=== PATIENT | female | born 1945 | race Caucasian/White ===

== ENCOUNTER → 2017-01-26 | Day surgery (SDC) | payer BC ==
[2017-01-12 15:38] VITALS: Ht 165.1 cm; Wt 59.5 kg
[~2017-01-26] VITALS: Ht 165.1 cm; Wt 59.5 kg
[~2017-01-26] MED LIST: 500ML BSS 0.3ML EPI 1:1000PF IRRIG ONE; ACETAMINOPHEN 325 MG TAB PO PRN; AMLO-114 PO; AMVISC PLUS 0.8ML SYRINGE INT OCU ONE; ASPI-461 PO; ATEN-173 PO; ATOR-22 PO; ATROPINE SULFATE 0.1 MG/ML 5ML SYR IV PRN; AcetaZOLAMIDE 250 MG TAB PO SCH; BETAXOLOL HCL 0.25% OP SUSP PER DROP CHARGE OPR SCH; BRIMONIDINE TART 0.2% OP SOLN PER DROP CHARGE ONE; BSS FLUSH ONE; ENDOCOAT 0.85ML SYRINGE INT OCU ONE; EpHEDrine SULFATE INJ 50 MG/ML AMP IV PRN; EpINEphrine INJ 1MG/ML AMP 1 MG/ML AMP ONE; FENTANYL CITRATE INJ 50 MCG/1 ML 2 ML VIAL IV PRN; FERR1TAB13 PO; FLUMAZENIL 0.1 MG/1 ML 10 ML VIAL IV PRN; HYDROmorphone INJ 2 MG/ML SYR/VIAL IV PRN; LABETALOL HCL IV 5 MG/ML 20ML IV PRN; LACTATED RINGER'S 1000ML 500 ML IV SCH; LIDOCAINE 4% OP SOLN DROP CHARGE ONE; LIDOCAINE 4% OP SOLN DROP CHARGE OPR SCH; LIDOCAINE HCL 1% MPF 2 ML VIAL ONE; LISI40TA PO; MEPERIDINE HCL 25 MG/ML CARP IV PRN; MIDAZOLAM HCL 1 MG/ML 2ML VIAL ONE; MIX: 4ML BSS 1ML EPI 1:1000 PF INSTIL ONE; MOXIFLOXACIN OPH SOLN PER DROP CHARGE ONE; NALOXONE HCL 0.4 MG/1 ML VIAL/CARP IV PRN; OCUCOAT 1 ML SOLN IO ONE; ONDANSETRON INJ 2 MG/ML 2 ML VIAL IV PRN; PHENYLEPHRINE 100MCG/ML 5ML SYR IV PRN; POVIDONE-IODINE OP SOLN 30 ML BTL ONE; PROPARACAINE 0.5% OP SOLN PER DROP CHARGE OPR SCH; TOBRAMYCIN/DEXAMETHASONE OPH OINT PER APPLN CHARGE ONE
[2017-01-26] MEDS: PHENYLEPHRINE HCL 2.5% OP SOLN PER DROP CHARGE OPR SCH ×2 (08:50→08:55)
[2017-01-26] MEDS: TROPICAMIDE 1% OP SOLN PER DROP CHARGE OPR SCH ×2 (08:51→08:56)
[2017-01-26] MEDS: CYCLOPENTOLATE HCL 1% OP SOLN PER DROP CHARGE OPR SCH ×2 (08:52→08:57)
--- NOTE | 2017-01-26 08:52 | History & Physical Bridge - [place] ---
H&P Re-Evaluation Bridge Note: I have examined the patient, reviewed the History & Physical and in the interval since the performance of the History & Physical I have noted the following changes of clinical significance: No changes noted
[2017-01-26] MEDS: MOXIFLOXACIN OPH SOLN PER DROP CHARGE OPR SCH ×2 (08:53→09:03)
--- NOTE | 2017-01-26 10:08 | Discharge Instructions-SurgCtr ---
Discharge Instructions Date of Service Jan 26, 2017. Visit Reason for Visit: Cataract Right Eye Discharge Discharge Diagnosis / Problem: lens implant right eye Discharge Goals Goal(s): Improve function Activity Recommendations Activity Limitations: resume your previous activity Lifting Limitations: no more than 10 pounds Exercise/Sports Limitations: gradually increase as tolerated May Resume Sexual Activity: when tolerated Shower/Bathe: tomorrow Driving or Machine Use: resume 1 day after discharge Anesthesia . Post Anesthesia Instructions: If you have had General Anesthesia or IV Sedation: * Do not drive today. * Resume driving when surgeon permits. * Do not make important decisions or sign legal documents today. * Call surgeon for: 1. Temperature elevations greater than 101 degrees F. 2. Uncontrollable pain. 3. Excessive bleeding. 4. Persistent nausea and vomiting. 5. Medication intolerance (nausea, vomiting or rash). * For nausea and vomiting use only clear liquids such as: tea, soda, bouillon until nausea subsides, then gradually increase diet as tolerated. * If you have any concerns or questions, call your surgeon's office. If physician is unavailable and it is an emergency, call 911 or go to the nearest emergency room. . Instructions / Follow-Up Instructions / Follow-Up ACTIVITY RECOMMENDATIONS: * Light activities. * Mild irritation and blurred vision are common for the first few days. * You may walk outside, read, watch television. * Redness around the white part of the eye is common. MEDICATIONS: Resume previous medications unless instructed otherwise by your surgeon. * Take white Diamox (Acetazolamide) tablet at 1 pm today. Start all eye drops at 1 pm today: * Eye drops (today and tomorrow): Prednisone - one drop in operative eye every 3 hours while awake Ofloxacin - one drop in operative eye every 3 hours while awake SPECIAL CARE INSTRUCTIONS: * Tape plastic shield over eye to sleep at night. Call your doctor at with any concerns or problems. FOLLOW UP VISIT: Follow-up with Dr Torres at [place] office as scheduled. Diet Recommendations Home Diet: no limitations Procedures Procedures Performed: cataract extraction with lens implant Pending Studies Studies pending at discharge: no Medical Emergencies . Who to Call and When: Medical Emergencies: If at any time you feel your situation is an emergency, please call 911 immediately. . Non-Emergent Contact Non-Emergency issues call your: Manufacturing Controller Call Non-Emergent contact if: your pain is not controlled [phone] . . "Provider Documentation" section prepared by Dru Torres. .
--- NOTE | 2017-01-26 10:10 | [facility] Operative Report ---
Operative Report Date of Service Jan 26, 2017. Operative Report 1. PREOPERATIVE DIAGNOSIS: Senile nuclear cataract, right eye. 2. POSTOPERATIVE DIAGNOSIS: Senile nuclear cataract, right eye. 3. PROCEDURE: Phacoemulsification of right cataract with posterior chamber lens implant, type Bausch [employer] Lomb, model Hoya [id number], power +21.5 diopters. ANESTHESIA: Local standby. SURGEON: Dr. Torres. COMPLICATIONS: None. OPERATING TIME: 10 minutes. 4. OPERATION AND FINDINGS: DESCRIPTION OF PROCEDURE: The right pupil was dilated. The anesthetic was administered using a topical technique. The right eye was prepped and draped. A speculum was placed. A clear corneal incision was formed. The chamber was filled with Amvisc Plus and Endocoat. Epinephrine solution was used. A paracentesis was placed. A capsulorrhexis was performed. The nucleus was hydrodissected. The lens was removed with phacoemulsification. Time was 2.86 seconds. The aspiration unit was used to remove the cortex. The capsule was filled with Amvisc Plus. The lens implant was folded and placed into the capsule. The incision was hydrated. The Amvisc was aspirated. The wound was secure. The chamber was deep. The pupil was round. Brimonidine, TobraDex ointment and Vigamox solution were placed. The speculum was removed. The patient was returned to the Recovery Room in stable condition. I attest to the content of the Intraoperative Record and any orders documented therein. Any exceptions are noted below. The scribe's documentation has been prepared in my presence, under my direction and personally reviewed by me in its entirety. I confirm that the note above accurately reflects all work, treatment, procedures, and medical decision making performed by me. I personally scribed for Dru Torres M.D. ([email or web address]) on 01/26/17 at 10:10. Electronically submitted by Nia Street ([email or web address]).
[2017-01-26 10:14] VITALS: TEMP 36
--- NOTE | 2017-01-26 10:29 | Anesthesia Progress Nt - [facility] ---
Anesthesia Post Op Note Date & Time Jan 26, 2017 at 10:29 Vital Signs Pain Intensity: 0 Vital Signs Past 12 Hours Date Time Temp Pulse Resp B/P (MAP) Pulse Ox O2 Delivery O2 Flow Rate FiO2 01/26/17 10:14 36 43 16 145/59 (87) 98 Room Air 01/26/17 08:41 36.6 53 16 133/76 (95) 96 Room Air Notes Mental Status: alert / awake / arousable, participated in evaluation Pt Amnestic to Procedure: Yes Nausea / Vomiting: adequately controlled Pain: adequately controlled Airway Patency, RR, SpO2: stable & adequate BP & HR: stable & adequate Hydration State: stable & adequate Anesthetic Complications: no major complications apparent
[2017-01-26 10:31] VITALS: BP 124/71; PULSE 45; O2SAT 96
== END | disposition home or self-care (01) ==
LOC: X.SURG 08:16
PROVIDERS: ATTEND Specialist
DX: H25.11 Age-related nuclear cataract, right eye (principal); I25.2 Old myocardial infarction; E78.00 Pure hypercholesterolemia, unspecified; Z79.82 Long term (current) use of aspirin; J44.9 Chronic obstructive pulmonary disease, unspecified; F17.200 Nicotine dependence, unspecified, uncomplicated

== ENCOUNTER → 2017-02-16 | Day surgery (SDC) | payer BC ==
[2017-02-04 13:37] VITALS: Ht 165.1 cm; Wt 59.5 kg
[~2017-02-16] VITALS: Ht 165.1 cm; Wt 59.5 kg
[~2017-02-16] MED LIST changes: +BETAXOLOL HCL 0.25% OP SUSP PER DROP CHARGE OPL SCH; -BETAXOLOL HCL 0.25% OP SUSP PER DROP CHARGE OPR SCH; -FENTANYL CITRATE INJ 50 MCG/1 ML 2 ML VIAL IV PRN; -FLUMAZENIL 0.1 MG/1 ML 10 ML VIAL IV PRN; -HYDROmorphone INJ 2 MG/ML SYR/VIAL IV PRN; -LABETALOL HCL IV 5 MG/ML 20ML IV PRN; +LIDOCAINE 4% OP SOLN DROP CHARGE OPL SCH; -LIDOCAINE 4% OP SOLN DROP CHARGE OPR SCH; -MEPERIDINE HCL 25 MG/ML CARP IV PRN; -NALOXONE HCL 0.4 MG/1 ML VIAL/CARP IV PRN; -ONDANSETRON INJ 2 MG/ML 2 ML VIAL IV PRN; -PHENYLEPHRINE 100MCG/ML 5ML SYR IV PRN; +PROPARACAINE 0.5% OP SOLN PER DROP CHARGE OPL SCH; -PROPARACAINE 0.5% OP SOLN PER DROP CHARGE OPR SCH
[2017-02-16] MEDS: PHENYLEPHRINE HCL 2.5% OP SOLN PER DROP CHARGE OPL SCH ×2 (11:06→11:11)
[2017-02-16] MEDS: TROPICAMIDE 1% OP SOLN PER DROP CHARGE OPL SCH ×2 (11:07→11:12)
[2017-02-16] MEDS: CYCLOPENTOLATE HCL 1% OP SOLN PER DROP CHARGE OPL SCH ×2 (11:08→11:13)
[2017-02-16] MEDS: MOXIFLOXACIN OPH SOLN PER DROP CHARGE OPL SCH ×2 (11:09→11:15)
--- NOTE | 2017-02-16 12:10 | Discharge Instructions-SurgCtr ---
Discharge Instructions Date of Service Feb 16, 2017. Visit Reason for Visit: Cataract Left Eye Discharge Discharge Diagnosis / Problem: lens implant left eye Discharge Goals Goal(s): Improve function Activity Recommendations Activity Limitations: resume your previous activity Lifting Limitations: no more than 10 pounds Exercise/Sports Limitations: gradually increase as tolerated May Resume Sexual Activity: when tolerated Shower/Bathe: tomorrow Driving or Machine Use: resume 1 day after discharge Anesthesia . Post Anesthesia Instructions: If you have had General Anesthesia or IV Sedation: * Do not drive today. * Resume driving when surgeon permits. * Do not make important decisions or sign legal documents today. * Call surgeon for: 1. Temperature elevations greater than 101 degrees F. 2. Uncontrollable pain. 3. Excessive bleeding. 4. Persistent nausea and vomiting. 5. Medication intolerance (nausea, vomiting or rash). * For nausea and vomiting use only clear liquids such as: tea, soda, bouillon until nausea subsides, then gradually increase diet as tolerated. * If you have any concerns or questions, call your surgeon's office. If physician is unavailable and it is an emergency, call 911 or go to the nearest emergency room. . Instructions / Follow-Up Instructions / Follow-Up ACTIVITY RECOMMENDATIONS: * Light activities. * Mild irritation and blurred vision are common for the first few days. * You may walk outside, read, watch television. * Redness around the white part of the eye is common. MEDICATIONS: Resume previous medications unless instructed otherwise by your surgeon. * Take white Diamox (Acetazolamide) tablet at 3 pm today. Start all eye drops at 3 pm today: * Eye drops (today and tomorrow): Prednisone - one drop in operative eye every 3 hours while awake Ofloxacin - one drop in operative eye every 3 hours while awake SPECIAL CARE INSTRUCTIONS: * Tape plastic shield over eye to sleep at night. Call your doctor at with any concerns or problems. FOLLOW UP VISIT: Follow-up with Dr Torres at [place] office as scheduled. Diet Recommendations Home Diet: no limitations Procedures Procedures Performed: cataract extraction with lens implant Pending Studies Studies pending at discharge: no Medical Emergencies . Who to Call and When: Medical Emergencies: If at any time you feel your situation is an emergency, please call 911 immediately. . Non-Emergent Contact Non-Emergency issues call your: Cloth Brushing And Sueding Supervisor Call Non-Emergent contact if: your pain is not controlled [phone] . . "Provider Documentation" section prepared by Dru Torres. .
--- NOTE | 2017-02-16 12:12 | [facility] Operative Report ---
Operative Report Date of Service Feb 16, 2017. Operative Report 1. PREOPERATIVE DIAGNOSIS: Senile nuclear cataract, left eye. 2. POSTOPERATIVE DIAGNOSIS: Senile nuclear cataract, left eye. 3. PROCEDURE: Phacoemulsification of left cataract with posterior chamber lens implant, type Bausch & Lomb, model Hoya [id number], power +22.0 diopters. ANESTHESIA: Local standby. SURGEON: Dr. Torres. COMPLICATIONS: None. OPERATING TIME: 10 minutes. 4. OPERATION AND FINDINGS: DESCRIPTION OF PROCEDURE: The left pupil was dilated. The anesthetic was administered using a topical technique. The left eye was prepped and draped. A speculum was placed. A clear corneal incision was formed. The chamber was filled with Amvisc Plus and Endocoat. Epinephrine solution was used. A paracentesis was placed. A capsulorrhexis was performed. The nucleus was hydrodissected. The lens was removed with phacoemulsification. Time was 1.68 seconds. The aspiration unit was used to remove the cortex. The capsule was filled with Amvisc Plus. The lens implant was folded and placed into the capsule. The incision was hydrated. The Amvisc was aspirated. The wound was secure. The chamber was deep. The pupil was round. Brimonidine, TobraDex ointment and Vigamox solution were placed. The speculum was removed. The patient was returned to the Recovery Room in stable condition. I attest to the content of the Intraoperative Record and any orders documented therein. Any exceptions are noted below. The scribe's documentation has been prepared in my presence, under my direction and personally reviewed by me in its entirety. I confirm that the note above accurately reflects all work, treatment, procedures, and medical decision making performed by me. I personally scribed for Dru Torres M.D. ([email or web address]) on 02/16/17 at 12:12. Electronically submitted by Nia Street ([email or web address]).
[2017-02-16 12:13] VITALS: TEMP 36.7
[2017-02-16 12:31] VITALS: BP 149/82; PULSE 52; O2SAT 97
--- NOTE | 2017-02-16 12:38 | Anesthesia Progress Nt - [facility] ---
Anesthesia Post Op Note Date & Time Feb 16, 2017 at 12:37 Vital Signs Pain Intensity: 0 Vital Signs Past 12 Hours Date Time Temp Pulse Resp B/P (MAP) Pulse Ox O2 Delivery O2 Flow Rate FiO2 02/16/17 12:31 52 16 149/82 (104) 97 Room Air 02/16/17 12:13 36.7 42 14 142/76 (98) 98 Room Air 02/16/17 10:52 36.5 53 20 142/79 (100) 95 Room Air Notes Mental Status: alert / awake / arousable, participated in evaluation Pt Amnestic to Procedure: Yes Nausea / Vomiting: adequately controlled Pain: adequately controlled Airway Patency, RR, SpO2: stable & adequate BP & HR: stable & adequate Hydration State: stable & adequate Anesthetic Complications: no major complications apparent
== END | disposition home or self-care (01) ==
LOC: X.SURG 10:26
PROVIDERS: ATTEND Specialist
DX: H25.12 Age-related nuclear cataract, left eye (principal); I10 Essential (primary) hypertension; E78.5 Hyperlipidemia, unspecified; I25.10 Atherosclerotic heart disease of native coronary artery without angina pectoris; F17.200 Nicotine dependence, unspecified, uncomplicated; Z90.89 Acquired absence of other organs; Z98.890 Other specified postprocedural states

== ENCOUNTER → 2017-09-06 | Outpatient (CLI) | payer BC ==
[~2017-09-06] MED LIST changes: -500ML BSS 0.3ML EPI 1:1000PF IRRIG ONE; -ACETAMINOPHEN 325 MG TAB PO PRN; -AMVISC PLUS 0.8ML SYRINGE INT OCU ONE; -ATROPINE SULFATE 0.1 MG/ML 5ML SYR IV PRN; -AcetaZOLAMIDE 250 MG TAB PO SCH; -BETAXOLOL HCL 0.25% OP SUSP PER DROP CHARGE OPL SCH; -BRIMONIDINE TART 0.2% OP SOLN PER DROP CHARGE ONE; -BSS FLUSH ONE; -ENDOCOAT 0.85ML SYRINGE INT OCU ONE; -EpHEDrine SULFATE INJ 50 MG/ML AMP IV PRN; -EpINEphrine INJ 1MG/ML AMP 1 MG/ML AMP ONE; -LACTATED RINGER'S 1000ML 500 ML IV SCH; -LIDOCAINE 4% OP SOLN DROP CHARGE ONE; -LIDOCAINE 4% OP SOLN DROP CHARGE OPL SCH; -LIDOCAINE HCL 1% MPF 2 ML VIAL ONE; -MIDAZOLAM HCL 1 MG/ML 2ML VIAL ONE; -MIX: 4ML BSS 1ML EPI 1:1000 PF INSTIL ONE; -MOXIFLOXACIN OPH SOLN PER DROP CHARGE ONE; -OCUCOAT 1 ML SOLN IO ONE; -POVIDONE-IODINE OP SOLN 30 ML BTL ONE; -PROPARACAINE 0.5% OP SOLN PER DROP CHARGE OPL SCH; -TOBRAMYCIN/DEXAMETHASONE OPH OINT PER APPLN CHARGE ONE
--- NOTE | 2017-09-06 15:51 | ECHOCARDIOGRAM REPORT ---
*NOTICE TO RECEIVING CONSTITUTION PARTY AGENCY This information is strictly Confidential and protected under [place] law. [place] law prohibits you from making any further disclosure of this information unless further disclosure is expressly permitted by the written consent of the person to whom it pertains or is authorized by law. A general authorization for the release of medical or other information is not sufficient for this purpose. Hospital accepts no responsibility if the information is made available to any other person, INCLUDING THE PATIENT. Interpretation Summary * Name: FLORA AMIN Study Date: 09/06/2017 12:43 PM BP: 164/90 mmHg * Patient Location: [facility] HR: 73 * : 1945 (M/d/yyyy) Gender: Female Height: 65 in * Age: 72 yrs Ethnicity: [place] Weight: 132 lb * Ordering Physician: Mary Mccauley * Referring Physician: Mary Mccauley PA-C * Performed By: Kasandra Burch RDCS * * Reason For Study: CAD, Abnormal EKG, Pre-op * BSA: 1.7 m2 * -- Conclusions -- * Normal LV chamber size with mild concentric.LVH. * Normal LV systolic function, EF 60-65%. * Akinesis of the basal inferior wall, otherwise, normal wall motion. * Grade I diastolic dysfunction. * Aortic valve sclerosis mild, without significant aortic valvular stenosis. Procedure Details * A complete two-dimensional transthoracic echocardiogram was performed (2D, M-mode, Doppler and color flow Doppler). Left Ventricle * The left ventricle is normal in size. * There is mild concentric left ventricular hypertrophy. * Left ventricular systolic function is normal. * Ejection Fraction = 60-65%. * Akinesis of the basal inferior wall, otherwise, normal wall motion. Right Ventricle * The right ventricular cavity size is normal (basal dimension <4.2 cm in right ventricular apical 4-chamber view). * The right ventricular systolic function is normal as assessed by tricuspid annular plane systolic excursion (TAPSE) (normal >1.5 cm). Atria * The left atrial size is normal. * Right atrial size is normal. * No ASD detected; PFO is not assessed. * Lipomatous hypertrophy of the interatrial septum is noted. Mitral Valve * The mitral valve is normal in structure and function. Tricuspid Valve * The tricuspid valve is normal in structure and function. Aortic Valve * The aortic valve is trileaflet. * Aortic valve sclerosis mild, without significant aortic valvular stenosis. * There is no significant aortic regurgitation. Pulmonic Valve * The pulmonary valve is not well seen, but the Doppler examination is normal without significant regurgitation or stenosis. Great Vessels * The aortic root is normal size. Pericardium/Pleural * There is no pericardial effusion. Left Ventricular Diastolic Function * Grade I diastolic dysfunction, (abnormal relaxation pattern). MMode 2D Measurements and Calculations IVSd 1.1 cm LVIDd 4.1 cm LVIDs 2.7 cm LVPWd 1.0 cm IVS/LVPW 1.1 FS 33.7 % EDV(Teich) 74.9 ml ESV(Teich) 27.7 ml EF(Teich) 63.0 % EDV(cubed) 69.7 ml ESV(cubed) 20.3 ml EF(cubed) 70.9 % LV mass(C)d 147.6 grams LV mass(C)dI 89.0 grams/m\S\2 SV(Teich) 47.2 ml SI(Teich) 28.5 ml/m\S\2 SV(cubed) 49.4 ml SI(cubed) 29.8 ml/m\S\2 Ao root diam 3.6 cm Ao root area 10.4 cm\S\2 ACS 1.6 cm LA dimension 3.4 cm asc Aorta Diam 2.5 cm LA/Ao 0.92 LVOT diam 2.0 cm LVOT area 3.2 cm\S\2 LVAd ap4 27.6 cm\S\2 LVLd ap4 7.7 cm EDV(MOD-sp4) 81.2 ml EDV(sp4-el) 84.6 ml LVAs ap4 13.9 cm\S\2 LVLs ap4 6.4 cm ESV(MOD-sp4) 28.0 ml ESV(sp4-el) 25.8 ml EF(MOD-sp4) 65.5 % EF(sp4-el) 69.5 % LVAd ap2 25.5 cm\S\2 LVLd ap2 7.6 cm EDV(MOD-sp2) 72.0 ml EDV(sp2-el) 73.2 ml LVAs ap2 13.8 cm\S\2 LVLs ap2 6.1 cm ESV(MOD-sp2) 27.2 ml ESV(sp2-el) 26.6 ml EF(MOD-sp2) 62.2 % EF(sp2-el) 63.7 % LVLd %diff -1.18 % EDV(MOD-bp) 77.0 ml LVLs %diff -5.12 % ESV(MOD-bp) 27.5 ml EF(MOD-bp) 64.3 % SV(MOD-sp4) 53.1 ml SI(MOD-sp4) 32.1 ml/m\S\2 SV(MOD-sp2) 44.8 ml SI(MOD-sp2) 27.0 ml/m\S\2 SV(MOD-bp) 49.5 ml SI(MOD-bp) 29.8 ml/m\S\2 SV(sp4-el) 58.8 ml SI(sp4-el) 35.5 ml/m\S\2 SV(sp2-el) 46.6 ml SI(sp2-el) 28.1 ml/m\S\2 Doppler Measurements and Calculations MV E max angel 64.7 cm/sec MV A max angel 87.9 cm/sec MV E/A 0.74 MV dec time 0.25 sec Ao V2 max 193.0 cm/sec Ao max PG 14.9 mmHg Ao max PG (full) 12.6 mmHg Ao V2 mean 118.3 cm/sec Ao mean PG 6.8 mmHg Ao V2 VTI 28.5 cm ILSA(V,A) 1.2 cm\S\2 ILSA(V,D) 1.2 cm\S\2 AI max angel 477.9 cm/sec AI max PG 91.3 mmHg AI dec slope 166.5 cm/sec\S\2 AI P1/2t 840.7 msec LV V1 max PG 2.3 mmHg LV V1 max 76.0 cm/sec SV(Ao) 295.8 ml SI(Ao) 178.4 ml/m\S\2 PA V2 max 111.3 cm/sec PA max PG 5.0 mmHg PA acc slope 614.1 cm/sec\S\2 PA acc time 0.15 sec TR max angel 249.5 cm/sec PA pr(Accel) 10.3 mmHg
== END | disposition home or self-care (01) ==
LOC: C.CPL 12:26
PROVIDERS: ATTEND Physician Assistant
DX: Z01.818 Encounter for other preprocedural examination (principal); M72.0 Palmar fascial fibromatosis [Dupuytren]; R94.31 Abnormal electrocardiogram [ECG] [EKG]; E78.5 Hyperlipidemia, unspecified; Z98.890 Other specified postprocedural states; I10 Essential (primary) hypertension; F17.200 Nicotine dependence, unspecified, uncomplicated; Z98.62 Peripheral vascular angioplasty status; R07.89 Other chest pain; I49.1 Atrial premature depolarization

== ENCOUNTER 2021-04-02 14:09 | Inpatient (IN) ==
--- NOTE | 2021-04-02 14:14 | Emergency Department Note ---
Impression & Plan Acute hypoxemic respiratory failure, Acute exacerbation of chronic obstructive pulmonary disease (COPD), Localized swelling of both lower legs, Encounter for smoking cessation counseling, Acute hypokalemia ED Provider Note NAME: FLORA AMIN AGE: 75 SEX: F : 1945 ARRIVES VIA: Ambulance INFORMANT: Patient, ED PROVIDER(S): Bridger Mccarty MD Chief Complaint: Shortness of breath, leg swelling HPI: Patient does present with worsening shortness of breath and leg swelling which made it somewhat difficult to ambulate. The patient is noticed leg swelling in the bilateral lower extremities x1 week. Patient does have a known history of COPD is a smoker and has a prior history of CAD. Patient is vaccinated for COVID-19. The patient was seen in the outpatient setting due to concern for the leg swelling was referred here the patient was noted to be in A. fib with RVR. Patient is not on a blood thinner. The patient did have a recent resection of a meningioma completed at [facility] at the end of January. The patient denies any headache neck pain or chest pain. Patient has any nausea vomiting. Patient has any fevers or chills. Patient states that she does not have any orthopnea but does have dyspnea on exertion. Patient states that lying flat seems to improve her symptoms. Patient otherwise has been compliant with her medications. Patient had been on a baby aspirin prior to her procedure but has not returned back on the aspirin. ROS: See HPI for pertinent positives and negatives. A total of 10 systems were reviewed and otherwise negative. Past medical history: See below Surgical history: See below Social history: See below Physical Exam: GENERAL: Mildly ill in appearance, conversational dyspnea noted. Wearing a mask, nasal cannula in place. EYE EXAM: Normal conjunctiva. PERRL, no anisocoria and EOM's grossly intact w/o pain. NECK: Supple, no nuchal rigidity, no adenopathy, non-tender. No signs of meningismus. LUNGS: Coarse sounds with wheezing throughout. Tachypnea noted. HEART: Irregular irregular, no MRG. ABDOMEN: Abdomen soft, non-tender, normo-active bowel sounds, no masses, no rebound or guarding. BACK: No CVA TTP. SKIN: No rashes and no bruising. UPPER EXTREMITIES: Upper extremities are grossly normal. LOWER EXTREMITIES: Grossly normal, 2+ bilateral symmetric lower extremity edema with negative Homans' sign and no erythema. NEURO EXAM: A&O x3, cranial nerves II-XII grossly intact, normal speech, moves all 4 extremities on command w/o issue. Differential diagnoses: Reactive airway disease, pneumonia, pneumothorax, COPD, CHF, infections, cardiac ischemia, pulmonary embolism, musculoskeletal, gastrointestinal, as well as other pathologies. Course: Patient was seen and evaluated the bedside. Full history physical exam was performed. EKG interpreted by me A. fib, rate 96, normal QRS interval, slight depression in the lateral leads. Imaging Studies: See Below Cardiac monitoring: An order was placed for continuous cardiac monitoring. The monitor shows a rate of 82 with irregular rhythm. MDM: Patient was seen due to concern for irregular heartbeat and shortness of breath. The patient was placed on supplemental oxygen as the patient did have hypoxemia at 86% and the patient does not wear oxygen at home. The patient is a smoker. Blood work was obtained along with chest x-ray and the patient did have breathing treatment steroids and magnesium ordered. Patient has mild leukopenia with a normal H&H and platelet count. The patient's VBG does not show any retention. Patient does have elevated bicarb likely consistent with patient's COPD. Hypokalemia is noted. BNP is elevated with detectable troponin but is not elevated. Covid negative. Chest x-ray shows cardiomegaly with mild central vascular congestion. On reassessment the patient did feel improved. I did speak the on-call hospitalist Roxanne Lacy PA-C and the patient was admitted by Dr. Williamson. Lasix 20 mg IV ordered. EKG shows likely A. fib with slight depression in V5 and V6. Patient denies any chest pains. Troponin is not elevated. Prior to the admission I had spoken with Esteban Dave with neurosurgery as the patient had had a meningio ma resection toward the end of January. Dr. 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 I did convey this to the patient to she is amenable to starting anticoagulation if needed. The patient does have a [id number] score which would recommend anticoagulation in order to avoid stroke. Patient was counseled on smoking cessation. Patient was admitted to the medicine service. Anticoagulation was deferred to the inpatient team. Critical Care: I have personally spent 46 minutes of critical care time in direct management of this patient. This includes bedside care, interpretation of diagnostic studies, and testing, discussion with consultants, patient, and family members, and other require inpatient management activities. This 46 minutes is in excess of all separately billable procedures. Past Med/Surg History Medical History Abdominal pain Anxiety CAD (coronary artery disease) Chronic obstructive pulmonary disease STOPPED USING INHALER-"DOESN'T NEED IT" Current every day smoker Hyperlipidemia Hypertension Kidney stone Myocardial Infarction x 2 F/U MAGDA FUNG Surgical History History of cardiac cath - [place] - Esteban Levin - angioplasty, no stents (reports [place] following procedure as well) - follows w/ Dr. Mccauley. 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 [facility] [place] Family History Son Family history of diabetes mellitus Social History Smoking Status: Current every day smoker Tobacco Type: Cigarettes Cigarettes Per Day: 6 -10 CIGS A DAY; Second Hand Exposure: No; Hx Alcohol Use: Yes Alcohol type: beer Hx Substance Use: No Preferred Language: Afghan Communication Ability: Effective Back Facer Required: No Beliefs That Will Affect Care: None Current Living Situation: Alone Current Living Situation Comment: dtr lives w/ pt Feels Safe at Home: Yes Assistive Devices: Denture - Upper, Denture - Lower and Glasses Allergies Allergies Allergy/AdvReac Type Severity Reaction Status Date / Time No Known Allergies Allergy Unknown Verified 04/02/21 15:09 Home Meds Home Medications Medication Instructions Recorded Confirmed amlodipine 10 mg tablet (Norvasc) 10 mg PO QAM 12/18/18 04/02/21 aspirin 81 mg tablet,delayed 81 mg PO QAM 12/18/18 04/02/21 release atenolol 25 mg tablet 12.5 mg PO QAM 12/18/18 04/02/21 lisinopril 40 mg tablet 40 mg PO QAM 12/18/18 04/02/21 albuterol sulfate 90 mcg/actuation 1 puff INHALATION QID PRN 04/04/19 04/02/21 aerosol inhaler atorvastatin 80 mg tablet 80 mg PO QAM 04/04/19 04/02/21 duloxetine 20 mg capsule,delayed 20 mg PO QAM 04/04/19 04/02/21 release (Cymbalta) alendronate 70 mg tablet 70 mg PO DAILY 04/02/21 04/02/21 cholecalciferol (vitamin D3) 25 25 mcg PO DAILY 04/02/21 04/02/21 mcg (1,000 unit) tablet levetiracetam 500 mg tablet 500 mg PO Q12H 04/02/21 04/02/21 nitroglycerin 0.4 mg sublingual 0.4 mg SUBLINGUAL DAILY PRN 04/02/21 04/02/21 tablet (Nitrostat) oxycodone 5 mg tablet 5 mg PO BID PRN 04/02/21 04/02/21 polyethylene glycol 3350 17 gram 17 g PO DAILY 04/02/21 04/02/21 oral powder packet (Miralax) trazodone 50 mg tablet 50 mg PO DAILY 04/02/21 04/02/21 Results & Data (ED) Vital Signs Vital Signs - 24 hr 04/02/21 14:24 04/02/21 14:31 04/02/21 14:49 Temperature 37.5 C Temperature Source Oral Pulse Rate 96 H 92 H Pulse Rate [Left Apical] 83 Pulse Rhythm Regular Pulse Rhythm [Left Apical] Irregular Pulse Strength Normal Pulse Strength [Left Apical] Respiratory Rate 28 H 28 H 27 H Respiratory Effort / Characteristics Short of Breath Respiratory Depth Shallow Respiratory Pattern Tachypnea Blood Pressure 146/80 H Blood Pressure [Left Arm] Blood Pressure Mean 102 Blood Pressure Mean [Left Arm] Blood Pressure Position Lying Blood Pressure Position [Left Arm] Pulse Oximetry 86 L 91 80 L Oxygen Delivery Method Room Air Nasal Cannula Oxygen Flow Rate 3 2 Sepsis Recent Fever Within 48 Hours No Sepsis New/Unexplained Change in Mental Status No Sepsis Action Taken by Nursing No Action Required Oxygen Flow Rate - Titration Pulse Oximetry Post Tiitration 04/02/21 14:57 04/02/21 14:58 04/02/21 15:00 Temperature Temperature Source Pulse Rate 78 Pulse Rate [Left Apical] Pulse Rhythm Pulse Rhythm [Left Apical] Pulse Strength Pulse Strength [Left Apical] Respiratory Rate 28 H Respiratory Effort / Characteristics Short of Breath Respiratory Depth Shallow Respiratory Pattern Tachypnea Blood Pressure 116/76 Blood Pressure [Left Arm] Blood Pressure Mean 89 Blood Pressure Mean [Left Arm] Blood Pressure Position Blood Pressure Position [Left Arm] Pulse Oximetry 89 L 85 L Oxygen Delivery Method Nasal Cannula Nasal Cannula Oxygen Flow Rate 3 2 4 Sepsis Recent Fever Within 48 Hours Sepsis New/Unexplained Change in Mental Status Sepsis Action Taken by Nursing Oxygen Flow Rate - Titration 3 Pulse Oximetry Post Tiitration 91 04/02/21 15:22 Temperature Temperature Source Pulse Rate Pulse Rate [Left Apical] 81 Pulse Rhythm Pulse Rhythm [Left Apical] Irregular Pulse Strength Pulse Strength [Left Apical] Normal Respiratory Rate 26 H Respiratory Effort / Characteristics Non-Labored Respiratory Depth Normal Respiratory Pattern Tachypnea Blood Pressure Blood Pressure [Left Arm] 116/76 Blood Pressure Mean Blood Pressure Mean [Left Arm] 89 Blood Pressure Position Blood Pressure Position [Left Arm] Sitting Pulse Oximetry 96 Oxygen Delivery Method Nasal Cannula Oxygen Flow Rate 4 Sepsis Recent Fever Within 48 Hours Sepsis New/Unexplained Change in Mental Status Sepsis Action Taken by Nursing Oxygen Flow Rate - Titration Pulse Oximetry Post Tiitration Home Medications Current Medication List: was personally reviewed by me Laboratory Data Attestation: I reviewed the patient's lab results. Result diagrams: 04/02/21 14:22 04/02/21 14:22 Lab Results 04/02/21 04/02/21 04/02/21 Range/Units 14:22 14:22 14:45 WBC 4.67 L (4.8-10.8) K/uL RBC 4.34 (4.2-5.4) M/uL Hgb 9.0 L (12.0-16.0) g/dL Hct 31.9 L (37-47) % MCV 73.5 L (80-100) fL MCH 20.7 L (25-34) pg MCHC 28.2 L (32-36) g/dL RDW Std Deviation 55.4 H (36.4-46.3) fL RDW Coeff of [place] 20.4 H (11.5-14.5) % Plt Count 228 (130-400) K/uL MPV 10.2 (7.4-10.4) fL Immature Gran % (Auto) 0.2 % Neut % (Auto) 80.6 % Lymph % (Auto) 11.1 % [place] % (Auto) 7.7 % Eos % (Auto) 0.2 % Baso % (Auto) 0.2 % Neut # (Auto) 3.76 (1.4-6.5) K/uL Lymph # (Auto) 0.52 L (1.2-3.4) K/uL [place] # (Auto) 0.36 (0.11-0.59) K/uL Eos # (Auto) 0.01 (0-0.5) K/uL Baso # (Auto) 0.01 (0-0.2) K/uL Immature Gran # (Auto) 0.01 (0.00-0.02) K/uL Hypochromasia Present Anisocytosis Present Microcytosis Present Ovalocytes 1+ VBG pH (7.36-7.41) VBG pCO2 (38-50) mmHg VBG pO2 mmHg VBG HCO3 mmol/L VBG O2 Saturation % VBG Base Excess mEq/L Barometric Pressure mm/Hg Sodium 139 (136-145) mmol/L Potassium 3.2 L (3.5-5.1) mmol/L Chloride 105 (98-107) mmol/L Carbon Dioxide 33 H (21-32) mmol/L Anion Gap 1.0 L (3-11) BUN 15 (7-18) mg/dl Creatinine 0.67 (0.6-1.2) mg/dl Est Cr Clr Drug Dosing 67.3 ml/min Est GFR ( Amer) 101.1 ml/min Est GFR (Non-Af Amer) 87.2 ml/min BUN/Creatinine Ratio 22.2 H (10-20) Glucose 146 H (70-99) mg/dl Calcium 9.3 (8.5-10.1) mg/dl Magnesium 2.1 (1.8-2.4) mg/dl Total Bilirubin 0.4 (0.2-1) mg/dl AST 7 L (15-37) U/L ALT 16 (12-78) U/L Alkaline Phosphatase 80 (45-117) U/L Troponin I 0.026 (0-0.045) ng/ml NT-Pro-B Natriuret Pep 3067 H (0-900) pg/ml Total Protein 6.9 (6.4-8.2) gm/dl Albumin 3.3 L (3.4-5.0) gm/dl Globulin 3.6 (2.5-4.0) gm/dl Albumin/Globulin Ratio 0.9 (0.9-2) SARS-CoV-2, RNA, NAAT NEGATIVE (NEGATIVE) 04/02/21 Range/Units 15:02 WBC (4.8-10.8) K/uL RBC (4.2-5.4) M/uL Hgb (12.0-16.0) g/dL Hct (37-47) % MCV (80-100) fL MCH (25-34) pg MCHC (32-36) g/dL RDW Std Deviation (36.4-46.3) fL RDW Coeff of [place] (11.5-14.5) % Plt Count (130-400) K/uL MPV (7.4-10.4) fL Immature Gran % (Auto) % Neut % (Auto) % Lymph % (Auto) % [place] % (Auto) % Eos % (Auto) % Baso % (Auto) % Neut # (Auto) (1.4-6.5) K/uL Lymph # (Auto) (1.2-3.4) K/uL [place] # (Auto) (0.11-0.59) K/uL Eos # (Auto) (0-0.5) K/uL Baso # (Auto) (0-0.2) K/uL Immature Gran # (Auto) (0.00-0.02) K/uL Hypochromasia Anisocytosis Microcytosis Ovalocytes VBG pH 7.41 (7.36-7.41) VBG pCO2 50 (38-50) mmHg VBG pO2 26 mmHg VBG HCO3 31 mmol/L VBG O2 Saturation < 60.0 % VBG Base Excess 5.5 mEq/L Barometric Pressure 722.0 mm/Hg Sodium (136-145) mmol/L Potassium (3.5-5.1) mmol/L Chloride (98-107) mmol/L Carbon Dioxide (21-32) mmol/L Anion Gap (3-11) BUN (7-18) mg/dl Creatinine (0.6-1.2) mg/dl Est Cr Clr Drug Dosing ml/min Est GFR ( Amer) ml/min Est GFR (Non-Af Amer) ml/min BUN/Creatinine Ratio (10-20) Glucose (70-99) mg/dl Calcium (8.5-10.1) mg/dl Magnesium (1.8-2.4) mg/dl Total Bilirubin (0.2-1) mg/dl AST (15-37) U/L ALT (12-78) U/L Alkaline Phosphatase (45-117) U/L Troponin I (0-0.045) ng/ml NT-Pro-B Natriuret Pep (0-900) pg/ml Total Protein (6.4-8.2) gm/dl Albumin (3.4-5.0) gm/dl Globulin (2.5-4.0) gm/dl Albumin/Globulin Ratio (0.9-2) SARS-CoV-2, RNA, NAAT (NEGATIVE) Administered Medications Heparin Sodium/Dextrose (Heparin Sodium/Dextrose) 25,000 units in 500 mls @ 22 mls/hr IV .[id number] [facility]; Protocol Stop: 05/02/21 15:59 Last Admin: 04/02/21 16:28 Dose: 1,100 units/hr, 22 mls/hr Documented by: [id number] Cosigned by: [id number] Discontinued Medications Atenolol (Atenolol 25 Mg Tablet) 12.5 mg PO NOW ONE Stop: 04/02/21 17:01 Last Admin: 04/02/21 17:34 Dose: 12.5 mg Documented by: [id number] Furosemide (Furosemide Inj 20 Mg/2 Ml Vial) 20 mg IV ONE ONE Stop: 04/02/21 15:37 Last Admin: 04/02/21 16:26 Dose: 20 mg Documented by: [id number] Heparin Sodium/Dextrose (Heparin Iv Adult Wt-Based Standard *No* Bolus Protocol) 1 ea N/A ONE ONE; Protocol Stop: 04/02/21 15:52 Last Admin: 04/02/21 16:34 Dose: 1 ea Documented by: [id number] Heparin Sodium/Dextrose (Heparin 24820 Unit/500 Ml D5w) Confirm Administered Dose 25,000 units IV .STK-MED ONE Stop: 04/02/21 16:19 Last Admin: 04/02/21 16:34 Dose: Not Given Documented by: [id number] Magnesium Sulfate/Dextrose (Magnesium Sulfate / D5w) 1 gm in 100 mls @ 100 mls/hr IV NOW STA Stop: 04/02/21 15:21 Last Infusion: 04/02/21 16:04 Dose: 0 mls/hr Documented by: [id number] Admin: 04/02/21 14:48 Dose: 100 mls/hr Documented by: [id number] Levalbuterol HCl (Levalbuterol Hcl 1.25 Mg/3 Ml Neb) 3 mg NEB NOW STA Stop: 04/02/21 14:22 Last Admin: 04/02/21 15:00 Dose: 3 mg Documented by: [id number] Methylprednisolone (Methylprednisolone 125 Mg/2 Ml Vial) 60 mg IV NOW STA Stop: 04/02/21 14:22 Last Admin: 04/02/21 14:48 Dose: 60 mg Documented by: [id number] Imaging Data Radiologist's Impression: Chest X-Ray 04/02/21 14:21 XR chest 1V portable CLINICAL HISTORY: Dyspnea. Rapid A. fib. Shortness of breath and bilateral lower extremity edema. COMPARISON STUDY: 07/23/2010 TECHNIQUE: 1 view of the chest FINDINGS: Single frontal view of the chest demonstrates the heart size to be enlarged. There is evidence for mild central vascular congestion. There is no evidence for diffuse interstitial edema. There is no evidence for pleural effusion. No confluent alveolar opacities are identified. There is no acute osseous pathology. IMPRESSION: Cardiomegaly with mild central vascular congestion. ACT 112: Negative or not required by law. Electronically signed by: Jerry Graves M.D. 04/02/2021 2:39 PM Discharge Plan Visit Data Chief Complaint: Shortness of Breath/Dyspnea Stated Complaint: SOB; New onset AFib ED Provider: Bridger Mccarty Discharge Problem: Acute hypoxemic respiratory failure, Acute exacerbation of chronic obstructive pulmonary disease (COPD), Localized swelling of both lower legs, Encounter for smoking cessation counseling, Acute hypokalemia
[2021-04-02] MEDS ORDERED: methylPREDNISolone 125 MG/2 ML VIAL IV STA (14:21)
[2021-04-02] MEDS ORDERED: LEVALBUTEROL HCL 1.25 MG/3 ML NEB NEB STA (14:21)
[2021-04-02] MEDS ORDERED: MAGNESIUM SULFATE / D5W 1 GM/100 ML BAG IV STA (14:22)
[2021-04-02 14:38] LABS: Hematocrit (blood only) 31.9 % (37-47); Mean Corpuscular Hemoglobin 20.7 pg (25-34); Mean Corpuscular Hgb Conc 28.2 g/dL (32-36); Mean Corpuscular Volume 73.5 fL (80-100); Mean Platelet Volume 10.2 fL (7.4-10.4); Platelet Count 228 K/uL (130-400); RDW Coefficient of Variation 20.4 % (11.5-14.5); RDW Standard Deviation 55.4 fL (36.4-46.3); Red Blood Count 4.34 M/uL (4.2-5.4); White Blood Count 4.67 K/uL (4.8-10.8)
--- NOTE | 2021-04-02 14:41 | XRay Report ---
XR chest 1V portable CLINICAL HISTORY: Dyspnea. Rapid A. fib. Shortness of breath and bilateral lower extremity edema. COMPARISON STUDY: 07/23/2010 TECHNIQUE: 1 view of the chest FINDINGS: Single frontal view of the chest demonstrates the heart size to be enlarged. There is evidence for mi ld central vascular congestion. There is no evidence for diffuse interstitial edema. There is no evid ence for pleural effusion. No confluent alveolar opacities are identified. There is no acute osseous pathology. IMPRESSION: Cardiomegaly with mild central vascular congestion. ACT 112: Negative or not required by law. Electronically signed by: Jerry Graves M.D. 04/02/2021 2:39 PM
[2021-04-02 14:49] LABS: Anisocytosis Present; Basophils # (auto) 0.01 K/uL (0-0.2); Basophils % (auto) 0.2 %; Eosinophils # (auto) 0.01 K/uL (0-0.5); Eosinophils % (auto) 0.2 %; Hypochromasia Present; Immature Granulocytes # (auto) 0.01 K/uL (0.00-0.02); Immature Granulocytes % (auto) 0.2 %; Lymphocytes # (auto) 0.52 K/uL (1.2-3.4); Lymphocytes % (auto) 11.1 %; Microcytosis Present; Monocytes # (auto) 0.36 K/uL (0.11-0.59); Monocytes % (auto) 7.7 %; Neutrophils # (auto) 3.76 K/uL (1.4-6.5); Neutrophils % (auto) 80.6 %; Ovalocytes 1+
[2021-04-02 14:51] LABS: Albumin Level 3.3 gm/dl (3.4-5.0); BUN Creatinine Ratio 22.2 (10-20); Calcium 9.3 mg/dl (8.5-10.1); Creatinine Clr Calc Pharmacy 67.3 ml/min; Est GFR (African American) 101.1 ml/min; Est GFR (Non-African American) 87.2 ml/min; Magnesium 2.1 mg/dl (1.8-2.4); Potassium 3.2 mmol/L (3.5-5.1)
[2021-04-02 14:56] LABS: Albumin Globulin Ratio 0.9 (0.9-2); Bilirubin,Total 0.4 mg/dl (0.2-1); Globulin 3.6 gm/dl (2.5-4.0); Total Protein 6.9 gm/dl (6.4-8.2); Troponin I 0.026 ng/ml (0-0.045)
[2021-04-02 15:12] LABS: Base Excess VBG 5.5 mEq/L; HCO3 VBG 31 mmol/L; PCO2 VBG 50 mmHg (38-50); PO2 VBG 26 mmHg; pH VBG 7.41 (7.36-7.41)
[2021-04-02 15:13] LABS: Oxygen Saturation VBG < 60.0 %
--- NOTE | 2021-04-02 15:32 | History & Physical Report ---
Date of Service April 02, 2021 Assessment & Plan (1) Atrial fibrillation with RVR: Plan: - Admit to tele - HR was in 100s-90s upon presentation to the ER, now improved - will hold off on further rate control - Initiate anticoagulation with low dose heparin IV no bolus, switch to NOAC pending insurance coverage - Consult cardiology - Continue antihypertensives with ANNAMARIA, beta-andrés, statin therapy - Give 1 dose lasix 20 mg IV with significant edema in BLE, follow strict I/Os, discussed with Nursing staff to place pure wick Due to hypoxia - Check 2D echo (2) Acute diastolic HF (heart failure): Plan: - Suspected - Assess I/Os, lasix given as above, prompted by acute afib with rvr - Follow echo and cardiology consult recommendations (3) Hx of meningioma of the brain: Plan: - Hx of such by Dr. Dave in Jan 2021 - Also with known cerebral aneurysm, Dr. Dave reports low likelihood of rupture with initiation of anticoagulation in the setting of A. fib with RVR -as reported by Dr. Mccarty who discussed with him - Stable, post op 7 weeks on 04/03 - Continue keppra 500 mg Q12H - noted that pt cut her dose in half due to t hinking leg edema was due to adverse effect of medication. Education provided at bedside. (4) HTN (hypertension): Plan: - cont Antihypertensives - will give dose of atenolol 12.5 mg now as missed morning meds. (5) Chronic obstructive pulmonary disease: Plan: -Currently requiring 4 L O2 via NC, cessation of smoking encouraged -Nicotine patch declined as has reduced smoking from 1 pack to 2 to 3 cigarettes daily (6) Current every day smoker: Plan: -Chronic, 60 smoke pack years, cessation encouraged at bedside, pt is weaning down cig usage. 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 Can, stable, chronic (9) Hyperlipidemia: Plan: -Check lipid panel with a.m. labs, continue statin therapy DVT PPx: - teds, scds, heparin IV CODE: DNR/DNI Dispo: From home, likely to remain in the hospital x 1-2 days. History of Present Illness Chief Complaint: Shortness of breath Primary Care Provider: Ever Pike MD This is a 75-year-old female with PMHx of COPD, chronic smoker, HTN, CAD, diastolic dysfunction, pulmonary HTN, status post AAA repair, renal artery aneurysm, cerebral aneurysm, thyroid nodule, meningioma s/p resection February 18, 2021 presents to the ER with shortness of breath and swelling in her lower extremities x1 week, 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 fib with RVR over in her PCP office earlier today. She was placed on 4 L O2 via NC and EMS transfer her to the ER. She reports that shortness of breath has been going on for approximately 3 to 4 days. She has reduced her smoking from 1 PPD to 2 to 3 cigarettes daily, and reports that she does not need a nicotine patch. Denies any coughing up sputum, hemoptysis, fever, chills or sweats. Since being in the ER she reports her shortness of breath has improved, status post treatments, steroids, nebs. At baseline she does not wear any oxygen. Initially she thought swelling in her legs was a result of being on Keppra, and thought it was a possible side effect so she reduced her dose in half. She did not take any of her routine medications today due to not feeling well, moving slow and attempting to get a few household items completed before the transportation showed up to take her to her PCPs office earlier today. Pt also reports she is going to have cerebral aneurysm operated on in May by Dr. Dave pending everything status post her meningioma resection continues to go well. Allergies Allergy/AdvReac Type Severity Reaction Status Date / Time No Known Allergies Allergy Unknown Verified 04/02/21 15:09 Home Medications Medication Instructions Recorded Confirmed Type amlodipine 10 mg tablet (Norvasc) 10 mg PO QAM 12/18/18 04/02/21 History aspirin 81 mg tablet,delayed 81 mg PO QAM 12/18/18 04/02/21 History release atenolol 25 mg tablet 12.5 mg PO QAM 12/18/18 04/02/21 History lisinopril 40 mg tablet 40 mg PO QAM 12/18/18 04/02/21 History albuterol sulfate 90 mcg/actuation 1 puff INHALATION QID PRN 04/04/19 04/02/21 History aerosol inhaler atorvastatin 80 mg tablet 80 mg PO QAM 04/04/19 04/02/21 History duloxetine 20 mg capsule,delayed 20 mg PO QAM 04/04/19 04/02/21 History release (Cymbalta) alendronate 70 mg tablet 70 mg PO DAILY 04/02/21 04/02/21 History cholecalciferol (vitamin D3) 25 25 mcg PO DAILY 04/02/21 04/02/21 History mcg (1,000 unit) tablet levetiracetam 500 mg tablet 500 mg PO Q12H 04/02/21 04/02/21 History nitroglycerin 0.4 mg sublingual 0.4 mg SUBLINGUAL DAILY PRN 04/02/21 04/02/21 History tablet (Nitrostat) oxycodone 5 mg tablet 5 mg PO BID PRN 04/02/21 04/02/21 History polyethylene glycol 3350 17 gram 17 g PO DAILY 04/02/21 04/02/21 History oral powder packet (Miralax) trazodone 50 mg tablet 50 mg PO DAILY 04/02/21 04/02/21 History Past Med/Surg History Medical History (Updated 04/02/21 @ 16:46 by eJny Lacy PA-C) Abdominal pain Anxiety CAD (coronary artery disease) Chronic obstructive pulmonary disease STOPPED USING INHALER-"DOESN'T NEED IT" Current every day smoker Hyperlipidemia Hypertension Kidney stone Myocardial Infarction x 2 F/U MAGDA FUNG Surgical History (Updated 04/02/21 @ 15:41 by Jeny Lacy PA-C) History of cardiac cath - [place] - [facility] - angioplasty, no stents (reports NM following procedure as well) - follows w/ Dr. Mccauley. 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 [facility] [place] Family History Son Family history of diabetes mellitus Social History Smoking Status: Current every day smoker Tobacco Type: Cigarettes Cigarettes Per Day: 6 -10 CIGS A DAY; Second Hand Exposure: No; Hx Alcohol Use: Yes Alcohol type: beer Hx Substance Use: No Preferred Language: Macedonian Communication Ability: Effective Radio Artist Required: No Beliefs That Will Affect Care: None Current Living Situation: Alone Current Living Situation Comment: dtr lives w/ pt Feels Safe at Home: Yes Assistive Devices: Denture - Upper, Denture - Lower and Glasses Review of Systems Review of Systems: Constitutional: No fever, sweats or chills Eyes: No diplopia, no worsening or blurred vision ENT: normal hearing, no trouble swallowing Respiratory: As per HPI Cardiovascular: No chest pain, tightness or palpitations Abdomen: No pain, nausea, vomiting, diarrhea or constipation Musculoskeletal: No joint pain, calf pain, + lower extremity swelling bilaterally Neurologic: + generalized weakness, no numbness/tingling, or balance problems Psychiatric: No anxiety or depression Skin: No rash or itch Physical Exam Physical Exam: General: awake, alert, no apparent distress, thin Head: Normocephalic, atraumatic ENT: PERRL, EOMI, no pharyngeal exudate, mucous membranes moist Chest: Diminished breath readings throughout, on 4 L va NC, faint inspiratory and expiratory wheeze throughout Cardiac: Irregular rhythm, rate controlled, HR in the 80s at bedside, no murmur, no JVD, normal peripheral pulses, good capillary refill Abdominal: NABS x 4 quadrants, soft, nondistended, nontender to palpation, no rebound or guarding Extremities: Normal inspection, 2+ peripheral edema BLE with pitting, no erythema, calfs nontender to palpation Psych: Normal mood and affect Neuro: AAO x 3, strength intact bilaterally and rated 5/5, no motor deficits, speech is clear, no peripheral sensory deficits Results & Data Results & Data ([facility]) Vital Signs (Past 12 Hours) Vital Signs Temp Pulse Pulse Resp BP BP Pulse Ox 04/02/21 15:22 81 26 H 116/76 96 04/02/21 14:58 89 L 04/02/21 14:31 83 28 H 91 04/02/21 14:24 37.5 C 96 H 28 H 146/80 H 86 L Laboratory Results 04/02/21 04/02/21 04/02/21 15:02 14:45 14:22 WBC RBC Hgb Hct MCV MCH MCHC RDW Std Deviation RDW Coeff of [place] Plt Count MPV Immature Gran % (Auto) Neut % (Auto) Lymph % (Auto) [place] % (Auto) Eos % (Auto) Baso % (Auto) Neut # (Auto) Lymph # (Auto) [place] # (Auto) Eos # (Auto) Baso # (Auto) Immature Gran # (Auto) Hypochromasia Anisocytosis Microcytosis Ovalocytes VBG pH 7.41 VBG pCO2 50 VBG pO2 26 VBG HCO3 31 VBG O2 Saturation < 60.0 VBG Base Excess 5.5 Barometric Pressure 722.0 Sodium 139 Potassium 3.2 L Chloride 105 Carbon Dioxide 33 H Anion Gap 1.0 L BUN 15 Creatinine 0.67 Est Cr Clr Drug Dosing 67.3 Est GFR ( Amer) 101.1 Est GFR (Non-Af Amer) 87.2 BUN/Creatinine Ratio 22.2 H Glucose 146 H Calcium 9.3 Magnesium 2.1 Total Bilirubin 0.4 AST 7 L ALT 16 Alkaline Phosphatase 80 Troponin I 0.026 NT-Pro-B Natriuret Pep 3067 H Total Protein 6.9 Albumin 3.3 L Globulin 3.6 Albumin/Globulin Ratio 0.9 SARS-CoV-2, RNA, NAAT NEGATIVE 04/02/21 14:22 WBC 4.67 L RBC 4.34 Hgb 9.0 L Hct 31.9 L MCV 73.5 L MCH 20.7 L MCHC 28.2 L RDW Std Deviation 55.4 H RDW Coeff of Sierra 20.4 H Plt Count 228 MPV 10.2 Immature Gran % (Auto) 0.2 Neut % (Auto) 80.6 Lymph % (Auto) 11.1 [place] % (Auto) 7.7 Eos % (Auto) 0.2 Baso % (Auto) 0.2 Neut # (Auto) 3.76 Lymph # (Auto) 0.52 L [place] # (Auto) 0.36 Eos # (Auto) 0.01 Baso # (Auto) 0.01 Immature Gran # (Auto) 0.01 Hypochromasia Present Anisocytosis Present Microcytosis Present Ovalocytes 1+ VBG pH VBG pCO2 VBG pO2 VBG HCO3 VBG O2 Saturation VBG Base Excess Barometric Pressure Sodium Potassium Chloride Carbon Dioxide Anion Gap BUN Creatinine Est Cr Clr Drug Dosing Est GFR ( Amer) Est GFR (Non-Af Amer) BUN/Creatinine Ratio Glucose Calcium Magnesium Total Bilirubin AST ALT Alkaline Phosphatase Troponin I NT-Pro-B Natriuret Pep Total Protein Albumin Globulin Albumin/Globulin Ratio SARS-CoV-2, RNA, NAAT Diagnostic Findings Chest X-Ray 04/02/21 14:21 XR chest 1V portable CLINICAL HISTORY: Dyspnea. Rapid A. fib. Shortness of breath and bilateral lower extremity edema. COMPARISON STUDY: 07/23/2010 TECHNIQUE: 1 view of the chest FINDINGS: Single frontal view of the chest demonstrates the heart size to be enlarged. There is evidence for mild central vascular congestion. There is no evidence for diffuse interstitial edema. There is no evidence for pleural effusion. No confluent alveolar opacities are identified. There is no acute osseous pathology. IMPRESSION: Cardiomegaly with mild central vascular congestion. ACT 112: Negative or not required by law. Electronically signed by: Jerry Graves M.D. 04/02/2021 2:39 PM ECG Additional Comments: 20-FEB-2019 11:52:25 [facility] ROUTINE RETRIEVAL Sinus rhythm with occasional Premature ventricular complexes Premature atrial complexes Anteroseptal infarct , age undetermined ST & T wave abnormality, consider lateral ischemia Abnormal ECG When compared with ECG of 12-SEP-2012 14:29, Sinus rhythm has replaced Ectopic atrial rhythm QRS voltage has decreased ST no longer depressed in Inferior leads Nonspecific T wave abnormality now evident in Anterior leads ... 25mm/s 10mm/mV 100Hz 9.0.9 12SL 243 DORI: 1 Referred by: Ever Pike Confirmed By: Nacho Hawkins. rate 64 BPM IA interval 176 ms QRS duration 80 ms QT/QTc 438/451 ms Code Status & VTE Plan Code Status DNR/DNI - discussed with pt at bedside Supervising Physician Co-Signing Physician Notes Attending addendum: The patient was seen and examined in emergency room She has been complaining of leg swelling and shortness of breath for the last 7 days and was sent in from doctor's office with atrial fibrillation with RVR Denies any palpitation, any abdominal pain, nausea and or vomiting No fever and no chills On examination Moderate shortness of breath at rest Hemodynamically stable with respiration rates around 30 Chest-decreased breath sounds bilaterally with minimal crackles at the bases Heart-S1-S2, irregularly irregular Abdomen-benign [id number]-3-4+ edema bilaterally [employer]-alert, awake and oriented x3. Generally weak Her admission labs, EKG and imaging studies reviewed Has A. fib with RVR with diastolic heart failure Received 1 dose of Lasix in the emergency room and also has been on intravenous heparin We will continue beta-andrés Cardiology consult Agree with assessment and plan as outlined above by ANTONIETA Wasserman Dr
[2021-04-02] MEDS ORDERED: FUROSEMIDE INJ 20 MG/2 ML VIAL IV ONE (15:36)
[2021-04-02] MEDS ORDERED: Heparin IV Adult Wt-Based Standard *NO* Bolus Protocol ONE (15:51)
[2021-04-02] MEDS ORDERED: Heparin IV Adult Wt-Based Low-Dose *NO* Bolus Protocol IV ONE (15:56)
[2021-04-02] MEDS ORDERED: HEPARIN SODIUM/DEXTROSE 25,000 UNITS/500 ML BAG IV SCH ×2 (16:00→16:15)
[2021-04-02] MEDS ORDERED: HEPARIN 25000 UNIT/500 ML D5W IV ONE (16:18)
[2021-04-02] MEDS ORDERED: ATENOLOL 25 MG TABLET PO ONE (17:00)
[2021-04-02] MEDS ORDERED: ACETAMINOPHEN 325 MG TAB ONE (22:45)
[2021-04-02] MEDS ORDERED: ACETAMINOPHEN 325 MG TAB PO PRN (22:46)
[2021-04-02] MEDS ORDERED: ONDANSETRON INJ 2 MG/ML 2 ML VIAL IV PRN (22:46)
[2021-04-03] MEDS: LEVALBUTEROL 1.25MG/0.5ML NEB NEB SCH ×5 (01:09→19:54)
[2021-04-03] MEDS: levETIRAcetam 500 MG TAB PO SCH ×3 (01:10→20:34)
[2021-04-03 05:42] LABS: Partial Thromboplastin Ratio 0.9; Partial Thromboplastin Time 23.9 Seconds (21.0-31.0)
[2021-04-03 06:20] LABS: Partial Thromboplastin Ratio 0.9; Partial Thromboplastin Time 23.8 Seconds (21.0-31.0)
[2021-04-03 06:26] LABS: Albumin Globulin Ratio 0.9 (0.9-2); Albumin Level 2.9 gm/dl (3.4-5.0); Bilirubin,Total 0.4 mg/dl (0.2-1); Calcium 8.9 mg/dl (8.5-10.1); Creatinine Clr Calc Pharmacy 60.9 ml/min; Est GFR (African American) 93.2 ml/min; Est GFR (Non-African American) 80.4 ml/min; Globulin 3.2 gm/dl (2.5-4.0); Potassium 3.8 mmol/L (3.5-5.1); Total Protein 6.1 gm/dl (6.4-8.2)
[2021-04-03 06:34] LABS: Hematocrit (blood only) 29.3 % (37-47); Mean Corpuscular Hemoglobin 20.1 pg (25-34); Mean Corpuscular Hgb Conc 27.3 g/dL (32-36); Mean Corpuscular Volume 73.4 fL (80-100); Mean Platelet Volume 10.3 fL (7.4-10.4); Platelet Count 191 K/uL (130-400); RDW Coefficient of Variation 20.2 % (11.5-14.5); RDW Standard Deviation 55.2 fL (36.4-46.3); Red Blood Count 3.99 M/uL (4.2-5.4); White Blood Count 2.78 K/uL (4.8-10.8)
[2021-04-03 06:35] LABS: Anisocytosis Present; Hypochromasia Present; Lymphocytes # (auto) 0.52 K/uL (1.2-3.4); Lymphocytes % (auto) 18.7 %; Monocytes # (auto) 0.31 K/uL (0.11-0.59); Monocytes % (auto) 11.2 %; Neutrophils # (auto) 1.95 K/uL (1.4-6.5); Neutrophils % (auto) 70.1 %
[2021-04-03 07:46] LABS: Estimated Average Glucose 131 mg/dl; Hemoglobin A1C 6.2 % (4.5-5.6)
[2021-04-03] MEDS ORDERED: amLODIPine BESYLATE 5 MG TAB PO SCH (09:00)
[2021-04-03] MEDS ORDERED: ATENOLOL 25 MG TABLET PO SCH (09:00)
[2021-04-03] MEDS: DULoxetine HCL 20 MG CAP PO SCH (09:25)
[2021-04-03] MEDS: lisinopril 40 MG TAB PO SCH (09:25)
[2021-04-03] MEDS: ATORVASTATIN 40 MG TAB PO SCH (09:26)
[2021-04-03] MEDS: ASPIRIN 81 MG ECTAB PO SCH (09:28)
[2021-04-03] MEDS: POLYETHYLENE (MIRALAX) 17 GM PACK PO SCH (09:29)
[2021-04-03] MEDS: traZODone HCL 50 MG TAB PO SCH (09:29)
[2021-04-03] MEDS: ATENOLOL 25 MG TABLET PO SCH (09:54)
--- NOTE | 2021-04-03 10:25 | Electrocardiogram Report ---
Test Reason : Blood Pressure : / mmHG Vent. Rate : 096 BPM Atrial Rate : 122 BPM P-R Int : 000 ms QRS Dur : 080 ms QT Int : 300 ms P-R-T Axes : 000 088 222 degrees QTc Int : 379 ms Possible wandering atrial pacemaker frequent atrial ectopy Anteroseptal infarct (cited on or before 18-MAY-2006) Abnormal ECG When compared with ECG of 20-FEB-2019 11:52, Vent. rate has increased BY 32 BPM T wave inversion now evident in Inferior leads QT has shortened Confirmed by Shawn Chua ([id number]) on 04/03/2021 10:25:18 AM Referred By: REFERRED SELF Confirmed By:Bernard Chua
--- NOTE | 2021-04-03 11:03 | Cardiology Consultation ---
Date of Consultation April 03, 2021 Assessment & Plan (1) Premature atrial contractions: (2) Premature ventricular contractions: (3) Acute exacerbation of chronic obstructive pulmonary disease (COPD): (4) Localized swelling of both lower legs: (5) Hx of meningioma of the brain: 75 year old female: (1) Premature atrial contractions: (2) Premature ventricular contractions: -Although there was initial concern for the patient having atrial fibrillation and she arrived to the emergency department yesterday, on further review of the presenting EKG performed as an outpatient yesterday, EKG performed in emergency room on 04/02/2021, and repeat tracing performed this morning 04/03/2021, a sinus mechanism is present, with frequent premature atrial contractions and frequent premature ventricular contractions. Another reasonable description for her rhythm may be wandering atrial pacemaker with multiple P wave morphologies noted, and this finding does potentially fit with her longstanding history of COPD. A Holter monitor had previously been performed as an outpatient in 2018 with findings of frequent supraventricular ectopy and a moderate degree of PVCs at that time. -This time I recommend discontinuation of systemic anticoagulation with heparin. -Resume her previous dose of aspirin, as she is now more than 1 month removed status post craniotomy. -Aspirin indicated due to her history of coronary heart disease, remote myocardial infarction, CAD with abdominal aortic aneurysm endovascular repair. (3) Acute exacerbation of chronic obstructive pulmonary disease (COPD): -At present, no wheezing, seems to have improved status post IV corticosteroids received yesterday. (4) Localized swelling of both lower legs: -Mild elevation in BNP in the range of 3000, with stigmata of diastolic dysfunction on echocardiogram, mild interstitial edema noted on chest x-ray. -Her edema is improved status post 1 dose of IV furosemide on 04/02, proceed with another dose of IV furosemide now along with potassium supplementation, and transition her to oral furosemide for tomorrow. (5) Hx of meningioma of the brain residual left MCA cerebral aneurysm: -I think it is very important to differentiate whether not she has atrial fibrillation or not, given her history of recent neurosurgery, and need to have future intervention for residual left middle cerebral artery aneurysm. -As noted, at this time, serial EKG tracings, telemetry, echocardiogram are reviewed, and feel that the patient's irregular rhythm is explained by frequent supraventricular and ventricular ectopy. -Overall, her baseline heart rhythm is on the slower side, will therefore continue her prior to hospital treatment with atenolol As noted she is asymptomatic and does not feel the ectopic beats, and her ejection fraction is preserved. DVT prophylaxis: Unfractioned heparin infusion discontinued, start subcutaneous heparin for DVT prophylaxis. DISPOSITION: already has cardio follow up planned on 04/08/21. If pt feels well after 2nd dose of IV furosemide, can consider discharging to home later today on ASA 81 mg daily, furosemide 20 mg PO daily, KCL 10 meq daily. History of Present Illness Attending Physician: Vanessa Medellin, History of Present Illness Carmela Jose is a 75 year old female seen in cardiology consultation per the request of Jeny Lacy PA-C and Dr Amor for the evaluation of atrial fibrillation. Patient presented as an acute visit to primary care yesterday complaining of shortness of breath and swelling in her lower legs for 2 weeks. She was noted to have an irregular heart rhythm on physical exam and an EKG performed at [facility] on at 1330 revealed an irregular rhythm and the patient was referred to the emergency department for further evaluation. A repeat tracing was performed on arrival, the patient received treatment for atrial fibrillation in the meantime has been started on unfractionated heparin. At the time of my assessment the heart rate has improved from the range of 90 to 110 bpm down to 58 to 69 bpm, and present this morning sinus rhythm is observed. Patient denies any subjective sensation of palpitations or chest discomfort. At present she notes that her shortness of breath has back to her typical baseline. Her recent medical history is notable for a 7.25 x 4.12 mm left middle cerebral artery territory aneurysm noted on CT angiogram of the brain in November,, and follow-up invasive cerebral angiogram. She subsequently had undergone left frontal parietal craniotomy and resection of a 4.2 cm meningioma at [facility] on 02/18/2021. Postoperatively there is concern for cerebral edema and she was discharged post craniotomy on a course of dexamethasone, and plans to continue Keppra indefinitely. Her longtime treatment aspirin was discontinued at the time of discharge post craniotomy. She had recently been seen in follow-up by neurosurgery at [facility] and a plan was for her to return for follow-up in May,, to address treatment of the left middle cerebral artery territory aneurysm. Cardiovascular Problem List: 1. Remote myocardial infarction, approximately 1990 120 cardiac catheterization at the time with chart history of successful angioplasty, coronary anatomy unknown, but based on her imaging in the meantime, it would appear that she has an age undetermined scar of the basal inferior wall. 2. Chronic abnormal EKG, with severe inferolateral repolarization changes 3. Past ischemic work-up with dobutamine stress echocardiogram in 2013 in 2016 with inferior scar, no inducible ischemia, managed medically 4. Longstanding history of asymptomatic frequent premature atrial contractions 5. Endovascular repair of abdominal aortic aneurysm, June,, stable and recent follow-up CT angiogram March, 6.Longstanding history of COPD, smoking history of over 50 years, recently cut back to 3 cigarettes/day since her neurosurgery. Allergies Allergy/AdvReac Type Severity Reaction Status Date / Time No Known Allergies Allergy Unknown Verified 04/02/21 15:09 Home Medications Medication Instructions Recorded Confirmed Type amlodipine 10 mg tablet (Norvasc) 10 mg PO QAM 12/18/18 04/02/21 History aspirin 81 mg tablet,delayed 81 mg PO QAM 12/18/18 04/02/21 History release atenolol 25 mg tablet 12.5 mg PO QAM 12/18/18 04/02/21 History lisinopril 40 mg tablet 40 mg PO QAM 12/18/18 04/02/21 History albuterol sulfate 90 mcg/actuation 1 puff INHALATION QID PRN 04/04/19 04/02/21 History aerosol inhaler atorvastatin 80 mg tablet 80 mg PO QAM 04/04/19 04/02/21 History duloxetine 20 mg capsule,delayed 20 mg PO QAM 04/04/19 04/02/21 History release (Cymbalta) alendronate 70 mg tablet 70 mg PO DAILY 04/02/21 04/02/21 History cholecalciferol (vitamin D3) 25 25 mcg PO DAILY 04/02/21 04/02/21 History mcg (1,000 unit) tablet levetiracetam 500 mg tablet 500 mg PO Q12H 04/02/21 04/02/21 History nitroglycerin 0.4 mg sublingual 0.4 mg SUBLINGUAL DAILY PRN 04/02/21 04/02/21 History tablet (Nitrostat) oxycodone 5 mg tablet 5 mg PO BID PRN 04/02/21 04/02/21 History polyethylene glycol 3350 17 gram 17 g PO DAILY 04/02/21 04/02/21 History oral powder packet (Miralax) trazodone 50 mg tablet 50 mg PO DAILY 04/02/21 04/02/21 History Patient History Medical History Abdominal pain Anxiety CAD (coronary artery disease) Chronic obstructive pulmonary disease STOPPED USING INHALER-"DOESN'T NEED IT" Current every day smoker Hyperlipidemia Hypertension Kidney stone Myocardial Infarction x 2 F/U MAGDA FUNG Surgical History History of cardiac cath - [place] - [facility] - angioplasty, no stents (reports [place] following procedure as well) - follows w/ Dr. Mccauley. 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 [facility] Family History Son Family history of diabetes mellitus Social History Smoking Status: Current every day smoker Tobacco Type: Cigarettes Cigarettes Per Day: 6 -10 CIGS A DAY; Second Hand Exposure: No; Hx Alcohol Use: Yes Alcohol type: beer Hx Substance Use: No Preferred Language: Italian Communication Ability: Effective Baking Assistant Required: No Beliefs That Will Affect Care: None Current Living Situation: Alone Current Living Situation Comment: dtr lives w/ pt Feels Safe at Home: Yes Assistive Devices: Denture - Upper, Denture - Lower and Glasses Review of Systems Review of Systems: All systems reviewed & are unremarkable except as noted in HPI & below Physical Exam Constitutional: + thin; no acute distress Respiratory: normal respiratory effort, lungs clear to auscultation Cardiovascular: Rate/Rhythm: + irregularly irregular; not tachycardic Heart Sounds: no murmur Extremities: no edema Results & Data ([facility]) Vital Signs (Past 12 Hours) Vital Signs Pulse Pulse Resp BP BP Pulse Ox 04/03/21 08:34 74 16 133/74 96 04/03/21 06:00 64 25 H 119/73 95 04/03/21 04:00 60 23 126/78 98 04/03/21 03:00 53 L 18 108/70 100 04/03/21 02:00 59 L 22 122/72 99 04/03/21 01:00 67 20 98 Laboratory Results Cardiac Enzymes 04/02/21 04/03/21 Range/Units 14:22 05:37 AST 7 L 8 L (15-37) U/L Troponin I 0.026 (0-0.045) ng/ml Coagulation 04/02/21 04/03/21 Range/Units 14:22 05:59 APTT 23.9 23.8 (21.0-31.0) Seconds Lipids 04/03/21 Range/Units 05:37 Triglycerides 74 (0-150) mg/dl Cholesterol 149 (0-200) mg/dl HDL Cholesterol 66 mg/dl Cholesterol/HDL Ratio 2 CBC 04/02/21 04/03/21 Range/Units 14:22 05:37 WBC 4.67 L 2.78 L (4.8-10.8) K/uL RBC 4.34 3.99 L (4.2-5.4) M/uL Hgb 9.0 L 8.0 L (12.0-16.0) g/dL Hct 31.9 L 29.3 L (37-47) % Plt Count 228 191 (130-400) K/uL Neut # (Auto) 3.76 1.95 (1.4-6.5) K/uL Lymph # (Auto) 0.52 L 0.52 L (1.2-3.4) K/uL [place] # (Auto) 0.36 0.31 (0.11-0.59) K/uL Eos # (Auto) 0.01 0.00 (0-0.5) K/uL Baso # (Auto) 0.01 0.00 (0-0.2) K/uL Comprehensive Metabolic Panel 04/02/21 04/03/21 Range/Units 14:22 05:37 Sodium 139 139 (136-145) mmol/L Potassium 3.2 L 3.8 D (3.5-5.1) mmol/L Chloride 105 104 (98-107) mmol/L Carbon Dioxide 33 H 32 (21-32) mmol/L BUN 15 17 (7-18) mg/dl Creatinine 0.67 0.74 (0.6-1.2) mg/dl Glucose 146 H 118 H (70-99) mg/dl Calcium 9.3 8.9 (8.5-10.1) mg/dl AST 7 L 8 L (15-37) U/L ALT 16 14 (12-78) U/L Alkaline Phosphatase 80 69 (45-117) U/L Total Protein 6.9 6.1 L (6.4-8.2) gm/dl Albumin 3.3 L 2.9 L (3.4-5.0) gm/dl Intake and Output 04/02/21 04/03/21 04/03/21 22:59 06:59 14:59 Intake Total 100 / 100 500 / 500 Output Total 300 / 300 Balance 100 / 100 200 / 200 Intake: IV 100 / 100 Magnesium Sulfate / D5w 1 gm In 100 / 100 100 ml @ 100 mls/hr IV NOW STA Rx#:[id number] Oral 500 / 500 Output: Urine 300 / 300 Other: Weight 66.4 kg Patient Weight 04/04/21 06:59 Weight 66.4 kg Diagnostic Findings Echocardiogram performed 04/02/2021 and reviewed independently, based on the mitral inflow pattern in the tissue Doppler signal obtained from the mitral valve annulus, sinus bradycardia in sinus rhythm present during the echocardiogram study ranging from 58 bpm to 69 bpm. There is focal akinesis of the basal inferior wall, otherwise normal wall motion (chronic finding). Qualitative left ventricular ejection fraction is normal, 55%. Mild left atrial argument noted. Mild mitral vegetation. Moderate aortic valve sclerosis without stenosis.
[2021-04-03] MEDS ORDERED: POTASSIUM CHLORIDE CRTAB 20 MEQ TABCR PO STA (11:37)
[2021-04-03] MEDS ORDERED: FUROSEMIDE 40 MG/4 ML VIAL IV ONE (11:45)
--- NOTE | 2021-04-03 12:01 | Communication Note ---
Date of Service: April 03, 2021 Plan with regards to stopping heparin infusion and administering furosemide 20 mg IV x 1 discussed with patient and her nurse by phone.
[2021-04-03 15:34] LABS: Hematocrit (blood only) 27.1 % (37-47); Hemoglobin 7.5 g/dL (12.0-16.0)
--- NOTE | 2021-04-03 18:28 | Hospitalist Progress Note ---
Date of Service April 03, 2021 Assessment & Plan (1) Premature ventricular contractions: (2) Premature atrial contractions: (3) Acute hypoxemic respiratory failure: Plan: 75-year-old female with PMHx of COPD, chronic smoker, HTN, CAD, diastolic dysfunction, pulmonary HTN, status post AAA repair, renal artery aneurysm, cerebral aneurysm, thyroid nodule, meningioma s/p resection February 18, 2021 presents to the ER 04/02 with shortness of breath and swelling in her lower extremities x1 week [employer], 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 fib with RVR over in her PCP office earlier on the day of arrival. She was placed on 4 L O2 via NC and EMS transfer her to the ER. She is being managed for the following: (1) concern for arrhythmia ? Afib #. Premature atrial contraction #. Premature ventricular contractions #. CAD/abdominal aortic aneurysm endovascular repair - Admitted to [facility] - HR was in 100s-90s upon presentation to the ER, has been under control since then. -04/03 echo: EF 55%, LV systolic function normal, akinesis of the basal inferior wall, sinus bradycardia present, no atrial fibrillation noted. - Cardiology evaluated the patient: EKG while inpatient consistent with frequent PACs and PVCs versus wandering atrial pacemaker with multiple P wave morphologies likely secondary to her longstanding history of COPD. No heparin drip. Continue with aspirin SCDs no more than 1 month status post craniotomy. - Continue antihypertensives with ANNAMARIA, beta-andrés, statin therapy #. Anemia Admitting hemoglobin 9, baseline seems to be around 9-10 Hemoglobin trending down, currently 7.5 Hemoglobin every 6 hours, FOBT pending, transfuse for hemoglobin less than 7 or symptoms Consider GI consult. (2) Acute diastolic HF (heart failure): #. Acute hypoxemic respiratory failure -secondary to above - Suspected -Improving oxygen requirement, improving BLE swelling - Assess I/Os, patient received 20 mg IV Lasix yesterday and today -Cardiology evaluated the patient: Lasix 20 mg p.o. daily, KCl 10 mEq daily -Patient will need repeat BMP in 1 week upon discharge. (3) Hx of meningioma of the brain: - Hx of such by Dr. Dave in Jan 2021 - Also with known cerebral aneurysm, Dr. Dave reports low likelihood of rupture with initiation of anticoagulation in the setting of A. fib with RVR -as reported by Dr. Mccarty who discussed with him - Stable, post op 7 weeks on 04/03 - Continue keppra 500 mg Q12H - noted that pt cut her dose in half due to thinking leg edema was due to adverse effect of medication. Education provided at bedside. (4) HTN (hypertension): - cont Antihypertensives (5) Chronic obstructive pulmonary disease: -No wheezing, stable, cessation of smoking encouraged -Nicotine patch declined as has reduced smoking from 1 pack to 2 to 3 cigarettes daily (6) Current every day smoker: -Chronic, 60 smoke pack years, cessation encouraged at bedside, pt is weaning down cig usage. (7) CAD (coronary artery disease): -As above, nonobstructive, no history of stenting, cardiac cath done in 1990 per outpatient review of [facility] (8) History of AAA (abdominal aortic aneurysm) repair: - S/s juxtarenal abdominal aortic aneurysm with aorta to bilateral common iliac artery Dacron graft on 07/08/[address] Can, jeanine, chronic (9) Hyperlipidemia: -Check lipid panel with a.m. labs, continue statin therapy DVT PPx: - teds, scds, enoxaparin SQ CODE: DNR/DNI Dispo: From home, likely to remain in the hospital x 1-2 days. Due to d owntrending hemoglobin, will monitor patient for 1 more day for hemoglobin stability and will consider GI consult if further deteriorates. Admission and Anticipated Discharge Date Admission Date: April 02, 2021 Subjective Patient was lying in bed, on 5 L nasal cannula oxygen, NAD, no new acute events overnight. Patient reports improvement in her leg swelling. Patient denies fever/headache/chills/chest pain/increased shortness of breath/palpitation/other review of symptoms. Physical Exam Physical Exam: GENERAL: Alert and oriented x3. NAD, on 5L. HEENT: No pallor, no icterus. Pupils equal, round and reactive to light. Oral mucosa moist. NECK: No JVD, no neck masses. HEART: S1 and S2 heard. Regular rate and rhythm. No murmur, no gallop. RESPIRATORY SYSTEM: Normal AP diameter. No accessory muscle use. No wheezing, b/b crackles. ABDOMEN: Soft, bowel sounds present, nontender, no distention. CENTRAL NERVOUS SYSTEM: Alert and oriented x3. No facial droop. Speech is clear. Obeys simple commands. Moves extremities. EXTREMITIES: 2+ ankle edema, no erythema seen. Left forearm erythematous and nonpitting edema, nontender. Continue to monitor. Results & Data Results & Data ([facility]) Vital Signs (Past 12 Hours) Vital Signs Temp Pulse Resp BP BP Pulse Ox 04/03/21 15:33 36.7 C 57 L 19 90/55 L 93 04/03/21 13:41 36.6 C 56 L 18 100/56 L 91 04/03/21 12:49 54 L 19 98 04/03/21 11:00 58 L 20 134/69 96 04/03/21 08:34 74 16 133/74 96
[2021-04-03] MEDS ORDERED: ALBUMIN 25% 100 mL 25 GM/100 ML VIAL IV ONE (21:17)
[2021-04-03 21:55] LABS: Hemoglobin 7.8 g/dL (12.0-16.0)
[2021-04-03 22:11] LABS: BUN Creatinine Ratio 34.9 (10-20); Calcium 8.8 mg/dl (8.5-10.1); Creatinine Clr Calc Pharmacy 61.3 ml/min; Est GFR (African American) 97.9 ml/min; Est GFR (Non-African American) 84.5 ml/min; Magnesium 2.1 mg/dl (1.8-2.4); Potassium 3.6 mmol/L (3.5-5.1)
[2021-04-03 22:21] LABS: Thyroid Stimulating Hormone 1.31 uIu/ml (0.300-4.500)
--- NOTE | 2021-04-04 00:44 | Communication Note ---
Date of Service: April 04, 2021 Made aware by RN of SBP 90s. Patient asymptomatic as per RN. AP Asymptomatic hypotension Hold patient Amlodipine for now.
[2021-04-04] MEDS: LEVALBUTEROL 1.25MG/0.5ML NEB NEB SCH ×4 (01:06→19:21)
[2021-04-04 08:24] LABS: Hematocrit (blood only) 25.4 % (37-47); Hemoglobin 7.2 g/dL (12.0-16.0); Mean Corpuscular Hemoglobin 20.7 pg (25-34); Mean Corpuscular Hgb Conc 28.3 g/dL (32-36); Mean Platelet Volume 10.4 fL (7.4-10.4); Platelet Count 162 K/uL (130-400); RDW Coefficient of Variation 20.5 % (11.5-14.5); RDW Standard Deviation 55.3 fL (36.4-46.3); Red Blood Count 3.48 M/uL (4.2-5.4); White Blood Count 3.51 K/uL (4.8-10.8)
[2021-04-04 08:31] LABS: Albumin Level 2.9 gm/dl (3.4-5.0); BUN Creatinine Ratio 41.2 (10-20); Calcium 8.9 mg/dl (8.5-10.1); Creatinine Clr Calc Pharmacy 79.1 ml/min; Est GFR (African American) 107.8 ml/min; Est GFR (Non-African American) 93.1 ml/min; Potassium 3.9 mmol/L (3.5-5.1)
[2021-04-04 08:34] LABS: Albumin Globulin Ratio 1.1 (0.9-2); Bilirubin,Total 0.6 mg/dl (0.2-1); Globulin 2.8 gm/dl (2.5-4.0); Total Protein 5.7 gm/dl (6.4-8.2)
[2021-04-04] MEDS ORDERED: ASPIRIN 81 MG ECTAB PO SCH (09:00)
[2021-04-04] MEDS ORDERED: ENOXAPARIN INJ 40 MG/0.4 ML SYR SQ SCH (09:00)
[2021-04-04] MEDS: FUROSEMIDE 20 MG TAB PO SCH (09:34)
[2021-04-04] MEDS: levETIRAcetam 500 MG TAB PO SCH ×2 (09:35→20:56)
[2021-04-04] MEDS: lisinopril 40 MG TAB PO SCH (09:35)
[2021-04-04] MEDS: DULoxetine HCL 20 MG CAP PO SCH (09:35)
[2021-04-04] MEDS: ATORVASTATIN 40 MG TAB PO SCH (09:36)
[2021-04-04] MEDS: ATENOLOL 25 MG TABLET PO SCH (09:37)
[2021-04-04] MEDS: ASPIRIN 81 MG ECTAB PO SCH (09:37)
[2021-04-04] MEDS: POLYETHYLENE (MIRALAX) 17 GM PACK PO SCH (09:39)
[2021-04-04] MEDS: PANTOprazole 40 MG in SYRINGE 0 ML IV SCH ×2 (10:45→20:56)
--- NOTE | 2021-04-04 10:50 | Cardiology Progress Note ---
Date of Service April 04, 2021 Assessment & Plan (1) Premature atrial contractions: (2) Premature ventricular contractions: Plan: 75 year old female: (1) Premature atrial contractions: (2) Premature ventricular contractions: -best description of her rhythm is likely wandering atrial pacemaker (multiple P wave morphologies) with frequent PVCs also. A Holter monitor had previously been performed as an outpatient in 2018 with findings of frequent supraventricular ectopy and a moderate degree of PVCs at that time. -Unfractionated heparin infusion discontinued on 04/03/2021. -Continue ASA given h/o CAD, endovascular AAA repair (although may need to be held due to anemia. -Overall, her baseline heart rhythm is on the slower side, will therefore continue her prior to hospital treatment with atenolol (3) Acute exacerbation of chronic obstructive pulmonary disease (COPD): -At present, no wheezing, seems to have improved status post IV corticosteroids received yesterday. (4) Localized swelling of both lower legs: -Mild elevation in BNP in the range of 3000, with stigmata of diastolic dysfunction on echocardiogram, mild interstitial edema noted on chest x-ray. -Or furosemide 20 mg daily today, likely to continue at time of discharge along with Kcl 10 meq. (5) Hx of meningioma of the brain residual left MCA cerebral aneurysm: -Has nuerosurgery follow up planned in May 2021 at [facility] to discuss treatment of MCA aneurysm. (6) microcytic anemia - Hgb trended down to 7.2 . -stool assessment for blood pending. DVT prophylaxis: lovenox DVT prophylaxis on hold due to the anemia. SOB improved, heart rhythm stable. Remains in hospital due to anemia. Admission and Anticipated Discharge Date Admission Date: April 02, 2021 Subjective Pt states she feels improved. Denies subjective SOB this am. On 1 l/m oxygen. Review of Systems Review of Systems: All systems reviewed & are unremarkable except as noted in HPI & below Physical Exam Physical Exam: Temp Pulse Resp BP Pulse Ox 37 C 80 20 101/56 L 91 04/04/21 04:29 04/04/21 07:22 04/04/21 07:22 04/04/21 04:29 04/04/21 07:22 Constitutional: + ill appearing (Chronically ill in appearance without acute distress) Respiratory: normal respiratory effort, lungs clear to auscultation Cardiovascular: RRR, no murmur, no edema Gastrointestinal (Abdomen): normal bowel sounds, soft, nontender, no hepatosplenomegaly Neurologic: PERRL, EOMI, accommodation nl, no face palsy, no dysarthria Results & Data ([facility]) Vital Signs (Past 12 Hours) Vital Signs Temp Pulse Pulse Resp BP BP Pulse Ox 04/04/21 07:22 80 20 91 04/04/21 04:29 37 C 60 19 101/56 L 96 04/04/21 01:55 55 L 04/04/21 00:30 36.9 C 55 L 18 105/59 L 94 Laboratory Results Cardiac Enzymes 04/04/21 Range/Units 07:09 AST 5 L (15-37) U/L CBC 04/03/21 04/03/21 04/04/21 Range/Units 14:38 21:39 07:09 WBC 3.51 L (4.8-10.8) K/uL RBC 3.48 L (4.2-5.4) M/uL Hgb 7.5 L 7.8 L 7.2 L (12.0-16.0) g/dL Hct 27.1 L 28.0 L 25.4 L (37-47) % Plt Count 162 (130-400) K/uL Comprehensive Metabolic Panel 04/03/21 04/04/21 Range/Units 21:39 07:09 Sodium 141 141 (136-145) mmol/L Potassium 3.6 3.9 (3.5-5.1) mmol/L Chloride 105 106 (98-107) mmol/L Carbon Dioxide 30 30 (21-32) mmol/L BUN 25 H 23 H (7-18) mg/dl Creatinine 0.71 0.55 L (0.6-1.2) mg/dl Glucose 110 H 84 (70-99) mg/dl Calcium 8.8 8.9 (8.5-10.1) mg/dl AST 5 L (15-37) U/L ALT 13 (12-78) Alkaline Phosphatase 53 (45-117) U/L Total Protein 5.7 L (6.4-8.2) gm/dl Albumin 2.9 L (3.4-5.0) gm/dl Intake and Output 04/03/21 04/04/21 04/04/21 22:59 06:59 14:59 Intake Total 162.567 / 1250.000 150 / 1250.000 Output Total 400 / 700 Balance -237.433 / 550.000 150 / 550.000 Intake: IV 62.567 / 600.000 100 / 600.000 ALBUMIN 25% 100 mL 25 gm In 100 100 / 100 ml @ 50 mls/hr IV ONE ONE Rx#: [id number] Heparin Sodium/Dextrose 25,000 62.567 / 500.000 units In 500 ml @ 1,100 UNITS/ HR 22 mls/hr IV .[id number] [facility] Rx #:[id number] Oral 100 / 650 50 / 650 Output: Urine 400 / 700
--- NOTE | 2021-04-04 12:08 | Electrocardiogram Report ---
Test Reason : Blood Pressure : / mmHG Vent. Rate : 061 BPM Atrial Rate : 061 BPM P-R Int : 086 ms QRS Dur : 060 ms QT Int : 414 ms P-R-T Axes : 108 069 181 degrees QTc Int : 416 ms Poor data quality, interpretation may be adversely affected Sinus rhythm with short [place] with Premature supraventricular complexes and with occasional Premature ve ntricular complexes Low voltage QRS Cannot rule out Anteroseptal infarct (cited on or before 18-MAY-2006) Abnormal ECG When compared with ECG of 02-APR-2021 14:16, ST less depressed in Lateral leads Confirmed by Dru Castro ([id number]) on 04/04/2021 12:08:21 PM Referred By: REFERRED SELF Confirmed By:Dru Castro
[2021-04-04] MEDS: traZODone HCL 50 MG TAB PO SCH (12:26)
[2021-04-04] MEDS: POTASSIUM CHLORIDE 10 MEQ TABCR PO SCH (12:26)
--- NOTE | 2021-04-04 12:26 | Gastrointestinal Consultation ---
Date of Consultation April 04, 2021 Assessment & Plan (1) Microcytic anemia: 75 yo female with COPD, CAD, and recent brain surgery for meningioma admitted for SOB, LE edema and volume overload. Initially on heparin gtt for what was thought to be AF but stopped after cardiology review. She is noted ot have microsytic anemia. Her hgb following brain surgery in late Jan was 7.8. MCV 80 at that time. Now with perceived drop in H/H since admission but probably more close to her actual baseline now. No overt S/s of Gi bleeding. Stool is brown. She had an EGD and colonoscopy 2 years ago. WOuld continue to treat her for volume overload per primary service. Follow H/H once a day. Once daily PPI. She should follow up with her PCP following discharge and is concern for worsening anemia can consider endoscopic evaluation as an outpatient. Discussed with primary service. (2) Chronic obstructive pulmonary disease: (3) CAD (coronary artery disease): (4) Hx of meningioma of the brain: History of Present Illness Reason for Consultation: microcytic anemia Attending Physician: Michael Amor MD History of Present Illness 75 yo female with multiple medical problems including COPD, CAD and recent left frontal parietal craniotomy for a meningioma resection at [facility] in late January. She was noted to have a hgb of 7.9 with MCV of 80 on 02/19 at [facility]. Admitted now after being seen in PCP office on 04/02 for c/o SOB and LE edema. Noted to have arrhythmia and concern for AF so sent to the ER. She was apparently started on heparin gtt. Evaluated here by cardiology and noted to have an underlying sinus with PACs and PVCs. Heparin gtt was stopped and ASA dose from prior to her brain surgery was resumed. Noted to have hgb here of 9 on admission with MCV of 73 and has trended down to around her hgb from January. We are asked to see her for microcytic anemia. No melena or hematochezia. Stool here reported as soft and brown. She has not noted any rectal bleeding. She had an EGD and colonoscopy in late 2018. EGD showed gastric polyp and colonoscopy a small polyp as well. Allergies Allergy/AdvReac Type Severity Reaction Status Date / Time No Known Allergies Allergy Unknown Verified 04/02/21 15:09 Home Medications Medication Instructions Recorded Confirmed Type amlodipine 10 mg tablet (Norvasc) 10 mg PO QAM 12/18/18 04/02/21 History aspirin 81 mg tablet,delayed 81 mg PO QAM 12/18/18 04/02/21 History release atenolol 25 mg tablet 12.5 mg PO QAM 12/18/18 04/02/21 History lisinopril 40 mg tablet 40 mg PO QAM 12/18/18 04/02/21 History albuterol sulfate 90 mcg/actuation 1 puff INHALATION QID PRN 04/04/19 04/02/21 History aerosol inhaler atorvastatin 80 mg tablet 80 mg PO QAM 04/04/19 04/02/21 History duloxetine 20 mg capsule,delayed 20 mg PO QAM 04/04/19 04/02/21 History release (Cymbalta) alendronate 70 mg tablet 70 mg PO DAILY 04/02/21 04/02/21 History cholecalciferol (vitamin D3) 25 25 mcg PO DAILY 04/02/21 04/02/21 History mcg (1,000 unit) tablet levetiracetam 500 mg tablet 500 mg PO Q12H 04/02/21 04/02/21 History nitroglycerin 0.4 mg sublingual 0.4 mg SUBLINGUAL DAILY PRN 04/02/21 04/02/21 Hi story tablet (Nitrostat) oxycodone 5 mg tablet 5 mg PO BID PRN 04/02/21 04/02/21 History polyethylene glycol 3350 17 gram 17 g PO DAILY 04/02/21 04/02/21 History oral powder packet (Miralax) trazodone 50 mg tablet 50 mg PO DAILY 04/02/21 04/02/21 History Patient History Medical History Abdominal pain Anxiety CAD (coronary artery disease) Chronic obstructive pulmonary disease STOPPED USING INHALER-"DOESN'T NEED IT" Current every day smoker Hyperlipidemia Hypertension Kidney stone Myocardial Infarction 1990s x 2 F/U MAGDA FUNG Surgical History History of cardiac cath - [place] - [facility] - angioplasty, no stents (reports [place] following procedure as well) - follows w/ Dr. Mccauley. 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 [facility] Family History Son Family history of diabetes mellitus Social History Smoking Status: Current every day smoker Tobacco Type: Cigarettes Cigarettes Per Day: 2-3; Second Hand Exposure: No; Do You Dip or Chew Tobacco: No; Tobacco Cessation Education Requested by Patient: No Hx Alcohol Use: No Hx Substance Use: No Preferred Language: Croatian Communication Ability: Effective 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 Beliefs That Will Affect Care: None and Buddhist marital status: / Current Living Situation: Family Current Living Situation Comment: lives with son Other Information That Helps Us Care for You: No Feels Safe at Home: Yes Assistive Devices: None Review of Systems Review of Systems: All systems reviewed & are unremarkable except as noted in HPI & below Physical Exam Constitutional: WD/WN, vitals as above Respiratory: normal respiratory effort, lungs clear to auscultation Cardiovascular: RRR, no murmur, no edema Gastrointestinal (Abdomen): normal bowel sounds, soft, nontender, no hepatosplenomegaly Results & Data ([facility]) Vital Signs (Past 12 Hours) Vital Signs Temp Pulse Pulse Resp BP BP Pulse Ox 04/04/21 12:09 68 18 04/04/21 07:22 80 20 91 04/04/21 04:29 37 C 60 19 101/56 L 96 04/04/21 01:55 55 L 04/04/21 00:30 36.9 C 55 L 18 105/59 L 94
[2021-04-04] MEDS ORDERED: SODIUM CHLORIDE 0.9% 250 ML IV PRN ×2 (14:40→18:40)
[2021-04-04 15:16] LABS: Hematocrit (blood only) 26.3 % (37-47); Hemoglobin 7.1 g/dL (12.0-16.0)
[2021-04-04 15:35] LABS: Ferritin 9.1 ng/ml (8-388)
[2021-04-04 16:13] LABS: Folate (Folic Acid) > 20.00 ng/ml (>5.38); Vitamin B12 224 pg/ml (193-986)
--- NOTE | 2021-04-04 18:52 | Hospitalist Progress Note ---
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 fib with RVR over in her PCP office earlier on the day of arrival. She was placed on 4 L O2 via NC and EMS transfer her to the ER. She is being managed for the following: (1)concern for arrhythmia ? Afib #. Premature atrial contraction #. Premature ventricular contractions #. CAD/abdominal aortic aneurysm endovascular repair - Admitted to [facility] - HR was in 100s-90s upon presentation to the ER, has been under control since then. -04/03 echo: EF 55%, LV systolic function normal, akinesis of the basal inferior wall, sinus bradycardia present, no atrial fibrillation noted. -Cardiology evaluated the patient: EKG while inpatient consistent with frequent PACs and PVCs versus wandering atrial pacemaker with multiple P wave morphologies likely secondary to her longstanding history of COPD. No heparin drip. Continue with aspirin SCDs no more than 1 month status post craniotomy. - Continue antihypertensives with ANNAMARIA, beta-andrés, statin therapy #. Anemia Admitting hemoglobin 9, baseline seems to be around 9-10 Hemoglobin trending down, currently 7.1. Iron profile suggestive of very low iron stores. Anemia secondary to low iron store secondary to multifactorial [recent surgery versus GI loss versus low dietary intake versus other etiology] Trend hemoglobin, transfuse 1 unit blood FOBT has not been collected, patient reports moving to bowel movements since admission and reports no obvious blood in it. GI consulted: No active intervention while inpatient, PPI daily Continue n.p.o., continue PPI twice daily, reeval tomorrow for initiation of cl ear liquid diet. Deputy Felony Clerk made aware of FOBT not being collected. (2) Acute diastolic HF (heart failure): #. Acute hypoxemic respiratory failure -secondary to above - Suspected -Improving oxygen requirement, improving BLE swelling - Assess I/Os, patient received 20 mg IV Lasix yesterday and today -Cardiology evaluated the patient: Lasix 20 mg p.o. daily, KCl 10 mEq daily -Patient will need repeat BMP in 1 week upon discharge. (3) Hx of meningioma of the brain: - Hx of such by Dr. Dave in Jan 2021 - Also with known cerebral aneurysm, Dr. Dave reports low likelihood of rupture with initiation of anticoagulation in the setting of A. fib with RVR -as reported by Dr. Mccarty who discussed with him - Stable, post op 7 weeks on 04/03 - Continue keppra 500 mg Q12H - noted that pt cut her dose in half due to thinking leg edema was due to adverse effect of medication. Education provided at bedside. (4) HTN (hypertension): - cont Antihypertensives (5) Chronic obstructive pulmonary disease: -No wheezing, stable, cessation of smoking encouraged -Nicotine patch declined as has reduced smoking from 1 pack to 2 to 3 cigarettes daily (6) Current every day smoker: -Chronic, 60 smoke pack years, cessation encouraged at bedside, pt is weaning down cig usage. 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 Can, stable, chronic (9) Hyperlipidemia: -Check lipid panel with a.m. labs, continue statin therapy DVT PPx: - teds, scds, enoxaparin SQ CODE: DNR/DNI Dispo: From home, likely to remain in the hospital x 1-2 days. Due to downtrending hemoglobin, will monitor patient for 1 more day for hemoglobin stability. Await FOBT. Admission and Anticipated Discharge Date Admission Date: April 02, 2021 Subjective Patient was lying in bed, on 1L, NAD, no new acute events overnight. Patient reports having 2 bowel movement -denies any blood in the stool. Patient reports tolerating diet. Due to hemoglobin constantly dropping, will keep her n.p.o. going forward. GI consulted. Patient denies any headache/dizziness/chest pain/palpitations/belly pain/other review of symptoms. Physical Exam Physical Exam: GENERAL: Alert and oriented x3. NAD, on 1L. HEENT: No pallor, no icterus. Pupils equal, round and reactive to light. Oral mucosa moist. NECK: No JVD, no neck masses. HEART: S1 and S2 heard. Regular rate and rhythm. No murmur, no gallop. RESPIRATORY SYSTEM: Normal AP diameter. No accessory muscle use. No wheezing, b/b crackles - improving. ABDOMEN: Soft, bowel sounds present, nontender, no distention. CENTRAL NERVOUS SYSTEM: Alert and oriented x3. No facial droop. Speech is clear. Obeys simple commands. Moves extremities. EXTREMITIES: 1- 2+ ankle edema, no erythema seen. Left forearm erythematous and nonpitting edema -- improved, nontender. Results & Data Results & Data ([facility]) Vital Signs (Past 12 Hours) Vital Signs Temp Pulse Pulse Resp BP Pulse Ox 04/04/21 15:29 36.8 C 54 L 19 103/53 L 93 04/04/21 12:33 36.5 C 44 L 19 97/6 L 94 04/04/21 12:09 68 18 04/04/21 08:00 37.3 C 48 L 65 18 96/55 L 90 04/04/21 07:22 80 20 91
[2021-04-05] MEDS: LEVALBUTEROL 1.25MG/0.5ML NEB NEB SCH ×3 (00:55→12:52)
[2021-04-05 05:49] LABS: Hematocrit (blood only) 34.2 % (37-47); Hemoglobin 9.7 g/dL (12.0-16.0); Mean Corpuscular Hemoglobin 21.3 pg (25-34); Mean Corpuscular Hgb Conc 28.4 g/dL (32-36); Mean Corpuscular Volume 75.2 fL (80-100); Mean Platelet Volume 9.5 fL (7.4-10.4); Platelet Count 162 K/uL (130-400); RDW Coefficient of Variation 20.1 % (11.5-14.5); RDW Standard Deviation 55.8 fL (36.4-46.3); Red Blood Count 4.55 M/uL (4.2-5.4); White Blood Count 4.92 K/uL (4.8-10.8)
[2021-04-05 05:58] LABS: Albumin Level 3.3 gm/dl (3.4-5.0); BUN Creatinine Ratio 29.1 (10-20); Calcium 9.5 mg/dl (8.5-10.1); Creatinine Clr Calc Pharmacy 62.6 ml/min; Est GFR (African American) 96.3 ml/min; Est GFR (Non-African American) 83.1 ml/min; Potassium 3.9 mmol/L (3.5-5.1)
[2021-04-05 06:00] LABS: Albumin Globulin Ratio 1.1 (0.9-2); Bilirubin,Total 0.7 mg/dl (0.2-1); Total Protein 6.3 gm/dl (6.4-8.2)
[2021-04-05] MEDS ORDERED: FERROUS GLUCONATE 324 MG TAB PO SCH (08:00)
[2021-04-05] MEDS: levETIRAcetam 500 MG TAB PO SCH (08:55)
[2021-04-05] MEDS: PANTOprazole 40 MG in SYRINGE 0 ML IV SCH (08:55)
[2021-04-05] MEDS: lisinopril 40 MG TAB PO SCH (08:56)
[2021-04-05] MEDS: ASPIRIN 81 MG ECTAB PO SCH (08:56)
[2021-04-05] MEDS: FUROSEMIDE 20 MG TAB PO SCH (08:56)
[2021-04-05] MEDS: ATORVASTATIN 40 MG TAB PO SCH (08:56)
[2021-04-05] MEDS: ATENOLOL 25 MG TABLET PO SCH (08:56)
[2021-04-05] MEDS: DULoxetine HCL 20 MG CAP PO SCH (08:56)
[2021-04-05] MEDS: POTASSIUM CHLORIDE 10 MEQ TABCR PO SCH (08:59)
[2021-04-05] MEDS: POLYETHYLENE (MIRALAX) 17 GM PACK PO SCH (08:59)
[2021-04-05] MEDS: traZODone HCL 50 MG TAB PO SCH (08:59)
[2021-04-05] MEDS ORDERED: NICOTINE 14 MG/24 HR PATCH TD SCH (11:30)
--- NOTE | 2021-04-05 14:21 | Discharge Summary ---
Date of Service April 05, 2021 Admission HPI Per Admitting Provider This is a 75-year-old female with PMHx of COPD, chronic smoker, HTN, CAD, diastolic dysfunction, pulmonary HTN, status post AAA repair, renal artery aneurysm, cerebral aneurysm, thyroid nodule, meningioma s/p resection February 18, 2021 presents to the ER with shortness of breath and swelling in her lower extremities x1 week, 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 fib with RVR over in her PCP office earlier today. She was placed on 4 L O2 via [place] and EMS transfer her to the ER. She reports that shortness of breath has been going on for approximately 3 to 4 days. She has reduced her smoking from 1 PPD to 2 to 3 cigarettes daily, and reports that she does not need a nicotine patch. Denies any coughing up sputum, hemoptysis, fever, chills or sweats. Since being in the ER she reports her shortness of breath has improved, status post treatments, steroids, nebs. At baseline she does not wear any oxygen. Initially she thought swelling in her legs was a result of being on Keppra, and thought it was a possible side effect so she reduced her dose in half. She did not take any of her routine medications today due to not feeling well, moving slow and attempting to get a few household items completed before the transportation showed up to take her to her PCPs office earlier today. Pt also reports she is going to have cerebral aneurysm operated on in May by Dr. Dave pending everything status post her meningioma resection continues to go well. 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 Generally weak Principal Diagnosis Premature atrial contraction Premature ventricular contraction Acute hypoxemic respiratory failure secondary to acute diastolic heart failure Anemia secondary to severe iron deficiency secondary to FOBT positive Discharge Exam GENERAL: Alert and oriented x3. NAD, on RA HEENT: No pallor, no icterus. Pupils equal, round and reactive to light. Oral mucosa moist. NECK: No JVD, no neck masses. HEART: S1 and S2 heard. Regular rate and rhythm. No murmur, no gallop. RESPIRATORY SYSTEM: Normal AP diameter. No accessory muscle use. No wheezing, b/b crackles - improving. ABDOMEN: Soft, bowel sounds present, nontender, no distention. CENTRAL NERVOUS SYSTEM: Alert and oriented x3. No facial droop. Speech is clear. Obeys simple commands. Moves extremities. EXTREMITIES: 1+ ankle edema, no erythema seen. Discharge Data Allergies Allergy/AdvReac Type Severity Reaction Status Date / Time No Known Allergies Allergy Unknown Verified 04/02/21 15:09 Consultations 04/02/21 15:36 ED Decision to Admit Stat 04/02/21 22:46 Consult Cardiology Routine 04/04/21 11:51 Consult Gastroenterology Routine Hospital Course (1) Microcytic anemia: (2) Premature ventricular contractions: (3) Premature atrial contractions: (4) Acute hypoxemic respiratory failure: 75-year-old female with PMHx of COPD, chronic smoker, HTN, CAD, diastolic dysfunction, pulmonary HTN, status post AAA repair, renal artery aneurysm, cerebral aneurysm, thyroid nodule, meningioma s/p resection February 18, 2021 presents to the ER 04/02 with shortness of breath and 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 fib with RVR over in her PCP office earlier on the day of arrival. She was placed on 4 L O2 via [place] and EMS transfer her to the ER. She was managed for the following: (1)concern for arrhythmia ? Afib #. Premature atrial contraction #. Premature ventricular contractions #. CAD/abdominal aortic aneurysm endovascular repair - Admitted to [facility] - HR was in 100s-90s upon presentation to the ER, has been under control since then. -04/03 echo: EF 55%, LV systolic function normal, akinesis of the basal inferior wall, sinus bradycardia present, no atrial fibrillation noted. -Cardiology evaluated the patient: EKG while inpatient consistent with frequent PACs and PVCs versus wandering atrial pacemaker with multiple P wave morphologies likely secondary to her longstanding history of COPD. No heparin drip. Continue with aspirin. -Resumed her home medications. #. Anemia Admitting hemoglobin 9, baseline seems to be around 9-10 Iron profile revealed severe iron deficiency. FOBT was positive. Anemia secondary to low iron stores secondary to multifactorial [recent surgery versus GI loss versus low dietary intake versus other etiology] Hemoglobin down trended to 7.1, patient received 1 unit of blood, started on iron therapy. GI was consulted, discussed with Jonel with discharge, follow-up with primary care physician per GI to assess the need for scope and GI follow-up. No active intervention while inpatient, PPI daily. Patient advised to get CBC in 3 days upon discharge. (2) Acute diastolic HF (heart failure): #. Acute hypoxemic respiratory failure -secondary to above - Suspected -Improving oxygen requirement, improving BLE swelling. On room air on the day of discharge. -Cardiology evaluated the patient: Lasix 20 mg p.o. daily, KCl 10 mEq daily -Patient advised to get BMP in a week upon discharge. (3) Hx of meningioma of the brain: - Hx of such by Dr. Dave in Jan 2021 - Also with known cerebral aneurysm, Dr. Dave reports low likelihood of rupture with initiation of anticoagulation in the setting of A. fib with RVR -as reported by Dr. Mccarty who discussed with him - Stable, post op 7 weeks on 04/03 - Continue keppra 500 mg Q12H - noted that pt cut her dose in half due to thinking leg edema was due to adverse effect of medication. Education provided at bedside. (4) HTN (hypertension): - cont Antihypertensives (5) Chronic obstructive pulmonary disease: -No wheezing, stable, cessation of smoking encouraged -Nicotine patch declined as has reduced smoking from 1 pack to 2 to 3 cigarettes daily (6) Current every day smoker: -Chronic, 60 smoke pack years, cessation encouraged at bedside, pt is weaning down cig usage. (7) CAD (coronary artery disease): -As above, nonobstructive, no history of stenting, cardiac cath done in 1990 per outpatient review of 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 Can, stable, chronic (9) Hyperlipidemia: -Check lipid panel with a.m. labs, continue statin therapy CODE: DNR/DNI Patient being discharged home with following instruction at the point of dis charge: Follow-up with your primary care physician within a week time. Get your blood work CBC done in 3 days and BMP done in a week time and have the results forwarded to your primary care physician. You were diagnosed with acute heart failure, you are started on the Lasix p.o. along with potassium supplementation. You were also found to have anemia secondary to severe iron deficiency, you are being discharged on iron pills. You are to establish with GI doctor as an outpatient and follow-up if your hemoglobin level is not maintained or your primary care physician feels the necessity of so. Take medications as prescribed Total Time Total Time Spent Total Time Spent (In Minutes): 50 Discharge Plan Discharge Items Patient Disposition: Home - Self-Care Reason For Visit: Afib RVR Discharge Diagnosis: Premature atrial contraction Premature ventricular contraction Acute hypoxemic respiratory failure secondary to acute diastolic heart failure Anemia secondary to severe iron deficiency secondary to FOBT positive Activity: Resume your previous activity Non-emergency contact: Primary Care Provider Call non-emergency contact if: you have any medication questions, your symptoms worsen and your temperature is above 101 Follow-up/Referrals: Ever Pike MD [Primary Care Provider] - Diet: Heart Healthy Addtl Attending Provider Instructions: Follow-up with your primary care physician within a week time. Get your blood work CBC done in 3 days and BMP done in a week time and have the results forwarded to your primary care physician. You were diagnosed with acute heart failure, you are started on the Lasix p.o. along with potassium supplementation. You were also found to have anemia secondary to severe iron deficiency, you are being discharged on iron pills. You are to establish with GI doctor as an outpatient and follow-up if your hemoglobin level is not maintained or your primary care physician feels the necessity of so. Take medications as prescribed Pending Studies at Discharge: No Stand-Alone Forms: My [facility] [employer] [place], Smoking Cessation Medications and DC Order Prescriptions: New ferrous gluconate 324 mg (38 mg iron) Tablet 324 mg PO BIDM Qty: 60 RF: 0 furosemide 20 mg Tablet 20 mg PO QAM Qty: 30 RF: 0 potassium chloride 10 mEq Tablet,Er Particles/Crystals 10 meq PO DAILY Qty: 30 RF: 0 pantoprazole 40 mg tablet,delayed release (DR/EC) 40 mg PO DAILY Qty: 30 RF: 0 Continued atorvastatin 80 mg Tablet 80 mg PO QAM RF: 0 duloxetine [Cymbalta] 20 mg Capsule,Delayed Release(Dr/Ec) 20 mg PO QAM RF: 0 albuterol sulfate 90 mcg/actuation Hfa Aerosol Inhaler 1 puff INHALATION QID PRN (Reason: SHORT OF BREATH) RF: 0 atenolol 25 mg Tablet 12.5 mg PO QAM RF: 0 aspirin 81 mg Tablet,Delayed Release (Dr/Ec) 81 mg PO QAM RF: 0 amlodipine [Norvasc] 10 mg Tablet 10 mg PO QAM RF: 0 lisinopril 40 mg Tablet 40 mg PO QAM RF: 0 trazodone 50 mg tablet 50 mg PO DAILY RF: 0 polyethylene glycol 3350 [Miralax] 17 gram Powder In Packet 17 g PO DAILY RF: 0 levetiracetam 500 mg tablet 500 mg PO Q12H RF: 0 alendronate 70 mg tablet 70 mg PO DAILY RF: 0 nitroglycerin [Nitrostat] 0.4 mg Tablet, Sublingual 0.4 mg sublingual DAILY PRN (Reason: Chest Pain) RF: 0 oxycodone 5 mg Tablet 5 mg PO BID PRN (Reason: Pain) RF: 0 cholecalciferol (vitamin D3) 25 mcg (1,000 unit) Tablet 25 mcg PO DAILY RF: 0 Discharge Orders: Discharge Order (Routine); Ordered 04/05/21 Ordered By: Michael Ramirez/Other Patient Handouts: Prediabetes, 5 Steps for Eating Healthier Admission Data Admit Date/Time: 04/02/21 15:51 Attending Provider: Michael Amor Admit Provider: Cherry Williamson Primary Care Provider: Ever Pike Other Providers: Cherry Williamson ; Missael Mandujano ; Michelle Florez Other Interventions: Discharge Summary Assessment (RN) Last Done: 04/05/21 14:11
== END 2021-04-05 14:50 | disposition home or self-care (01) | DRG 291 ==
LOC: ED 14:09 → EDINP 15:51 → SUATTDRO 15:51 → 2S 22:41

== ENCOUNTER 2022-04-22 18:22 | Inpatient (IN) ==
[2022-04-22] MEDS ORDERED: OPTIRAY 320 500ml IV ONE (18:27)
--- NOTE | 2022-04-22 18:30 | Emergency Department Note ---
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 04/22/2022 6:33 PM Head CTA 04/22/22 18:02 CT angio head w con, CT angio neck with con CLINICAL HISTORY: neuro deficit, acute stroke suspected TECHNIQUE: CT angiography of the head and neck was performed following intravenous administration of iodinated contrast. Coronal and sagittal MIPS were obtained from the axial data set and were submitted for review. Automated dose lowering techniques and/or adjustment according to patient size were utilized for this examination. All measurements were calculated based on NASCET criteria. CT DOSE: 1185.20 mGy.cm Comparison: Comparison is made to CT head 04/22/2022 FINDINGS: Small thyroid nodules are seen which do not require follow-up by ACR criteria. Emphysema is noted. CTA Neck: The aortic arch and the origins of the innominate, left subclavian, and left common carotid artery are not imaged There is no significant atherosclerotic plaque in the aortic arch or the origins of the innominate, left common carotid, and left subclavian arteries. The common carotid, external carotid, cervical segments of the internal carotid arteries, and the cervical segments of the vertebral arteries are patent without hemodynamically significant stenosis. The left vertebral artery is dominant. CTA Head: The anterior and posterior cerebral circulations are patent. origin of the bilateral posterior cerebral arteries noted. Multiple cerebral aneurysms are seen without evidence of acute active extravasation. Most prominently there is an 8 mm saccular aneurysm in the M2 segment of the left MCA. In addition there are fusiform aneurysms of the bilateral supraclinoid internal carotid arteries measuring 8 mm on the right and 6 mm on the left. IMPRESSION: 1. No occlusion, hemodynamically significant stenosis, or dissection in the major cervical arteries. 2. Multiple cerebral aneurysms are seen, most prominently a saccular aneurysm measuring 8 mm in the left M2 segment as well as small fusiform aneurysms of the supraclinoid internal carotid arteries bilaterally. Assessment of stenosis of the internal carotid arteries is based on NASCET criteria. ACT 112: Negative or not required by law. Electronically signed by: Juan Carlos Kathleen M.D. 04/22/2022 6:55 PM Neck CTA 04/22/22 18:02 CT angio head w con, CT angio neck with con CLINICAL HISTORY: neuro deficit, acute stroke suspected TECHNIQUE: CT angiography of the head and neck was performed following intravenous administration of iodinated contrast. Coronal and sagittal MIPS were obtained from the axial data set and were submitted for review. Automated dose lowering techniques and/or adjustment according to patient size were utilized for this examination. All measurements were calculated based on NASCET criteria. CT DOSE: 1185.20 mGy.cm Comparison: Comparison is made to CT head 04/22/2022 FINDINGS: Small thyroid nodules are seen which do not require follow-up by ACR criteria. Emphysema is noted. CTA Neck: The aortic arch and the origins of the innominate, left subclavian, and left common carotid artery are not imaged There is no significant atherosclerotic plaque in the aortic arch or the origins of the innominate, left common carotid, and left subclavian arteries. The common carotid, external carotid, cervical segments of the internal carotid arteries, and the cervical segments of the vertebral arteries are patent without hemodynamically significant stenosis. The left vertebral artery is dominant. CTA Head: The anterior and posterior cerebral circulations are patent. origin of the bilateral posterior cerebral arteries noted. Multiple cerebral aneurysms are seen without evidence of acute active extravasation. Most prominently there is an 8 mm saccular aneurysm in the M2 segment of the left MCA. In addition there are fusiform aneurysms of the bilateral supraclinoid internal carotid arteries measuring 8 mm on the right and 6 mm on the left. IMPRESSION: 1. No occlusion, hemodynamically significant stenosis, or dissection in the major cervical arteries. 2. Multiple cerebral aneurysms are seen, most prominently a saccular aneurysm measuring 8 mm in the left M2 segment as well as small fusiform aneurysms of the supraclinoid internal carotid arteries bilaterally. Assessment of stenosis of the internal carotid arteries is based on NASCET criteria. ACT 112: Negative or not required by law. Electronically signed by: Juan Carlos Kathleen M.D. 04/22/2022 6:55 PM Blood Pressure Blood Pressure Findings: Elevated blood pressure Blood Pressure Disposition: further management by hospitalist Discharge Plan Visit Data Chief Complaint: Stroke Alert Stated Complaint: STROKE ALERT ED Provider: Jaja Louise Discharge Problem: Brain TIA, Hx of meningioma of the brain Patient Disposition: Admitted As Inpatient Discharge Instructions Interventions: ED Discharge Assessment Last Done: 04/23/22 00:49
--- NOTE | 2022-04-22 18:34 | CT Scan Report ---
CT head/brain wo con CLINICAL HISTORY: neuro deficit, acute stroke suspected Technique: Contiguous axial CT images of the head were acquired from the base of the skull to the edwar landon without intravenous contrast administration. Images were viewed in brain, subdural and bone [facility] ws. Automated dose lowering techniques and/or adjustment according to patient size were utilized for this exam. Comparison: None available at the time of this dictation. Findings: Postsurgical changes are seen in the left frontal lobe with associated encephalomalacia and apparent fluid density extra-axial collection which may represent prominent subarachnoid space. Imaged portions of the paranasal sinuses and mastoid air cells are clear. The orbits appear normal. There are no acute fractures of the calvaria or scalp swelling. Impression: No acute intracranial hemorrhage, no evidence of acute territorial infarction or other acute intracra nial disease process. Chronic postsurgical changes are seen. ACT 112: Negative or not required by law. Electronically signed by: Juan Carlos Kathleen M.D. 04/22/2022 6:33 PM
[2022-04-22 18:51] LABS: Basophils # (auto) 0.01 K/uL (0-0.2); Basophils % (auto) 0.3 %; Eosinophils # (auto) 0.03 K/uL (0-0.50); Eosinophils % (auto) 0.8 %; Hematocrit (blood only) 34.5 % (34.1-44.9); Hemoglobin 11.1 g/dl (12.0-16.0); Immature Granulocytes # (auto) 0.01 K/uL (0.00-0.02); Immature Granulocytes % (auto) 0.3 %; Lymphocytes # (auto) 0.62 K/uL (1.2-3.4); Lymphocytes % (auto) 15.9 %; Mean Corpuscular Hgb Conc 32.2 g/dL (32.0-36.0); Mean Corpuscular Volume 86.9 fL (80.0-100.0); Mean Platelet Volume 10.5 fL (9.4-12.3); Monocytes # (auto) 0.31 K/uL (0.24-0.82); Monocytes % (auto) 7.9 %; Neutrophils # (auto) 2.92 K/uL (1.4-6.5); Neutrophils % (auto) 74.8 %; Platelet Count 133 K/uL (130-400); RDW Coefficient of Variation 14.6 % (11.5-14.5); RDW Standard Deviation 46.6 fL (36.4-46.3); Red Blood Count 3.97 M/uL (3.93-5.22)
--- NOTE | 2022-04-22 18:57 | CT Scan Report ---
CT angio head w con, CT angio neck with con CLINICAL HISTORY: neuro deficit, acute stroke suspected TECHNIQUE: CT angiography of the head and neck was performed following intravenous administration of iodinated contrast. Coronal and sagittal MIPS were obtained from the axial data set and were submitte d for review. Automated dose lowering techniques and/or adjustment according to patient size were ut ilized for this examination. All measurements were calculated based on NASCET criteria. CT DOSE: 1185.20 mGy.cm Comparison: Comparison is made to CT head 04/22/2022 FINDINGS: Small thyroid nodules are seen which do not require follow-up by ACR criteria. Emphysema is noted. CTA Neck: The aortic arch and the origins of the innominate, left subclavian, and left common caroti d artery are not imaged There is no significant atherosclerotic plaque in the aortic arch or the orig ins of the innominate, left common carotid, and left subclavian arteries. The common carotid, exter nal carotid, cervical segments of the internal carotid arteries, and the cervical segments of the edwar tebral arteries are patent without hemodynamically significant stenosis. The left vertebral artery is dominant. CTA Head: The anterior and posterior cerebral circulations are patent. origin of the bilateral posterior cerebral arteries noted. Multiple cerebral aneurysms are seen without evidence of acute ac tive extravasation. Most prominently there is an 8 mm saccular aneurysm in the M2 segment of the left MCA. In addition there are fusiform aneurysms of the bilateral supraclinoid internal carotid arterie s measuring 8 mm on the right and 6 mm on the left. IMPRESSION: 1. No occlusion, hemodynamically significant stenosis, or dissection in the major cervical arteries. 2. Multiple cerebral aneurysms are seen, most prominently a saccular aneurysm measuring 8 mm in the left M2 segment as well as small fusiform aneurysms of the supraclinoid internal carotid arteries sridevi aterally. Assessment of stenosis of the internal carotid arteries is based on NASCET criteria. ACT 112: Negative or not required by law. Electronically signed by: Juan Carlos Kathleen M.D. 04/22/2022 6:55 PM
[2022-04-22 19:03] LABS: INR 1.1 (0.9-1.1); Partial Thromboplastin Ratio 0.9; Partial Thromboplastin Time 24.2 Seconds (21.0-31.0); Prothrombin Time 11.4 Seconds (9.0-12.0)
--- NOTE | 2022-04-22 19:04 | XRay Report ---
XR chest 1V portable CLINICAL HISTORY: neuro deficit, acute stroke suspected TECHNIQUE: Single frontal radiograph of the chest was obtained. Comparison: Comparison is made to chest radiograph 04/02/2021 FINDINGS: No lines and tubes are seen. Cardiomegaly is noted. The aortic arch is calcified. Reticular interstit ial opacities are seen. No evidence of pleural effusion or pneumothorax. IMPRESSION: No acute chest disease. Cardiomegaly is noted. ACT 112: Negative or not required by law. Electronically signed by: Juan Carlos Kathleen M.D. 04/22/2022 7:02 PM
[2022-04-22 19:15] LABS: Albumin Globulin Ratio 1.6 (0.9-2); Albumin Level 3.9 gm/dl (3.4-5.0); BUN Creatinine Ratio 26.3 (10-20); Bilirubin,Total 0.7 mg/dl (0.2-1.0); Calcium 8.9 mg/dl (8.5-10.1); Est GFR (African American) 68.4 ml/min; Globulin 2.5 gm/dl (2.5-4.0); Magnesium 1.7 mg/dl (1.7-2.4); Potassium 4.3 mmol/L (3.5-5.1); Total Protein 6.4 gm/dl (6.0-8.3)
[2022-04-22 19:17] LABS: Troponin I High Sensitivity 11.4 pg/ml (0-14)
[2022-04-23] MEDS ORDERED: NITROGLYCERIN SL 0.4 MG/TAB TAB SL PRN ×2 (00:47)
[2022-04-23] MEDS ORDERED: ACETAMINOPHEN 325 MG TAB PO PRN (00:47)
[2022-04-23] MEDS ORDERED: PHARMACIST DISCHARGE MED REC CONSULT PRN (00:47)
[2022-04-23] MEDS ORDERED: hydrALAZINE HCL 20 MG/ML VIAL IV PRN (00:47)
[2022-04-23] MEDS ORDERED: POLYETHYLENE (MIRALAX) 17 GM PACK PO PRN (00:47)
[2022-04-23] MEDS ORDERED: ALBUTEROL HFA 8 GM INHALER INH PRN (00:47)
[2022-04-23] MEDS ORDERED: SODIUM CHLORIDE 0.9% 1000ML 1,000 ML IV SCH (00:47)
[2022-04-23] MEDS ORDERED: ALBUT/IPRATROP 3MG/0.5MG NEB 3 ML VIAL INH PRN (00:47)
[2022-04-23] MEDS ORDERED: ALBUTEROL 0.083% NEBU SOLN 3 ML VIAL INH PRN (00:47)
--- NOTE | 2022-04-23 01:55 | History and Physical Report ---
DATE OF ADMISSION: 04/22/2022. CHIEF COMPLAINT: Stroke-like symptoms. HISTORY OF PRESENT ILLNESS: A 76-year-old female with past medical history significant for hyperlipidemia, history of thyroid nodule, chronic respiratory failure with hypoxia, on home oxygen uses mostly in the nighttime and sometimes in the day time, history of COPD, CAD, history of abdominal aortic aneurysm, status post repair, history of renal artery aneurysm, chronic diastolic CHF, pulmonary hypertension, macular degeneration of both eyes, hypertension, history of patent foramen ovale, cerebral aneurysm, wandering atrial pacemaker, vitamin D deficiency, microscopic hematuria, osteoporosis, history of left frontal large extraaxial meningioma, status post resection in January 2021, history of iron deficiency anemia, history of ongoing tobacco abuse, history of parathyroidism, presents with stroke-like symptoms. The patient lives with her daughter. Around 4-4:30 p.m., she was taking laundry basket upstairs when she noticed she could not speak and she seemed that she could not swallow, it was not getting better, she came to the ER. After coming to the ER after some time, the symptoms resolved. Initial CTA of the head and CT of the head are unremarkable except showing aneurysms.. Currently, resting comfortably, hemodynamically stable. Denies any weakness. It never happened before. Denies any headache. No blurred visions, no earache, no runny nose, no sore throat, no cough, no chest pain. She always has some cough because she is still smoking 6-7 cigarettes daily. She always has some shortness of breath, no fevers, no nausea, no abdominal pain. Normal bowel and bladder movements. Currently, hemodynamically stable. ALLERGIES: No known drug allergies. PAST MEDICAL HISTORY: As mentioned above. PAST SURGICAL HISTORY: Repair of renal abdominal aortic aneurysm with [id number] common iliac artery July 2015, carpal tunnel surgery, colonoscopy, EGDs, EGD with endoscopic ultrasound, parathyroidectomy, laparoscopic inguinal hernia repair, ligation of oviducts, left partial palmar fasciectomy, craniotomy, status post left meningioma resection, right cerebral artery catheter placement. MEDICATIONS: The patient is on albuterol 2 puffs inhalation q. 4 hours p.r.n., albuterol nebulization q.i.d. p.r.n., aspirin 81 mg p.o. a.m., atenolol 12.5 mg p.o. a.m., atorvastatin 80 mg p.o. a.m., bupropion 150 mg p.o. b.i.d., vitamin D 25 mcg p.o. daily, Trelegy Ellipta 1 inhalation daily, Lasix 40 mg p.o. daily, gabapentin 300 mg p.o. t.i.d., DuoNebs p.r.n., lisinopril 20 mg p.o. a.m., nicotine patch daily, Nitrostat 0.4 mg sublingual p.r.n., MiraLax 17 g p.o. daily, potassium chloride 10 mEq p.o. b.i.d., Anoro Ellipta 1 inhalation daily. FAMILY HISTORY: Significant for daughter has breast cancer; father has emphysema; mother had small cell cancer, brother has lung cancer. Aunt has lung cancer. Maternal grandfather and paternal grandfather had cancer. Brother has heart disease. SOCIAL HISTORY: Currently lives with daughter. Smokes one pack a day for the last 60 years, currently trying to cut it down. Alcohol, 2 beers several times a week. She also smokes marijuana as per [employer]. REVIEW OF SYSTEMS: As per HPI. Rest of review of systems is negative. PHYSICAL EXAMINATION: GENERAL: The patient is of moderate build, not in acute distress. VITAL SIGNS: Temperature afebrile, pulse 90, respiratory rate 20, blood pressure 142/104, oxygen 100% on room air. HEENT: Pupils equal, round and reactive to light. Oral mucosa moist. NECK: No JVD, no neck masses. CARDIOVASCULAR: S1 and S2 heard. Regular rate and rhythm. No murmur, no gallop. RESPIRATORY SYSTEM: Normal AP diameter. No accessory muscle use. No wheezing, no crackles. ABDOMEN: Soft, bowel sounds present, nontender, no distention. CENTRAL NERVOUS SYSTEM: Alert and oriented. Speech is clear. No facial droop. Unable to close her eyes tight. Tongue is midline. Smile okay. Power 5/5 in all extremities. Sensation is intact. Can lift her right upper extremity. Left upper extremity, she has could not lift it properly. Position sense intact. EXTREMITIES: No edema, no erythema. LABORATORY DATA: WBC 3.9, hemoglobin 11.1, hematocrit 34.5, platelets 133. PT 11.4, INR 1.1, APTT 24.2. Sodium 135, potassium 4.3, chloride 98, bicarbonate 31, BUN 25, creatinine 0.9, serum glucose 109, calcium 8.9, total magnesium 1.7, total bilirubin 0.7, AST 12, ALT 8, alkaline phosphatase 60. Troponin I high sensitivity 11.4. IMAGING DATA: CTA of the neck shows no occlusion or hemodynamically significant stenosis or dissection in the major cerebral arteries. Multiple cerebral aneurysms are seen, most prominently saccular aneurysm measuring 8 mm in the left M2 segment as well as small fusiform aneurysm of the supraclinoid internal carotid arteries bilaterally. CTA of the head, no occlusion, same as above. CT of the head without contrast, no acute findings. Postsurgical changes seen. Chest x-ray, no acute disease in the chest seen. EKG: Atrial flutter with variable AV block with PVCs, at a rate of 110. ASSESSMENT AND PLAN: This is a 76-year-old female who presents with stroke like symptoms. 1. Stroke-like symptoms, transient, difficulty speaking and difficulty swallowing: Currently resolved. Initial workup is unremarkable. Will do full stroke workup with MRI scan, echo, speech evaluation, PT, OT evaluation. The patient is already on aspirin and statin, will add Plavix. Closely monitor in telemetry. 2. Questionable atrial flutter: Monitor in the tele. Will get an echo. We will consult Cardiology for further recommendations. 3. Hypertension: We will allow for permissive hypertension. Will hold her lisinopril. Continue her Lasix and atenolol. Iv hydralazine prn for blood pressure greater than 180 or diastolic blood pressure greater than 105. Closely monitor. 4. History of chronic obstructive pulmonary disease, chronic respiratory failure: On oxygen at home. Continue her home inhalers, currently stable. Follow up with Pulmonary. 5. Tobacco abuse: Needs counseling. 6. Hyperlipidemia: On statin. Follow lipid profile. 7. Chronic diastolic congestive heart failure: The patient is on Lasix 40 mg daily as per Epic, but the patient states she taking 20 mg. Will hold her lisinopril as above. On atenolol. We will monitor for any volume overload. 8. History of patent foramen ovale: We will follow the echo. 9. History of left frontal meningioma, status post resection: Follow with Neurosurgery. 10. History of cerebral aneurysms: Seems stable. Follow up with Neurosurgery. 11. Deep venous thrombosis prophylaxis: SCDs for now. Addendum: MRI showing :. A 1 cm focus of restricted diffusion within the left lateral frontotemporal region consistent with an acute infarct. Will allow permissive HTN. Added plavix already. Await Neuro inputs. DISPOSITION: Closely monitor in the tele floor. Level 1 full code. Expect to discharge home and follow up with family doctor. PT, OT prior to discharge. Social service to help with discharge planning. Job ID: [id number] [facility]ENTERAlexa
[2022-04-23] MEDS ORDERED: GADOBUTROL 65ML VIAL IV ONE (02:44)
[2022-04-23 06:09] LABS: Basophils # (auto) 0.01 K/uL (0-0.2); Basophils % (auto) 0.4 %; Eosinophils # (auto) 0.04 K/uL (0-0.50); Eosinophils % (auto) 1.5 %; Hematocrit (blood only) 33.1 % (34.1-44.9); Hemoglobin 10.5 g/dl (12.0-16.0); Immature Granulocytes # (auto) 0.01 K/uL (0.00-0.02); Immature Granulocytes % (auto) 0.4 %; Lymphocytes # (auto) 0.45 K/uL (1.2-3.4); Lymphocytes % (auto) 16.6 %; Monocytes # (auto) 0.24 K/uL (0.24-0.82); Monocytes % (auto) 8.9 %; Neutrophils # (auto) 1.96 K/uL (1.4-6.5); Neutrophils % (auto) 72.2 %; Platelet Count 117 K/uL (130-400); White Blood Count 2.71 K/ul (4.8-10.8)
[2022-04-23 06:35] LABS: BUN Creatinine Ratio 26.3 (10-20); Calcium 8.9 mg/dl (8.5-10.1); Chol HDL Ratio 2.5 (0-5); Est GFR (African American) 84.2 ml/min; Est GFR (Non-African American) 72.6 ml/min; Potassium 3.8 mmol/L (3.5-5.1)
[2022-04-23 06:38] LABS: Mean Corpuscular Hemoglobin 27.6 pg (25.0-34.0); Mean Corpuscular Hgb Conc 31.7 g/dL (32.0-36.0); Mean Corpuscular Volume 87.1 fL (80.0-100.0); RDW Coefficient of Variation 14.6 % (11.5-14.5); RDW Standard Deviation 46.4 fL (36.4-46.3)
--- NOTE | 2022-04-23 07:21 | Magnetic Resonance Report ---
Brain MRI WITH AND WITHOUT CONTRAST HISTORY: Difficulty speaking. stroke like symptoms TECHNIQUE: Multiplanar multisequence MRI of the brain was performed both before and after the intrave nous administration of contrast. COMPARISON STUDY: Head CT 04/22/2022. FINDINGS: There is a 1 cm focus of restricted diffusion within the left lateral frontal temporal júnior on on DWI sequence image 15. This is consistent with a small acute infarct. Mild atrophy and microvas cular ischemic changes are again noted. Prior left frontal craniotomy with a small amount of underlyi ng encephalomalacia, gliosis, and a small extra-axial fluid collection. This favors chronic postopera tive change. There are few punctate old lacunar infarcts within the bilateral cerebellar hemispheres. Prior bilateral lens removal. The paranasal sinuses and mastoid air cells are clear. There is again noted an 8 mm saccular aneurysm at the left MCA bifurcation. Small curvilinear focus of enhancement a t the resection cavity within the left frontal lobe may represent residual postoperative changes. No definite mass, hematoma, or midline shift. IMPRESSION: 1. A 1 cm focus of restricted diffusion within the left lateral frontotemporal region consistent with an acute infarct. 2. Postoperative changes consistent with a prior left frontal craniotomy with underlying encephalomal acia, gliosis, and a small extra-axial fluid collection. 3. A small linear focus of enhancement at the resection cavity within the left frontal lobe which may also represent residual postoperative changes. 6 month one year brain MRI follow-up recommended to e nsure stability. 4. An 8 mm left MCA aneurysm. 5. This report was called/faxed to the emergency department following dictation. ACT 112: Negative or not required by law. Electronically signed by: Gal Nick M.D. 04/23/2022 7:19 AM
[2022-04-23 07:44] LABS: Estimated Average Glucose 114 mg/dl; Hemoglobin A1C 5.6 % (4.5-5.6)
[2022-04-23 08:44] LABS: Appearance Urine Clear (Clear); Bacteria Urine Automated Negative (Negative); Bilirubin Urine Negative (Negative); Blood Urine Negative (Negative); Cast Urine Automated 0 /lpf (0-5); Color Urine Yellow; Epithelial Cell Urine Auto 20-30 /lpf (0-5); Glucose Urine UA Negative (Negative); Ketones Urine 1+ (Negative); Leukocyte Esterase Urine Negative (Negative); Nitrite Urine Negative (Negative); Protein Urine Trace (Negative); RBC Urine Automated 0-4 /hpf (0-4); Specific Gravity Urine > 1.045 (1.000-1.030); Urobilinogen Urine Negative (Negative)
[2022-04-23] MEDS: FUROSEMIDE 40 MG TAB PO SCH (09:00)
[2022-04-23] MEDS: NICOTINE 21 MG/24 HR TDSY TD SCH (09:00)
[2022-04-23] MEDS ORDERED: NON-FORMULARY MEDICATION (Fluticasone-Umeclidin-Vilanter [Trelegy Ellipta] 100-62.5-25 mcg INH SCH (09:00)
[2022-04-23] MEDS ORDERED: ATENOLOL 25 MG TABLET PO SCH (09:00)
[2022-04-23] MEDS: ASPIRIN 81 MG ECTAB PO SCH (09:00)
[2022-04-23] MEDS: CHOLECALCIFEROL 1,000 UNITS 25 MCG TAB PO SCH (09:00)
[2022-04-23] MEDS: FLUTICASONE FUROATE 100MCG 14 PUFFS/INHALER INH SCH (09:00)
[2022-04-23] MEDS: UMECLIDINIUM/VILANTEROL 62.5/25MCG 7 PUFFS/INHALER INH SCH (09:00)
[2022-04-23] MEDS: POTASSIUM CHLORIDE 10 MEQ TABCR PO SCH ×2 (09:00→21:07)
[2022-04-23] MEDS: buPROPion SR 150 MG TABCR PO SCH ×2 (09:00→21:02)
[2022-04-23] MEDS: GABAPENTIN 300 MG CAP PO SCH ×3 (09:00→21:05)
[2022-04-23] MEDS: POLYETHYLENE (MIRALAX) 17 GM PACK PO SCH (09:00)
[2022-04-23] MEDS: ATORVASTATIN 40 MG TAB PO SCH (09:00)
[2022-04-23] MEDS ORDERED: UMECLIDINIUM/VILANTEROL 62.5/25MCG 7 PUFFS/INHALER INH SCH (09:00)
[2022-04-23] MEDS: CLOPIDOGREL BISULFATE 75 MG TAB PO SCH (09:00)
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
--- NOTE | 2022-04-23 14:54 | Hospitalist Progress Note ---
Date of Service April 23, 2022 Assessment & Plan (1) CVA (cerebral vascular accident): Plan: Patient is a 76 yr female who presents with stroke like symptoms. Acute CVA-POA --MRI Brain:1 cm focus of restricted diffusion within the left lateral frontotemporal region consistent with an acute infarct. Postoperative changes consistent with a prior left frontal craniotomy with underlying encephalomalacia, gliosis, and a small extra-axial fluid collection. A small linear focus of enhancement at the resection cavity within the left frontal lobe which may also represent residual postoperative changes. 6 month one year brain MRI follow-up recommended to ensure stability. An 8 mm left MCA aneurysm. --Head/Neck CTA:No occlusion, hemodynamically significant stenosis, or dissection in the major cervical arteries. Multiple cerebral aneurysms are seen, most prominently a saccular aneurysm measuring 8 mm in the left M2 segment as well as small fusiform aneurysms of the supraclinoid internal carotid arteries bilaterally. --ECHO: Left ventricle is normal in size. Akinesis of the basilar inferior wall. EF 45 to 50%. Right ventricle systolic function is normal. Left atrium is severely dilated. Right atrium is severely dilated. No interatrial shunt. Kidneys interatrial shunt is intact with no evidence of ASD. Mild valvular aortic stenosis. Mild aortic regurgitation. Mild to moderate mitral regurgitation and tricuspid regurgitation. --LDL: 73 ; HbA1c 5.6 -- Counseled to quit smoking -- Continue aspirin, Lipitor Added Plavix 75 mg daily Neurology consulted PT OT, speech eval requested Paroxysmal atrial fibrillation H/O PACs, MAT and SVT Previously not started on anticoagulation due to anemia, history of GI bleed CHADVASC 7 HASBLED score 5 Increase atenolol to 12.5 mg twice a day Appreciate cardiology input To consider anticoagulation based on risks and benefits Pancytopenia Monitor CBC Hypertension: Allow permissive hypertension Lisinopril held Continue atenolol Monitor bp COPD Chronic respiratory failure with Hypoxia: On home oxygen Continue home inhalers Tobacco abuse: Advised to quit smoking Hyperlipidemia: On statin Chronic diastolic congestive heart failure: Continue Lasix Monitor volume status H/O Patent foramen ovale: Cardiology on board Left frontal meningioma S/P resection Follow with Neurosurgery. H/O Cerebral aneurysms: MRI as above Follows with neurosurgery DVT Px: SCDs for now Code Status Full Code Disposition PT OT prior to discharge Admission and Anticipated Discharge Date Admission Date: April 22, 2022 Subjective Patient is seen and examined at bedside Dysarthria resolved Reports having chronic headache which is unchanged Denies any focal weakness Also denies any chest pain, dyspnea, dizziness Blood pressure elevated Review of Systems Review of Systems: All systems reviewed & are unremarkable except as noted in Subjective Physical Exam Physical Exam: Physical Exam: Vitals signs as noted above General Appearance: Thin, frail, chronically appearing, no apparent distress Head: normocephalic, Atraumatic Eyes: normal inspection, EOMI Neck: supple, Trachea midline Respiratory/Chest: Decreased coarse breath sounds, No accessory muscle use Cardiovascular: Irregularly irregular, No murmur Abdomen/GI:Soft, Non tender, Bowel sounds present Extremities/Musculoskeletal:normal inspection, no edema Neurologic/Psych:AAOX3, grossly no focal neurological deficits, mild facial droop Skin: normal color, warm Results & Data Results & Data ([facility]) Vital Signs (Past 12 Hours) Vital Signs Temp Pulse Resp BP Pulse Ox O2 Del Method O2 Flow Rate 04/23/22 13:55 36.4 C L 84 18 160/102 H 97 Room Air 04/23/22 12:00 91 H 18 156/95 H 97 Nasal Cannula 2 04/23/22 07:05 36.9 C 94 H 22 160/90 H 95 Room Air 04/23/22 06:51 78 16 142/82 H 98 Laboratory Results Short CBC 04/22/22 04/23/22 Range/Units 18:41 05:43 WBC 3.90 L 2.71 L (4.8-10.8) K/ul Hgb 11.1 L 10.5 L (12.0-16.0) g/dl Hct 34.5 33.1 L (34.1-44.9) % Plt Count 133 117 L (130-400) K/uL BMP 04/22/22 04/23/22 18:41 05:43 Sodium 135 L 141 Potassium 4.3 3.8 Chloride 98 104 Carbon Dioxide 31 33 H BUN 25 H 21 Creatinine 0.95 0.80 Glucose 109 H 83 Calcium 8.9 8.9 Liver Function 04/22/22 Range/Units 18:41 Total Bilirubin 0.7 (0.2-1.0) mg/dl AST 12 L (13-39) U/L ALT 8 (7-52) U/L Alkaline Phosphatase 60 (34-104) U/L Albumin 3.9 (3.4-5.0) gm/dl Urine 04/23/22 Range/Units 08:04 Urine Color Yellow Urine Appearance Clear (Clear) Urine pH 7.0 (4.5-7.5) Ur Specific [place] > 1.045 H (1.000-1.030) Urine Protein Trace H (Negative) Urine Glucose (UA) Negative (Negative)
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
[2022-04-23] MEDS ORDERED: BUTALBITAL/ACETAMIN/CAFFEINE TAB PO ONE (15:22)
[2022-04-23] MEDS ORDERED: COUGH DROP (SUGAR FREE) LOZ 24 LOZ/1 BOX BUCCAL PRN (18:12)
[2022-04-23] MEDS: ATENOLOL 25 MG TABLET PO SCH (21:03)
[2022-04-24 06:22] LABS: Basophils # (auto) 0.01 K/uL (0-0.2); Basophils % (auto) 0.2 %; Eosinophils # (auto) 0.06 K/uL (0-0.50); Eosinophils % (auto) 1.4 %; Hematocrit (blood only) 38.1 % (34.1-44.9); Hemoglobin 11.9 g/dl (12.0-16.0); Immature Granulocytes # (auto) 0.01 K/uL (0.00-0.02); Immature Granulocytes % (auto) 0.2 %; Lymphocytes # (auto) 0.58 K/uL (1.2-3.4); Lymphocytes % (auto) 13.3 %; Mean Corpuscular Hgb Conc 31.2 g/dL (32.0-36.0); Mean Corpuscular Volume 86.6 fL (80.0-100.0); Monocytes # (auto) 0.33 K/uL (0.24-0.82); Monocytes % (auto) 7.6 %; Neutrophils # (auto) 3.38 K/uL (1.4-6.5); Neutrophils % (auto) 77.3 %; Platelet Count 133 K/uL (130-400); RDW Coefficient of Variation 14.5 % (11.5-14.5); RDW Standard Deviation 45.7 fL (36.4-46.3); White Blood Count 4.37 K/ul (4.8-10.8)
[2022-04-24 06:39] LABS: BUN Creatinine Ratio 24.1 (10-20); Calcium 9.2 mg/dl (8.5-10.1); Creatinine Clr Calc Pharmacy 49.2 ml/min; Est GFR (African American) 80.5 ml/min; Est GFR (Non-African American) 69.5 ml/min; Potassium 4.5 mmol/L (3.5-5.1)
--- NOTE | 2022-04-24 06:40 | Electrocardiogram Report ---
Test Reason : Blood Pressure : / mmHG Vent. Rate : 110 BPM Atrial Rate : 220 BPM P-R Int : 000 ms QRS Dur : 090 ms QT Int : 320 ms P-R-T Axes : 244 080 237 degrees QTc Int : 433 ms Poor data quality, interpretation may be adversely affected Atrial flutter with variable A-V block with premature ventricular or aberrantly conducted complexes Septal infarct (cited on or before 18-MAY-2006) Marked ST abnormality, possible lateral subendocardial injury Abnormal ECG When compared with ECG of 03-APR-2021 11:09, Atrial flutter has replaced Sinus rhythm Vent. rate has increased by 59 bpm Confirmed by Vu Wren ([id number]) on 04/24/2022 6:40:29 AM Referred By: REFERRED SELF Confirmed By:Vu Wren
--- NOTE | 2022-04-24 07:02 | Electrocardiogram Report ---
Test Reason : Blood Pressure : / mmHG Vent. Rate : 082 BPM Atrial Rate : 241 BPM P-R Int : 000 ms QRS Dur : 094 ms QT Int : 358 ms P-R-T Axes : 000 058 231 degrees QTc Int : 418 ms Poor data quality, interpretation may be adversely affected Atrial flutter with variable A-V block Septal infarct (cited on or before 18-MAY-2006) Cannot rule out Inferior infarct , age undetermined Abnormal ECG When compared with ECG of 22-APR-2022 18:37, Nonspecific T wave abnormality now evident in Anterior leads Confirmed by Vu Wren ([id number]) on 04/24/2022 7:01:34 AM Referred By: REFERRED SELF Confirmed By:Vu Wren
[2022-04-24] MEDS: NICOTINE 21 MG/24 HR TDSY TD SCH (09:03)
[2022-04-24] MEDS: POTASSIUM CHLORIDE 10 MEQ TABCR PO SCH ×2 (09:03→20:02)
[2022-04-24] MEDS: FUROSEMIDE 40 MG TAB PO SCH (09:03)
[2022-04-24] MEDS: CLOPIDOGREL BISULFATE 75 MG TAB PO SCH (09:03)
[2022-04-24] MEDS: ATORVASTATIN 40 MG TAB PO SCH (09:03)
[2022-04-24] MEDS: ATENOLOL 25 MG TABLET PO SCH (09:03)
[2022-04-24] MEDS: CHOLECALCIFEROL 1,000 UNITS 25 MCG TAB PO SCH (09:03)
[2022-04-24] MEDS: ASPIRIN 81 MG ECTAB PO SCH (09:03)
[2022-04-24] MEDS: buPROPion SR 150 MG TABCR PO SCH ×2 (09:03→19:59)
[2022-04-24] MEDS: GABAPENTIN 300 MG CAP PO SCH ×3 (09:03→19:59)
[2022-04-24] MEDS: POLYETHYLENE (MIRALAX) 17 GM PACK PO SCH (09:04)
--- NOTE | 2022-04-24 09:13 | Hospitalist Progress Note ---
Date of Service April 24, 2022 Assessment & Plan (1) CVA (cerebral vascular accident): Plan: Patient is a 76 yr female who presents with stroke like symptoms. Acute CVA-POA --MRI Brain:1 cm focus of restricted diffusion within the left lateral frontotemporal region consistent with an acute infarct. Postoperative changes consistent with a prior left frontal craniotomy with underlying encephalomalacia, gliosis, and a small extra-axial fluid collection. A small linear focus of enhancement at the resection cavity within the left frontal lobe which may also represent residual postoperative changes. 6 month one year brain MRI follow-up recommended to ensure stability. An 8 mm left MCA aneurysm. --Head/Neck CTA:No occlusion, hemodynamically significant stenosis, or dissection in the major cervical arteries. Multiple cerebral aneurysms are seen, most prominently a saccular aneurysm measuring 8 mm in the left M2 segment as well as small fusiform aneurysms of the supraclinoid internal carotid arteries bilaterally. --ECHO: Left ventricle is normal in size. Akinesis of the basilar inferior wall. EF 45 to 50%. Right ventricle systolic function is normal. Left atrium is severely dilated. Right atrium is severely dilated. No interatrial shunt. Kidneys interatrial shunt is intact with no evidence of ASD. Mild valvular aortic stenosis. Mild aortic regurgitation. Mild to moderate mitral regurgitation and tricuspid regurgitation. --LDL: 73 ; HbA1c 5.6 -- Counseled to quit smoking -- Continue aspirin, Lipitor Added Plavix 75 mg daily Neurology consulted - will obtain LE doppler to r/o DVT PT OT, speech eval requested per PT ok to return home Paroxysmal atrial fibrillation H/O PACs, MAT and SVT Previously not started on anticoagulation due to anemia, history of GI bleed CHADVASC 7 HASBLED score 5 Increase atenolol to 12.5 mg twice a day Appreciate cardiology input To consider anticoagulation based on risks and benefits 04/24 -patient tachycardic this morning, denies any symptoms P.o. atenolol given as scheduled, will further discuss w/ cardiology Pancytopenia Monitor CBC, plt now normal, WBC anf Hgb improved Hypertension: Allow permissive hypertension Lisinopril held Continue atenolol Monitor bp current BP 135/88 COPD Chronic respiratory failure with Hypoxia: On home oxygen Continue home inhalers Tobacco abuse: Advised to quit smoking Hyperlipidemia: On statin Chronic diastolic congestive heart failure: Continue Lasix Monitor volume status H/O Patent foramen ovale: Cardiology following Left frontal meningioma S/P resection Follow with Neurosurgery. H/O Cerebral aneurysms: MRI as above Follows with neurosurgery DVT Px: SCDs for now Code Status Full Code Disposition - per PT OT plan to return home when medically stable Admission and Anticipated Discharge Date Admission Date: April 22, 2022 Subjective Patient seen in follow up of CVA, Afib/flutter Currently patient is sitting up in bed, in no acute distress However heart rate is elevated, currently in the 120s Atenolol was increased yesterday by cardiology, p.o. atenolol just given as scheduled Patient denies any palpitations or chest pain or shortness of breath. She is on chronic oxygen for COPD She is inquiring about going home No abdominal pain nausea vomiting Dysarthria resolved Reports having chronic headache which is unchanged Review of Systems Review of Systems: All systems reviewed & are unremarkable except as noted in Subjective Physical Exam Physical Exam: General Appearance: Thin, frail, chronically ill appearing, no apparent distress, on 2L suppl. O2 (baseline) Head: normocephalic, Atraumatic Eyes: normal inspection, EOMI Neck: supple Respiratory/Chest: somewhat diminished breath sounds, No accessory muscle use, no wheezing Cardiovascular: + tachycardic Abdomen/GI:Soft, Non tender, Bowel sounds present Extremities/Musculoskeletal:normal inspection, no edema Neurologic/Psych:AAOX3, grossly no focal neurological deficits, mild facial droop Skin: normal color, warm Results & Data Results & Data ([facility]) Vital Signs (Past 12 Hours) Vital Signs Temp Pulse Pulse Resp BP Pulse Ox O2 Del Method 04/24/22 06:28 36.7 C 99 H 20 135/88 97 Nasal Cannula 04/24/22 04:00 36.5 C 92 H 20 131/85 97 Nasal Cannula 04/23/22 22:17 81 04/23/22 23:00 36.7 C 91 H 20 114/79 95 Nasal Cannula O2 Flow Rate 04/24/22 06:28 2 04/24/22 04:00 2 04/23/22 22:17 04/23/22 23:00 2 Laboratory Results 04/24/22 04/24/22 Range/Units 06:04 06:04 WBC 4.37 L (4.8-10.8) K/ul RBC 4.40 (3.93-5.22) M/uL Hgb 11.9 L (12.0-16.0) g/dl Hct 38.1 (34.1-44.9) % MCV 86.6 (80.0-100.0) fL MCH 27.0 (25.0-34.0) pg MCHC 31.2 L (32.0-36.0) g/dL RDW Std Deviation 45.7 (36.4-46.3) fL RDW Coeff of [place] 14.5 (11.5-14.5) % Plt Count 133 (130-400) K/uL MPV 10.0 (9.4-12.3) fL Immature Gran % (Auto) 0.2 % Neut % (Auto) 77.3 % Lymph % (Auto) 13.3 % Randall % (Auto) 7.6 % Eos % (Auto) 1.4 % Baso % (Auto) 0.2 % Neut # (Auto) 3.38 (1.4-6.5) K/uL Lymph # (Auto) 0.58 L (1.2-3.4) K/uL Randall # (Auto) 0.33 (0.24-0.82) K/uL Eos # (Auto) 0.06 (0-0.50) K/uL Baso # (Auto) 0.01 (0-0.2) K/uL Immature Gran # (Auto) 0.01 (0.00-0.02) K/uL Sodium 141 (136-145) mmol/L Potassium 4.5 (3.5-5.1) mmol/L Chloride 105 (98-107) mmol/L Carbon Dioxide 31 (21-32) mmol/L Anion Gap 5 (3-11) BUN 20 (6-23) mg/dl Creatinine 0.83 (0.6-1.2) mg/dl Est Cr Clr Drug Dosing 49.2 ml/min Est GFR ( Amer) 80.5 ml/min Est GFR (Non-Af Amer) 69.5 ml/min BUN/Creatinine Ratio 24.1 H (10-20) Glucose 82 (70-99(Fasting)) mg/dl Calcium 9.2 (8.5-10.1) mg/dl Medications Administered Current Inpatient Medications Acetaminophen (Acetaminophen 325 Mg Tab) 650 mg PO Q4H PRN PRN Reason: Pain or Fever Stop: 05/23/22 00:46 Albuterol (Albuterol Hfa 8 Gm Inhaler) 2 puffs INH Q4 PRN PRN Reason: Shortness Of Breath Stop: 05/23/22 00:46 Albuterol (Albuterol 0.083% Nebu Soln 3 Ml Vial) 2.5 mg INH QID PRN; Protocol PRN Reason: Shortness Of Breath Stop: 05/23/22 00:46 Albuterol (Albut/Ipratrop 3mg/0.5mg Neb 3 Ml Vial) 3 ml INH TID PRN; Protocol PRN Reason: Shortness Of Breath Stop: 05/23/22 00:46 Aspirin (Aspirin 81 Mg Ectab) 81 mg PO QAM [facility] Stop: 05/23/22 08:59 Last Admin: 04/24/22 09:03 Dose: 81 mg Atenolol (Atenolol 25 Mg Tablet) 12.5 mg PO BID [facility] Stop: 05/23/22 20:59 Last Admin: 04/24/22 09:03 Dose: 12.5 mg Atorvastatin Calcium (Atorvastatin 40 Mg Tab) 80 mg PO QAM [facility] Stop: 05/23/22 08:59 Last Admin: 04/24/22 09:03 Dose: 80 mg Bupropion HCl (Bupropion Sr 150 Mg Tabcr) 150 mg PO BID [facility] Stop: 05/23/22 08:59 Last Admin: 04/24/22 09:03 Dose: 150 mg Clopidogrel Bisulfate (Clopidogrel Bisulfate 75 Mg Tab) [facility] [place]: 05/23/22 08:59 Last Admin: 04/24/22 09:03 Dose: 75 mg Fluticasone Furoate (Fluticasone Furoate 100mcg 14 Puffs/Inhaler) 1 puffs INH DAILY [facility] Stop: 05/23/22 08:59 Last Admin: 04/23/22 09:00 Dose: 1 puffs Furosemide (Furosemide 40 Mg Tab) 40 mg PO DAILY [facility] Stop: 05/23/22 08:59 Last Admin: 04/24/22 09:03 Dose: 40 mg Gabapentin (Gabapentin 300 Mg Cap) 300 mg PO TID [facility] Stop: 05/23/22 08:59 Last Admin: 04/24/22 09:03 Dose: 300 mg Hydralazine HCl (Hydralazine Hcl 20 Mg/Ml Vial) 5 mg IV Q6H PRN PRN Reason: Hypertension Stop: 05/23/22 00:46 Menthol (Cough Drop (Sugar Free) Francesco 24 Francesco/1 Box) 1 francesco BUCCAL NOW PRN PRN Reason: Sore Throat Stop: 05/23/22 18:11 Miscellaneous (Remove Nicoderm Patch) 1 each N/A DAILY@0859 [facility] Stop: 05/23/22 08:58 Last Admin: 04/23/22 09:00 Dose: 1 each Miscellaneous Information (Pharmacist Discharge Med Rec Consult) 1 each N/A UD PRN PRN Reason: Consult Stop: 05/23/22 00:46 Nicotine (Nicotine 21 Mg/24 Hr Tdsy) 21 mg TD DAILY [facility] Stop: 05/23/22 08:59 Last Admin: 04/24/22 09:03 Dose: 21 mg Nitroglycerin (Nitroglycerin Sl 0.4 Mg/Tab Tab) 0.4 mg SL UD PRN PRN Reason: Chest Pain Stop: 05/23/22 00:46 Polyethylene Glycol (Polyethylene (Miralax) 17 Gm Pack) 17 gm PO DAILY PRN PRN Reason: Constipation Stop: 05/23/22 00:46 Polyethylene Glycol (Polyethylene (Miralax) 17 Gm Pack) 17 gm PO DAILY [facility] Stop: 05/23/22 08:59 Last Admin: 04/24/22 09:04 Dose: Not Given Potassium Chloride (Potassium Chloride 10 Meq Tabcr) 10 meq PO BID [facility] Stop: 05/23/22 08:59 Last Admin: 04/24/22 09:03 Dose: 10 meq Umeclidinium/Vilanterol (Umeclidinium/Vilanterol 62.5/25mcg 7 Puffs/Inhaler) 1 puffs INH DAILY [facility] Stop: 05/23/22 08:59 Last Admin: 04/23/22 09:00 Dose: 1 puffs Vitamin D (Cholecalciferol 1,000 Units 25 Mcg Tab) 1,000 units PO QAM [facility] Stop: 05/23/22 08:59 Last Admin: 04/24/22 09:03 Dose: 1,000 units
[2022-04-24] MEDS ORDERED: METOPROLOL TARTRATE 25 MG TAB PO ONE (11:47)
--- NOTE | 2022-04-24 12:03 | Cardiology Progress Note ---
Date of Service April 24, 2022 Assessment & Plan (1) Atrial flutter with rapid ventricular response: (2) CVA (cerebral vascular accident): Plan History of remote PCI of unknown coronary vessel in the early . Echo, chronic akinesis of the inferior wall, LVEF 45-50% New onset atrial flutter. Stroke on MRI, presenting difficulties with speech resolved. At rest , ventricular rates 110s. With activity this am, ventricular rate increased to > 200 bpm without associated cardiac symptoms. Patient's [id number] score is 7 predicting high risk of recurrent embolic stroke event. In terms of her HAS BLED score. I agree with the previous neurology note, that if her current treatment antiplatelet therapy is removed, her score is relatively low, I calculate a HAS BLED score of 2 for her h/o stroke(this admission) and her h/o past GI bleeding. I do not think the risk score addresses her potential risk of bleeding with regards to her residual cerebral aneurysm. I think however that treatment with a direct oral anticoagulant agent such as Eliquis would not increase her risk of bleeding more than being on dual antiplatelet therapy. Her coronary event took place the better part of 30 years ago. Present I favor discontinuing aspirin and clopidogrel, and starting Eliquis 5 mg twice daily, first dose tomorrow. With regards to rate control, discontinue atenolol, and increase metoprolol to 25 mg twice daily. If she tolerates anticoagulation, future considerations include proceeding with cardioversion for 4 weeks of uninterrupted anticoagulation. Case discussed by phone with Dr Up. Admission and Anticipated Discharge Date Admission Date: April 22, 2022 Subjective Patient seen in cardiology follow up. Denies any neurological symptoms. Denies chest pain, shortness of breath, or subjective palpitations. Review of Systems Review of Systems: All systems reviewed & are unremarkable except as noted in HPI & below Physical Exam Constitutional: WD/WN, vitals as above Respiratory: normal respiratory effort, lungs clear to auscultation Cardiovascular: Rate/Rhythm: + tachycardic Heart Sounds: no murmur Extremities: no edema Gastrointestinal (Abdomen): normal bowel sounds, soft, nontender, no hepatosplenomegaly Neurologic: patellar DTR's 2+ bilat, sensation intact Results & Data ([facility]) Vital Signs (Past 12 Hours) Vital Signs Temp Pulse Pulse Resp BP Pulse Ox O2 Del Method 04/24/22 08:00 123 H 04/24/22 08:00 Nasal Cannula 04/24/22 10:32 117 H 137/90 04/24/22 06:28 36.7 C 99 H 20 135/88 97 Nasal Cannula 04/24/22 04:00 36.5 C 92 H 20 131/85 97 Nasal Cannula O2 Flow Rate 04/24/22 08:00 04/24/22 08:00 2 04/24/22 10:32 04/24/22 06:28 2 04/24/22 04:00 2 Laboratory Results CBC 04/24/22 Range/Units 06:04 WBC 4.37 L (4.8-10.8) K/ul RBC 4.40 (3.93-5.22) M/uL Hgb 11.9 L (12.0-16.0) g/dl Hct 38.1 (34.1-44.9) % Plt Count 133 (130-400) K/uL Neut # (Auto) 3.38 (1.4-6.5) K/uL Lymph # (Auto) 0.58 L (1.2-3.4) K/uL Kerr # (Auto) 0.33 (0.24-0.82) K/uL Eos # (Auto) 0.06 (0-0.50) K/uL Baso # (Auto) 0.01 (0-0.2) K/uL Comprehensive Metabolic Panel 04/24/22 Range/Units 06:04 Sodium 141 (136-145) mmol/L Potassium 4.5 (3.5-5.1) mmol/L Chloride 105 (98-107) mmol/L Carbon Dioxide 31 (21-32) mmol/L BUN 20 (6-23) mg/dl Creatinine 0.83 (0.6-1.2) mg/dl Glucose 82 (70-99(Fasting)) mg/dl Calcium 9.2 (8.5-10.1) mg/dl Intake and Output 04/23/22 04/24/22 04/24/22 22:59 06:59 14:59 Intake Total 200 / 1320 120 / 1320 Balance 200 / 1320 120 / 1320 Intake: Oral 200 / 320 120 / 320 Other: # Unmeasured Voids 1 1 Weight 54.9 kg Weight Measurement Method Built in [facility]
--- NOTE | 2022-04-24 12:56 | Electrocardiogram Report ---
Test Reason : Blood Pressure : / mmHG Vent. Rate : 125 BPM Atrial Rate : 063 BPM P-R Int : 162 ms QRS Dur : 080 ms QT Int : 292 ms P-R-T Axes : 000 096 130 degrees QTc Int : 421 ms Atrial flutter with RVR Rightward axis Yaya Septal infarct (cited on or before 18-MAY-2006) Marked ST abnormality, possible lateral subendocardial injury Abnormal ECG When compared with ECG of 23-APR-2022 09:52, HR has increased by 43 BPM Confirmed by Tj Goode ([id number]) on 04/24/2022 12:56:22 PM Referred By: REFERRED SELF Confirmed By:Tj Goode
--- NOTE | 2022-04-24 13:16 | Ultrasound Report ---
US venous doppler LE BI CLINICAL HISTORY: r/o DVT TECHNIQUE: Bilateral lower extremity real-time compression venous ultrasound with Color Doppler imagi ng. Utilizing real-time ultrasonic imaging multiple real time high-resolution ultrasonic images with compression and noncompression maneuvers of the deep venous system in addition to color doppler imagi ng were performed from the common femoral vein through the proximal calf veins. COMPARISON: None available at the time of this dictation. FINDINGS: Currently there is normal compressibility of the deep venous system from the common femoral vein thro ugh the proximal calf veins. No superficial venous thrombosis is identified. Impression: No evidence of deep venous thrombus. ACT 112: Negative or not required by law. Electronically signed by: Juan Carlos Kathleen M.D. 04/24/2022 1:15 PM
[2022-04-24] MEDS: UMECLIDINIUM/VILANTEROL 62.5/25MCG 7 PUFFS/INHALER INH SCH (14:41)
[2022-04-24] MEDS: FLUTICASONE FUROATE 100MCG 14 PUFFS/INHALER INH SCH (14:41)
--- NOTE | 2022-04-24 15:22 | Neurology Progress Note ---
Date of Service April 24, 2022 Assessment & Plan (1) CVA (cerebral vascular accident): Plan: Doppler of legs shows no DVT. No further stroke work-up at this point from my end. Cardiology has discontinued antiplatelet agents and is starting on oral anticoagulants. Patient should return to ER immediately for any new neurologic symptoms. Otherwise okay to discharge from my end when ready. Please call if any questions. Admission and Anticipated Discharge Date Admission Date: April 22, 2022 Results & Data ([facility]) Vital Signs (Past 12 Hours) Vital Signs Temp Pulse Pulse Resp BP Pulse Ox O2 Del Method 04/24/22 08:00 123 H 04/24/22 08:00 Nasal Cannula 04/24/22 10:32 117 H 137/90 04/24/22 06:28 36.7 C 99 H 20 135/88 97 Nasal Cannula 04/24/22 04:00 36.5 C 92 H 20 131/85 97 Nasal Cannula O2 Flow Rate 04/24/22 08:00 04/24/22 08:00 2 04/24/22 10:32 04/24/22 06:28 2 04/24/22 04:00 2
[2022-04-24] MEDS: METOPROLOL TARTRATE 25 MG TAB PO SCH (20:00)
[2022-04-25 06:58] LABS: Calcium 8.9 mg/dl (8.5-10.1); Creatinine Clr Calc Pharmacy 54.4 ml/min; Est GFR (Non-African American) 78.5 ml/min; Phosphorus 2.6 mg/dl (2.5-4.9); Potassium 4.3 mmol/L (3.5-5.1)
[2022-04-25 07:11] LABS: Basophils # (auto) 0.01 K/uL (0-0.2); Basophils % (auto) 0.2 %; Eosinophils # (auto) 0.05 K/uL (0-0.50); Hematocrit (blood only) 33.9 % (34.1-44.9); Hemoglobin 10.7 g/dl (12.0-16.0); Immature Granulocytes # (auto) 0.02 K/uL (0.00-0.02); Immature Granulocytes % (auto) 0.4 %; Lymphocytes # (auto) 0.51 K/uL (1.2-3.4); Lymphocytes % (auto) 10.6 %; Mean Corpuscular Hemoglobin 27.7 pg (25.0-34.0); Mean Corpuscular Hgb Conc 31.6 g/dL (32.0-36.0); Mean Corpuscular Volume 87.8 fL (80.0-100.0); Mean Platelet Volume 10.5 fL (9.4-12.3); Monocytes # (auto) 0.44 K/uL (0.24-0.82); Monocytes % (auto) 9.1 %; Neutrophils # (auto) 3.79 K/uL (1.4-6.5); Neutrophils % (auto) 78.7 %; Platelet Count 125 K/uL (130-400); RDW Coefficient of Variation 14.7 % (11.5-14.5); RDW Standard Deviation 47.1 fL (36.4-46.3); Red Blood Count 3.86 M/uL (3.93-5.22); White Blood Count 4.82 K/ul (4.8-10.8)
--- NOTE | 2022-04-25 08:00 | Hospitalist Progress Note ---
Date of Service April 25, 2022 Assessment & Plan (1) CVA (cerebral vascular accident): Plan: Patient is a 76 yr female who presents with stroke like symptoms. Acute CVA-POA --MRI Brain:1 cm focus of restricted diffusion within the left lateral frontotemporal region consistent with an acute infarct. Postoperative changes consistent with a prior left frontal craniotomy with underlying encephalomalacia, gliosis, and a small extra-axial fluid collection. A small linear focus of enhancement at the resection cavity within the left frontal lobe which may also represent residual postoperative changes. 6 month one year brain MRI follow-up recommended to ensure stability. An 8 mm left MCA aneurysm. --Head/Neck CTA:No occlusion, hemodynamically significant stenosis, or dissection in the major cervical arteries. Multiple cerebral aneurysms are seen, most prominently a saccular aneurysm measuring 8 mm in the left M2 segment as well as small fusiform aneurysms of the supraclinoid internal carotid arteries bilaterally. --ECHO: Left ventricle is normal in size. Akinesis of the basilar inferior wall. EF 45 to 50%. Right ventricle systolic function is normal. Left atrium is severely dilated. Right atrium is severely dilated. No interatrial shunt. Kidneys interatrial shunt is intact with no evidence of ASD. Mild valvular aortic stenosis. Mild aortic regurgitation. Mild to moderate mitral regurgitation and tricuspid regurgitation. --LDL: 73 ; HbA1c 5.6 -- Counseled to quit smoking -- initially Continued aspirin, Lipitor Added Plavix 75 mg daily Neurology consulted - LE doppler obtained - no DVT Discussed with neurology and cardiology, antiplatelet therapy stopped and patient started on Eliquis PT OT, speech eval requested per PT ok to return home Atrial flutter/atrial fibrillation H/O PACs, MAT and SVT Previously not started on anticoagulation due to anemia, history of GI bleed CHADVASC 7 HASBLED score 5 Atenolol switched to metoprolol by cardiology, heart rate much better controlled Patient started on Eliquis today Appreciate cardiology input Pancytopenia Monitor CBC, plt now normal, WBC anf Hgb improved Hypertension: Lisinopril held atenolol switched to metoprolol to help control HR Monitor bp current BP 123/81 COPD Chronic respiratory failure with Hypoxia: On home oxygen Continue home inhalers Tobacco abuse: Advised to quit smoking Hyperlipidemia: On statin Chronic diastolic congestive heart failure: Continue Lasix Monitor volume status H/O Patent foramen ovale: Cardiology following Left frontal meningioma S/P resection Follow with Neurosurgery. H/O Cerebral aneurysms: MRI as above Follows with neurosurgery DVT Px: Eliquis started Code Status Full Code Disposition - per PT OT plan to return home Admission and Anticipated Discharge Date Admission Date: April 22, 2022 Subjective Patient seen in follow up of CVA, Afib/flutter Yesterday heart rate elevated, switched to metoprolol from atenolol by cardiology Also patient is to start on Eliquis today Currently heart rate much better controlled. patient is sitting up in bed, in no acute distress Patient denies any palpitations or chest pain or shortness of breath. She is on chronic oxygen for COPD She is inquiring about going home No abdominal pain nausea vomiting Dysarthria resolved, no weakness Review of Systems Review of Systems: All systems reviewed & are unremarkable except as noted in Subjective Physical Exam Physical Exam: General Appearance: Thin, frail, chronically ill appearing, no apparent distress, on 2L suppl. O2 (baseline) Head: normocephalic, Atraumatic Eyes: normal inspection, EOMI Neck: supple Respiratory/Chest: somewhat diminished breath sounds, No accessory muscle use, no wheezing Cardiovascular: rrr Abdomen/GI:Soft, Non tender, Bowel sounds present Extremities/Musculoskeletal:normal inspection, no edema Neurologic/Psych:AAOX3, grossly no focal neurological deficits, mild facial droop Skin: normal color, warm Results & Data Results & Data ([facility]) Vital Signs (Past 12 Hours) Vital Signs Temp Pulse Pulse Resp BP BP Pulse Ox 04/25/22 03:23 36.3 C L 92 H 18 107/73 96 04/25/22 00:00 90 04/25/22 00:00 36.4 C L 102 H 18 97/67 L 96 04/24/22 20:00 04/24/22 20:02 36.9 C 98 H 18 128/92 95 O2 Del Method O2 Flow Rate 04/25/22 03:23 Nasal Cannula 2 04/25/22 00:00 04/25/22 00:00 Nasal Cannula 2 04/24/22 20:00 Nasal Cannula 2 04/24/22 20:02 Nasal Cannula 2 Laboratory Results 04/25/22 04/25/22 Range/Units 06:08 06:08 WBC 4.82 (4.8-10.8) K/ul RBC 3.86 L (3.93-5.22) M/uL Hgb 10.7 L (12.0-16.0) g/dl Hct 33.9 L (34.1-44.9) % MCV 87.8 (80.0-100.0) fL MCH 27.7 (25.0-34.0) pg MCHC 31.6 L (32.0-36.0) g/dL RDW Std Deviation 47.1 H (36.4-46.3) fL RDW Coeff of [place] 14.7 H (11.5-14.5) % Plt Count 125 L (130-400) K/uL MPV 10.5 (9.4-12.3) fL Immature Gran % (Auto) 0.4 % Neut % (Auto) 78.7 % Lymph % (Auto) 10.6 % [place] % (Auto) 9.1 % Eos % (Auto) 1.0 % Baso % (Auto) 0.2 % Neut # (Auto) 3.79 (1.4-6.5) K/uL Lymph # (Auto) 0.51 L (1.2-3.4) K/uL [place] # (Auto) 0.44 (0.24-0.82) K/uL Eos # (Auto) 0.05 (0-0.50) K/uL Baso # (Auto) 0.01 (0-0.2) K/uL Immature Gran # (Auto) 0.02 (0.00-0.02) K/uL Sodium 141 (136-145) mmol/L Potassium 4.3 (3.5-5.1) mmol/L Chloride 106 (98-107) mmol/L Carbon Dioxide 35 H (21-32) mmol/L Anion Gap 0 L (3-11) BUN 18 (6-23) mg/dl Creatinine 0.75 (0.6-1.2) mg/dl Est Cr Clr Drug Dosing 54.4 ml/min Est GFR ( Amer) 91.0 ml/min Est GFR (Non-Af Amer) 78.5 ml/min BUN/Creatinine Ratio 24.0 H (10-20) Glucose 106 H (70-99(Fasting)) mg/dl Calcium 8.9 (8.5-10.1) mg/dl Phosphorus 2.6 (2.5-4.9) mg/dl Magnesium 2.0 (1.7-2.4) mg/dl Medications Administered Current Inpatient Medications Acetaminophen (Acetaminophen 325 Mg Tab) 650 mg PO Q4H PRN PRN Reason: Pain or Fever Stop: 05/23/22 00:46 Albuterol (Albuterol Hfa 8 Gm Inhaler) 2 puffs INH Q4 PRN PRN Reason: Shortness Of Breath Stop: 05/23/22 00:46 Albuterol (Albuterol 0.083% Nebu Soln 3 Ml Vial) 2.5 mg INH QID PRN; Protocol PRN Reason: Shortness Of Breath Stop: 05/23/22 00:46 Albuterol (Albut/Ipratrop 3mg/0.5mg Neb 3 Ml Vial) 3 ml INH TID PRN; Protocol PRN Reason: Shortness Of Breath Stop: 05/23/22 00:46 Apixaban (Apixaban 5 Mg Tablet) 5 mg PO BID [facility] Stop: 05/25/22 08:59 Atorvastatin Calcium (Atorvastatin 40 Mg Tab) 80 mg PO QAM [facility] Stop: 05/23/22 08:59 Last Admin: 04/24/22 09:03 Dose: 80 mg Bupropion HCl (Bupropion Sr 150 Mg Tabcr) 150 mg PO BID [facility] Stop: 05/23/22 08:59 Last Admin: 04/24/22 19:59 Dose: 150 mg Fluticasone Furoate (Fluticasone Furoate 100mcg 14 Puffs/Inhaler) 1 puffs INH DAILY [facility] Stop: 05/23/22 08:59 Last Admin: 04/24/22 14:41 Dose: 1 puffs Furosemide (Furosemide 40 Mg Tab) 40 mg PO DAILY [facility] Stop: 05/23/22 08:59 Last Admin: 04/24/22 09:03 Dose: 40 mg Gabapentin (Gabapentin 300 Mg Cap) 300 mg PO TID [facility] Stop: 05/23/22 08:59 Last Admin: 04/24/22 19:59 Dose: 300 mg Hydralazine HCl (Hydralazine Hcl 20 Mg/Ml Vial) 5 mg IV Q6H PRN PRN Reason: Hypertension Stop: 05/23/22 00:46 Menthol (Cough Drop (Sugar Free) Francesco 24 Francesco/1 Box) 1 francesco BUCCAL NOW PRN PRN Reason: Sore Throat Stop: 05/23/22 18:11 Metoprolol Tartrate (Metoprolol Tartrate 25 Mg Tab) 25 mg PO BID [facility] Stop: 05/24/22 20:59 Last Admin: 04/24/22 20:00 Dose: 25 mg Miscellaneous (Remove Nicoderm Patch) 1 each N/A DAILY@0859 [facility] Stop: 05/23/22 08:58 Last Admin: 04/24/22 14:42 Dose: 1 each Miscellaneous Information (Pharmacist Discharge Med Rec Consult) 1 each N/A UD PRN PRN Reason: Consult Stop: 05/23/22 00:46 Nicotine (Nicotine 21 Mg/24 Hr Tdsy) 21 mg TD DAILY [facility] Stop: 05/23/22 08:59 Last Admin: 04/24/22 09:03 Dose: 21 mg Nitroglycerin (Nitroglycerin Sl 0.4 Mg/Tab Tab) 0.4 mg SL UD PRN PRN Reason: Chest Pain Stop: 05/23/22 00:46 Polyethylene Glycol (Polyethylene (Miralax) 17 Gm Pack) 17 gm PO DAILY PRN PRN Reason: Constipation Stop: 05/23/22 00:46 Polyethylene Glycol (Polyethylene (Miralax) 17 Gm Pack) 17 gm PO DAILY [facility] Stop: 05/23/22 08:59 Last Admin: 04/24/22 09:04 Dose: Not Given Potassium Chloride (Potassium Chloride 10 Meq Tabcr) 10 meq PO BID [facility] Stop: 05/23/22 08:59 Last Admin: 04/24/22 20:02 Dose: 10 meq Umeclidinium/Vilanterol (Umeclidinium/Vilanterol 62.5/25mcg 7 Puffs/Inhaler) 1 puffs INH DAILY [facility] Stop: 05/23/22 08:59 Last Admin: 04/24/22 14:41 Dose: 1 puffs Vitamin D (Cholecalciferol 1,000 Units 25 Mcg Tab) 1,000 units PO QAM [facility] Stop: 05/23/22 08:59 Last Admin: 04/24/22 09:03 Dose: 1,000 units
[2022-04-25] MEDS: NICOTINE 21 MG/24 HR TDSY TD SCH (08:52)
[2022-04-25] MEDS: FLUTICASONE FUROATE 100MCG 14 PUFFS/INHALER INH SCH (08:52)
[2022-04-25] MEDS: METOPROLOL TARTRATE 25 MG TAB PO SCH ×2 (08:52→21:12)
[2022-04-25] MEDS: CHOLECALCIFEROL 1,000 UNITS 25 MCG TAB PO SCH (08:52)
[2022-04-25] MEDS: buPROPion SR 150 MG TABCR PO SCH ×2 (08:52→21:11)
[2022-04-25] MEDS: APIXABAN 5 MG TABLET PO SCH ×2 (08:52→21:11)
[2022-04-25] MEDS: ATORVASTATIN 40 MG TAB PO SCH (08:52)
[2022-04-25] MEDS: GABAPENTIN 300 MG CAP PO SCH ×3 (08:52→21:11)
[2022-04-25] MEDS: UMECLIDINIUM/VILANTEROL 62.5/25MCG 7 PUFFS/INHALER INH SCH (08:52)
[2022-04-25] MEDS: FUROSEMIDE 40 MG TAB PO SCH (08:52)
[2022-04-25] MEDS: POTASSIUM CHLORIDE 10 MEQ TABCR PO SCH ×2 (08:53→21:18)
[2022-04-25] MEDS: POLYETHYLENE (MIRALAX) 17 GM PACK PO SCH (08:54)
--- NOTE | 2022-04-25 17:26 | Cardiology Progress Note ---
Date of Service April 25, 2022 Assessment & Plan (1) Atrial flutter with rapid ventricular response: (2) CVA (cerebral vascular accident): Plan History of remote PCI of unknown coronary vessel in the early . Echo, chronic akinesis of the inferior wall, LVEF 45-50% New onset atrial flutter. Stroke on MRI, presenting difficulties with speech resolved. At rest , ventricular rates 110s. With activity this am, ventricular rate increased to > 200 bpm without associated cardiac symptoms. Patient's [id number] score is 7 predicting high risk of recurrent embolic stroke event. In terms of her HAS BLED score. I agree with the previous neurology note, that if her current treatment antiplatelet therapy is removed, her score is relatively low, I calculate a HAS BLED score of 2 for her h/o stroke(this admission) and her h/o past GI bleeding. I do not think the risk score addresses her potential risk of bleeding with regards to her residual cerebral aneurysm. I think however that treatment with a direct oral anticoagulant agent such as Eliquis would not increase her risk of bleeding more than being on dual antiplatelet therapy. Her coronary event took place the better part of 30 years ago. Her dual antiplatelet therapy has been discontinued and she was started on Eliquis 5 mg p.o. twice daily which thus far she is tolerating With regards to rate control; will increase metoprolol to 37.5 mg bid today If she tolerates anticoagulation, future considerations include proceeding with cardioversion for 4 weeks of uninterrupted anticoagulation. Admission and Anticipated Discharge Date Admission Date: April 22, 2022 Subjective Patient seen and examined. Chart reviewed. Telemetry reviewed. States that she feels well and is anxious for discharge. Review of Systems Review of Systems: All systems reviewed & are unremarkable except as noted in HPI & below Physical Exam Physical Exam: General: Awake, alert and oriented x 3. No acute distress. HEENT: Normocephalic, atraumatic. Pupils equal, round and reactive to light and accommodation. Extraocular muscles are intact. Anicteric sclera. Moist mucous membranes. Neck: No JVD. No bruit. Cardiovascular: irregularly irregular, unable to appreciate murmur, rub or gallop. Pulmonary: Clear to auscultation bilaterally. No rales, rhonchi, or wheezing. Abdomen: Bowel sounds x 4, soft. No rebound, guarding or tenderness. No organomegaly. Extremities: No clubbing, cyanosis or edema. +2 pedal pulses bilaterally. Skin: Warm and dry. [facility] Vital Signs (Past 12 Hours) Vital Signs Temp Pulse Pulse Resp BP Pulse Ox O2 Del Method 04/25/22 15:36 36.7 C 103 H 18 99/67 L 93 Nasal Cannula 04/25/22 11:32 36.5 C 81 22 114/82 94 Room Air 04/25/22 09:00 85 04/25/22 08:00 90 04/25/22 08:00 Room Air, Nasal Cannula 04/25/22 07:00 36.4 C L 94 H 22 123/81 92 Room Air O2 Flow Rate 04/25/22 15:36 04/25/22 11:32 04/25/22 09:00 04/25/22 08:00 04/25/22 08:00 2 04/25/22 07:00
[2022-04-26 06:30] LABS: Hematocrit (blood only) 36.8 % (34.1-44.9); Hemoglobin 11.7 g/dl (12.0-16.0); Mean Corpuscular Hemoglobin 27.7 pg (25.0-34.0); Mean Corpuscular Hgb Conc 31.8 g/dL (32.0-36.0); Mean Platelet Volume 10.7 fL (9.4-12.3); Platelet Count 141 K/uL (130-400); RDW Coefficient of Variation 14.8 % (11.5-14.5); RDW Standard Deviation 47.4 fL (36.4-46.3); Red Blood Count 4.23 M/uL (3.93-5.22); White Blood Count 4.46 K/ul (4.8-10.8)
[2022-04-26 07:00] LABS: BUN Creatinine Ratio 23.3 (10-20); Calcium 9.1 mg/dl (8.5-10.1); Creatinine Clr Calc Pharmacy 45.4 ml/min; Potassium 4.5 mmol/L (3.5-5.1)
--- NOTE | 2022-04-26 08:08 | Hospitalist Progress Note ---
Date of Service April 26, 2022 Assessment & Plan (1) CVA (cerebral vascular accident): Plan: Patient is a 76 yr female who presents with stroke like symptoms. Acute CVA-POA --MRI Brain:1 cm focus of restricted diffusion within the left lateral frontotemporal region consistent with an acute infarct. Postoperative changes consistent with a prior left frontal craniotomy with underlying encephalomalacia, gliosis, and a small extra-axial fluid collection. A small linear focus of enhancement at the resection cavity within the left frontal lobe which may also represent residual postoperative changes. 6 month one year brain MRI follow-up recommended to ensure stability. An 8 mm left MCA aneurysm. --Head/Neck CTA:No occlusion, hemodynamically significant stenosis, or dissection in the major cervical arteries. Multiple cerebral aneurysms are seen, most prominently a saccular aneurysm measuring 8 mm in the left M2 segment as well as small fusiform aneurysms of the supraclinoid internal carotid arteries bilaterally. --ECHO: Left ventricle is normal in size. Akinesis of the basilar inferior wall. EF 45 to 50%. Right ventricle systolic function is normal. Left atrium is severely dilated. Right atrium is severely dilated. No interatrial shunt. Kidneys interatrial shunt is intact with no evidence of ASD. Mild valvular aortic stenosis. Mild aortic regurgitation. Mild to moderate mitral regurgitation and tricuspid regurgitation. --LDL: 73 ; HbA1c 5.6 -- Counseled to quit smoking -- initially Continued aspirin, Lipitor and Added Plavix 75 mg daily Neurology consulted - LE doppler obtained - no DVT Discussed with neurology and cardiology, antiplatelet therapy stopped and patient started on Eliquis PT OT, speech eval requested per PT ok to return home Atrial flutter/atrial fibrillation H/O PACs, MAT and SVT Previously not started on anticoagulation due to anemia, history of GI bleed CHADVASC 7 HASBLED score 5 Atenolol switched to metoprolol by cardiology, heart rate much better controlled Patient started on Eliquis Appreciate cardiology input Discharge on metoprolol 25 mg TID, and Eliquis 5 mg twice daily. Pancytopenia Monitor CBC, plt now normal, WBC and Hgb improved Hypertension: Lisinopril held atenolol switched to metoprolol to help control HR Monitor bp current BP 130/85 COPD Chronic respiratory failure with Hypoxia: On home oxygen Continue home inhalers Tobacco abuse: Advised to quit smoking Hyperlipidemia: On statin Chronic diastolic congestive heart failure: Continue Lasix Monitor volume status H/O Patent foramen ovale: Cardiology following Left frontal meningioma S/P resection Follow with Neurosurgery. H/O Cerebral aneurysms: MRI as above Follows with neurosurgery DVT Px: Eliquis started Code Status Full Code Disposition - per PT OT plan to return home Admission and Anticipated Discharge Date Admission Date: April 22, 2022 Subjective Patient seen in follow up of CVA, Afib/flutter Currently heart rate much better controlled. patient is sitting up in bed, in no acute distress Patient denies any palpitations or chest pain or shortness of breath. She is on chronic oxygen for COPD She is eager about going home No abdominal pain nausea vomiting Dysarthria resolved, no weakness Switched to metoprolol, and started on Eliquis, tolerating well Review of Systems Review of Systems: All systems reviewed & are unremarkable except as noted in Subjective Physical Exam Physical Exam: General Appearance: Thin, frail, chronically ill appearing, no apparent distress, on 2L suppl. O2 (baseline) Head: normocephalic, Atraumatic Eyes: normal inspection, EOMI Neck: supple Respiratory/Chest: somewhat diminished breath sounds, No accessory muscle use, no wheezing Cardiovascular: rrr Abdomen/GI:Soft, Non tender, Bowel sounds present Extremities/Musculoskeletal:normal inspection, no edema Neurologic/Psych:AAOX3, grossly no focal neurological deficits, mild facial droop Skin: normal color, warm Results & Data Results & Data ([facility]) Vital Signs (Past 12 Hours) Vital Signs Temp Pulse Pulse Resp BP Pulse Ox O2 Del Method 04/26/22 06:09 86 04/26/22 02:56 Nasal Cannula 04/25/22 21:10 37.0 C 96 H 20 106/71 98 Nasal Cannula O2 Flow Rate 04/26/22 06:09 04/26/22 02:56 2 04/25/22 21:10 2 Laboratory Results 04/26/22 04/26/22 Range/Units 06:15 06:15 WBC 4.46 L (4.8-10.8) K/ul RBC 4.23 (3.93-5.22) M/uL Hgb 11.7 L (12.0-16.0) g/dl Hct 36.8 (34.1-44.9) % MCV 87.0 (80.0-100.0) fL MCH 27.7 (25.0-34.0) pg MCHC 31.8 L (32.0-36.0) g/dL RDW Std Deviation 47.4 H (36.4-46.3) fL RDW Coeff of [place] 14.8 H (11.5-14.5) % Plt Count 141 (130-400) K/uL MPV 10.7 (9.4-12.3) fL Sodium 141 (136-145) mmol/L Potassium 4.5 (3.5-5.1) mmol/L Chloride 104 (98-107) mmol/L Carbon Dioxide 34 H (21-32) mmol/L Anion Gap 3 (3-11) BUN 21 (6-23) mg/dl Creatinine 0.90 (0.6-1.2) mg/dl Est Cr Clr Drug Dosing 45.4 ml/min Est GFR ( Amer) 73.0 ml/min Est GFR (Non-Af Amer) 63.0 ml/min BUN/Creatinine Ratio 23.3 H (10-20) Glucose 89 (70-99(Fasting)) mg/dl Calcium 9.1 (8.5-10.1) mg/dl Phosphorus 3.0 (2.5-4.9) mg/dl Magnesium 2.0 (1.7-2.4) mg/dl Medications Administered Current Inpatient Medications Acetaminophen (Acetaminophen 325 Mg Tab) 650 mg PO Q4H PRN PRN Reason: Pain or Fever Stop: 05/23/22 00:46 Albuterol (Albuterol Hfa 8 Gm Inhaler) 2 puffs INH Q4 PRN PRN Reason: Shortness Of Breath Stop: 05/23/22 00:46 Albuterol (Albuterol 0.083% Nebu Soln 3 Ml Vial) 2.5 mg INH QID PRN; Protocol PRN Reason: Shortness Of Breath Stop: 05/23/22 00:46 Albuterol (Albut/Ipratrop 3mg/0.5mg Neb 3 Ml Vial) 3 ml INH TID PRN; Protocol PRN Reason: Shortness Of Breath Stop: 05/23/22 00:46 Apixaban (Apixaban 5 Mg Tablet) 5 mg PO BID [facility] Stop: 05/25/22 08:59 Last Admin: 04/25/22 21:11 Dose: 5 mg Atorvastatin Calcium (Atorvastatin 40 Mg Tab) 80 mg PO QAM [facility] Stop: 05/23/22 08:59 Last Admin: 04/25/22 08:52 Dose: 80 mg Bupropion HCl (Bupropion Sr 150 Mg Tabcr) 150 mg PO BID [facility] Stop: 05/23/22 08:59 Last Admin: 04/25/22 21:11 Dose: 150 mg Fluticasone Furoate (Fluticasone Furoate 100mcg 14 Puffs/Inhaler) 1 puffs INH DAILY [facility] Stop: 05/23/22 08:59 Last Admin: 04/25/22 08:52 Dose: 1 puffs Furosemide (Furosemide 40 Mg Tab) 40 mg PO DAILY [facility] Stop: 05/23/22 08:59 Last Admin: 04/25/22 08:52 Dose: 40 mg Gabapentin (Gabapentin 300 Mg Cap) 300 mg PO TID [facility] Stop: 05/23/22 08:59 Last Admin: 04/25/22 21:11 Dose: 300 mg Hydralazine HCl (Hydralazine Hcl 20 Mg/Ml Vial) 5 mg IV Q6H PRN PRN Reason: Hypertension Stop: 05/23/22 00:46 Menthol (Cough Drop (Sugar Free) Francesco 24 Francesco/1 Box) 1 francesco BUCCAL NOW PRN PRN Reason: Sore Throat Stop: 05/23/22 18:11 Metoprolol Tartrate (Metoprolol Tartrate 25 Mg Tab) 37.5 mg PO BID [facility] Stop: 05/25/22 20:59 Last Admin: 04/25/22 21:12 Dose: 37.5 mg Miscellaneous (Remove Nicoderm Patch) 1 each N/A DAILY@0859 [facility] Stop: 05/23/22 08:58 Last Admin: 04/25/22 08:54 Dose: 1 each Miscellaneous Information (Pharmacist Discharge Med Rec Consult) 1 each N/A UD PRN PRN Reason: Consult Stop: 05/23/22 00:46 Nicotine (Nicotine 21 Mg/24 Hr Tdsy) 21 mg TD DAILY [facility] Stop: 05/23/22 08:59 Last Admin: 04/25/22 08:52 Dose: 21 mg Nitroglycerin (Nitroglycerin Sl 0.4 Mg/Tab Tab) 0.4 mg SL UD PRN PRN Reason: Chest Pain Stop: 05/23/22 00:46 Polyethylene Glycol (Polyethylene (Miralax) 17 Gm Pack) 17 gm PO DAILY PRN PRN Reason: Constipation Stop: 05/23/22 00:46 Polyethylene Glycol (Polyethylene (Miralax) 17 Gm Pack) 17 gm PO DAILY [facility] Stop: 05/23/22 08:59 Last Admin: 04/25/22 08:54 Dose: Not Given Potassium Chloride (Potassium Chloride 10 Meq Tabcr) 10 meq PO BID [facility] Stop: 05/23/22 08:59 Last Admin: 04/25/22 21:18 Dose: 10 meq Umeclidinium/Vilanterol (Umeclidinium/Vilanterol 62.5/25mcg 7 Puffs/Inhaler) 1 puffs INH DAILY [facility] Stop: 05/23/22 08:59 Last Admin: 04/25/22 08:52 Dose: 1 puffs Vitamin D (Cholecalciferol 1,000 Units 25 Mcg Tab) 1,000 units PO QAM [facility] Stop: 05/23/22 08:59 Last Admin: 04/25/22 08:52 Dose: 1,000 units
--- NOTE | 2022-04-26 08:11 | Pharmacy Report ---
- Date of Service April 26, 2022 - Pharmacy CVA/TIA Medication Review Medications to Prevent Stroke handout has been added to the patients discharge packet. Antiplatelet(s) * stopped due to initiation of anticoagulation per neurology recommendation * Antiplatelet therapy deferred due to risk for bleeding. Cholesterol * High intensity statin: atorvastatin 80 mg daily Therapeutic Anticoagulation * Newly diagnosed Afib/Aflutter noted, and patient is currently receiving Eliquis 5 mg PO BID Type 2 Diabetes * Patient does not have T2DM
[2022-04-26] MEDS: ATORVASTATIN 40 MG TAB PO SCH (08:55)
[2022-04-26] MEDS: FLUTICASONE FUROATE 100MCG 14 PUFFS/INHALER INH SCH (08:55)
[2022-04-26] MEDS: CHOLECALCIFEROL 1,000 UNITS 25 MCG TAB PO SCH (08:55)
[2022-04-26] MEDS: buPROPion SR 150 MG TABCR PO SCH (08:55)
[2022-04-26] MEDS: APIXABAN 5 MG TABLET PO SCH (08:55)
[2022-04-26] MEDS: FUROSEMIDE 40 MG TAB PO SCH (08:56)
[2022-04-26] MEDS: GABAPENTIN 300 MG CAP PO SCH (08:56)
[2022-04-26] MEDS: METOPROLOL TARTRATE 25 MG TAB PO SCH (08:56)
[2022-04-26] MEDS: POLYETHYLENE (MIRALAX) 17 GM PACK PO SCH (08:57)
[2022-04-26] MEDS: NICOTINE 21 MG/24 HR TDSY TD SCH (08:57)
[2022-04-26] MEDS: UMECLIDINIUM/VILANTEROL 62.5/25MCG 7 PUFFS/INHALER INH SCH (08:57)
[2022-04-26] MEDS: POTASSIUM CHLORIDE 10 MEQ TABCR PO SCH (08:58)
--- NOTE | 2022-04-26 09:31 | Discharge Summary ---
Date of Service April 26, 2022 Admission HPI Per Admitting Provider A 76-year-old female with past medical history significant for hyperlipidemia, history of thyroid nodule, chronic respiratory failure with hypoxia, on home oxygen uses mostly in the nighttime and sometimes in the day time, history of COPD, CAD, history of abdominal aortic aneurysm, status post repair, history of renal artery aneurysm, chronic diastolic CHF, pulmonary hypertension, macular degeneration of both eyes, hypertension, history of patent foramen ovale, cerebral aneurysm, wandering atrial pacemaker, vitamin D deficiency, microscopic hematuria, osteoporosis, history of left frontal large extraaxial meningioma, status post resection in January 2021, history of iron deficiency anemia, history of ongoing tobacco abuse, history of parathyroidism, presents with stroke-like symptoms. The patient lives with her daughter. Around 4-4:30 p.m., she was taking laundry basket upstairs when she noticed she could not speak and she seemed that she could not swallow, it was not getting better, she came to the ER. After coming to the ER after some time, the symptoms resolved. Initial CTA of the head and CT of the head are unremarkable except showing aneurysms.. Currently, resting comfortably, hemodynamically stable. Denies any weakness. It never happened before. Denies any headache. No blurred visions, no earache, no runny nose, no sore throat, no cough, no chest pain. She always has some cough because she is still smoking 6-7 cigarettes daily. She always has some shortness of breath, no fevers, no nausea, no abdominal pain. Normal bowel and bladder movements. Currently, hemodynamically stable. Admission Exam Per Admitting Provider GENERAL: The patient is of moderate build, not in acute distress. VITAL SIGNS: Temperature afebrile, pulse 90, respiratory rate 20, blood pressure 142/104, oxygen 100% on room air. HEENT: Pupils equal, round and reactive to light. Oral mucosa moist. NECK: No JVD, no neck masses. CARDIOVASCULAR: S1 and S2 heard. Regular rate and rhythm. No murmur, no gallop. RESPIRATORY SYSTEM: Normal AP diameter. No accessory muscle use. No wheezing, no crackles. ABDOMEN: Soft, bowel sounds present, nontender, no distention. CENTRAL NERVOUS SYSTEM: Alert and oriented. Speech is clear. No facial droop. Unable to close her eyes tight. Tongue is midline. Smile okay. Power 5/5 in all extremities. Sensation is intact. Can lift her right upper extremity. Left upper extremity, she has could not lift it properly. Position sense intact. EXTREMITIES: No edema, no erythema. Principal Diagnosis CVA A flutter w/ RVR Discharge Exam General Appearance: Thin, frail, chronically ill appearing, no apparent distress, on 2L suppl. O2 (baseline) Head: normocephalic, Atraumatic Eyes: normal inspection, EOMI Neck: supple Respiratory/Chest: somewhat diminished breath sounds, No accessory muscle use, no wheezing Cardiovascular: rrr Abdomen/GI:Soft, Non tender, Bowel sounds present Extremities/Musculoskeletal:normal inspection, no edema Neurologic/Psych:AAOX3, grossly no focal neurological deficits, mild facial droop Skin: normal color, warm Discharge Data Allergies Allergy/AdvReac Type Severity Reaction Status Date / Time No Known Allergies Allergy Unknown Verified 04/22/22 19:35 Consultations 04/22/22 20:28 ED Decision to Admit Stat 04/23/22 08:00 Consult Neurology Routine 04/23/22 08:11 Consult Cardiology Routine Ordered Studies 04/22/22 18:02 CT angio head w con Stat CT angio neck with con Stat IMPRESSION: 1. No occlusion, hemodynamically significant stenosis, or dissection in the major cervical arteries. 2. Multiple cerebral aneurysms are seen, most prominently a saccular aneurysm measuring 8 mm in the left M2 segment as well as small fusiform aneurysms of the supraclinoid internal carotid arteries bilaterally. Assessment of stenosis of the internal carotid arteries is based on NASCET criteria. CT head/brain wo con Stat Impression: No acute intracranial hemorrhage, no evidence of acute territorial infarction or other acute intracranial disease process. Chronic postsurgical changes are seen. 04/23/22 00:47 MR brain wo/w con Urgent IMPRESSION: 1. A 1 cm focus of restricted diffusion within the left lateral frontotemporal region consistent with an acute infarct. 2. Postoperative changes consistent with a prior left frontal craniotomy with underlying encephalomalacia, gliosis, and a small extra-axial fluid collection. 3. A small linear focus of enhancement at the resection cavity within the left frontal lobe which may also represent residual postoperative changes. 6 month one year brain MRI follow-up recommended to ensure stability. 4. An 8 mm left MCA aneurysm. 5. This report was called/faxed to the emergency department following dictation. 04/24/22 10:00 US venous doppler LE BI Urgent FINDINGS: Currently there is normal compressibility of the deep venous system from the common femoral vein through the proximal calf veins. No superficial venous thrombosis is identified. Impression: No evidence of deep venous thrombus. Hospital Course (1) CVA (cerebral vascular accident): Patient is a 76 yr female who presents with stroke like symptoms. Acute CVA-POA --MRI Brain:1 cm focus of restricted diffusion within the left lateral frontotemporal region consistent with an acute infarct. Postoperative changes consistent with a prior left frontal craniotomy with underlying encephalomalacia, gliosis, and a small extra-axial fluid collection. A small linear focus of enhancement at the resection cavity within the left frontal lobe which may also represent residual postoperative changes. 6 month one year brain MRI follow-up recommended to ensure stability. An 8 mm left MCA aneurysm. --Head/Neck CTA:No occlusion, hemodynamically significant stenosis, or dissection in the major cervical arteries. Multiple cerebral aneurysms are seen, most prominently a saccular aneurysm measuring 8 mm in the left M2 segment as well as small fusiform aneurysms of the supraclinoid internal carotid arteries bilaterally. --ECHO: Left ventricle is normal in size. Akinesis of the basilar inferior wall. EF 45 to 50%. Right ventricle systolic function is normal. Left atrium is severely dilated. Right atrium is severely dilated. No interatrial shunt. Kidneys interatrial shunt is intact with no evidence of ASD. Mild valvular aortic stenosis. Mild aortic regurgitation. Mild to moderate mitral regurgitation and tricuspid regurgitation. --LDL: 73 ; HbA1c 5.6 -- Counseled to quit smoking -- initially Continued aspirin, Lipitor and Added Plavix 75 mg daily Neurology consulted - LE doppler obtained - no DVT Discussed with neurology and cardiology, antiplatelet therapy stopped and patient started on Eliquis PT OT, speech eval requested per PT ok to return home Atrial flutter/atrial fibrillation H/O PACs, MAT and SVT Previously not started on anticoagulation due to anemia, history of GI bleed CHADVASC 7 HASBLED score 5 Atenolol switched to metoprolol by cardiology, heart rate much better controlled Patient started on Eliquis Appreciate cardiology input Discharge on metoprolol 25 mg TID, and Eliquis 5 mg twice daily. Pt to follow up w/ cardiology. Pancytopenia Monitor CBC, plt now normal, WBC and Hgb improved Hypertension: Lisinopril held atenolol switched to metoprolol to help control HR Monitor bp current BP 130/85 COPD Chronic respiratory failure with Hypoxia: On home oxygen Continue home inhalers Tobacco abuse: Advised to quit smoking Hyperlipidemia: On statin Chronic diastolic congestive heart failure: Continue Lasix Monitor volume status H/O Patent foramen ovale: Cardiology following Left frontal meningioma S/P resection Follow with Neurosurgery. H/O Cerebral aneurysms: MRI as above Follows with neurosurgery Total Time Total Time Spent Total Time Spent (In Minutes): 40 Discharge Plan Discharge Items Patient Disposition: Home - Self-Care Reason For Visit: STROKE LIKE SYMPTOMS Discharge Diagnosis: CVA A flutter w/ RVR Activity: Per Instructions section Non-emergency contact: Primary Care Provider, Geology Instructor and Neurologist Call non-emergency contact if: you have any medication questions and your symptoms worsen Follow-up/Referrals: Ever Pike MD [Primary Care Provider] - (Date & Time 04/29/2022 10:20 AM Provider Jose Gibbs PA-C Department General Internal Medicine [facility] ) Diet: Heart Healthy Addtl Attending Provider Instructions: Follow-up with your primary care doctor, and [employer]. The appointment with your primary care doctor, was scheduled for April 29. Do not take atenolol. Instead, take metoprolol 25 mg three times a day as prescribed. Take Eliquis 5 mg twice daily. Eliquis is a blood thinner. Stop taking aspirin. Do not take lisinopril for now, monitor your blood pressure at home if you can. Discuss further with your primary care doctor/[employer] if/when you should restart this medication. Pending Studies at Discharge: No Stand-Alone Forms: My [facility], Smoking Cessation, Medications to Prevent Stroke Medications and DC Order Prescriptions: New Eliquis 5 mg Tablet 5 mg PO BID 30 Days Qty: 60 0RF metoprolol tartrate 25 mg tablet 25 mg PO TID 30 Days Qty: 90 0RF Continued atorvastatin 80 mg Tablet 80 mg PO QAM lisinopril 40 mg Tablet 20 mg PO QAM polyethylene glycol 3350 [Miralax] 17 gram Powder In Packet 17 g PO DAILY nitroglycerin [Nitrostat] 0.4 mg Tablet, Sublingual 0.4 mg sublingual DAILY PRN (Reason: Chest Pain) cholecalciferol (vitamin D3) 25 mcg (1,000 unit) Tablet 25 mcg PO QAM furosemide 40 mg tablet 40 mg PO DAILY ipratropium-albuterol 0.5 mg-3 mg(2.5 mg base)/3 mL solution for nebulization 3 ml INHALATION TID PRN (Reason: SOB) albuterol sulfate 90 mcg/actuation HFA aerosol inhaler 2 puff INHALATION Q4 PRN (Reason: Shortness Of Breath) Anoro Ellipta 62.5-25 mcg/actuation blister with device 1 inh INHALATION DAILY potassium chloride 10 mEq tablet,ER particles/crystals 10 meq PO AMHS bupropion HCl 150 mg tablet sustained-release 12 hr 150 mg PO AMHS gabapentin 300 mg capsule 300 mg PO TID albuterol sulfate 2.5 mg /3 mL (0.083 %) Solution For Nebulization 2.5 mg INHALATION QID PRN (Reason: Shortness Of Breath) nicotine 21 mg/24 hr Patch 24 Hour 1 patch TRANSDERMAL DAILY Rx Instructions: start 04/07/2022 end 05/19/2022 Trelegy Ellipta 100-62.5-25 mcg Blister With Device 1 inh INHALATION QAM Discontinued atenolol 25 mg Tablet 12.5 mg PO QAM aspirin 81 mg Tablet,Delayed Release (Dr/Ec) 81 mg PO QAM Discharge Orders: Discharge Order (Routine); Ordered 04/26/22 Ordered By: Chava Up Admission Data Admit Date/Time: 04/22/22 21:43 Attending Provider: Chava Up Admit Provider: Daniel Mansfield Primary Care Provider: Ever Pike Other Providers: Daniel Mansfield ; Isidro Alexis ; Rohan Vo ; Rachel Fregoso ; Diana Winter ; Navid Bhagat ; Diana Rangel ; Gael Holley ; Eleni Joy ; Aleksandr Arguello ; Tiny Crum ; Lilian Alejandro ; Navid Murray ; Humberto Lewis ; Humberto Downey ; Orlin Watson ; Marlon Lombardo ; Sameer Ignacio ; Missael Mandujano. ; Cedric Salamanca ; Mary Mccauley ; Diana Parekh ; Laverne Jolly ; Martell Sheth ; Narciso Pacheco. Other Interventions: Discharge Summary Assessment (RN) Last Done: 04/26/22 09:22
--- NOTE | 2022-04-26 10:53 | Cardiology Progress Note ---
Date of Service April 26, 2022 Assessment & Plan (1) Atrial flutter with rapid ventricular response: (2) CVA (cerebral vascular accident): Plan History of remote PCI of unknown coronary vessel in the early . Echo, chronic akinesis of the inferior wall, LVEF 45-50% New onset atrial flutter. Stroke on MRI, presenting difficulties with speech resolved. History of surgical resection of meningioma January,, residual left MCA aneurysm [place] [facility] [place] , ventricular rates 110s. With activity this am, ventricular rate increased to > 200 bpm without associated cardiac symptoms. -Stable for discharge on metoprolol tartrate 25 mg 3 times daily, Eliquis 5 mg twice daily. -If she tolerates anticoagulation, future considerations include proceeding with cardioversion for 4 weeks of uninterrupted anticoagulation. Admission and Anticipated Discharge Date Admission Date: April 22, 2022 Subjective Patient seen in cardiology follow-up. Remains in atrial flutter, rates improved in the 110's. Patient asymptomatic. Eager for discharge as her family has a narrow timeframe with regards to provide transportation. Physical Exam Constitutional: WD/WN, vitals as above Respiratory: normal respiratory effort, lungs clear to auscultation Cardiovascular: Rate/Rhythm: + tachycardic Heart Sounds: no murmur Extremities: no edema Gastrointestinal (Abdomen): normal bowel sounds, soft, nontender, no hepatosplenomegaly Neurologic: PERRL, EOMI, accommodation nl, no face palsy, no dysarthria Results & Data ([facility]) Vital Signs (Past 12 Hours) Vital Signs Temp Pulse Pulse Resp BP BP Pulse Ox 04/26/22 09:22 36.2 C L 96 H 18 106/71 130/85 95 04/26/22 08:27 36.2 C L 96 H 18 130/85 95 04/26/22 06:09 86 04/26/22 02:56 O2 Del Method O2 Flow Rate 04/26/22 09:22 04/26/22 08:27 Nasal Cannula 2 04/26/22 06:09 04/26/22 02:56 Nasal Cannula 2 Laboratory Results CBC 04/26/22 Range/Units 06:15 WBC 4.46 L (4.8-10.8) K/ul RBC 4.23 (3.93-5.22) M/uL Hgb 11.7 L (12.0-16.0) g/dl Hct 36.8 (34.1-44.9) % Plt Count 141 (130-400) K/uL Comprehensive Metabolic Panel 04/26/22 Range/Units 06:15 Sodium 141 (136-145) mmol/L Potassium 4.5 (3.5-5.1) mmol/L Chloride 104 (98-107) mmol/L Carbon Dioxide 34 H (21-32) mmol/L BUN 21 (6-23) mg/dl Creatinine 0.90 (0.6-1.2) mg/dl Glucose 89 (70-99(Fasting)) mg/dl Calcium 9.1 (8.5-10.1) mg/dl Intake and Output 04/25/22 04/26/22 04/26/22 22:59 06:59 14:59 Intake Total 250 / 250 Balance 250 / 250 Intake: Oral 250 / 250 Other: # Unmeasured Voids 2 Weight 55.2 kg Patient Weight 04/27/22 06:59 Weight 55.2 kg
== END 2022-04-26 09:56 | disposition home or self-care (01) | DRG 65 ==
LOC: ED 18:22 → SUATTDRO 21:43 → EDINP 21:43 → 2S 04-23 00:49

== ENCOUNTER 2022-05-10 01:32 | Inpatient (IN) ==
[2022-05-10] MEDS ORDERED: ALBUT/IPRATROP 3MG/0.5MG NEB 3 ML VIAL NEB ONE (02:04)
[2022-05-10 02:20] LABS: Basophils # (auto) 0.01 K/uL (0-0.2); Basophils % (auto) 0.2 %; Hematocrit (blood only) 36.1 % (34.1-44.9); Immature Granulocytes # (auto) 0.03 K/uL (0.00-0.02); Immature Granulocytes % (auto) 0.5 %; Lymphocytes # (auto) 0.49 K/uL (1.2-3.4); Lymphocytes % (auto) 7.4 %; Mean Corpuscular Hemoglobin 27.3 pg (25.0-34.0); Mean Corpuscular Hgb Conc 30.5 g/dL (32.0-36.0); Mean Corpuscular Volume 89.6 fL (80.0-100.0); Mean Platelet Volume 10.1 fL (9.4-12.3); Monocytes # (auto) 0.28 K/uL (0.24-0.82); Monocytes % (auto) 4.2 %; Neutrophils # (auto) 5.82 K/uL (1.4-6.5); Neutrophils % (auto) 87.7 %; Platelet Count 218 K/uL (130-400); RDW Coefficient of Variation 15.7 % (11.5-14.5); RDW Standard Deviation 51.3 fL (36.4-46.3); Red Blood Count 4.03 M/uL (3.93-5.22); White Blood Count 6.63 K/ul (4.8-10.8)
[2022-05-10 02:38] LABS: Troponin I High Sensitivity 15.6 pg/ml (0-14)
[2022-05-10 02:40] LABS: Albumin Level 3.7 gm/dl (3.4-5.0); BUN Creatinine Ratio 27.4 (10-20); Bilirubin Direct 0.1 mg/dl (0-0.2); Bilirubin,Total 0.5 mg/dl (0.2-1.0); Calcium 9.4 mg/dl (8.5-10.1); Creatinine Clr Calc Pharmacy 50.7 ml/min; Est GFR (African American) 79.4 ml/min; Est GFR (Non-African American) 68.5 ml/min; Magnesium 1.9 mg/dl (1.7-2.4); Potassium 4.8 mmol/L (3.5-5.1); Total Protein 7.2 gm/dl (6.0-8.3)
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
[2022-05-10] MEDS ORDERED: fentaNYL citrate 100 MCG/2 ML VIAL IV ONE (02:59)
[2022-05-10 03:01] LABS: Influenza A virus by PCR Negative (Neg); Influenza B virus by PCR Negative (Neg); RSV by PCR Negative (Neg); SARS CoV2 RNA(COVID-19) Ceph NEGATIVE (Negative)
[2022-05-10] MEDS ORDERED: dilTIAZem HCl 5 MG/ML 5 ML VIAL IV STA ×3 (03:02→04:45)
[2022-05-10] MEDS ORDERED: STAT IV Infusion **Titration per Protocol STA (04:45)
[2022-05-10] MEDS ORDERED: dilTIAZem HCL 125 MG in DEXTROSE 5% 100 ML IV SCH (05:00)
[2022-05-10] MEDS ORDERED: NITROGLYCERIN SL 0.4 MG/TAB TAB SL PRN ×2 (06:38)
[2022-05-10] MEDS ORDERED: ACETAMINOPHEN 325 MG TAB PO PRN (06:38)
[2022-05-10] MEDS ORDERED: ALBUTEROL HFA 8 GM INHALER INH PRN (06:38)
[2022-05-10] MEDS ORDERED: LEVALBUTEROL HCL 1.25 MG/3 ML NEB NEB PRN (06:50)
[2022-05-10] MEDS ORDERED: XOPENEX/ATROVENT 1.25mg/0.5MG NEB COMBO NEB SCH (07:00)
[2022-05-10 07:08] LABS: Hematocrit (blood only) 32.7 % (34.1-44.9); Hemoglobin 10.1 g/dl (12.0-16.0); Mean Corpuscular Hemoglobin 27.2 pg (25.0-34.0); Mean Corpuscular Hgb Conc 30.9 g/dL (32.0-36.0); Mean Corpuscular Volume 88.1 fL (80.0-100.0); Mean Platelet Volume 10.1 fL (9.4-12.3); Platelet Count 190 K/uL (130-400); RDW Coefficient of Variation 15.8 % (11.5-14.5); RDW Standard Deviation 50.3 fL (36.4-46.3); Red Blood Count 3.71 M/uL (3.93-5.22); White Blood Count 6.59 K/ul (4.8-10.8)
--- NOTE | 2022-05-10 07:16 | XRay Report ---
XR chest 1V portable CLINICAL HISTORY: Sepsis COMPARISON STUDY: Chest radiograph April 22, 2022. FINDINGS: Cardiomegaly is unchanged. There is subtle interstitial thickening. Trace bilateral pleural effusions. There is no pneumothorax. No consolidation is identified to suggest pneumonia. IMPRESSION: 1. Cardiomegaly with trace bilateral pleural effusions. Possible mild interstitial edema. 2. No consolidation identified. ACT 112: Negative or not required by law. Electronically signed by: Kanu Womack M.D. 05/10/2022 7:14 AM
[2022-05-10 07:35] LABS: Immature Granulocytes % (auto) 1.5 %; Lymphocytes # (auto) 0.21 K/uL (1.2-3.4); Lymphocytes % (auto) 3.2 %; Monocytes # (auto) 0.07 K/uL (0.24-0.82); Monocytes % (auto) 1.1 %; Neutrophils # (auto) 6.21 K/uL (1.4-6.5); Neutrophils % (auto) 94.2 %
[2022-05-10 07:48] LABS: BUN Creatinine Ratio 33.3 (10-20); Calcium 9.1 mg/dl (8.5-10.1); Creatinine Clr Calc Pharmacy 59.2 ml/min; Est GFR (African American) 95.6 ml/min; Est GFR (Non-African American) 82.5 ml/min; Magnesium 1.8 mg/dl (1.7-2.4); Potassium 4.1 mmol/L (3.5-5.1); Troponin I High Sensitivity 43.5 pg/ml (0-14)
[2022-05-10] MEDS: IPRATROPIUM BROMIDE NEB SOLN 0.02% 2.5 ML VIAL INH SCH ×3 (08:06→19:43)
[2022-05-10] MEDS: LEVALBUTEROL 1.25MG/0.5ML NEB INH SCH ×3 (08:06→19:43)
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
[2022-05-10] MEDS: methylPREDNISolone 40 MG in SYRINGE 0 ML IV SCH ×2 (09:00→17:08)
[2022-05-10] MEDS: lisinopril 20 MG TAB PO SCH (09:01)
[2022-05-10] MEDS: GABAPENTIN 300 MG CAP PO SCH ×3 (09:01→20:02)
[2022-05-10] MEDS: FUROSEMIDE 40 MG TAB PO SCH (09:01)
[2022-05-10] MEDS: APIXABAN 5 MG TABLET PO SCH ×2 (09:01→20:02)
[2022-05-10] MEDS: FLUTICASONE FUROATE 100MCG 14 PUFFS/INHALER INH SCH (09:01)
[2022-05-10] MEDS: POTASSIUM CHLORIDE 10 MEQ TABCR PO SCH ×2 (09:01→20:32)
[2022-05-10] MEDS: UMECLIDINIUM/VILANTEROL 62.5/25MCG 7 PUFFS/INHALER INH SCH (09:01)
[2022-05-10] MEDS: CHOLECALCIFEROL 1,000 UNITS 25 MCG TAB PO SCH (09:01)
[2022-05-10] MEDS: ATORVASTATIN 40 MG TAB PO SCH (09:01)
[2022-05-10] MEDS: DOXYCYCLINE HYCLATE 100 MG CAP PO SCH ×2 (09:01→20:03)
[2022-05-10] MEDS: buPROPion SR 150 MG TABCR PO SCH ×2 (09:01→20:03)
[2022-05-10] MEDS: METOPROLOL TARTRATE 25 MG TAB PO SCH ×3 (09:01→20:02)
[2022-05-10] MEDS: POLYETHYLENE (MIRALAX) 17 GM PACK PO SCH (09:02)
[2022-05-10] MEDS ORDERED: DIGOXIN 125 MCG in SYRINGE 9.5 ML IV STA (12:11)
[2022-05-10] MEDS ORDERED: PNEUMOCOCCAL POLYSACCHARIDES 25 MCG/0.5 ML VIAL/SYR IM ONE (13:53)
--- NOTE | 2022-05-10 15:17 | Electrocardiogram Report ---
Test Reason : Blood Pressure : / mmHG Vent. Rate : 147 BPM Atrial Rate : 241 BPM P-R Int : 000 ms QRS Dur : 084 ms QT Int : 296 ms P-R-T Axes : 000 091 086 degrees QTc Int : 463 ms Poor data quality, interpretation may be adversely affected Atrial flutter with variable A-V block with premature ventricular or aberrantly conducted complexes Rightward axis Low voltage QRS Old Anteroseptal infarct (cited on or before 18-MAY-2006) ST depression in Anterolateral leads Abnormal ECG When compared with ECG of 24-APR-2022 08:54, HR has increased by 22 bpm Otherwise no significant change Confirmed by Gallito Ferreira ([id number]) on 05/10/2022 3:17:11 PM Referred By: REFERRED SELF Confirmed By:Gallito Ferreira
[2022-05-11] MEDS: methylPREDNISolone 40 MG in SYRINGE 0 ML IV SCH ×3 (00:07→20:34)
[2022-05-11] MEDS: IPRATROPIUM BROMIDE NEB SOLN 0.02% 2.5 ML VIAL INH SCH ×4 (01:04→20:16)
[2022-05-11] MEDS: LEVALBUTEROL 1.25MG/0.5ML NEB INH SCH ×4 (01:04→20:16)
[2022-05-11 05:53] LABS: Appearance Urine Turbid (Clear); Bacteria Urine Automated 4+ (Negative); Bilirubin Urine Negative (Negative); Blood Urine Negative (Negative); Color Urine Yellow; Epithelial Cell Urine Auto 20-30 /lpf (0-5); Glucose Urine UA Negative (Negative); Ketones Urine Negative (Negative); Leukocyte Esterase Urine 1+ (Negative); Nitrite Urine Positive (Negative); RBC Urine Automated >30 /hpf (0-4); Specific Gravity Urine 1.019 (1.000-1.030); Urobilinogen Urine Negative (Negative); pH Urine >= 9.0 (4.5-7.5)
[2022-05-11 05:59] LABS: Protein Urine 2+ (Negative)
[2022-05-11 06:18] LABS: Triple Phosphate Crystal Urine Present (None Prsent)
--- NOTE | 2022-05-11 07:59 | Electrocardiogram Report ---
Test Reason : Blood Pressure : / mmHG Vent. Rate : 102 BPM Atrial Rate : 227 BPM P-R Int : 000 ms QRS Dur : 094 ms QT Int : 366 ms P-R-T Axes : 000 076 134 degrees QTc Int : 477 ms Atrial flutter with variable A-V block Low voltage QRS Old Anteroseptal infarct (cited on or before 18-MAY-2006) ST depression in Anterolateral leads Abnormal ECG When compared with ECG of 10-MAY-2022 01:42, T wave inversion more evident in Lateral leads Confirmed by Gallito Ferreira ([id number]) on 05/11/2022 7:59:31 AM Referred By: REFERRED SELF Confirmed By:Gallito Ferreira
[2022-05-11] MEDS: APIXABAN 5 MG TABLET PO SCH ×2 (08:29→20:35)
[2022-05-11] MEDS: buPROPion SR 150 MG TABCR PO SCH ×2 (08:29→20:35)
[2022-05-11] MEDS: DOXYCYCLINE HYCLATE 100 MG CAP PO SCH ×2 (08:29→20:34)
[2022-05-11] MEDS: GABAPENTIN 300 MG CAP PO SCH ×3 (08:30→20:34)
[2022-05-11] MEDS: METOPROLOL TARTRATE 25 MG TAB PO SCH ×3 (08:30→20:35)
[2022-05-11] MEDS: CHOLECALCIFEROL 1,000 UNITS 25 MCG TAB PO SCH (08:30)
[2022-05-11] MEDS: FUROSEMIDE 40 MG TAB PO SCH (08:30)
[2022-05-11] MEDS: ATORVASTATIN 40 MG TAB PO SCH (08:30)
[2022-05-11] MEDS: FLUTICASONE FUROATE 100MCG 14 PUFFS/INHALER INH SCH (08:31)
[2022-05-11] MEDS: UMECLIDINIUM/VILANTEROL 62.5/25MCG 7 PUFFS/INHALER INH SCH (08:31)
[2022-05-11] MEDS: lisinopril 20 MG TAB PO SCH (08:31)
[2022-05-11] MEDS ORDERED: DIGOXIN 0.125 MG TAB PO ONE (08:45)
[2022-05-11] MEDS ORDERED: NICOTINE 7 MG/24 HR TDSY TD SCH (09:00)
[2022-05-11] MEDS: POTASSIUM CHLORIDE 10 MEQ TABCR PO SCH ×2 (09:13→20:39)
[2022-05-11] MEDS: POLYETHYLENE (MIRALAX) 17 GM PACK PO SCH (09:13)
--- NOTE | 2022-05-11 10:27 | Cardiology Progress Note ---
Date of Service May 11, 2022 Assessment & Plan (1) Acute exacerbation of chronic obstructive pulmonary disease: (2) Atrial flutter with rapid ventricular response: (3) CVA (cerebral vascular accident): (4) Paroxysmal atrial fibrillation: (5) Brain TIA: (6) HTN (hypertension): Plan Patient with recurrent acute exacerbation of COPD and concomitant atrial flutter with rapid ventricular response rates somewhat improved with first dose of IV digoxin will give po dig 0.125mg twice today then daily Her metoprolol and Eliquis should be continued uninterrupted Will likely proceed with DC cardioversion after completing 1 full month of anticoagulation would allow for higher rates Follow and replete electrolytes as necessary Admission and Anticipated Discharge Date Admission Date: May 10, 2022 Subjective Pt seen and examined. Chart reviewed. Telemetry reviewed. SOB slowly improving. States that she gave up smoking for New Years. Review of Systems Review of Systems: All systems reviewed & are unremarkable except as noted in HPI & below Physical Exam Physical Exam: General: Awake, alert and oriented x 3. No acute distress. HEENT: Normocephalic, atraumatic. Pupils equal, round and reactive to light and accommodation. Extraocular muscles are intact. Anicteric sclera. Moist mucous membranes. Neck: No JVD. No bruit. Cardiovascular: irregularly irregular, unable to appreciate murmur, rub or gallop. Pulmonary: Clear to auscultation bilaterally. No rales, rhonchi, or wheezing. Abdomen: Bowel sounds x 4, soft. No rebound, guarding or tenderness. No organomegaly. Extremities: No clubbing, cyanosis or edema. +2 pedal pulses bilaterally. Skin: Warm and dry. Results & Data ([facility]) Vital Signs (Past 12 Hours) Vital Signs Temp Pulse Pulse Pulse Resp BP Pulse Ox 05/11/22 08:09 36.8 C 116 H 22 120/79 91 05/11/22 07:14 105 H 20 96 05/11/22 03:08 36.5 C 96 H 18 119/76 98 05/11/22 00:00 05/11/22 01:05 97 H 18 92 05/10/22 23:31 36.3 C L 103 H 18 107/68 99 O2 Del Method O2 Flow Rate 05/11/22 08:09 Nasal Cannula 2.5 05/11/22 07:14 Nasal Cannula 3 05/11/22 03:08 Nasal Cannula 05/11/22 00:00 Nasal Cannula 3 05/11/22 01:05 Nasal Cannula 3 05/10/22 23:31 Nasal Cannula
[2022-05-11] MEDS: NICOTINE 7 MG/24 HR TDSY TD SCH (10:55)
--- NOTE | 2022-05-11 14:42 | Hospitalist Progress Note ---
Date of Service May 11, 2022 Assessment & Plan (1) Atrial fibrillation with rapid ventricular response: (2) Acute exacerbation of chronic obstructive pulmonary disease: Plan: This is a 76-year-old female who presents with shortness of breath and also rapid atrial flutter. 1. Rapid atrial flutter: The patient on last admission was started on metoprolol and also on Eliquis, which will be continued. The patient was given a dose of Cardizem in the Emergency Room, Cardizem drip was continued, now stopped. Monitor in the telemetry floor. Seen by cardiology, and digoxin was added The patient had echocardiogram on last admission, on 04/22/2022 showing ejection fraction of 45%-50%, [id number] mitral regurgitation, [id number] tricuspid regurgitation, mild valvular aortic stenosis. 2. Mcmhi-av-zdaaerp respiratory failure, chronic obstructive pulmonary disease exacerbation: On oxygen 2.5 liters at home. Currently, requiring 3 liters. Received nebulizers in the Emergency Room. We will continue with Solu-Medrol 40 mg IV t.i.d. -> switch to bid, nebulizers around the clock and p.r.n. Continue home inhalers, p.o. doxycycline and monitor the response. 3. UTI UA concerning for UTI, positive for nitrites and bacteria, follow urine culture Start ceftriaxone 4. Chronic diastolic and systolic congestive heart failure: Continue home diuretics. We will monitor for any volume overload. 5. Hypertension: On lisinopril, metoprolol tartrate and Lasix. 6. History of recent stroke: On Eliquis and high-dose statin. 7. History of left frontal meningioma, status post resection: Follows up with neurosurgery. 8. History of cerebral aneurysms: Follows up with neurosurgery. DVT ppx: On Eliquis. DISPOSITION:tele floor Code: full code Admission and Anticipated Discharge Date Admission Date: May 10, 2022 Subjective Patient seen in follow-up of COPD exacerbation, atrial flutter, RVR Seen by cardiology, digoxin added Currently sitting up in bed, in no acute distress, continues to have shortness of breath with minimal exertion Denies fevers chills chest pain, palpitations. Review of Systems Review of Systems: All systems reviewed & are unremarkable except as noted in Subjective Physical Exam Physical Exam: GENERAL:thin and frail F, + chronically ill-appearing, in no acute distress, on supplemental oxygen 3 L HEENT: Pupils equal, round and reactive to light. Oral mucosa moist. NECK: No JVD, no neck masses. CARDIOVASCULAR: S1 and S2 heard, tachycardia, regular rhythm. No murmurs. RESPIRATORY: Normal AP diameter. No accessory muscle use. Bilateral diminished breath sounds.minimal rhonchi, minimal wheezing ABDOMEN: Soft, bowel sounds present, nontender, no distention. NEURO: Alert and oriented. Speech is clear. Obeys simple commands. Moves extremities. EXTREMITIES: No edema, no erythema. Results & Data Results & Data ([facility]) Vital Signs (Past 12 Hours) Vital Signs Temp Pulse Pulse Pulse Resp BP Pulse Ox 05/11/22 13:00 98 H 22 93 05/11/22 11:40 36.5 C 113 H 19 109/69 90 05/11/22 10:18 05/11/22 08:09 36.8 C 116 H 22 120/79 91 05/11/22 07:14 105 H 20 96 05/11/22 03:08 36.5 C 96 H 18 119/76 98 O2 Del Method O2 Flow Rate 05/11/22 13:00 Nasal Cannula 3 05/11/22 11:40 Nasal Cannula 2.5 05/11/22 10:18 Room Air 2.5 05/11/22 08:09 Nasal Cannula 2.5 05/11/22 07:14 Nasal Cannula 3 05/11/22 03:08 Nasal Cannula Laboratory Results 05/11/22 Range/Units 05:20 Urine Color Yellow Urine Appearance Turbid A (Clear) Urine pH >= 9.0 H (4.5-7.5) Ur Specific Flom 1.019 (1.000-1.030) Urine Protein 2+ H (Negative) Urine Glucose (UA) Negative (Negative) Urine Ketones Negative (Negative) Urine Blood Negative (Negative) Urine Nitrite Positive A (Negative) Urine Bilirubin Negative (Negative) Urine Urobilinogen Negative (Negative) Ur Leukocyte Esterase 1+ H (Negative) Urine WBC (Auto) 1-5 (0-5) /hpf Urine RBC (Auto) >30 H (0-4) /hpf U Hyaline Cast (Auto) 1-5 (0-5) /lpf U Epithel Cells (Auto) 20-30 H (0-5) /lpf Urine Bacteria (Auto) 4+ H (Negative) Urine Crystals Not Reportable Triple Phos Crystals Present A (None Prsent) Other Crystals Unidentified A (None Prsent) Medications Administered Current Inpatient Medications Acetaminophen (Acetaminophen 325 Mg Tab) 650 mg PO Q4H PRN PRN Reason: Pain or Fever Stop: 06/09/22 06:37 Albuterol (Albuterol Hfa 8 Gm Inhaler) 2 puffs INH Q4 PRN PRN Reason: Shortness Of Breath Stop: 06/09/22 06:37 Apixaban (Apixaban 5 Mg Tablet) 5 mg PO BID [facility] Stop: 06/09/22 08:59 Last Admin: 05/11/22 08:29 Dose: 5 mg Atorvastatin Calcium (Atorvastatin 40 Mg Tab) 80 mg PO QAM [facility] Stop: 06/09/22 08:59 Last Admin: 05/11/22 08:30 Dose: 80 mg Bupropion HCl (Bupropion Sr 150 Mg Tabcr) 150 mg PO AMHS [facility] Stop: 06/09/22 08:59 Last Admin: 05/11/22 08:29 Dose: 150 mg Digoxin (Digoxin 0.125 Mg Tab) 0.125 mg PO DAILY@1600 [facility] Stop: 06/10/22 15:59 Doxycycline Hyclate (Doxycycline Hyclate 100 Mg Cap) 100 mg PO BID [facility] Stop: 05/17/22 08:59 Last Admin: 05/11/22 08:29 Dose: 100 mg Fluticasone Furoate (Fluticasone Furoate 100mcg 14 Puffs/Inhaler) 1 puffs INH QAM [facility] Stop: 06/09/22 08:59 Last Admin: 05/11/22 08:31 Dose: 1 puffs Furosemide (Furosemide 40 Mg Tab) 40 mg PO DAILY [facility] Stop: 06/09/22 08:59 Last Admin: 05/11/22 08:30 Dose: 40 mg Gabapentin (Gabapentin 300 Mg Cap) 300 mg PO TID [facility] Stop: 06/09/22 08:59 Last Admin: 05/11/22 13:11 Dose: 300 mg Diltiazem HCl 125 mg/ Dextrose 125 mls @ 0 mls/hr IV .Q0M [facility]; Protocol Stop: 06/09/22 04:59 Last Titration: 05/11/22 13:36 Dose: Infused Methylprednisolone 40 mg/ (Syringe) 0.64 mls @ 1.5 mls/min IV Q8H [facility] Stop: 06/09/22 07:59 Last Admin: 05/11/22 08:29 Dose: 1.5 mls/min Ceftriaxone Sodium 1,000 mg/ (Dextrose) 50 mls @ 100 mls/hr IV Q24H [facility]; Protocol Stop: 05/16/22 14:44 Ipratropium [place] (Ipratropium [place] Neb Soln 0.02% 2.5 Ml Vial) 0.5 mg INH Q6R [facility] Stop: 06/09/22 06:59 Last Admin: 05/11/22 12:59 Dose: 0.5 mg Levalbuterol HCl (Levalbuterol 1.25mg/0.5ml Neb) 1.25 mg INH Q6R [facility] Stop: 06/09/22 06:59 Last Admin: 05/11/22 13:00 Dose: 1.25 mg Levalbuterol HCl (Levalbuterol Hcl 1.25 Mg/3 Ml Neb) 1.25 mg NEB Q2H PRN; Protocol PRN Reason: Shortness Of Breath Or Wheezing Stop: 06/09/22 06:49 Lisinopril (Lisinopril 20 Mg Tab) 20 mg PO QAM [facility] Stop: 06/09/22 08:59 Last Admin: 05/11/22 08:31 Dose: 20 mg Metoprolol Tartrate (Metoprolol Tartrate 25 Mg Tab) 25 mg PO TID [facility] Stop: 06/09/22 08:59 Last Admin: 05/11/22 13:11 Dose: 25 mg Miscellaneous (Remove Nicoderm Patch) 1 each N/A DAILY@0859 [facility] Stop: 06/11/22 08:58 Nicotine (Nicotine 7 Mg/24 Hr Tdsy) 7 mg TD DAILY [facility] Stop: 06/10/22 08:59 Last Admin: 05/11/22 10:55 Dose: 7 mg Nitroglycerin (Nitroglycerin Sl 0.4 Mg/Tab Tab) 0.4 mg SL UD PRN PRN Reason: Chest Pain Stop: 06/09/22 06:37 Polyethylene Glycol (Polyethylene (Miralax) 17 Gm Pack) 17 gm PO DAILY [facility] Stop: 06/09/22 08:59 Last Admin: 05/11/22 09:13 Dose: Not Given Potassium Chloride (Potassium Chloride 10 Meq Tabcr) 10 meq PO BID [facility] Stop: 06/09/22 08:59 Last Admin: 05/11/22 09:13 Dose: 10 meq Umeclidinium/Vilanterol (Umeclidinium/Vilanterol 62.5/25mcg 7 Puffs/Inhaler) 1 puffs INH DAILY [facility] Stop: 06/09/22 08:59 Last Admin: 05/11/22 08:31 Dose: 1 puffs Vitamin D (Cholecalciferol 1,000 Units 25 Mcg Tab) 1,000 units PO QAM [facility] Stop: 06/09/22 08:59 Last Admin: 05/11/22 08:30 Dose: 1,000 units
[2022-05-11] MEDS: cefTRIAXone SODIUM 1,000 MG in DEXTROSE 5% AD-VAN 50 ML IV SCH (15:59)
[2022-05-11] MEDS: DIGOXIN 0.125 MG TAB PO SCH (16:00)
[2022-05-12] MEDS: LEVALBUTEROL 1.25MG/0.5ML NEB INH SCH ×4 (01:47→18:59)
[2022-05-12] MEDS: IPRATROPIUM BROMIDE NEB SOLN 0.02% 2.5 ML VIAL INH SCH ×4 (01:47→18:59)
[2022-05-12 07:10] LABS: Calcium 10.1 mg/dl (8.5-10.1); Creatinine Clr Calc Pharmacy 58.5 ml/min; Est GFR (African American) 98.9 ml/min; Est GFR (Non-African American) 85.4 ml/min; Magnesium 2.1 mg/dl (1.7-2.4); Potassium 5.4 mmol/L (3.5-5.1)
[2022-05-12 07:36] LABS: Hematocrit (blood only) 39.7 % (34.1-44.9); Hemoglobin 11.6 g/dl (12.0-16.0); Mean Corpuscular Hemoglobin 27.4 pg (25.0-34.0); Mean Corpuscular Hgb Conc 29.2 g/dL (32.0-36.0); Mean Corpuscular Volume 93.6 fL (80.0-100.0); Platelet Count 254 K/uL (130-400); RDW Standard Deviation 53.8 fL (36.4-46.3); Red Blood Count 4.24 M/uL (3.93-5.22); White Blood Count 12.43 K/ul (4.8-10.8)
[2022-05-12] MEDS: METOPROLOL TARTRATE 25 MG TAB PO SCH ×3 (08:46→19:46)
[2022-05-12] MEDS: APIXABAN 5 MG TABLET PO SCH ×2 (08:46→19:43)
[2022-05-12] MEDS: lisinopril 20 MG TAB PO SCH (08:46)
[2022-05-12] MEDS: methylPREDNISolone 40 MG in SYRINGE 0 ML IV SCH ×2 (08:46→19:45)
[2022-05-12] MEDS: CHOLECALCIFEROL 1,000 UNITS 25 MCG TAB PO SCH (08:47)
[2022-05-12] MEDS: ATORVASTATIN 40 MG TAB PO SCH (08:47)
[2022-05-12] MEDS: DOXYCYCLINE HYCLATE 100 MG CAP PO SCH ×2 (08:47→19:46)
[2022-05-12] MEDS: buPROPion SR 150 MG TABCR PO SCH ×2 (08:47→19:47)
[2022-05-12] MEDS: FUROSEMIDE 40 MG TAB PO SCH (08:47)
[2022-05-12] MEDS: GABAPENTIN 300 MG CAP PO SCH ×3 (08:47→19:46)
[2022-05-12] MEDS: NICOTINE 7 MG/24 HR TDSY TD SCH (08:48)
[2022-05-12] MEDS: FLUTICASONE FUROATE 100MCG 14 PUFFS/INHALER INH SCH (08:48)
[2022-05-12] MEDS: UMECLIDINIUM/VILANTEROL 62.5/25MCG 7 PUFFS/INHALER INH SCH (08:48)
[2022-05-12] MEDS: POLYETHYLENE (MIRALAX) 17 GM PACK PO SCH (08:49)
[2022-05-12] MEDS: POTASSIUM CHLORIDE 10 MEQ TABCR PO SCH ×2 (09:06→19:22)
--- NOTE | 2022-05-12 09:24 | Hospitalist Progress Note ---
Date of Service May 12, 2022 Assessment & Plan (1) Atrial fibrillation with rapid ventricular response: (2) Acute exacerbation of chronic obstructive pulmonary disease: Plan: This is a 76-year-old female who presents with shortness of breath and also rapid atrial flutter. 1. Rapid atrial flutter: The patient on last admission was started on metoprolol and also on Eliquis, which will be continued. The patient was given a dose of Cardizem in the Emergency Room, Cardizem drip was continued, now stopped. Monitor in the telemetry floor. Seen by cardiology, and digoxin was added The patient had echocardiogram on last admission, on 04/22/2022 showing ejection fraction of 45%-50%, zlwo-eb-[id number] mitral regurgitation, [id number]-[id number] tricuspid regurgitation, mild valvular aortic stenosis. HR much better controlled now 2. Gkfjf-vn-psomhdx respiratory failure, chronic obstructive pulmonary disease exacerbation: On oxygen 2.5 liters at home. Currently, requiring 2-3 liters. Received nebulizers in the Emergency Room. We will continue with Solu-Medrol 40 mg IV bid, nebulizers around the clock and p.r.n. Continue home inhalers, p.o. doxycycline and monitor the response. Patient still very much short of breath with any minimal exertion 3. UTI UA positive for nitrites and bacteria Urine culture positive for gram-negative bacilli Started ceftriaxone, will cont. for now, follow final cultures 4. Chronic diastolic and systolic congestive heart failure: Continue home diuretics. We will monitor for any volume overload. 5. Hypertension: On lisinopril, metoprolol tartrate and Lasix. 6. History of recent stroke: On Eliquis and high-dose statin. 7. History of left frontal meningioma, status post resection: Follows up with neurosurgery. 8. History of cerebral aneurysms: Follows up with neurosurgery. DVT ppx: On Eliquis. DISPOSITION:tele floor Code: full code Admission and Anticipated Discharge Date Admission Date: May 10, 2022 Subjective Patient seen in follow-up of COPD exacerbation, atrial flutter, RVR Seen by cardiology, digoxin added Currently sitting up in bed, in no acute distress, continues to have shortness of breath with minimal exertion Denies fevers chills chest pain, palpitations. Review of Systems Review of Systems: All systems reviewed & are unremarkable except as noted in Subjective Physical Exam Physical Exam: GENERAL:thin and frail F, + chronically ill-appearing, in no acute distress, on supplemental oxygen 2-3 L HEENT: Pupils equal, round and reactive to light. Oral mucosa moist. NECK: No JVD, no neck masses. CARDIOVASCULAR: S1 and S2 heard, tachycardia, regular rhythm. No murmurs. RESPIRATORY: Normal AP diameter. No accessory muscle use. Bilateral diminished breath sounds.minimal rhonchi, minimal wheezing ABDOMEN: Soft, bowel sounds present, nontender, no distention. NEURO: Alert and oriented. Speech is clear. Obeys simple commands. Moves extremities. EXTREMITIES: No edema, no erythema. Results & Data Results & Data ([facility]) Vital Signs (Past 12 Hours) Vital Signs Temp Pulse Pulse Pulse Resp BP Pulse Ox 05/12/22 07:32 36.5 C 66 22 116/65 95 05/12/22 07:00 89 22 98 05/12/22 03:08 36.5 C 103 H 18 130/83 95 05/12/22 01:47 107 H 18 93 05/11/22 22:53 93 H 05/11/22 22:44 36.8 C 101 H 18 122/82 100 O2 Del Method O2 Flow Rate 05/12/22 07:32 Nasal Cannula 3 05/12/22 07:00 Nasal Cannula 4 05/12/22 03:08 Nasal Cannula 05/12/22 01:47 Nasal Cannula 4 05/11/22 22:53 05/11/22 22:44 Nasal Cannula Laboratory Results 05/12/22 05/12/22 Range/Units 06:01 06:01 WBC 12.43 H (4.8-10.8) K/ul RBC 4.24 (3.93-5.22) M/uL Hgb 11.6 L (12.0-16.0) g/dl Hct 39.7 (34.1-44.9) % MCV 93.6 D (80.0-100.0) fL MCH 27.4 (25.0-34.0) pg MCHC 29.2 L (32.0-36.0) g/dL RDW Std Deviation 53.8 H (36.4-46.3) fL RDW Coeff of [place] 16.0 H (11.5-14.5) % Plt Count 254 (130-400) K/uL MPV 10.0 (9.4-12.3) fL Sodium 141 (136-145) mmol/L Potassium 5.4 H D (3.5-5.1) mmol/L Chloride 98 (98-107) mmol/L Carbon Dioxide 41 H* (21-32) mmol/L Anion Gap 2 L (3-11) BUN 28 H (6-23) mg/dl Creatinine 0.70 (0.6-1.2) mg/dl Est Cr Clr Drug Dosing 58.5 ml/min Est GFR ( Amer) 98.9 ml/min Est GFR (Non-Af Amer) 85.4 ml/min BUN/Creatinine Ratio 40.0 H (10-20) Glucose 130 H (70-99(Fasting)) mg/dl Calcium 10.1 (8.5-10.1) mg/dl Phosphorus 3.0 (2.5-4.9) mg/dl Magnesium 2.1 (1.7-2.4) mg/dl Medications Administered Current Inpatient Medications Acetaminophen (Acetaminophen 325 Mg Tab) 650 mg PO Q4H PRN PRN Reason: Pain or Fever Stop: 06/09/22 06:37 Albuterol (Albuterol Hfa 8 Gm Inhaler) 2 puffs INH Q4 PRN PRN Reason: Shortness Of Breath Stop: 06/09/22 06:37 Apixaban (Apixaban 5 Mg Tablet) 5 mg PO BID [facility] Stop: 06/09/22 08:59 Last Admin: 05/12/22 08:46 Dose: 5 mg Atorvastatin Calcium (Atorvastatin 40 Mg Tab) 80 mg PO QAM [facility] Stop: 06/09/22 08:59 Last Admin: 05/12/22 08:47 Dose: 80 mg Bupropion HCl (Bupropion Sr 150 Mg Tabcr) 150 mg PO AMHS [facility] Stop: 06/09/22 08:59 Last Admin: 05/12/22 08:47 Dose: 150 mg Digoxin (Digoxin 0.125 Mg Tab) 0.125 mg PO DAILY@1600 [facility] Stop: 06/10/22 15:59 Last Admin: 05/11/22 16:00 Dose: 0.125 mg Doxycycline Hyclate (Doxycycline Hyclate 100 Mg Cap) 100 mg PO BID [facility] Stop: 05/17/22 08:59 Last Admin: 05/12/22 08:47 Dose: 100 mg Fluticasone Furoate (Fluticasone Furoate 100mcg 14 Puffs/Inhaler) 1 puffs INH QAM [facility] Stop: 06/09/22 08:59 Last Admin: 05/12/22 08:48 Dose: 1 puffs Furosemide (Furosemide 40 Mg Tab) 40 mg PO DAILY [facility] Stop: 06/09/22 08:59 Last Admin: 05/12/22 08:47 Dose: 40 mg Gabapentin (Gabapentin 300 Mg Cap) 300 mg PO TID [facility] Stop: 06/09/22 08:59 Last Admin: 05/12/22 08:47 Dose: 300 mg Ceftriaxone Sodium 1,000 mg/ (Dextrose) 50 mls @ 100 mls/hr IV Q24H [facility]; Protocol Stop: 05/16/22 14:59 Last Infusion: 05/11/22 16:29 Dose: Infused Methylprednisolone 40 mg/ (Syringe) 0.64 mls @ 1.5 mls/min IV Q12H [facility] Stop: 06/10/22 15:59 Last Admin: 05/12/22 08:46 Dose: 1.5 mls/min Ipratropium [place] (Ipratropium [place] Neb Soln 0.02% 2.5 Ml Vial) 0.5 mg INH Q6R [facility] Stop: 06/09/22 06:59 Last Admin: 05/12/22 06:58 Dose: 0.5 mg Levalbuterol HCl (Levalbuterol 1.25mg/0.5ml Neb) 1.25 mg INH Q6R [facility] Stop: 06/09/22 06:59 Last Admin: 05/12/22 06:58 Dose: 1.25 mg Levalbuterol HCl (Levalbuterol Hcl 1.25 Mg/3 Ml Neb) 1.25 mg NEB Q2H PRN; Prot ocol PRN Reason: Shortness Of Breath Or Wheezing Stop: 06/09/22 06:49 Lisinopril (Lisinopril 20 Mg Tab) 20 mg PO QAM [facility] Stop: 06/09/22 08:59 Last Admin: 05/12/22 08:46 Dose: 20 mg Metoprolol Tartrate (Metoprolol Tartrate 25 Mg Tab) 25 mg PO TID [facility] Stop: 06/09/22 08:59 Last Admin: 05/12/22 08:46 Dose: 25 mg Miscellaneous (Remove Nicoderm Patch) 1 each N/A DAILY@0859 [facility] Stop: 06/11/22 08:58 Last Admin: 05/12/22 08:48 Dose: 1 each Nicotine (Nicotine 7 Mg/24 Hr Tdsy) 7 mg TD DAILY [facility] Stop: 06/10/22 08:59 Last Admin: 05/12/22 08:48 Dose: 7 mg Nitroglycerin (Nitroglycerin Sl 0.4 Mg/Tab Tab) 0.4 mg SL UD PRN PRN Reason: Chest Pain Stop: 06/09/22 06:37 Polyethylene Glycol (Polyethylene (Miralax) 17 Gm Pack) 17 gm PO DAILY [facility] Stop: 06/09/22 08:59 Last Admin: 05/12/22 08:49 Dose: Not Given Potassium Chloride (Potassium Chloride 10 Meq Tabcr) 10 meq PO BID [facility] Stop: 06/09/22 08:59 Last Admin: 05/12/22 09:06 Dose: Not Given Umeclidinium/Vilanterol (Umeclidinium/Vilanterol 62.5/25mcg 7 Puffs/Inhaler) 1 puffs INH DAILY [facility] Stop: 06/09/22 08:59 Last Admin: 05/12/22 08:48 Dose: 1 puffs Vitamin D (Cholecalciferol 1,000 Units 25 Mcg Tab) 1,000 units PO QAM [facility] Stop: 06/09/22 08:59 Last Admin: 05/12/22 08:47 Dose: 1,000 units
--- NOTE | 2022-05-12 10:39 | Cardiology Progress Note ---
Date of Service May 12, 2022 Assessment & Plan (1) Acute exacerbation of chronic obstructive pulmonary disease: (2) Atrial flutter with rapid ventricular response: (3) CVA (cerebral vascular accident): (4) Paroxysmal atrial fibrillation: (5) Brain TIA: (6) HTN (hypertension): Plan Patient with recurrent acute exacerbation of COPD and concomitant atrial flutter with rapid ventricular response remains in flutter but rates now in the 60's continue current doses of metoprolol, eliquis, digoxin check bmp and dig level in 1 week otherwise, ok to d/c to home from cardiac standpoint Admission and Anticipated Discharge Date Admission Date: May 10, 2022 Subjective Pt seen and examined. Chart reviewed. Telemetry reviewed. Review of Systems Review of Systems: All systems reviewed & are unremarkable except as noted in HPI & below Physical Exam Physical Exam: General: Awake, alert and oriented x 3. No acute distress. HEENT: Normocephalic, atraumatic. Pupils equal, round and reactive to light and accommodation. Extraocular muscles are intact. Anicteric sclera. Moist mucous membranes. Neck: No JVD. No bruit. Cardiovascular: irregularly irregular, unable to appreciate murmur, rub or gallop. Pulmonary: Clear to auscultation bilaterally. No rales, rhonchi, or wheezing. Abdomen: Bowel sounds x 4, soft. No rebound, guarding or tenderness. No organomegaly. Extremities: No clubbing, cyanosis or edema. +2 pedal pulses bilaterally. Skin: Warm and dry. Results & Data ([facility]) Vital Signs (Past 12 Hours) Vital Signs Temp Pulse Pulse Pulse Resp BP Pulse Ox 05/12/22 07:32 36.5 C 66 22 116/65 95 05/12/22 07:00 89 22 98 05/12/22 03:08 36.5 C 103 H 18 130/83 95 05/12/22 01:47 107 H 18 93 05/11/22 22:53 93 H 05/11/22 22:44 36.8 C 101 H 18 122/82 100 O2 Del Method O2 Flow Rate 05/12/22 07:32 Nasal Cannula 3 05/12/22 07:00 Nasal Cannula 4 05/12/22 03:08 Nasal Cannula 05/12/22 01:47 Nasal Cannula 4 05/11/22 22:53 05/11/22 22:44 Nasal Cannula
--- NOTE | 2022-05-12 11:31 | Electrocardiogram Report ---
Test Reason : Blood Pressure : / mmHG Vent. Rate : 106 BPM Atrial Rate : 106 BPM P-R Int : 182 ms QRS Dur : 090 ms QT Int : 320 ms P-R-T Axes : 000 093 152 degrees QTc Int : 425 ms Atrial flutter with 2 to 1 block Rightward axis Anterior infarct (cited on or before 18-MAY-2006) Abnormal ECG When compared with ECG of 11-MAY-2022 05:32, T wave inversion less evident in Lateral leads Confirmed by Nacho Nichols ([id number]) on 05/12/2022 11:31:05 AM Referred By: REFERRED SELF Confirmed By:Nacho Nichols
[2022-05-12] MEDS: cefTRIAXone SODIUM 1,000 MG in DEXTROSE 5% AD-VAN 50 ML IV SCH (15:31)
[2022-05-12] MEDS: DIGOXIN 0.125 MG TAB PO SCH (15:32)
[2022-05-13] MEDS: LEVALBUTEROL 1.25MG/0.5ML NEB INH SCH ×2 (00:10→07:08)
[2022-05-13] MEDS: IPRATROPIUM BROMIDE NEB SOLN 0.02% 2.5 ML VIAL INH SCH ×2 (00:10→07:08)
[2022-05-13] MEDS: methylPREDNISolone 40 MG in SYRINGE 0 ML IV SCH (08:05)
[2022-05-13] MEDS: lisinopril 20 MG TAB PO SCH (08:06)
[2022-05-13] MEDS: GABAPENTIN 300 MG CAP PO SCH (08:06)
[2022-05-13] MEDS: NICOTINE 7 MG/24 HR TDSY TD SCH (08:06)
[2022-05-13] MEDS: METOPROLOL TARTRATE 25 MG TAB PO SCH (08:06)
[2022-05-13] MEDS: buPROPion SR 150 MG TABCR PO SCH (08:06)
[2022-05-13] MEDS: FUROSEMIDE 40 MG TAB PO SCH (08:07)
[2022-05-13] MEDS: DOXYCYCLINE HYCLATE 100 MG CAP PO SCH (08:07)
[2022-05-13] MEDS: CHOLECALCIFEROL 1,000 UNITS 25 MCG TAB PO SCH (08:07)
[2022-05-13] MEDS: ATORVASTATIN 40 MG TAB PO SCH (08:07)
[2022-05-13] MEDS: APIXABAN 5 MG TABLET PO SCH (08:07)
[2022-05-13] MEDS: UMECLIDINIUM/VILANTEROL 62.5/25MCG 7 PUFFS/INHALER INH SCH (08:08)
[2022-05-13] MEDS: FLUTICASONE FUROATE 100MCG 14 PUFFS/INHALER INH SCH (08:08)
[2022-05-13] MEDS: POLYETHYLENE (MIRALAX) 17 GM PACK PO SCH (08:09)
[2022-05-13 08:12] LABS: Hematocrit (blood only) 37.9 % (34.1-44.9); Hemoglobin 11.6 g/dl (12.0-16.0); Mean Corpuscular Hemoglobin 26.9 pg (25.0-34.0); Mean Corpuscular Hgb Conc 30.6 g/dL (32.0-36.0); Mean Corpuscular Volume 87.9 fL (80.0-100.0); Mean Platelet Volume 9.8 fL (9.4-12.3); Platelet Count 238 K/uL (130-400); RDW Coefficient of Variation 16.1 % (11.5-14.5); RDW Standard Deviation 49.9 fL (36.4-46.3); Red Blood Count 4.31 M/uL (3.93-5.22); White Blood Count 8.58 K/ul (4.8-10.8)
[2022-05-13] MEDS: POTASSIUM CHLORIDE 10 MEQ TABCR PO SCH (08:33)
[2022-05-13 10:15] LABS: BUN Creatinine Ratio 38.4 (10-20); Blood Urea Nitrogen 28 mg/dl (6-23); Calcium 10.6 mg/dl (8.5-10.1); Chloride 93 mmol/L (98-107); Creatinine Clr Calc Pharmacy 55.7 ml/min; Est GFR (Non-African American) 81.1 ml/min; Glucose 102 mg/dl (70-99(Fasting)); Potassium 4.5 mmol/L (3.5-5.1); Sodium 141 mmol/L (136-145)
[2022-05-13 10:16] LABS: Carbon Dioxide > 45 mmol/L (21-32)
--- NOTE | 2022-05-13 10:32 | Cardiology Progress Note ---
Date of Service May 13, 2022 Assessment & Plan (1) Acute exacerbation of chronic obstructive pulmonary disease: (2) Atrial flutter with rapid ventricular response: (3) CVA (cerebral vascular accident): (4) Paroxysmal atrial fibrillation: (5) Brain TIA: (6) HTN (hypertension): Plan Patient with recurrent acute exacerbation of COPD and concomitant atrial flutter with rapid ventricular response remains in flutter but rates now in the 60's continue current doses of metoprolol, eliquis, digoxin check bmp and dig level in 1 week otherwise, ok to d/c to home from cardiac standpoint will sign off, please call with questions or concerns Admission and Anticipated Discharge Date Admission Date: May 10, 2022 Subjective Pt seen and examined. Chart reviewed. Telemetry reviewed. Review of Systems Review of Systems: All systems reviewed & are unremarkable except as noted in HPI & below Physical Exam Physical Exam: General: Awake, alert and oriented x 3. No acute distress. HEENT: Normocephalic, atraumatic. Pupils equal, round and reactive to light and accommodation. Extraocular muscles are intact. Anicteric sclera. Moist mucous membranes. Neck: No JVD. No bruit. Cardiovascular: irregularly irregular, unable to appreciate murmur, rub or gallop. Pulmonary: Clear to auscultation bilaterally. No rales, rhonchi, or wheezing. Abdomen: Bowel sounds x 4, soft. No rebound, guarding or tenderness. No organomegaly. Extremities: No clubbing, cyanosis or edema. +2 pedal pulses bilaterally. Skin: Warm and dry. Results & Data ([facility]) Vital Signs (Past 12 Hours) Vital Signs Temp Pulse Pulse Resp BP Pulse Ox O2 Del Method 05/13/22 08:00 Nasal Cannula 05/13/22 07:49 36.4 C L 116 H 18 139/84 95 Nasal Cannula 05/13/22 07:15 87 24 Nasal Cannula 05/13/22 03:32 36.8 C 80 17 106/70 95 Nasal Cannula 05/12/22 22:50 36.4 C L 80 18 111/73 97 Nasal Cannula O2 Flow Rate 05/13/22 08:00 2 05/13/22 07:49 2 05/13/22 07:15 2 05/13/22 03:32 2 05/12/22 22:50
--- NOTE | 2022-05-13 12:43 | Hospitalist Progress Note ---
Date of Service May 13, 2022 Assessment & Plan (1) Acute exacerbation of chronic obstructive pulmonary disease: Plan: Improved discharging on prednisone taper po doxy and cefuroxime and prednisone taper home inhalers and nebs prn followup with PCP (2) Atrial fibrillation with rapid ventricular response: Plan: Initially was on cardizem drip which i stopped and placed on digoxin by cardiology improved on eliquis discharging on home metoprolol and digoxin plan for cardioversion after month of anticoagulation Followup BMP and digoxin levels in one week of discharge (3) CVA (cerebral vascular accident): Plan: on statin and eliquis (4) HTN (hypertension): Plan: On metoprolol, lisinopril and lasix (5) UTI (urinary tract infection): Plan: culture growing proteus pansensitive received rocephin d/c on cefuroxime Plan 4. Chronic diastolic and systolic congestive heart failure: Continue home diuretics. Echoon 04/22/2022 showing ejection fraction of 45%-50%, vtsy-sc-zpkjufip mitral regurgitation, ixin-mt-ficjntyh tricuspid regurgitation, mild valvular aortic stenosis. 5. Hypertension: On lisinopril, metoprolol tartrate and Lasix. 6. History of recent stroke: On Eliquis and high-dose statin. 7. History of left frontal meningioma, status post resection: Follows up with neurosurgery. 8. History of cerebral aneurysms: Follows up with neurosurgery. Followup with PCP in one week Followup with CArdiology in 2-3 weeks Labs: bmp and Digoxin levels in one week and follow results with PCP and Cardiology. Admission and Anticipated Discharge Date Admission Date: May 10, 2022 Subjective Resting comfortably slept ok denies any cough or sob says ambulating ok no palpitaions eating ok no nausea no chest pain or abdominal pain micturating fine wants to go home Review of Systems Review of Systems: above. Rest of ROS unremarkable Physical Exam Eyes: Head Atraumatic, No Pallor , No icterus , EOM intact ENMT: Oral mucosa Moist Neck: trachea midline, no thyromegaly Respiratory: normal respiratory effort, lungs clear to auscultation Cardiovascular: RRR, no murmur, no edema Gastrointestinal (Abdomen): normal bowel sounds, soft, nontender, no hepatosplenomegaly Skin: no rashes, warm and dry Neurologic: Alert and oriented speech clear no facial droop EOM intact Insight ok obesy commands Moves extremities Results & Data Results & Data ([facility]) Vital Signs (Past 12 Hours) Vital Signs Temp Pulse Pulse Resp BP Pulse Ox O2 Del Method 05/13/22 11:12 37 C 76 20 142/78 H 95 Nasal Cannula 05/13/22 08:00 Nasal Cannula 05/13/22 07:49 36.4 C L 116 H 18 139/84 95 Nasal Cannula 05/13/22 07:15 87 24 Nasal Cannula 05/13/22 03:32 36.8 C 80 17 106/70 95 Nasal Cannula O2 Flow Rate 05/13/22 11:12 2 05/13/22 08:00 2 05/13/22 07:49 2 05/13/22 07:15 2 05/13/22 03:32 2
--- NOTE | 2022-05-13 21:39 | Discharge Summary ---
Date of Service May 13, 2022 Admission HPI Per Admitting Provider A 76-year-old with past medical history significant for hyperlipidemia, history of chronic respiratory failure with hypoxia, on home oxygen 2.5 liters all the time, history of COPD, CAD, history of abdominal aortic aneurysm, status post repair, history of renal artery aneurysm, history of chronic diastolic CHF, pulmonary hypertension, macular degeneration of both eyes, hypertension, history of patent foramen ovale, history of cerebral aneurysm, history of AFib, osteoporosis, history of left frontal large extra-axial meningioma, status post resection in 01/2021, history of iron-deficiency anemia, history of tobacco use, history of hyperparathyroidism, presents with shortness of breath, cough and also found to have rapid AFib. The patient was recently in the hospital, admitted on 04/23/2022 with stroke-like symptoms, and MRI scan showed left lateral frontoparietal acute infarct and she was also found in AFib. The patient was started on Eliquis and atenolol was changed to metoprolol and discharged on 04/26/2022. The patient says she used to smoke cigarettes, but since 05/02/2022, she stopped smoking. In the last 2-3 days, she is having shortness of breath, it is progressively getting worse. She says she has dry cough. Denies any fever or chills .Has upper and lower back pain, some chest discomfort, and palpitations; She has chronic headaches, some runny nose. No sore throat, no fevers, no difficulty swallowing. Some nausea. No abdominal pain. Normal bowel and bladder movements. Currently had one hour neb treatment in the ER, got a dose of Cardizem, heart rate in the 120s. Able to give her history. Admission Exam Per Admitting Provider GENERAL: The patient is somewhat thin and frail. VITAL SIGNS: Temperature 36.7, pulse when she came was in the 130s, currently 115, blood pressure 132/90, oxygen when she came in was 87%, currently 96% on 3 liters. HEENT: Pupils equal, round and reactive to light. Oral mucosa moist. NECK: No JVD, no neck masses. CARDIOVASCULAR: S1 and S2 heard, tachycardia, regular rhythm. No murmurs. RESPIRATORY SYSTEM: Normal AP diameter. No accessory muscle use. Bilateral di minished breath sounds. No obvious wheezing or crackles heard. ABDOMEN: Soft, bowel sounds present, nontender, no distention. CENTRAL NERVOUS SYSTEM: Alert and oriented. Speech is clear. Obeys simple commands. Moves extremities. EXTREMITIES: No edema, no erythema. Principal Diagnosis copd ex rapid a fib Discharge Data Allergies Allergy/AdvReac Type Severity Reaction Status Date / Time No Known Allergies Allergy Unknown Verified 04/22/22 19:35 Consultations 05/10/22 03:55 ED Decision to Admit Stat 05/10/22 08:00 Consult Cardiology Routine Hospital Course (1) Acute exacerbation of chronic obstructive pulmonary disease: (1) Acute exacerbation of chronic obstructive pulmonary disease: Plan: Improved discharging on prednisone taper po doxy and cefuroxime and prednisone taper home inhalers and nebs prn followup with PCP (2) Atrial fibrillation with rapid ventricular response: Plan: Initially was on cardizem drip which i stopped and placed on digoxin by cardiology improved on eliquis discharging on home metoprolol and digoxin plan for cardioversion after month of anticoagulation Followup BMP and digoxin levels in one week of discharge (3) CVA (cerebral vascular accident): Plan: on statin and eliquis (4) HTN (hypertension): Plan: On metoprolol, lisinopril and lasix (5) UTI (urinary tract infection): Plan: culture growing proteus pansensitive received rocephin d/c on cefuroxime Plan 4. Chronic diastolic and systolic congestive heart failure: Continue home diuretics. Echoon 04/22/2022 showing ejection fraction of 45%-50%, mxxn-sh-annunwan mitral regurgitation, qqeg-yt-xlrlvyjd tricuspid regurgitation, mild valvular aortic stenosis. 5. Hypertension: On lisinopril, metoprolol tartrate and Lasix. 6. History of recent stroke: On Eliquis and high-dose statin. 7. History of left frontal meningioma, status post resection: Follows up with neurosurgery. 8. History of cerebral aneurysms: Follows up with neurosurgery. Followup with PCP in one week Followup with CArdiology in 2-3 weeks Labs: bmp and Digoxin levels in one week and follow results with PCP and Cardiology. (2) Atrial fibrillation with rapid ventricular response: Total Time Total Time Spent Total Time Spent (In Minutes): 45 minutes Discharge Plan Discharge Items Patient Disposition: Home - Self-Care Reason For Visit: SHORTNESS OF BREATH, COUGH Discharge Diagnosis: copd ex rapid a fib Activity: Resume your previous activity Non-emergency contact: Primary Care Provider Call non-emergency contact if: your symptoms worsen Follow-up/Referrals: Orlin Watson DO [[facility] [employer]] - (Date & Time 05/26/2022 2:00 PM Provider Orlin Watson DO Department Cardiology, [facility] ) Ever Pike MD [Primary Care Provider] - (Date & Time 05/19/2022 10:00 AM Provider Sofy Perez MD Department General Internal Medicine [facility] ) Diet: Heart Healthy Addtl Attending Provider Instructions: FOLLOWUP WITH PCP WITHIN ONE WEEK. FOLLOWUP WITH CARDIOLOGY IN 2-3 WEEKS. LAB: BMP AND DIGOXIN LEVELS IN ONE WEEK AND FOLLOW RESULTS WITH PCP AND CARDIOLOGY Pending Studies at Discharge: No Stand-Alone Forms: My [facility] PhysicianPortal, Smoking Cessation Medications and DC Order Prescriptions: New digoxin [Digitek] 125 mcg (0.125 mg) Tablet 0.125 mg PO DAILY@1600 Qty: 30 0RF doxycycline hyclate 100 mg Capsule 100 mg PO BID 5 Days Qty: 10 0RF cefuroxime axetil 500 mg tablet 500 mg PO BID 7 Days Qty: 14 0RF prednisone 10 mg tablet 10 mg PO DIRECTED Qty: 21 0RF Rx Instructions: see taper instructions: PREDNISONE 40MG PO DAILY X 2 DAYS THEN PREDNISONE 30MG PO DAILY X 2 DAYS THEN PREDNISONE 20MG PO DAILY X 2 DAYS THEN PREDNISONE 10MG PO DAILY X 2 DAYS THEN PREDNISONE 5MG PO DAILY X 2 DAYS THEN STOP nicotine 7 mg/24 hr Patch 24 Hour 7 mg transdermal DAILY Qty: 30 0RF Continued atorvastatin 80 mg Tablet 80 mg PO QAM lisinopril 40 mg Tablet 20 mg PO QAM polyethylene glycol 3350 [Miralax] 17 gram Powder In Packet 17 g PO DAILY nitroglycerin [Nitrostat] 0.4 mg Tablet, Sublingual 0.4 mg sublingual DAILY PRN (Reason: Chest Pain) cholecalciferol (vitamin D3) 25 mcg (1,000 unit) Tablet 25 mcg PO QAM furosemide 40 mg tablet 40 mg PO DAILY ipratropium-albuterol 0.5 mg-3 mg(2.5 mg base)/3 mL solution for nebulization 3 ml INHALATION TID PRN (Reason: SOB) albuterol sulfate 90 mcg/actuation HFA aerosol inhaler 2 puff INHALATION Q4 PRN (Reason: Shortness Of Breath) Anoro Ellipta 62.5-25 mcg/actuation blister with device 1 inh INHALATION DAILY potassium chloride 10 mEq tablet,ER particles/crystals 10 meq PO AMHS bupropion HCl 150 mg tablet sustained-release 12 hr 150 mg PO AMHS gabapentin 300 mg capsule 300 mg PO TID albuterol sulfate 2.5 mg /3 mL (0.083 %) Solution For Nebulization 2.5 mg INHALATION QID PRN (Reason: Shortness Of Breath) Trelegy Ellipta 100-62.5-25 mcg Blister With Device 1 inh INHALATION QAM Eliquis 5 mg Tablet 5 mg PO BID 30 Days Qty: 60 0RF metoprolol tartrate 25 mg tablet 25 mg PO TID 30 Days Qty: 90 0RF Discontinued nicotine 21 mg/24 hr Patch 24 Hour 1 patch TRANSDERMAL DAILY Rx Instructions: start 04/07/2022 end 05/19/2022 Discharge Orders: Discharge Order (Routine); Ordered 05/13/22 Ordered By: Daniel Mansfield Admission Data Admit Date/Time: 05/10/22 04:57 Attending Provider: Daniel Mansfield Admit Provider: Daniel Mansfield Primary Care Provider: Ever Pike Other Providers: Daniel Mansfield ; Humberto Downey Other Interventions: Discharge Summary Assessment (RN) Last Done: 05/13/22 12:57
--- NOTE | 2022-05-21 05:38 | Coding Query ---
CODING QUERY To promote full compliance with coding requirements relating to patient care, provider participation is requested in all cases of web content director uncertainty. Please assist us with the question(s) below: Coding Question(s): Pt admitted with COPD exacerbation & atrial fibrillation. H/P,progress note 05/11&05/12 documented acute/chronic respiratory failure. Oxygen upped from 2.5 to 3 Liters. Nebs around the clock , antibiotic and steroids given. Please check below the phrase that applies to the respiratory failure. Thanks for your help. Uvaldo Babcock [facility] Physician's Response(s): __* Acute & Chronic Respiratory Failure was treated during this admission, Present on Admission Acute & Chronic Respiratory Failure was not treated during this admission Cannot clinically correlate if Acute & Chronic Respiratory Failure was treated during this admission Other: Please document: Principal Diagnosis: "that condition established after study, to be chiefly responsible for occasioning the admission of the patient to the hospital for care." Co-Existing Principal Diagnosis: "when two or more diagnoses equally meet the criteria for principal diagnosis as determined by the circumstances of admission, diagnostic work up, and/or therapy provided, and the Alphabetic Index, Tabular List, or another coding guideline does not provide sequencing direction, any one of the diagnoses may be sequenced first." "When the physician has documented what appears to be a current diagnosis in the body of the record, but has not included the diagnosis in the final diagnostic statement, the physician should be asked whether the diagnosis should be added." (Source [facility] 2 QTR90. p3-4) NEIDA
== END 2022-05-13 13:32 | disposition home or self-care (01) | DRG 189 ==
LOC: ED 01:32 → EDINP 04:57 → SUATTDRO 04:57 → 2S 06:39

== ENCOUNTER 2022-09-16 15:53 | Inpatient (IN) ==
[2022-09-16] MEDS ORDERED: SODIUM CHLORIDE 0.9% 500 ML IV STA (16:17)
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
[2022-09-16 17:10] LABS: Alanine Aminotransferase 10 U/L (7-52); Albumin Globulin Ratio 1.8 (0.9-2); Albumin Level 3.8 gm/dl (3.4-5.0); Alkaline Phosphatase 54 U/L (34-104); Anion Gap 6 (3-11); Aspartate Aminotransferase 11 U/L (13-39); Bilirubin,Total 0.4 mg/dl (0.2-1.0); Blood Urea Nitrogen 26 mg/dl (6-23); Calcium 9.5 mg/dl (8.6-10.3); Carbon Dioxide 31 mmol/L (21-32); Chloride 105 mmol/L (98-107); Est GFR (African American) 49.2 ml/min; Est GFR (Non-African American) 42.5 ml/min; Globulin 2.1 gm/dl (2.5-4.0); Glucose 172 mg/dl (70-99(Fasting)); Magnesium 1.8 mg/dl (1.7-2.4); Potassium 4.2 mmol/L (3.5-5.1); Sodium 142 mmol/L (136-145); Total Protein 5.9 gm/dl (6.0-8.3)
[2022-09-16 17:16] LABS: Hematocrit (blood only) 21.6 % (37.0-47.0); Mean Corpuscular Hemoglobin 20.5 pg (25.0-34.0); Mean Corpuscular Hgb Conc 27.8 g/dL (32.0-36.0); Mean Corpuscular Volume 73.7 fL (80.0-100.0); Mean Platelet Volume 11.1 fL (9.4-12.4); Platelet Count 162 K/uL (130-400); RDW Coefficient of Variation 18.4 % (11.5-14.5); RDW Standard Deviation 49.6 fL (36.4-46.3); Red Blood Count 2.93 M/uL (4.20-5.40); Troponin I High Sensitivity 14.4 pg/ml (0-14); White Blood Count 4.65 K/ul (4.8-10.8)
[2022-09-16 17:18] LABS: Basophils # (auto) 0.02 K/uL (0-0.2); Basophils % (auto) 0.4 %; Eosinophils # (auto) 0.03 K/uL (0-0.50); Eosinophils % (auto) 0.6 %; Immature Granulocytes # (auto) 0.02 K/uL (0.01-0.20); Immature Granulocytes % (auto) 0.4 %; Lymphocytes # (auto) 0.46 K/uL (1.2-3.4); Lymphocytes % (auto) 9.9 %; Monocytes # (auto) 0.32 K/uL (0.11-0.59); Monocytes % (auto) 6.9 %; Neutrophils % (auto) 81.8 %; Ovalocytes 1+; Polychromasia 1+
[2022-09-16 17:20] LABS: INR 1.1 (0.9-1.1); Prothrombin Time 11.8 Seconds (9.0-12.0)
[2022-09-16] MEDS ORDERED: SODIUM CHLORIDE 0.9% 250 ML IV PRN ×2 (17:34→19:44)
[2022-09-16] MEDS ORDERED: FUROSEMIDE INJ 20 MG/2 ML VIAL IV ONE (17:34)
--- NOTE | 2022-09-16 17:37 | XRay Report ---
XR chest 1V portable CLINICAL HISTORY: Dyspnea. COMPARISON STUDY: Chest radiograph May 10, 2022. FINDINGS: Cardiomegaly is unchanged. There is no evidence for pulmonary edema. There is no consolidat ion. No pneumothorax or pleural effusion. IMPRESSION: No acute cardiopulmonary findings. No change in appearance of the chest. ACT 112: Negative or not required by law. Electronically signed by: Kanu Womack M.D. 09/16/2022 5:35 PM
[2022-09-16] MEDS ORDERED: FUROSEMIDE 40 MG/4 ML VIAL IV ONE (17:41)
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
[2022-09-16] MEDS ORDERED: PANTOprazole 80 MG in DEXTROSE 5% 100 ML IV ONE (18:17)
[2022-09-16] MEDS ORDERED: PANTOPRAZOLE BOLUS/DRIP 1 EACH IV STA (18:17)
[2022-09-16 19:00] LABS: Appearance Urine Clear (Clear); Bacteria Urine Automated Negative (Negative); Bilirubin Urine Negative (Negative); Blood Urine Negative (Negative); Color Urine Yellow; Epithelial Cell Urine Auto 20-30 /lpf (0-5); Glucose Urine UA Negative (Negative); Ketones Urine Trace (Negative); Leukocyte Esterase Urine Trace (Negative); Nitrite Urine Negative (Negative); Protein Urine Trace (Negative); RBC Urine Automated 0-4 /hpf (0-4); Specific Gravity Urine 1.016 (1.000-1.030); Urobilinogen Urine Negative (Negative); pH Urine 5.5 (4.5-7.5)
[2022-09-16 19:30] LABS: Troponin I High Sensitivity 14.6 pg/ml (0-14)
[2022-09-16 19:44] LABS: Ferritin 7.6 ng/ml (8-388)
[2022-09-16] MEDS ORDERED: ALBUTEROL 0.083% NEBU SOLN 3 ML VIAL NEB PRN (19:44)
[2022-09-16] MEDS ORDERED: ONDANSETRON INJ 2 MG/ML 2 ML VIAL IV PRN (19:44)
[2022-09-16] MEDS: PANTOprazole 40 MG in DEXTROSE 5% 100 ML IV SCH ×2 (19:52→23:39)
[2022-09-16] MEDS: buPROPion SR 150 MG TABCR PO SCH (21:09)
[2022-09-16] MEDS: guaiFENesin 600 MG TABCR PO SCH (21:10)
[2022-09-16] MEDS: GABAPENTIN 300 MG CAP PO SCH (21:10)
[2022-09-16] MEDS: METOPROLOL TARTRATE 25 MG TAB PO SCH (21:10)
[2022-09-16] MEDS: ALBUT/IPRATROP 3MG/0.5MG NEB 3 ML VIAL NEB SCH (21:13)
[2022-09-17] MEDS: PANTOprazole 40 MG in DEXTROSE 5% 100 ML IV SCH ×3 (04:38→19:18)
[2022-09-17 04:52] LABS: Basophils # (auto) 0.01 K/uL (0-0.2); Basophils % (auto) 0.2 %; Eosinophils # (auto) 0.03 K/uL (0-0.50); Eosinophils % (auto) 0.7 %; Hematocrit (blood only) 23.5 % (37.0-47.0); Immature Granulocytes # (auto) 0.02 K/uL (0.01-0.20); Immature Granulocytes % (auto) 0.5 %; Lymphocytes # (auto) 0.58 K/uL (1.2-3.4); Lymphocytes % (auto) 13.7 %; Mean Corpuscular Hemoglobin 22.1 pg (25.0-34.0); Mean Corpuscular Hgb Conc 29.8 g/dL (32.0-36.0); Mean Corpuscular Volume 74.1 fL (80.0-100.0); Mean Platelet Volume 10.9 fL (9.4-12.4); Monocytes # (auto) 0.45 K/uL (0.11-0.59); Monocytes % (auto) 10.6 %; Neutrophils # (auto) 3.15 K/uL (1.40-6.50); Neutrophils % (auto) 74.3 %; Platelet Count 120 K/uL (130-400); RDW Coefficient of Variation 19.4 % (11.5-14.5); RDW Standard Deviation 52.8 fL (36.4-46.3); Red Blood Count 3.17 M/uL (4.20-5.40); White Blood Count 4.24 K/ul (4.8-10.8)
[2022-09-17 05:02] LABS: Albumin Globulin Ratio 1.9 (0.9-2); Albumin Level 3.5 gm/dl (3.4-5.0); Bilirubin,Total 1.2 mg/dl (0.2-1.0); Calcium 9.1 mg/dl (8.6-10.3); Creatinine Clr Calc Pharmacy 40.2 ml/min; Est GFR (African American) 63.8 ml/min; Est GFR (Non-African American) 55.1 ml/min; Globulin 1.8 gm/dl (2.5-4.0); Magnesium 1.8 mg/dl (1.7-2.4); Total Protein 5.3 gm/dl (6.0-8.3)
[2022-09-17 05:22] LABS: Hypochromasia Present; Poikilocytosis Present; Polychromasia 1+
[2022-09-17] MEDS: ALBUT/IPRATROP 3MG/0.5MG NEB 3 ML VIAL NEB SCH ×3 (07:05→19:37)
[2022-09-17 08:16] LABS: Estimated Average Glucose 120 mg/dl; Hemoglobin A1C 5.8 % (4.5-5.6)
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
[2022-09-17] MEDS: buPROPion SR 150 MG TABCR PO SCH ×2 (09:58→20:25)
[2022-09-17] MEDS: UMECLIDINIUM/VILANTEROL 62.5/25MCG 7 PUFFS/INHALER INH SCH (09:58)
[2022-09-17] MEDS: guaiFENesin 600 MG TABCR PO SCH ×2 (09:58→20:25)
[2022-09-17] MEDS: FLUTICASONE FUROATE 100MCG 14 PUFFS/INHALER INH SCH (09:58)
[2022-09-17] MEDS: ATORVASTATIN 40 MG TAB PO SCH (09:59)
[2022-09-17] MEDS: GABAPENTIN 300 MG CAP PO SCH ×2 (09:59→20:25)
[2022-09-17] MEDS: POTASSIUM CHLORIDE 10 MEQ TABCR PO SCH ×2 (09:59→20:26)
[2022-09-17] MEDS: CHOLECALCIFEROL 1,000 UNITS 25 MCG TAB PO SCH (09:59)
[2022-09-17] MEDS: METOPROLOL TARTRATE 25 MG TAB PO SCH ×2 (10:00→20:26)
[2022-09-17 10:25] LABS: Hematocrit (blood only) 23.4 % (37.0-47.0); Hemoglobin 6.9 g/dl (12.0-16.0)
[2022-09-17] MEDS ORDERED: SODIUM CHLORIDE 0.9% 250 ML IV PRN (10:35)
[2022-09-17] MEDS ORDERED: FUROSEMIDE 40 MG/4 ML VIAL IV ONE ×2 (10:35→13:26)
--- NOTE | 2022-09-17 12:27 | Hospitalist Progress Note ---
Date of Service September 17, 2022 Assessment & Plan (1) Symptomatic anemia: (2) Acute GI bleeding: (3) AP (acute kidney injury): (4) CAD (coronary artery disease): (5) Chronic obstructive pulmonary disease: (6) Chronic hypoxemic respiratory failure: Plan This is a 77-year-old female who has significant past medical history of chronic hypoxic respiratory failure on 2 to 3 L of oxygen, COPD, CAD, chronic diastolic CHF, hypertension, pulmonary hypertension, PFO, wandering atrial pacemaker, hyperlipidemia, senile osteoporosis, meningioma, iron deficiency anemia, tobacco use disorder, AAA status postrepair who presents to ED secondary to worsening shortness of breath for the last 2 to 3 weeks. Symptomatic Anemia Possible GI bleeding -heme positive stool Iron deficiency anemia - Hb dropped from baseline of >11 in May to 6 on admission - Heme positive in ED but no overt bleeding noted. Ferritin 7.6, Iron 17 - s/p 2 U PRBC with inadequte response to transfusion Hb 6->7->6.9 after 2 U PRBC. Will check hemolysis panel, B12/folate, PBS with parasites, retics. - Will transfuse 1 more U PRBC and administer a dose of lasix afterward, will continue to trend H and H. Transfuse prn to keep Hb around 8 - Will transfuse IV venofer D1/4 - Continue to hold eliquis - continue IV PPI - GI following- recommendations noted AP- cr improved 1.24->1. Baseline around 0.7-0.8. Avoid nephrotoxics- holding po lasix and lisinopril for now. recheck in am CAD Diastolic CHF troponin minimally elevated, flat trend, likely demand ischemia in setting of anemia, pt without chest pain BNP elevated but no orthopnea, PND, CXR with no P edema, not hypervolemic on exam holding po lasix for now, Will give with transfusions to avoid volume overload. Pt will receive a dose today after PRBC transfusion continue metoprolol Chronic Atrial fib continue metoprolol, rate controlled hold eliquis until bleeding ruled out, Hb stabilizes and cleared by GI Chronic hypoxic resp failure on 2-3L of O2 COPD w/o exac continue trelegy and alb no acute exacerbation pt with increased O2 needs due to comfort Bradycardia/wandering atrial pacemaker- tele reviewed. Will decrease dose of lopressor given h/o Afib. Continue to monitor on tele. Cardio consulted. DVT ppx: SCDS. Chemoppx C/I in setting of suspected GI bleed requiring transfusion Dispo: Further work up in progress for her anemia- getting PRBC transfusion today- trending H and H; GI following for possible procedure DNR/DNI Admission and Anticipated Discharge Date Admission Date: September 16, 2022 Subjective Patient was seen and examined at bedside. She feels better since admission. States her exertional dyspnea is improved after blood transfusion- she was very short of breath at home when trying to walk but she was able to walk to commode here. Denies chest pain, light headedness, dizziness. She states she has not noticed any bleeding. No fever, chills, N/V. No orthopnea or PND. Review of Systems Review of Systems: All systems reviewed & are unremarkable except as noted in Subjective Physical Exam 2 Physical Exam: General: Lying comfortably in bed, not in distress, on NC HEENT: EOMI, EDUAR, MMM Chest: Fair breath sounds bilaterally, no wheezes or crackles CVS: Bradycardia, normal heart sounds, no murmur Abdomen: Soft, non tender, not distended, normal bowel sounds Neuro: Awake, alert, oriented, conversing well, non focal Extremities: No cyanosis, clubbing or edema Results & Data Results & Data Vital Signs (Past 12 Hours) Vital Signs Temp Pulse Pulse Resp BP BP Pulse Ox 09/17/22 11:53 37 C 49 L 18 109/63 100 09/17/22 11:38 36.8 C 55 L 18 140/56 L 100 09/17/22 11:18 36.5 C 57 L 18 122/66 09/17/22 09:50 103 H 09/17/22 07:55 36.6 C 49 L 18 113/69 98 09/17/22 07:24 59 L 09/17/22 07:08 56 L 20 100 09/17/22 03:09 36.6 C 53 L 18 113/82 100 09/17/22 02:26 36.5 C 50 L 18 104/66 100 09/17/22 01:26 36.4 C L 54 L 20 117/61 100 09/17/22 00:56 36.6 C 55 L 20 111/67 100 09/17/22 00:57 36.6 C 56 L 20 106/63 100 09/17/22 00:41 36.5 C 50 L 20 117/55 L 100 O2 Del Method O2 Flow Rate 09/17/22 11:53 3 09/17/22 11:38 3 09/17/22 11:18 09/17/22 09:50 09/17/22 07:55 Room Air 09/17/22 07:24 09/17/22 07:08 Nasal Cannula 3 09/17/22 03:09 3 09/17/22 02:26 3 09/17/22 01:26 3 09/17/22 00:56 3 09/17/22 00:57 3 09/17/22 00:41 3 Laboratory Results Short CBC 09/16/22 09/17/22 09/17/22 Range/Units 16:35 04:13 09:45 WBC 4.65 L 4.24 L (4.8-10.8) K/ul Hgb 6.0 L* 7.0 L 6.9 L* (12.0-16.0) g/dl Hct 21.6 L 23.5 L 23.4 L (37.0-47.0) % Plt Count 162 120 L (130-400) K/uL BMP 09/16/22 09/17/22 16:35 04:13 Sodium 142 139 Potassium 4.2 4.0 Chloride 105 104 Carbon Dioxide 31 30 BUN 26 H 26 H Creatinine 1.24 H 1.00 Glucose 172 H 100 H Calcium 9.5 9.1 Liver Function 09/16/22 09/17/22 Range/Units 16:35 04:13 Total Bilirubin 0.4 1.2 H D (0.2-1.0) mg/dl AST 11 L 11 L (13-39) U/L ALT 10 10 (7-52) U/L Alkaline Phosphatase 54 50 (34-104) U/L Albumin 3.8 3.5 (3.4-5.0) gm/dl Urine 09/16/22 Range/Units 18:34 Urine Color Yellow Urine Appearance Clear (Clear) Urine pH 5.5 (4.5-7.5) Ur Specific [place] 1.016 (1.000-1.030) Urine Protein Trace H (Negative) Urine Glucose (UA) Negative (Negative) Medications Administered Current Inpatient Medications Acetaminophen (Acetaminophen 325 Mg Tab) 650 mg PO Q4H PRN PRN Reason: Pain or Fever Stop: 10/16/22 19:43 Albuterol (Albut/Ipratrop 3mg/0.5mg Neb 3 Ml Vial) 3 ml NEB TID HUGH; Protocol Stop: 10/16/22 20:59 Last Admin: 09/17/22 07:05 Dose: 3 ml Albuterol (Albuterol 0.083% Nebu Soln 3 Ml Vial) 2.5 mg NEB Q6R PRN; Protocol PRN Reason: sob/wheezing Stop: 10/16/22 19:43 Atorvastatin Calcium (Atorvastatin 40 Mg Tab) 80 mg PO QAM [facility] Stop: 10/17/22 08:59 Last Admin: 09/17/22 09:59 Dose: 80 mg Bupropion HCl (Bupropion Sr 150 Mg Tabcr) 150 mg PO AMHS [facility] Stop: 10/16/22 20:59 Last Admin: 09/17/22 09:58 Dose: 150 mg Fluticasone Furoate (Fluticasone Furoate 100mcg 14 Puffs/Inhaler) 1 puffs INH QAM [facility] Stop: 10/17/22 08:59 Last Admin: 09/17/22 09:58 Dose: 1 puffs Gabapentin (Gabapentin 300 Mg Cap) 300 mg PO BID [facility] Stop: 10/16/22 20:59 Last Admin: 09/17/22 09:59 Dose: 300 mg Guaifenesin (Guaifenesin 600 Mg Tabcr) 600 mg PO Q12 [facility] Stop: 10/16/22 20:59 Last Admin: 09/17/22 09:58 Dose: 600 mg Pantoprazole Sodium 40 mg/ (Dextrose) 100 mls @ 20 mls/hr IV Q5H [facility] Stop: 10/16/22 18:34 Last Admin: 09/17/22 09:50 Dose: 8 mg/hr, 20 mls/hr Sodium Chloride (Nss) 250 mls @ 15 mls/hr IV .[id number] PRN PRN Reason: For Transfusion Duration Stop: 09/17/22 20:36 Iron Sucrose 300 mg/ Sodium (Chloride) 265 mls @ 176.667 mls/hr IV DAILY [facility] Stop: 09/20/22 10:44 Metoprolol Tartrate (Metoprolol Tartrate 25 Mg Tab) 12.5 mg PO BID [facility] Stop: 10/17/22 20:59 Ondansetron HCl (Ondansetron Inj 2 Mg/Ml 2 Ml Vial) 4 mg IV Q6H PRN PRN Reason: Nausea Stop: 10/16/22 19:43 Potassium Chloride (Potassium Chloride 10 Meq Tabcr) 10 meq PO AMHS [facility] Stop: 10/17/22 08:59 Last Admin: 09/17/22 09:59 Dose: 10 meq Umeclidinium/Vilanterol (Umeclidinium/Vilanterol 62.5/25mcg 7 Puffs/Inhaler) 1 puffs INH QAM [facility] Stop: 10/17/22 08:59 Last Admin: 09/17/22 09:58 Dose: 1 puffs Vitamin D (Cholecalciferol 1,000 Units 25 Mcg Tab) 1,000 units PO QAM [facility] Stop: 10/17/22 08:59 Last Admin: 09/17/22 09:59 Dose: 1,000 units
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
[2022-09-17] MEDS ORDERED: PROPOFOL IV EMULSION 10 MG/ML 20 ML VIAL IV ONE (14:56)
[2022-09-17] MEDS ORDERED: LIDOCAINE 2% 2 ML VIAL/AMP(20MG/ML) INFIL ONE (14:56)
--- NOTE | 2022-09-17 15:10 | Communication Note ---
Date of Service: September 17, 2022 The patient underwent upper endoscopy and colonoscopy today after she had presented with significant hematochezia. The patient's upper endoscopy was notable for diffuse gastritis, biopsies were not performed due to ongoing hematochezia. The colonoscopy was notable for hemorrhoids in addition to diverticulosis involving the left colon and right colon. No obvious site of bleeding could be seen although there was blood within the left. Recommendations Anticoagulation and antiplatelet agents Referral to a tertiary center with angiography capabilities GI to sign off
--- NOTE | 2022-09-17 15:25 | GI REPORT ---
Patient Name: Carmela Jose Procedure Date: 09/17/2022 2:51 PM Date of : 1945 Admit Type: Inpatient Age: 77 Gender: Female Attending MD: Victor Hugo Sanchez DO, Procedure: Upper GI endoscopy Providers: Victor Hugo Sanchez DO Referring MD: Hernán Barros Md Indications: Iron deficiency anemia secondary to chronic blood loss Medicines: Monitored Anesthesia Care Complications: No immediate complications. Estimated blood loss: Minimal. Estimated Blood Loss: Estimated blood loss was minimal. Procedure: Pre-Anesthesia Assessment: - Prior to the procedure, a History and Physical was performed, and patient medications, allergies and sensitivities were reviewed. The patient's tolerance of previous anesthesia was reviewed. - The risks and benefits of the procedure and the sedation options and risks were discussed with the patient. All questions were answered and informed consent was obtained. - Patient identification and proposed procedure were verified prior to the procedure by the physician, the nurse and the durability engineer. The procedure was verified in the procedure room. - Pre-procedure physical examination revealed no contraindications to sedation. - ASA Grade Assessment: III - A patient with severe systemic disease. - After reviewing the risks and benefits, the patient was deemed in satisfactory condition to undergo the procedure. - The anesthesia plan was to use monitored anesthesia care (MAC). - Immediately prior to administration of medications, the patient was re-assessed for adequacy to receive sedatives. - The heart rate, respiratory rate, oxygen saturations, blood pressure, adequacy of pulmonary ventilation, and response to care were monitored throughout the procedure. - The physical status of the patient was re-assessed after the procedure. After obtaining informed consent, the endoscope was passed under direct vision. Throughout the procedure, the patient's blood pressure, pulse, and oxygen saturations were monitored continuously. The Endoscope was introduced through the mouth, and advanced to the third part of duodenum. The upper GI endoscopy was accomplished without difficulty. The patient tolerated the procedure well. Findings: Esophagitis with no bleeding was found in the lower third of the esophagus. Biopsies were taken with a cold forceps for histology. The pathology specimen was placed into Bottle B. Estimated blood loss was minimal. Diffuse moderate inflammation characterized by congestion (edema), erythema and granularity was found in the entire examined stomach. Biopsies were taken with a cold forceps for histology. The pathology specimen was placed into Bottle A. Estimated blood loss was minimal. The examined duodenum was normal. Impression: - Esophagitis with no bleeding. Biopsied. - Gastritis. Biopsied. - Normal examined duodenum. Recommendation: - Perform a colonoscopy at appointment to be scheduled. - Use Protonix (pantoprazole) 40 mg PO daily. - Use sucralfate tablets 1 gram PO BID for 8 weeks. - Recommend an iron supplement. - Repeat upper endoscopy in 3 months to check healing. Victor Hugo Sanchez D.O. Victor Hugo Sanchez, 09/17/2022 3:24:46 PM This report has been signed electronically. Note Initiated On: 09/17/2022 2:51 PM Number of Addenda: 0 I attest to the content of the Intraoperative Record and orders documented therein, exceptions below {[id number]}
--- NOTE | 2022-09-17 15:27 | Communication Note ---
Date of Service: September 17, 2022 The patient underwent upper endoscopy today for evaluation of anemia. The patient was found to have gastritis in addition to mild esophagitis. This could be related to one of her medications and she may have chronic blood loss Recommendations as a result of her ongoing anticoagulation needs. Recommendations: Iron supplement for 3 months Protonix 40 mg per day Carafate 1 gm bid x 12 weeks OP colonoscopy to be arranged Repeat EGD in 3 months for surveillance of Gastritis GI to sign off
--- NOTE | 2022-09-17 15:58 | Anesthesiology Progress Note ---
Date of Service September 17, 2022 Anesthesia Post Procedure Vital Signs Vital Signs: Temp Pulse Pulse Resp BP BP Pulse Ox 09/17/22 15:52 65 16 124/58 L 99 09/17/22 15:39 61 16 101/58 L 100 09/17/22 15:23 65 16 98/58 L 98 09/17/22 15:22 60 09/17/22 08:15 09/17/22 14:50 36.6 C 56 L 16 144/78 H 98 09/17/22 14:14 37.6 C H 63 20 118/59 L 98 09/17/22 14:13 37.6 C H 62 20 118/59 L 97 09/17/22 13:50 56 L 20 99 09/17/22 13:23 36.7 C 59 L 20 123/84 100 09/17/22 12:23 36.9 C 54 L 18 126/83 100 09/17/22 11:53 37 C 49 L 18 109/63 100 09/17/22 11:38 36.8 C 55 L 18 140/56 L 100 09/17/22 11:18 36.5 C 57 L 18 122/66 09/17/22 09:50 103 H 09/17/22 07:55 36.6 C 49 L 18 113/69 98 09/17/22 07:24 59 L 09/17/22 07:08 56 L 20 100 09/16/22 22:15 61 09/17/22 03:09 36.6 C 53 L 18 113/82 100 09/17/22 02:26 36.5 C 50 L 18 104/66 100 09/17/22 01:26 36.4 C L 54 L 20 117/61 100 09/17/22 00:56 36.6 C 55 L 20 111/67 100 09/17/22 00:57 36.6 C 56 L 20 106/63 100 09/17/22 00:41 36.5 C 50 L 20 117/55 L 100 09/17/22 00:22 36.9 C 56 L 20 107/57 L 100 09/16/22 23:59 36.5 C 53 L 20 119/64 100 09/16/22 20:57 61 09/16/22 20:00 09/16/22 22:05 36.4 C 74 20 121/71 93 09/16/22 21:37 36.6 C 77 20 127/67 100 09/16/22 21:13 73 19 95 09/16/22 23:07 36.5 C 20 115/66 100 09/16/22 22:07 36.5 C 71 20 125/90 96 09/16/22 21:22 36.8 C 70 20 118/59 L 98 09/16/22 21:01 36.3 C L 74 20 124/84 100 09/16/22 19:15 72 21 103/55 L 100 09/16/22 19:00 72 21 103/55 L 09/16/22 18:33 68 24 126/69 09/16/22 18:00 72 33 H 106/62 09/16/22 17:30 79 23 149/96 H 09/16/22 16:42 65 30 H 115/71 09/16/22 16:44 40 L 09/16/22 16:45 90 09/16/22 16:44 100 09/16/22 16:44 09/16/22 16:23 77 100 09/16/22 16:00 36.6 C 77 90/55 L 100 O2 Del Method O2 Flow Rate 09/17/22 15:52 Nasal Cannula 3 09/17/22 15:39 Nasal Cannula 3 09/17/22 15:23 Nasal Cannula 3 09/17/22 15:22 09/17/22 08:15 Nasal Cannula 3 09/17/22 14:50 Nasal Cannula 3 09/17/22 14:14 3 09/17/22 14:13 3 09/17/22 13:50 Nasal Cannula 4 09/17/22 13:23 3 09/17/22 12:23 3 09/17/22 11:53 3 09/17/22 11:38 3 09/17/22 11:18 09/17/22 09:50 09/17/22 07:55 Room Air 09/17/22 07:24 09/17/22 07:08 Nasal Cannula 3 09/16/22 22:15 09/17/22 03:09 3 09/17/22 02:26 3 09/17/22 01:26 3 09/17/22 00:56 3 09/17/22 00:57 3 09/17/22 00:41 3 09/17/22 00:22 3 09/16/22 23:59 3 09/16/22 20:57 09/16/22 20:00 Nasal Cannula 3 09/16/22 22:05 Nasal Cannula 3 09/16/22 21:37 3 09/16/22 21:13 Nasal Cannula 3 09/16/22 23:07 3 09/16/22 22:07 3 09/16/22 21:22 3 09/16/22 21:01 3 09/16/22 19:15 Nasal Cannula 3.5 09/16/22 19:00 09/16/22 18:33 09/16/22 18:00 09/16/22 17:30 09/16/22 16:42 09/16/22 16:44 09/16/22 16:45 09/16/22 16:44 Nasal Cannula 3.5 09/16/22 16:44 Nasal Cannula 3.5 09/16/22 16:23 Nasal Cannula 3.5 09/16/22 16:00 Nasal Cannula 3.5 Transfer of Care Handoff Completed per policy Notes Mental Status: alert / awake / arousable and participated in evaluation Patient Amnestic to Procedure: Yes Nausea / Vomiting: adequately controlled Pain: adequately controlled Airway Patency, RR, SpO2: stable & adequate BP & HR: stable & adequate Hydration State: stable & adequate Anesthetic Complications: no major complications apparent
[2022-09-17] MEDS: IRON SUCROSE 300 MG in SODIUM CHLORIDE 0.9% 250 ML IV SCH (16:11)
[2022-09-17 18:12] LABS: Reticulocyte % 1.4 % (0.5-2.0); Reticulocytes # 0.05 10^6/uL (0.02-0.10)
[2022-09-17] MEDS: CYANOCOBALAMIN 1000 MCG/ML VIAL IM SCH (20:24)
[2022-09-17] MEDS: PANTOprazole 40 MG in SYRINGE 0 ML IV SCH (20:26)
[2022-09-17] MEDS: SUCRALFATE 1 GM/10 ML UDC PO SCH (20:27)
[2022-09-18 00:49] LABS: Hematocrit (blood only) 26.3 % (37.0-47.0)
[2022-09-18] MEDS: PANTOprazole 40 MG in SYRINGE 0 ML IV SCH ×2 (08:46→20:46)
[2022-09-18] MEDS: SUCRALFATE 1 GM/10 ML UDC PO SCH ×2 (08:46→20:46)
[2022-09-18] MEDS: METOPROLOL TARTRATE 25 MG TAB PO SCH ×2 (08:46→20:46)
[2022-09-18] MEDS: GABAPENTIN 300 MG CAP PO SCH ×2 (08:47→20:44)
[2022-09-18] MEDS: UMECLIDINIUM/VILANTEROL 62.5/25MCG 7 PUFFS/INHALER INH SCH (08:47)
[2022-09-18] MEDS: POTASSIUM CHLORIDE 10 MEQ TABCR PO SCH (08:47)
[2022-09-18] MEDS: ATORVASTATIN 40 MG TAB PO SCH (08:47)
[2022-09-18] MEDS: buPROPion SR 150 MG TABCR PO SCH ×2 (08:47→20:44)
[2022-09-18] MEDS: CYANOCOBALAMIN 1000 MCG/ML VIAL IM SCH (08:47)
[2022-09-18] MEDS: guaiFENesin 600 MG TABCR PO SCH ×2 (08:47→20:45)
[2022-09-18] MEDS: CHOLECALCIFEROL 1,000 UNITS 25 MCG TAB PO SCH (08:47)
[2022-09-18] MEDS: FLUTICASONE FUROATE 100MCG 14 PUFFS/INHALER INH SCH (08:47)
[2022-09-18] MEDS: IRON SUCROSE 300 MG in SODIUM CHLORIDE 0.9% 250 ML IV SCH (08:57)
[2022-09-18 08:59] LABS: Hematocrit (blood only) 28.6 % (37.0-47.0); Hemoglobin 8.4 g/dl (12.0-16.0)
--- NOTE | 2022-09-18 10:50 | Hospitalist Progress Note ---
Date of Service September 18, 2022 Assessment & Plan (1) Symptomatic anemia: (2) Acute GI bleeding: (3) AP (acute kidney injury): (4) CAD (coronary artery disease): (5) Chronic obstructive pulmonary disease: (6) Chronic hypoxemic respiratory failure: Plan This is a 77-year-old female who has significant past medical history of chronic hypoxic respiratory failure on 2 to 3 L of oxygen, COPD, CAD, chronic diastolic CHF, hypertension, pulmonary hypertension, PFO, wandering atrial pacemaker, hyperlipidemia, senile osteoporosis, meningioma, iron deficiency anemia, tobacco use disorder, AAA status postrepair who presents to ED secondary to worsening shortness of breath for the last 2 to 3 weeks. FOBT positive, EGD with esophagitis and gastritis as below but no active bleeding, S/p 3 U PRBC. EGD findings Esophagitis with no bleeding was found in the lower third of the esophagus. Biopsies were taken with a cold forceps for histology. The pathology specimen was placed into Bottle B. Estimated blood loss was minimal. Diffuse moderate inflammation characterized by congestion (edema), erythema and granularity was found in the entire examined stomach. Biopsies were taken with a cold forceps for histology. The pathology specimen was placed into Bottle A. Estimated blood loss was minimal. The examined duodenum was normal. Impression: - Esophagitis with no bleeding. Biopsied. - Gastritis. Biopsied. - Normal examined duodenum. Symptomatic Anemia/Iron deficiency anemia due to chronic GI blood loss Vit B12 deficiency - Hb dropped from baseline of >11 in May to 6 on admission - Heme positive in ED, stool occult blood positive but no overt bleeding noted. Ferritin 7.6, Iron 17. Hemolysis panel negative. PBS for parasites negative. Folate normal, B12 low normal. - EGD 09/17 with gastritis and mild esophagitis - s/p 3 U PRBC and Hb now stabilized Hb 6->7->6.9->9->8->8.4 - Will transfuse IV venofer D2/4. Will need po at discharge - Will start on IM Vit B12 D1/5. Will need po at discharge - Continue PPI and carafate - Seen by GI- recommendations noted as below Iron supplement for 3 months Protonix 40 mg per day Carafate 1 gm bid x 12 weeks OP colonoscopy to be arranged Repeat EGD in 3 months for surveillance of Gastritis F/u on biopsy results AP- cr improved 1.24->1. Baseline around 0.7-0.8. Avoid nephrotoxics- holding po lasix and lisinopril for now. Repeat BMP pending. CAD Diastolic CHF troponin minimally elevated, flat trend, likely demand ischemia in setting of anemia, pt without chest pain BNP elevated but no orthopnea, PND, CXR with no pulmonary edema, not hypervolemic on exam holding po lasix for now, Will resume as indicated Chronic Atrial fib continue metoprolol, rate controlled- dose decreased due to bradycardia. Seen by cardio- no new recs Will resume eliquis from [facility] if Hb remains stable Chronic hypoxic resp failure on 2-3L of O2 COPD w/o exac continue trelegy and alb no acute exacerbation DVT ppx: Eliquis Dispo: Aniticipate discharge in 1-2 days DNR/DNI Admission and Anticipated Discharge Date Admission Date: September 16, 2022 Subjective Patient was seen and examined at bedside. Feels slightly better. She was able to walk to the commode but was a little short of breath on returning back to the bed. No orthopnea or PND. No fever, chills, nausea or vomiting. States he had a bowel movement but denies any melena or bleeding. Review of Systems Review of Systems: All systems reviewed & are unremarkable except as noted in Subjective Physical Exam Physical Exam: General: Sitting comfortably in bed, not in distress, on NC HEENT: EOMI, EDUAR, MMM Chest: Fair breath sounds bilaterally, no wheezes or crackles CVS: Regular, normal heart sounds, no murmur Abdomen: Soft, non tender, not distended, normal bowel sounds Neuro: Awake, alert, oriented, conversing well, non focal Extremities: No cyanosis, clubbing or edema Results & Data Results & Data Vital Signs (Past 12 Hours) Vital Signs Temp Pulse Pulse Resp BP Pulse Ox O2 Del Method 09/18/22 07:49 37.2 C 80 22 142/71 H 92 Nasal Cannula 09/18/22 07:04 66 16 94 Nasal Cannula 09/18/22 04:24 36.6 C 62 20 106/56 L 97 Nasal Cannula 09/17/22 22:37 36.9 C 62 21 107/63 97 Nasal Cannula O2 Flow Rate 09/18/22 07:49 2 09/18/22 07:04 3 09/18/22 04:24 4 09/17/22 22:37 3 Laboratory Results Short CBC 09/17/22 09/18/22 09/18/22 Range/Units 17:09 00:15 08:34 Hgb 9.0 L 8.0 L 8.4 L (12.0-16.0) g/dl Hct 29.0 L 26.3 L 28.6 L (37.0-47.0) % Medications Administered Current Inpatient Medications Acetaminophen (Acetaminophen 325 Mg Tab) 650 mg PO Q4H PRN PRN Reason: Pain or Fever Stop: 10/16/22 19:43 Albuterol (Albuterol 0.083% Nebu Soln 3 Ml Vial) 2.5 mg NEB Q6R PRN; Protocol PRN Reason: sob/wheezing Stop: 10/16/22 19:43 Last Admin: 09/18/22 07:03 Dose: 2.5 mg Albuterol (Albut/Ipratrop 3mg/0.5mg Neb 3 Ml Vial) 3 ml NEB BIDR HUGH; Protocol Stop: 10/18/22 18:59 Atorvastatin Calcium (Atorvastatin 40 Mg Tab) 80 mg PO QAM [facility] Stop: 10/17/22 08:59 Last Admin: 09/18/22 08:47 Dose: 80 mg Bupropion HCl (Bupropion Sr 150 Mg Tabcr) 150 mg PO AMHS [facility] Stop: 10/16/22 20:59 Last Admin: 09/18/22 08:47 Dose: 150 mg Cyanocobalamin (Cyanocobalamin 1000 Mcg/Ml Vial) 1,000 mcg IM QAM [facility] Stop: 09/21/22 09:01 Last Admin: 09/18/22 08:47 Dose: 1,000 mcg Fluticasone Furoate (Fluticasone Furoate 100mcg 14 Puffs/Inhaler) 1 puffs INH QAM [facility] Stop: 10/17/22 08:59 Last Admin: 09/18/22 08:47 Dose: 1 puffs Gabapentin (Gabapentin 300 Mg Cap) 300 mg PO BID [facility] Stop: 10/16/22 20:59 Last Admin: 09/18/22 08:47 Dose: 300 mg Guaifenesin (Guaifenesin 600 Mg Tabcr) 600 mg PO Q12 [facility] Stop: 10/16/22 20:59 Last Admin: 09/18/22 08:47 Dose: 600 mg Iron Sucrose 300 mg/ Sodium (Chloride) 265 mls @ 176.667 mls/hr IV DAILY [facility] Stop: 09/20/22 10:44 Last Admin: 09/18/22 08:57 Dose: 176.7 mls/hr Pantoprazole Sodium 40 mg/ (Syringe) 10 mls @ 5 mls/min IV BID HUGH Stop: 10/17/22 20:59 Last Admin: 09/18/22 08:46 Dose: 5 mls/min Metoprolol Tartrate (Metoprolol Tartrate 25 Mg Tab) 12.5 mg PO BID HUGH Stop: 10/17/22 20:59 Last Admin: 09/18/22 08:46 Dose: 12.5 mg Ondansetron HCl (Ondansetron Inj 2 Mg/Ml 2 Ml Vial) 4 mg IV Q6H PRN PRN Reason: Nausea Stop: 10/16/22 19:43 Potassium Chloride (Potassium Chloride 10 Meq Tabcr) 10 meq PO AMHS HUGH Stop: 10/17/22 08:59 Last Admin: 09/18/22 08:47 Dose: 10 meq Sucralfate (Sucralfate 1 Gm/10 Ml Udc) 1 gm PO BID [facility] Stop: 10/17/22 20:59 Last Admin: 09/18/22 08:46 Dose: 1 gm Umeclidinium/Vilanterol (Umeclidinium/Vilanterol 62.5/25mcg 7 Puffs/Inhaler) 1 puffs INH QAM [facility] Stop: 10/17/22 08:59 Last Admin: 09/18/22 08:47 Dose: 1 puffs Vitamin D (Cholecalciferol 1,000 Units 25 Mcg Tab) 1,000 units PO QAM [facility] Stop: 10/17/22 08:59 Last Admin: 09/18/22 08:47 Dose: 1,000 units
[2022-09-18 11:14] LABS: Calcium 9.1 mg/dl (8.6-10.3); Creatinine Clr Calc Pharmacy 45.2 ml/min; Est GFR (African American) 73.5 ml/min; Est GFR (Non-African American) 63.4 ml/min; Potassium 3.7 mmol/L (3.5-5.1)
[2022-09-18] MEDS: ALBUT/IPRATROP 3MG/0.5MG NEB 3 ML VIAL NEB SCH ×2 (12:37→19:34)
--- NOTE | 2022-09-18 14:43 | Cardiology Progress Note ---
Date of Service September 18, 2022 Assessment & Plan (1) Chronic hypoxemic respiratory failure: (2) Symptomatic anemia: (3) Acute GI bleeding: (4) Bradycardia: (5) Paroxysmal atrial flutter: Plan Medically complex 77-year-old female found to have severe symptomatic anemia secondary to GI bleed. Hemoglobin of 6 status post x3 PRBC transfusions. Telemetry revealing sinus bradycardia with PACs, asymptomatic. Patient has a baseline abnormal EKG with history of paroxysmal atrial flutter. High-sensitivity troponin minimally elevated. -EGD without acute culprit to anemia. Gastritis noted. -Eliquis to be reinitiated this evenint, 09/18/22. -Continue metoprolol and atorvastatin. Admission and Anticipated Discharge Date Admission Date: September 16, 2022 Subjective Patient seen in cardiology follow up. Had IV iron infusion today which she tolerated well. Notes having presented to the ED with disabling progressive shortness of breath which is improved. Telemetry reveals SR in the 70s with PACs. Review of Systems Review of Systems: All systems reviewed & are unremarkable except as noted in HPI & below Physical Exam Constitutional: no acute distress Respiratory: normal respiratory effort, lungs clear to auscultation Cardiovascular: RRR, no murmur, no edema Gastrointestinal (Abdomen): normal bowel sounds, soft, nontender, no hepatosplenomegaly Neurologic: PERRL, EOMI, accommodation nl, no face palsy, no dysarthria Results & Data Vital Signs (Past 12 Hours) Vital Signs Temp Pulse Pulse Pulse Resp BP Pulse Ox 09/18/22 08:00 67 09/18/22 08:00 09/18/22 11:07 37.1 C 79 24 131/79 100 09/18/22 07:49 37.2 C 80 22 142/71 H 92 09/18/22 07:04 66 16 94 09/18/22 04:24 36.6 C 62 20 106/56 L 97 O2 Del Method O2 Flow Rate 09/18/22 08:00 09/18/22 08:00 Nasal Cannula 2 09/18/22 11:07 Nasal Cannula 2 09/18/22 07:49 Nasal Cannula 2 09/18/22 07:04 Nasal Cannula 3 09/18/22 04:24 Nasal Cannula 4 Laboratory Results Cardiac Enzymes 09/17/22 Range/Units 17:09 Lactate Dehydrogenase 214 (86-244) U/L CBC 09/17/22 09/18/22 09/18/22 Range/Units 17:09 00:15 08:34 Hgb 9.0 L 8.0 L 8.4 L (12.0-16.0) g/dl Hct 29.0 L 26.3 L 28.6 L (37.0-47.0) % Comprehensive Metabolic Panel 09/18/22 Range/Units 08:36 Sodium 139 (136-145) mmol/L Potassium 3.7 (3.5-5.1) mmol/L Chloride 103 (98-107) mmol/L Carbon Dioxide 28 (21-32) mmol/L BUN 16 (6-23) mg/dl Creatinine 0.89 (0.6-1.2) mg/dl Glucose 153 H (70-99(Fasting)) mg/dl Calcium 9.1 (8.6-10.3) mg/dl Intake and Output 09/17/22 09/18/22 09/18/22 22:59 06:59 14:59 Intake Total 665 / 1665.667 625 / 625 Output Total 1300 / 1300 600 / 600 Balance -635 / 365.667 Intake: IV 265 / 455.667 265 / 265 Iron Sucrose 300 mg In Sodium 265 / 265 265 / 265 Chloride 0.9% 250 ml @ 176.667 mls/hr IV DAILY [facility] Rx#: [id number] PANTOprazole 40 mg In Dextrose 0 / 190.667 5% 100 ml @ 8 MG/HR 20 mls/hr IV Q5H [facility] Rx#:[id number] Oral 400 / 900 360 / 360 Output: Urine 1300 / 1300 600 / 600 Other: Weight 54.4 kg 54.6 kg Weight Measurement Method Built in [facility]
[2022-09-18 16:11] LABS: Hematocrit (blood only) 27.7 % (37.0-47.0); Hemoglobin 8.3 g/dl (12.0-16.0)
[2022-09-18] MEDS: APIXABAN 5 MG TABLET PO SCH (20:44)
[2022-09-18 23:31] LABS: Hematocrit (blood only) 26.1 % (37.0-47.0); Hemoglobin 7.9 g/dl (12.0-16.0)
[2022-09-19] MEDS: ACETAMINOPHEN 325 MG TAB PO PRN ×2 (06:26→19:32)
[2022-09-19] MEDS: ALBUT/IPRATROP 3MG/0.5MG NEB 3 ML VIAL NEB SCH ×2 (07:22→19:15)
[2022-09-19] MEDS: CYANOCOBALAMIN 1000 MCG/ML VIAL IM SCH (08:55)
[2022-09-19] MEDS: PANTOprazole 40 MG in SYRINGE 0 ML IV SCH ×2 (08:55→20:09)
[2022-09-19] MEDS: METOPROLOL TARTRATE 25 MG TAB PO SCH ×2 (08:55→20:09)
[2022-09-19] MEDS: ATORVASTATIN 40 MG TAB PO SCH (08:55)
[2022-09-19] MEDS: IRON SUCROSE 300 MG in SODIUM CHLORIDE 0.9% 250 ML IV SCH (08:55)
[2022-09-19] MEDS: SUCRALFATE 1 GM/10 ML UDC PO SCH ×2 (08:55→20:09)
[2022-09-19] MEDS: APIXABAN 5 MG TABLET PO SCH ×2 (08:56→20:08)
[2022-09-19] MEDS: guaiFENesin 600 MG TABCR PO SCH ×2 (08:56→20:08)
[2022-09-19] MEDS: buPROPion SR 150 MG TABCR PO SCH ×2 (08:56→20:08)
[2022-09-19] MEDS: CHOLECALCIFEROL 1,000 UNITS 25 MCG TAB PO SCH (08:56)
[2022-09-19] MEDS: GABAPENTIN 300 MG CAP PO SCH ×2 (08:56→20:08)
[2022-09-19] MEDS: UMECLIDINIUM/VILANTEROL 62.5/25MCG 7 PUFFS/INHALER INH SCH (08:56)
[2022-09-19] MEDS: FLUTICASONE FUROATE 100MCG 14 PUFFS/INHALER INH SCH (08:56)
[2022-09-19 09:09] LABS: Hematocrit (blood only) 30.6 % (37.0-47.0); Mean Corpuscular Hemoglobin 22.8 pg (25.0-34.0); Mean Corpuscular Hgb Conc 29.4 g/dL (32.0-36.0); Mean Corpuscular Volume 77.7 fL (80.0-100.0); Mean Platelet Volume 10.4 fL (9.4-12.4); Platelet Count 135 K/uL (130-400); RDW Coefficient of Variation 21.2 % (11.5-14.5); RDW Standard Deviation 57.1 fL (36.4-46.3); Red Blood Count 3.94 M/uL (4.20-5.40)
[2022-09-19 09:24] LABS: BUN Creatinine Ratio 18.1 (10-20); Calcium 9.6 mg/dl (8.6-10.3); Creatinine Clr Calc Pharmacy 55.8 ml/min; Est GFR (African American) 94.9 ml/min; Est GFR (Non-African American) 81.9 ml/min; Potassium 3.7 mmol/L (3.5-5.1)
[2022-09-19] MEDS ORDERED: 0.2 MICRON FILTER SET 1 EACH IV STA (11:35)
[2022-09-19] MEDS ORDERED: STAT IV Infusion **Titration per Protocol STA (11:35)
[2022-09-19] MEDS ORDERED: AMIODARONE / D5W 150 MG/100 ML BAG IV STA (11:35)
[2022-09-19] MEDS ORDERED: AMIODARONE IV BOLUS & DRIP IV STA (11:35)
[2022-09-19] MEDS ORDERED: AMIODARONE 360MG / 200ML D5W IV ONE (11:45)
[2022-09-19] MEDS ORDERED: AMIODARONE 150MG / 100ML D5W IV ONE (11:45)
[2022-09-19] MEDS ORDERED: AMIODARONE / D5W 360 MG/200 ML BAG IV ONE (11:45)
--- NOTE | 2022-09-19 12:51 | XRay Report ---
XR shoulder LT min 2V routine CLINICAL HISTORY: Pain and swelling lt shoulder TECHNIQUE: 3 views of the left shoulder were obtained. Comparison: Comparison is made to left shoulder radiograph 05/26/2015 FINDINGS: There is no evidence of an acute fracture. Degenerative changes are seen in the glenohumeral joint. S oft tissue swelling is seen about the shoulder. The visualized portions of the lungs are clear. IMPRESSION: Soft tissue swelling without evidence of underlying bony abnormality. ACT 112: Negative or not required by law. Electronically signed by: Juan Carlos Kathleen M.D. 09/19/2022 12:50 PM
--- NOTE | 2022-09-19 12:54 | Electrocardiogram Report ---
Test Reason : Blood Pressure : / mmHG Vent. Rate : 070 BPM Atrial Rate : 000 BPM P-R Int : 000 ms QRS Dur : 084 ms QT Int : 376 ms P-R-T Axes : 000 075 202 degrees QTc Int : 406 ms Sinus bradycardia with a competing junctional rhythm Abnormal ECG When compared with ECG of 12-MAY-2022 09:21, Non-specific change in ST segment in Anterior leads T wave inversion more evident in Anterolateral leads Confirmed by Shawn Chua ([id number]) on 09/19/2022 12:53:54 PM Referred By: REFERRED SELF Confirmed By:Bernard Chua
--- NOTE | 2022-09-19 14:21 | Hospitalist Progress Note ---
Date of Service September 19, 2022 Assessment & Plan (1) Acute GI bleeding: Plan: This is a 77-year-old female who has significant past medical history of chronic hypoxic respiratory failure on 2 to 3 L of oxygen, COPD, CAD, chronic diastolic CHF, hypertension, pulmonary hypertension, PFO, wandering atrial pacemaker, hyperlipidemia, senile osteoporosis, meningioma, iron deficiency anemia, tobacco use disorder, AAA status postrepair who presents to ED secondary to worsening shortness of breath for the last 2 to 3 weeks. FOBT positive, EGD with esophagitis and gastritis as below but no active bleeding, S/p 3 U PRBC. Symptomatic Anemia/Iron deficiency anemia due to chronic GI blood loss Vit B12 deficiency - Hb dropped from baseline of >11 in May to 6 on admission - Heme positive in ED, stool occult blood positive but no overt bleeding noted. Ferritin 7.6, Iron 17. Hemolysis panel negative. PBS for parasites negative. Folate normal, B12 low normal. - EGD 09/17 with gastritis and mild esophagitis - s/p 3 U PRBC and Hb now stabilized Hb 6->7->6.9->9->8->8.4 - Will transfuse IV venofer D2/4. Will need po at discharge - Will start on IM Vit B12 D1/5. Will need po at discharge - Continue PPI and carafate - Seen by GI- recommendations noted as below Iron supplement for 3 months Protonix 40 mg per day Carafate 1 gm bid x 12 weeks OP colonoscopy to be arranged Repeat EGD in 3 months for surveillance of Gastritis Biopsy result is pending Clinically much better and the hemoglobin remains stable at 9.0 Acute left shoulder pain Left shoulder noted to have acutely inflamed with swelling, redness and tenderness since this morning X-ray of the shoulder did not show soft tissue swelling but no bony abnormalities Could have a spreading cellulitis and cefazolin was started We will check ESR and uric acid to make sure is not towards anything like acute gout (2) Atrial fibrillation with rapid ventricular response: Plan: History of chronic Atrial fib continue metoprolol, rate controlled- dose decreased due to bradycardia. Seen by cardio- no new recs Will resume eliquis from tonight if Hb remains stable Reviewed cardiology input the patient has had runs of SVT this morning Amiodarone has been started (3) Symptomatic anemia: Plan: As above (4) AP (acute kidney injury): Plan: AP- cr improved 1.24->1. Baseline around 0.7-0.8. Avoid nephrotoxics- holding p o lasix and lisinopril for now. Creatinine has been normalized (5) CAD (coronary artery disease): Plan: CAD Diastolic CHF troponin minimally elevated, flat trend, likely demand ischemia in setting of anemia, pt without chest pain BNP elevated but no orthopnea, PND, CXR with no pulmonary edema, not hypervolemic on exam holding po lasix for now, Will resume as indicated (6) Chronic obstructive pulmonary disease: Plan: Chronic hypoxic resp failure on 2-3L of O2 COPD w/o exac continue trelegy and alb no acute exacerbation Still requiring 3 L of oxygen to maintain saturation-seems to be back to her baseline (7) Chronic hypoxemic respiratory failure: Plan DVT ppx: Eliquis Dispo: Aniticipate discharge in 1-2 days DNR/DNI Admission and Anticipated Discharge Date Admission Date: September 16, 2022 Subjective 09/19/2022 The patient was seen and examined in telemetry unit She has been complaining of palpitation with shortness of breath with minimal ambulation She has had short runs of SVT this morning Also she was noted to have acute redness with swelling and tenderness involving the left shoulder Review of Systems Review of Systems: All systems reviewed and are unremarkable except as noted below Physical Exam Physical Exam: Sitting at the edge of the bed with acute shortness of breath Constitutional: + ill appearing and average body habitus Eyes: PERRL, conjunctivae normal, anicteric sclerae ENMT: external ear and nose normal, oropharynx normal Neck: trachea midline, no thyromegaly Respiratory: + respiratory distress (Mild to moderate respiratory distress at rest) Auscultation: + diminished lung sounds (Very diminished lung sound bilaterally) and + wheezes (Minimal to no wheezing) Cardiovascular: Rate/Rhythm: + tachycardic and + irregularly irregular Heart Sounds: normal S1, normal S2 and + murmur Extremities: + edema (Trace edema bilaterally) Gastrointestinal (Abdomen): Inspection/Auscultation: normal bowel sounds; abdomen not distended Percussion/Palpation: abdomen soft; abdomen nontender Musculoskeletal: Acutely inflamed left shoulder with swelling of the left shoulder, red, warm and tender to palpate. Movement is very limited and painful Neurologic: Alert, awake and oriented x3 Lymphatic: no cervical or axillary lymphadenopathy Results & Data Results & Data Vital Signs (Past 12 Hours) Vital Signs Temp Pulse Pulse Pulse Resp BP BP 09/19/22 13:17 128/91 09/19/22 11:38 36.8 C 129 H 16 158/90 H 09/19/22 08:00 67 09/19/22 08:00 09/19/22 08:28 36.7 C 117 H 18 109/75 09/19/22 07:22 74 18 09/19/22 02:59 37.3 C 62 18 112/71 Pulse Ox O2 Del Method O2 Flow Rate 09/19/22 13:17 09/19/22 11:38 96 Nasal Cannula 3 09/19/22 08:00 09/19/22 08:00 Nasal Cannula 2 09/19/22 08:28 93 Nasal Cannula 3 09/19/22 07:22 92 Nasal Cannula 3 09/19/22 02:59 96 Nasal Cannula 3 Laboratory Results Short CBC 09/18/22 09/18/22 09/19/22 Range/Units 15:46 23:11 08:33 WBC 6.50 (4.8-10.8) K/ul Hgb 8.3 L 7.9 L 9.0 L (12.0-16.0) g/dl Hct 27.7 L 26.1 L 30.6 L (37.0-47.0) % Plt Count 135 (130-400) K/uL BMP 09/19/22 08:33 Sodium 140 Potassium 3.7 Chloride 104 Carbon Dioxide 30 BUN 13 Creatinine 0.72 Glucose 153 H Calcium 9.6 Diagnostic Findings EGD findings Esophagitis with no bleeding was found in the lower third of the esophagus. Biopsies were taken with a cold forceps for histology. The pathology specimen was placed into Bottle B. Estimated blood loss was minimal. Diffuse moderate inflammation characterized by congestion (edema), erythema and granularity was found in the entire examined stomach. Biopsies were taken with a cold forceps for histology. The pathology specimen was placed into Bottle A. Estimated blood loss was minimal. The examined duodenum was normal. Impression: - Esophagitis with no bleeding. Biopsied. - Gastritis. Biopsied. - Normal examined duodenum. Medications Administered Current Inpatient Medications Acetaminophen (Acetaminophen 325 Mg Tab) 650 mg PO Q4H PRN PRN Reason: Pain or Fever Stop: 10/16/22 19:43 Last Admin: 09/19/22 06:26 Dose: 650 mg Albuterol (Albuterol 0.083% Nebu Soln 3 Ml Vial) 2.5 mg NEB Q6R PRN; Protocol PRN Reason: sob/wheezing Stop: 10/16/22 19:43 Last Admin: 09/18/22 07:03 Dose: 2.5 mg Albuterol (Albut/Ipratrop 3mg/0.5mg Neb 3 Ml Vial) 3 ml NEB BIDR [facility]; Protocol Stop: 10/18/22 18:59 Last Admin: 09/19/22 07:22 Dose: 3 ml Apixaban (Apixaban 5 Mg Tablet) 5 mg PO BID [facility] Stop: 10/18/22 20:59 Last Admin: 09/19/22 08:56 Dose: 5 mg Atorvastatin Calcium (Atorvastatin 40 Mg Tab) 80 mg PO QAM [facility] Stop: 10/17/22 08:59 Last Admin: 09/19/22 08:55 Dose: 80 mg Bupropion HCl (Bupropion Sr 150 Mg Tabcr) 150 mg PO AMHS [facility] Stop: 10/16/22 20:59 Last Admin: 09/19/22 08:56 Dose: 150 mg Cyanocobalamin (Cyanocobalamin 1000 Mcg/Ml Vial) 1,000 mcg IM QAM [facility] Stop: 09/21/22 09:01 Last Admin: 09/19/22 08:55 Dose: 1,000 mcg Fluticasone Furoate (Fluticasone Furoate 100mcg 14 Puffs/Inhaler) 1 puffs INH QAM [facility] Stop: 10/17/22 08:59 Last Admin: 09/19/22 08:56 Dose: 1 puffs Gabapentin (Gabapentin 300 Mg Cap) 300 mg PO BID [facility] Stop: 10/16/22 20:59 Last Admin: 09/19/22 08:56 Dose: 300 mg Guaifenesin (Guaifenesin 600 Mg Tabcr) 600 mg PO Q12 [facility] Stop: 10/16/22 20:59 Last Admin: 09/19/22 08:56 Dose: 600 mg Iron Sucrose 300 mg/ Sodium (Chloride) 265 mls @ 176.667 mls/hr IV DAILY [facility] Stop: 09/20/22 10:44 Last Infusion: 09/19/22 11:06 Dose: Infused Pantoprazole Sodium 40 mg/ (Syringe) 10 mls @ 5 mls/min IV BID [facility] Stop: 10/17/22 20:59 Last Admin: 09/19/22 08:55 Dose: 5 mls/min Amiodarone HCl/Dextrose (Nexterone / D5w) 360 mg in 200 mls @ 16.667 mls/hr IV .Q12H [facility] Stop: 10/19/22 17:44 Amiodarone HCl/Dextrose (Nexterone / D5w) 360 mg in 200 mls @ 33.333 mls/hr IV ONE ONE Stop: 09/19/22 17:44 Last Admin: 09/19/22 11:54 Dose: 1 mg/min, 33.3 mls/hr Cefazolin Sodium (Ancef 1000mg) 1,000 mg in 7.5 mls @ 2.5 mls/min IV Q8H [facility] Stop: 09/26/22 13:59 Metoprolol Tartrate (Metoprolol Tartrate 25 Mg Tab) 12.5 mg PO BID [facility] Stop: 10/17/22 20:59 Last Admin: 09/19/22 08:55 Dose: 12.5 mg Ondansetron HCl (Ondansetron Inj 2 Mg/Ml 2 Ml Vial) 4 mg IV Q6H PRN PRN Reason: Nausea Stop: 10/16/22 19:43 Potassium Chloride (Potassium Chloride 10 Meq Tabcr) 10 meq PO AMHS [facility] Stop: 10/17/22 08:59 Last Admin: 09/18/22 08:47 Dose: 10 meq Sucralfate (Sucralfate 1 Gm/10 Ml Udc) 1 gm PO BID [facility] Stop: 10/17/22 20:59 Last Admin: 09/19/22 08:55 Dose: 1 gm Umeclidinium/Vilanterol (Umeclidinium/Vilanterol 62.5/25mcg 7 Puffs/Inhaler) 1 puffs INH QAM [facility] Stop: 10/17/22 08:59 Last Admin: 09/19/22 08:56 Dose: 1 puffs Vitamin D (Cholecalciferol 1,000 Units 25 Mcg Tab) 1,000 units PO QAM [facility] Stop: 10/17/22 08:59 Last Admin: 09/19/22 08:56 Dose: 1,000 units
--- NOTE | 2022-09-19 14:31 | Cardiology Progress Note ---
Date of Service September 19, 2022 Assessment & Plan (1) Chronic hypoxemic respiratory failure: (2) Symptomatic anemia: (3) Acute GI bleeding: (4) Bradycardia: (5) Paroxysmal atrial flutter: Plan Medically complex 77-year-old female found to have severe symptomatic anemia secondary to GI bleed. Hemoglobin improved status post several units of packed red blood cells by transfusion, most recent of which took place on 09/18/2022 with hemoglobin 09/19/2022 of 9 g/dL. Telemetry with findings of atrial flutter with 1: 1 conduction for 30 seconds this morning, heart rate as high as 230 bpm, with offset to atrial flutter with 2-1 conduction at 120 bpm. Patient with her chronic shortness of breath at that time while in bed. Anticipate however that she would not tolerate significant tachycardia for very long especially with attempted exertion. In addition to metoprolol tartrate 12.5 mg twice daily, amiodarone infusion initiated. Given her underlying lung disease, amiodarone is not an ideal long-term medication, but we used in the short-term for rhythm control. Continue Eliquis 5 mg twice daily as hemoglobin allows. Plan discussed with the patient's nurse at the nursing station. Admission and Anticipated Discharge Date Admission Date: September 16, 2022 Subjective Patient seen in cardiology follow-up. Yesterday, sinus rhythm noted on telemetry. This morning, 09/19/2022 at 11:08 AM patient had abrupt onset of a narrow complex tachycardia with rate of around 230 bpm for approximately 30 seconds, then spontaneous conversion to a slower narrow complex tachycardia at around 118 to 124 bpm. Telemetry suggestive of transient atrial flutter with 1: 1 conduction, and then atrial flutter with 2: 1 conduction. Patient without acute symptoms at the time of the arrhythmia, with her chronic resting shortness of breath noted at the time of my bedside assessment. Hemoglobin relatively stable this morning at 9 g/dL having been 7.9 yesterday with having received another dose of packed red blood cells in the interim. Physical Exam Constitutional: no acute distress Respiratory: normal respiratory effort, lungs clear to auscultation Cardiovascular: RRR, no murmur, no edema Gastrointestinal (Abdomen): normal bowel sounds, soft, nontender, no hepatosplenomegaly Neurologic: PERRL, EOMI, accommodation nl, no face palsy, no dysarthria Results & Data Vital Signs (Past 12 Hours) Vital Signs Temp Pulse Pulse Pulse Resp BP BP 09/19/22 13:17 128/91 09/19/22 11:38 36.8 C 129 H 16 158/90 H 09/19/22 08:00 67 09/19/22 08:00 09/19/22 08:28 36.7 C 117 H 18 109/75 09/19/22 07:22 74 18 09/19/22 02:59 37.3 C 62 18 112/71 Pulse Ox O2 Del Method O2 Flow Rate 09/19/22 13:17 09/19/22 11:38 96 Nasal Cannula 3 09/19/22 08:00 09/19/22 08:00 Nasal Cannula 2 09/19/22 08:28 93 Nasal Cannula 3 09/19/22 07:22 92 Nasal Cannula 3 09/19/22 02:59 96 Nasal Cannula 3
[2022-09-19] MEDS: ceFAZolin 1000MG 1,000 MG/7.5 ML SYR IV SCH ×2 (15:04→21:21)
[2022-09-19] MEDS: AMIODARONE / D5W 360 MG/200 ML BAG IV SCH (17:07)
[2022-09-20] MEDS: ACETAMINOPHEN 325 MG TAB PO PRN ×2 (01:22→08:36)
[2022-09-20] MEDS: AMIODARONE / D5W 360 MG/200 ML BAG IV SCH ×2 (05:35→16:15)
[2022-09-20] MEDS: ceFAZolin 1000MG 1,000 MG/7.5 ML SYR IV SCH (06:03)
[2022-09-20 06:59] LABS: Basophils # (auto) 0.01 K/uL (0-0.2); Basophils % (auto) 0.2 %; Hematocrit (blood only) 32.3 % (37.0-47.0); Hemoglobin 9.6 g/dl (12.0-16.0); Immature Granulocytes # (auto) 0.03 K/uL (0.01-0.20); Immature Granulocytes % (auto) 0.5 %; Lymphocytes # (auto) 0.42 K/uL (1.2-3.4); Lymphocytes % (auto) 6.8 %; Mean Corpuscular Hemoglobin 22.9 pg (25.0-34.0); Mean Corpuscular Hgb Conc 29.7 g/dL (32.0-36.0); Mean Corpuscular Volume 77.1 fL (80.0-100.0); Mean Platelet Volume 10.6 fL (9.4-12.4); Monocytes # (auto) 0.53 K/uL (0.11-0.59); Monocytes % (auto) 8.5 %; Neutrophils # (auto) 5.22 K/uL (1.40-6.50); Platelet Count 154 K/uL (130-400); RDW Standard Deviation 57.9 fL (36.4-46.3); Red Blood Count 4.19 M/uL (4.20-5.40); White Blood Count 6.21 K/ul (4.8-10.8)
[2022-09-20] MEDS: ALBUT/IPRATROP 3MG/0.5MG NEB 3 ML VIAL NEB SCH ×2 (07:12→19:32)
[2022-09-20 07:15] LABS: BUN Creatinine Ratio 15.3 (10-20); Calcium 9.5 mg/dl (8.6-10.3); Creatinine Clr Calc Pharmacy 55.8 ml/min; Est GFR (African American) 94.9 ml/min; Est GFR (Non-African American) 81.9 ml/min; Potassium 3.7 mmol/L (3.5-5.1)
[2022-09-20 07:22] LABS: Polychromasia 1+
[2022-09-20] MEDS: METOPROLOL TARTRATE 25 MG TAB PO SCH ×4 (08:24→19:57)
[2022-09-20] MEDS: ATORVASTATIN 40 MG TAB PO SCH (08:24)
[2022-09-20] MEDS: APIXABAN 5 MG TABLET PO SCH ×2 (08:25→19:55)
[2022-09-20] MEDS: buPROPion SR 150 MG TABCR PO SCH ×2 (08:25→19:56)
[2022-09-20] MEDS: guaiFENesin 600 MG TABCR PO SCH ×2 (08:25→19:56)
[2022-09-20] MEDS: SUCRALFATE 1 GM/10 ML UDC PO SCH ×2 (08:25→19:55)
[2022-09-20] MEDS: GABAPENTIN 300 MG CAP PO SCH ×2 (08:25→19:56)
[2022-09-20] MEDS: CHOLECALCIFEROL 1,000 UNITS 25 MCG TAB PO SCH (08:26)
[2022-09-20] MEDS: PANTOprazole 40 MG in SYRINGE 0 ML IV SCH (08:26)
[2022-09-20] MEDS: CYANOCOBALAMIN 1000 MCG/ML VIAL IM SCH (08:26)
[2022-09-20] MEDS: FLUTICASONE FUROATE 100MCG 14 PUFFS/INHALER INH SCH (08:27)
[2022-09-20] MEDS: UMECLIDINIUM/VILANTEROL 62.5/25MCG 7 PUFFS/INHALER INH SCH (08:28)
--- NOTE | 2022-09-20 08:39 | Cardiology Progress Note ---
Date of Service September 20, 2022 Assessment & Plan (1) Chronic hypoxemic respiratory failure: (2) Symptomatic anemia: (3) Acute GI bleeding: (4) Bradycardia: (5) Paroxysmal atrial flutter: Plan Medically complex 77-year-old female found to have severe symptomatic anemia secondary to GI bleed. Hemoglobin improved status post several units of packed red blood cells by transfusion. Hbg 9.6 this morning. Receiving Iron infusion. Telemetry with findings of atrial flutter with 1:1 and now 2:1 conduction with HR's ranging 110-140's. Currently on Amiodarone gtt and metoprolol without successful conversion. Will add Diltiazem gtt with bolus in attempt for successful conversion to NSR. continue Eliquis with close monitoring for recurrent GI bleed. Hbg improving. Given her underlying lung disease, amiodarone is not an ideal long-term medication, but we used in the short-term for rhythm control. Plan discussed with the patient's nurse at the nursing station. DVT prophy - Eliquis Case discussed with Dr. Watson I spent a total of 35 minutes on the date of service in preparation, delivery, and documentation of the care provided to this patient, excluding any time spent in the performance of separately billed services. Mary Mccauley PA-C Department of Cardiology, [facility] This chart was completed in part utilizing Speech Voice Recognition Software. Grammatical errors, random word insertions, pronoun errors, and incomplete sentences are an occasional consequence of this system due to software limitations, ambient noise, and hardware issues. Any formal questions or concerns about the content, text, or information contained within the body of this dictation should be directly addressed to the provider for clarification. Admission and Anticipated Discharge Date Admission Date: September 16, 2022 Supervising Physician Co-Signing Physician Notes Supervising Physician Attestation: I have personally performed a history and physical examination on the patient. I agree with the physician electrical assistant's findings and plan as documented with the following additions. Subjective: Patient with ongoing tachycardia since visit yesterday. Telemetry EKG consistent with atrial flutter in the 120s despite amiodarone infusion and increase in oral metoprolol dose to 12.5 mg 4 times daily. Patient states respiratory status at rest is no worse than her usual baseline she remains on 4 L nasal cannula of oxygen. She received another dose of IV iron this morning. Exam: Cardiovascular: Tachycardic, regular rhythm, no murmurs, no edema Lungs: Clear to auscultation bilaterally Data: EKG performed 09/19/2022 and interpreted independently: Atrial flutter at 137 bpm. Assessment and Plan: Atrial arrhythmias, wandering atrial pacemaker, paroxysmal atrial flutter -Continue IV amiodarone (short-term given underlying lung disease), continue oral metoprolol, add IV diltiazem. DVT prophylaxis: Remains on full anticoagulation dose of Eliquis. Orlin Watson, DO Subjective Patient resting in bed comfortably. Reports SOB at rest and with exertion greatly improved. No chest pain. No dizziness or lightheadedness. No recurrent bleeding. Hbg improving. No fever, cough, chills. No orthopnea, PND. Review of Systems Review of Systems: All systems reviewed & are unremarkable except as noted in HPI & below Physical Exam Constitutional: + thin; no acute distress Eyes: PERRL, conjunctivae normal, anicteric sclerae Neck: normal visual inspection and trachea midline Respiratory: normal respiratory effort, lungs clear to auscultation normal respiratory effort; no respiratory distress and no labored breathing Auscultation: + rhonchi and + wheezes Cardiovascular: Rate/Rhythm: + tachycardic Heart Sounds: normal S1, normal S2 and + murmur (+ 1/6 systolic murmur) Vessels: no JVD Extremities: no edema Gastrointestinal (Abdomen): normal bowel sounds, soft, nontender, no hepatosplenomegaly Percussion/Palpation: abdomen soft; abdomen nontender Skin: no rashes, warm and dry Neurologic: PERRL, EOMI, accommodation nl, no face palsy, no dysarthria Psychiatric: A+Ox3, euthymic affect Results & Data Vital Signs (Past 12 Hours) Vital Signs Temp Pulse Pulse Pulse Resp BP BP 09/20/22 07:45 09/20/22 07:41 37.2 C 112 H 24 161/91 H 09/20/22 07:13 102 H 24 09/20/22 03:02 36.5 C 77 20 145/75 H 09/19/22 22:02 85 09/19/22 22:30 36.8 C 77 24 105/67 Pulse Ox O2 Del Method O2 Flow Rate 09/20/22 07:45 Nasal Cannula 4 05/22/23 07:41 94 Nasal Cannula 4 09/20/22 07:13 95 Nasal Cannula 5 09/20/22 03:02 99 Nasal Cannula 4.5 09/19/22 22:02 09/19/22 22:30 98 Nasal Cannula 4.5 Laboratory Results CBC 09/20/22 Range/Units 06:22 WBC 6.21 (4.8-10.8) K/ul RBC 4.19 L (4.20-5.40) M/uL Hgb 9.6 L (12.0-16.0) g/dl Hct 32.3 L (37.0-47.0) % Plt Count 154 (130-400) K/uL Neut # (Auto) 5.22 (1.40-6.50) K/uL Lymph # (Auto) 0.42 L (1.2-3.4) K/uL [place] # (Auto) 0.53 (0.11-0.59) K/uL Eos # (Auto) 0.00 (0-0.50) K/uL Baso # (Auto) 0.01 (0-0.2) K/uL Comprehensive Metabolic Panel 09/19/22 09/20/22 Range/Units 08:33 06:22 Sodium 140 139 (136-145) mmol/L Potassium 3.7 3.7 (3.5-5.1) mmol/L Chloride 104 102 (98-107) mmol/L Carbon Dioxide 30 32 (21-32) mmol/L BUN 13 11 (6-23) mg/dl Creatinine 0.72 0.72 (0.6-1.2) mg/dl Glucose 153 H 95 (70-99(Fasting)) mg/dl Calcium 9.6 9.5 (8.6-10.3) mg/dl Intake and Output 09/19/22 09/20/22 09/20/22 22:59 06:59 14:59 Intake Total 320 / 1405 200 / 1405 Output Total 300 / 1200 500 / 1200 Balance -300 / 205 Intake: IV 200 / 765 200 / 765 Amiodarone / D5w 360 mg In 200 200 / 400 200 / 400 ml @ 0.5 MG/MIN 16.667 mls/hr IV .Q12H [facility] Rx#:[id number] Oral 120 / 640 Output: Urine 300 / 1200 500 / 1200 Other: Weight 55 kg Diagnostic Findings Telemetry reviewed: Narrow complex tachycardia, suggestive of atrial flutter 2:1. Heart rates ranging 110-140's at rest. Occ PVC with couplet. Medications Administered Current Inpatient Medications Acetaminophen (Acetaminophen 325 Mg Tab) 650 mg PO Q4H PRN PRN Reason: Pain or Fever Stop: 10/16/22 19:43 Last Admin: 09/20/22 08:36 Dose: 650 mg Albuterol (Albuterol 0.083% Nebu Soln 3 Ml Vial) 2.5 mg NEB Q6R PRN; Protocol PRN Reason: sob/wheezing Stop: 10/16/22 19:43 Last Admin: 09/18/22 07:03 Dose: 2.5 mg Albuterol (Albut/Ipratrop 3mg/0.5mg Neb 3 Ml Vial) 3 ml NEB BIDR HUGH; Protocol Stop: 10/18/22 18:59 Last Admin: 09/20/22 07:12 Dose: 3 ml Apixaban (Apixaban 5 Mg Tablet) 5 mg PO BID [facility] Stop: 10/18/22 20:59 Last Admin: 09/20/22 08:25 Dose: 5 mg Atorvastatin Calcium (Atorvastatin 40 Mg Tab) 80 mg PO QAM [facility] Stop: 10/17/22 08:59 Last Admin: 09/20/22 08:24 Dose: 80 mg Bupropion HCl (Bupropion Sr 150 Mg Tabcr) 150 mg PO [facility] Stop: 10/16/22 20:59 Last Admin: 09/20/22 08:25 Dose: 150 mg Cyanocobalamin (Cyanocobalamin 1000 Mcg/Ml Vial) 1,000 mcg IM QAM [facility] Stop: 09/21/22 09:01 Last Admin: 09/20/22 08:26 Dose: 1,000 mcg Diltiazem HCl (Diltiazem Hcl 5 Mg/Ml 5 Ml Vial) 10 mg IV NOW STA Stop: 09/20/22 09:07 Fluticasone Furoate (Fluticasone Furoate 100mcg 14 Puffs/Inhaler) [facility] Stop: 10/17/22 08:59 Last Admin: 09/20/22 08:27 Dose: 1 puffs Gabapentin (Gabapentin 300 Mg Cap) 300 mg PO BID [facility] Stop: 10/16/22 20:59 Last Admin: 09/20/22 08:25 Dose: 300 mg Guaifenesin (Guaifenesin 600 Mg Tabcr) 600 mg PO Q12 [facility] Stop: 10/16/22 20:59 Last Admin: 09/20/22 08:25 Dose: 600 mg Iron Sucrose 300 mg/ Sodium (Chloride) 265 mls @ 176.667 mls/hr IV DAILY [facility] Stop: 09/20/22 10:44 Last Admin: 09/20/22 08:41 Dose: 176.6 mls/hr Pantoprazole Sodium 40 mg/ (Syringe) 10 mls @ 5 mls/min IV BID [facility] Stop: 10/17/22 20:59 Last Admin: 09/20/22 08:26 Dose: 5 mls/min Amiodarone HCl/Dextrose (Nexterone / D5w) 360 mg in 200 mls @ 16.667 mls/hr IV .Q12H [facility] Stop: 10/19/22 17:44 Last Admin: 09/20/22 05:35 Dose: 0.5 mg/min, 16.7 mls/hr Cefazolin Sodium (Ancef 1000mg) 1,000 mg in 7.5 mls @ 2.5 mls/min IV Q8H [facility] Stop: 09/26/22 13:59 Last Admin: 09/20/22 06:03 Dose: 2.5 mls/min Diltiazem HCl 125 mg/ Dextrose 125 mls @ 5 mls/hr IV .Q24H [facility]; Protocol Stop: 10/20/22 09:14 Metoprolol Tartrate (Metoprolol Tartrate 25 Mg Tab) 12.5 mg PO QID [facility] Stop: 10/19/22 20:59 Last Admin: 09/20/22 08:24 Dose: 12.5 mg Miscellaneous (Stat Iv Infusion Titration Per Protocol) 1 each N/A NOW STA Stop: 09/20/22 09:07 Ondansetron HCl (Ondansetron Inj 2 Mg/Ml 2 Ml Vial) 4 mg IV Q6H PRN PRN Reason: Nausea Stop: 10/16/22 19:43 Potassium Chloride (Potassium Chloride 10 Meq Tabcr) 10 meq PO [facility] Stop: 10/17/22 08:59 Last Admin: 09/18/22 08:47 Dose: 10 meq Sucralfate (Sucralfate 1 Gm/10 Ml Udc) 1 gm PO BID [facility] Stop: 10/17/22 20:59 Last Admin: 09/20/22 08:25 Dose: 1 gm Umeclidinium/Vilanterol (Umeclidinium/Vilanterol 62.5/25mcg 7 Puffs/Inhaler) 1 puffs INH QAM [facility] Stop: 10/17/22 08:59 Last Admin: 09/20/22 08:28 Dose: 1 puffs Vitamin D (Cholecalciferol 1,000 Units 25 Mcg Tab) 1,000 units PO QAM [facility] Stop: 10/17/22 08:59 Last Admin: 09/20/22 08:26 Dose: 1,000 units
[2022-09-20] MEDS: IRON SUCROSE 300 MG in SODIUM CHLORIDE 0.9% 250 ML IV SCH (08:41)
[2022-09-20] MEDS ORDERED: dilTIAZem HCl 5 MG/ML 5 ML VIAL IV STA (09:06)
[2022-09-20] MEDS ORDERED: STAT IV Infusion **Titration per Protocol STA (09:06)
[2022-09-20] MEDS: dilTIAZem HCL 125 MG in DEXTROSE 5% 100 ML IV SCH (10:12)
--- NOTE | 2022-09-20 11:40 | Electrocardiogram Report ---
Test Reason : Blood Pressure : / mmHG Vent. Rate : 137 BPM Atrial Rate : 138 BPM P-R Int : 200 ms QRS Dur : 088 ms QT Int : 298 ms P-R-T Axes : 000 083 199 degrees QTc Int : 449 ms Sinus tachycardia Septal infarct (cited on or before 19-SEP-2022) Marked ST abnormality, possible inferolateral subendocardial injury Abnormal ECG When compared with ECG of 16-SEP-2022 16:23, Serial changes of Septal infarct Present Confirmed by Dru Castro ([id number]) on 09/20/2022 11:40:11 AM Referred By: REFERRED SELF Confirmed By:Dru Castro
[2022-09-20] MEDS ORDERED: VANCOMYCIN CONSULT ACTIVE PRN (12:11)
[2022-09-20] MEDS: traMADol HCL 50 MG TABLET PO PRN ×2 (12:11→18:39)
[2022-09-20] MEDS ORDERED: ALBUT/IPRATROP 3MG/0.5MG NEB 3 ML VIAL INH SCH (12:15)
--- NOTE | 2022-09-20 12:18 | Hospitalist Progress Note ---
Date of Service September 20, 2022 Assessment & Plan (1) Acute GI bleeding: Plan: This is a 77-year-old female who has significant past medical history of chronic hypoxic respiratory failure on 2 to 3 L of oxygen, COPD, CAD, chronic diastolic CHF, hypertension, pulmonary hypertension, PFO, wandering atrial pacemaker, hyperlipidemia, senile osteoporosis, meningioma, iron deficiency anemia, tobacco use disorder, AAA status postrepair who presents to ED secondary to worsening shortness of breath for the last 2 to 3 weeks. FOBT positive, EGD with esophagitis and gastritis as below but no active bleeding, S/p 3 U PRBC. Symptomatic Anemia/Iron deficiency anemia due to chronic GI blood loss Vit B12 deficiency - Hb dropped from baseline of >11 in May to 6 on admission - Heme positive in ED, stool occult blood positive but no overt bleeding noted. Ferritin 7.6, Iron 17. Hemolysis panel negative. PBS for parasites negative. Folate normal, B12 low normal. - EGD 09/17 with gastritis and mild esophagitis - s/p 3 U PRBC and Hb now stabilized. -On IV iron and IM vitamin B12 - Continue PPI and carafate - Seen by GI- recommendations noted as below Iron supplement for 3 months Protonix 40 mg per day Carafate 1 gm bid x 12 weeks OP colonoscopy to be arranged Repeat EGD in 3 months for surveillance of Gastritis Biopsy result is pending Clinically much better and the hemoglobin remains stable at 9.0 Acute left shoulder pain( ? Pseudogout? Gout ? Septic arthritis) Left shoulder noted to have acutely inflamed with swelling, redness and tenderness since September 19, 2022. X-ray of the shoulder did not show soft tissue swelling but no bony abnormalities ESR of 42 Uric acid 3.7. Will need orthopedics opinion. Might need joint aspiration. Started on vancomycin. Pain control with Tylenol and tramadol. (2) Atrial fibrillation with rapid ventricular response: Plan: Paroxysmal a flutter Cardiology on board. Currently restarted on Eliquis. Recommended to continue IV amiodarone ((short-term given underlying lung disease). Continue oral metoprolol, add IV diltiazem) (3) Symptomatic anemia: Plan: As above (4) AP (acute kidney injury): Plan: AP- cr improved 1.24->1. Baseline around 0.7-0.8. Resume Lasix. Lisinopril currently on hold as patient is started on IV Cardizem as well. (5) CAD (coronary artery disease): Plan: CAD Diastolic CHF troponin minimally elevated, flat trend, likely demand ischemia in setting of anemia, pt without chest pain BNP elevated but no orthopnea, PND, CXR with no pulmonary edema, not hypervolemic on exam Resume Lasix. (6) Chronic obstructive pulmonary disease: (7) Chronic hypoxemic respiratory failure: Plan: Chronic hypoxic resp failure on 2-3L of O2 COPD w/o exac continue trelegy DuoNebs twice daily Plan DVT ppx: Eliquis Dispo: Aniticipate discharge in 1-2 days. PT OT ordered. Continues to be hospitalized due to a flutter needing IV amiodarone and IV Cardizem; also requires cardiac monitoring. DNR/DNI Admission and Anticipated Discharge Date Admission Date: September 16, 2022 Subjective Patient seen and examined at bedside. She is comfortably lying on the bed; not in distress. Continues to have left shoulder swelling. ROM limited by pain. Telemetry shows a flutter. Review of Systems Review of Systems: All systems reviewed & are unremarkable except as noted in Subjective Physical Exam Physical Exam: Constitutional: WD/WN, vitals as above, NAD, sitting up in bed, pleasant, conversing easily Respiratory: normal respiratory effort, lungs clear to auscultation, no wheeze, rales, rhonchi. Normal insp/exp effort, no accessory muscle use Cardiovascular: RRR, no murmur, no edema Vessels: no JVD or carotid bruit Chest: normal inspection of chest Abdomen: normal bowel sounds, soft, nontender, no hepatosplenomegaly Musculoskeletal: Left shoulder- joint effusion present, with redness overlying the skin. Tenderness present. ROM limited by pain. Skin: no rashes, warm and dry normal turgor Neurologic: Grossly intact. Psychiatric: A+Ox3, euthymic affect Lymphatic: no cervical or axillary lymphadenopathy : deferred Results & Data Results & Data Vital Signs (Past 12 Hours) Vital Signs Temp Pulse Pulse Resp BP BP Pulse Ox 09/20/22 10:50 94 H 26 H 125/88 09/20/22 10:35 99 H 24 117/88 09/20/22 11:33 36.8 C 104 H 18 111/70 100 09/20/22 10:15 112 H 26 H 117/77 97 09/20/22 10:00 113 H 26 H 101/77 97 09/20/22 09:49 114 H 23 113/85 97 09/20/22 07:45 09/20/22 07:41 37.2 C 112 H 24 161/91 H 94 09/20/22 07:13 102 H 24 95 09/20/22 03:02 36.5 C 77 20 145/75 H 99 O2 Del Method O2 Flow Rate 09/20/22 10:50 09/20/22 10:35 09/20/22 11:33 Nasal Cannula 4 09/20/22 10:15 Nasal Cannula 4 09/20/22 10:00 Nasal Cannula 4 09/20/22 09:49 Nasal Cannula 4 09/20/22 07:45 Nasal Cannula 4 09/20/22 07:41 Nasal Cannula 4 09/20/22 07:13 Nasal Cannula 5 09/20/22 03:02 Nasal Cannula 4.5 Laboratory Results Laboratory Results WBC 6.21 K/ul (4.8-10.8) 09/20/22 06:22 RBC 4.19 M/uL (4.20-5.40) L 09/20/22 06:22 Hgb 9.6 g/dl (12.0-16.0) L 09/20/22 06:22 Hct 32.3 % (37.0-47.0) L 09/20/22 06:22 MCV 77.1 fL (80.0-100.0) L 09/20/22 06:22 MCH 22.9 pg (25.0-34.0) L 09/20/22 06:22 MCHC 29.7 g/dL (32.0-36.0) L 09/20/22 06:22 RDW Std Deviation 57.9 fL (36.4-46.3) H 09/20/22 06:22 RDW Coeff of [place] 22.0 % (11.5-14.5) H 09/20/22 06:22 Plt Count 154 K/uL (130-400) 09/20/22 06:22 MPV 10.6 fL (9.4-12.4) 09/20/22 06:22 Immature Gran % (Auto) 0.5 % 09/20/22 06:22 Neut % (Auto) 84.0 % 09/20/22 06:22 Lymph % (Auto) 6.8 % 09/20/22 06:22 [place] % (Auto) 8.5 % 09/20/22 06:22 Eos % (Auto) 0.0 % 09/20/22 06:22 Baso % (Auto) 0.2 % 09/20/22 06:22 Reticulocyte % (Auto) 1.4 % (0.5-2.0) 09/17/22 17:09 Neut # (Auto) 5.22 K/uL (1.40-6.50) 09/20/22 06:22 Lymph # (Auto) 0.42 K/uL (1.2-3.4) L 09/20/22 06:22 [place] # (Auto) 0.53 K/uL (0.11-0.59) 09/20/22 06:22 Eos # (Auto) 0.00 K/uL (0-0.50) 09/20/22 06:22 Baso # (Auto) 0.01 K/uL (0-0.2) 09/20/22 06:22 Reticulocyte # 0.05 10^6/uL (0.02-0.10) 09/17/22 17:09 Immature Gran # (Auto) 0.03 K/uL (0.01-0.20) 09/20/22 06:22 Polychromasia 1+ 09/20/22 06:22 Hypochromasia Present 09/17/22 04:13 Poikilocytosis Present 09/17/22 04:13 Ovalocytes 1+ 09/16/22 16:35 ESR 42 mm/hr (0-30) H 09/19/22 14:04 PT 11.8 Seconds (9.0-12.0) 09/16/22 16:35 INR 1.1 (0.9-1.1) 09/16/22 16:35 Sodium 139 mmol/L (136-145) 09/20/22 06:22 Potassium 3.7 mmol/L (3.5-5.1) 09/20/22 06:22 Chloride 102 mmol/L (98-107) 09/20/22 06:22 Carbon Dioxide 32 mmol/L (21-32) 09/20/22 06:22 Anion Gap 5 (3-11) 09/20/22 06:22 BUN 11 mg/dl (6-23) 09/20/22 06:22 Creatinine 0.72 mg/dl (0.6-1.2) 09/20/22 06:22 Est Cr Clr Drug Dosing 55.8 ml/min 09/20/22 06:22 Est GFR ( Amer) 94.9 ml/min 09/20/22 06:22 Est GFR (Non-Af Amer) 81.9 ml/min 09/20/22 06:22 BUN/Creatinine Ratio 15.3 (10-20) 09/20/22 06:22 Glucose 95 mg/dl (70-99(Fasting)) 09/20/22 06:22 Estimat Average Glucose 120 mg/dl 09/17/22 04:13 Hemoglobin A1c 5.8 % (4.5-5.6) H 09/17/22 04:13 Uric Acid 3.7 mg/dl (2.6-7.2) 09/19/22 14:04 Calcium 9.5 mg/dl (8.6-10.3) 09/20/22 06:22 Magnesium 1.8 mg/dl (1.7-2.4) 09/17/22 04:13 Iron 17 mcg/dl (35-150) L 09/16/22 16:35 Unsaturated IBC 349 mcg/dl (155-355) 09/16/22 16:35 Transferrin 291 mg/dl (200-360) 09/16/22 16:35 Ferritin 7.6 ng/ml (8-388) L 09/16/22 16:35 Total Bilirubin 1.2 mg/dl (0.2-1.0) H D 09/17/22 04:13 AST 11 U/L (13-39) L 09/17/22 04:13 ALT 10 U/L (7-52) 09/17/22 04:13 Alkaline Phosphatase 50 U/L (34-104) 09/17/22 04:13 Lactate Dehydrogenase 214 U/L (86-244) 09/17/22 17:09 Troponin I High Sens 16.4 pg/ml (0-14) H 09/17/22 04:13 B-Natriuretic Peptide 668 pg/ml (0-100) H 09/16/22 16:35 Total Protein 5.3 gm/dl (6.0-8.3) L 09/17/22 04:13 Albumin 3.5 gm/dl (3.4-5.0) 09/17/22 04:13 Globulin 1.8 gm/dl (2.5-4.0) L 09/17/22 04:13 Albumin/Globulin Ratio 1.9 (0.9-2) 09/17/22 04:13 Vitamin B12 185 pg/ml (180-914) 09/17/22 17:09 Folate 20.51 ng/ml (>5.38) 09/17/22 17:09 Urine Color Yellow 09/16/22 18:34 Urine Appearance Clear (Clear) 09/16/22 18:34 Urine pH 5.5 (4.5-7.5) 09/16/22 18:34 Ur Specific [place] 1.016 (1.000-1.030) 09/16/22 18:34 Urine Protein Trace (Negative) H 09/16/22 18:34 Urine Glucose (UA) Negative (Negative) 09/16/22 18:34 Urine Ketones Trace (Negative) H 09/16/22 18:34 Urine Blood Negative (Negative) 09/16/22 18:34 Urine Nitrite Negative (Negative) 09/16/22 18:34 Urine Bilirubin Negative (Negative) 09/16/22 18:34 Urine Urobilinogen Negative (Negative) 09/16/22 18:34 Ur Leukocyte Esterase Trace (Negative) H 09/16/22 18:34 Urine WBC (Auto) 1-5 /hpf (0-5) 09/16/22 18:34 Urine RBC (Auto) 0-4 /hpf (0-4) 09/16/22 18:34 U Hyaline Cast (Auto) 5-10 /lpf (0-5) H 09/16/22 18:34 U Epithel Cells (Auto) 20-30 /lpf (0-5) H 09/16/22 18:34 Urine Bacteria (Auto) Negative (Negative) 09/16/22 18:34 SARS-CoV-2, RNA, NAAT NEGATIVE (NEGATIVE) 09/16/22 16:35 Blood Type A Positive 09/16/22 17: Antibody Screen NEGATIVE 09/16/22 17: Direct Antiglob Test Negative (Negative) 09/16/22 17:23 NEHA (IgG-AHG) Neg (Negative) 09/16/22 17:23 NEHA, Polyspecific Neg (Negative) 09/16/22 17:23 NEHA C3b, C3d 5 Min Neg (Negative) 09/16/22 17:23 Crossmatch See Detail 09/16/22 17:23 Impressions Chest X-Ray 09/16/22 16:17 XR chest 1V portable CLINICAL HISTORY: Dyspnea. COMPARISON STUDY: Chest radiograph May 10, 2022. FINDINGS: Cardiomegaly is unchanged. There is no evidence for pulmonary edema. There is no consolidation. No pneumothorax or pleural effusion. IMPRESSION: No acute cardiopulmonary findings. No change in appearance of the chest. ACT 112: Negative or not required by law. Electronically signed by: Kanu Womack M.D. 09/16/2022 5:35 PM Shoulder X-Ray 09/19/22 12:13 XR shoulder LT min 2V routine CLINICAL HISTORY: Pain and swelling lt shoulder TECHNIQUE: 3 views of the left shoulder were obtained. Comparison: Comparison is made to left shoulder radiograph 05/26/2015 FINDINGS: There is no evidence of an acute fracture. Degenerative changes are seen in the glenohumeral joint. Soft tissue swelling is seen about the shoulder. The visualized portions of the lungs are clear. IMPRESSION: Soft tissue swelling without evidence of underlying bony abnormality. ACT 112: Negative or not required by law. Electronically signed by: Juan Carlos Kathleen M.D. 09/19/2022 12:50 PM
[2022-09-20] MEDS ORDERED: VANCOMYCIN HCL 1,250 MG in SODIUM CHLORIDE 0.9% 250 ML IV ONE (12:30)
[2022-09-20] MEDS: FUROSEMIDE 40 MG TAB PO SCH (13:09)
--- NOTE | 2022-09-20 14:54 | Pharmacy Report ---
Pharmacy PK ABX Note - Date of Service September 20, 2022 - Assessment and Plan Assessment 77 year old F receiving Vancomycin for treatment of possible septic arthritis of right shoulder. * Day #1 of antimicrobial therapy. * HPI: Has swelling of R shoulder as well as redness and tenderness. Limited ROM. * Labs/Vitals: 24 hour Tmax of 37.9oC. ESR elevated. CRP unchecked. No leukocytosis. Renal fxn stable and at baseline. * Imaging: R shoulder XR: "Soft tissue swelling without evidence of underlying bony abnormality." * Recommendations: Continue vanc and await ortho input. Plan Vancomycin * Loading dose: 1250 mg IV x 1 * Maintenance dose: 750 mg IV every 12 hours * Regimen is predicted to achieve target AUC/STEVAN of 400-600 mg/L.hr * Random level ordered for: 09/22/22 Pharmacy will continue to follow and will adjust dose/frequency as necessary. Thank you. Pharmacy has transitioned to AUC monitoring for vancomycin. AUC/STEVAN is the preferred PK/PD target and is associated with decreased risk of nephrotoxicity compared to traditional trough targets.
[2022-09-20] MEDS: PANTOprazole 40 MG TAB PO SCH (19:57)
[2022-09-20] MEDS ORDERED: HYDROmorphone INJ 0.5 MG/0.5 ML SYR IV STA (23:24)
[2022-09-21] MEDS: traMADol HCL 50 MG TABLET PO PRN (00:06)
[2022-09-21] MEDS: VANCOMYCIN HCL 750 MG in SODIUM CHLORIDE 0.9% 250 ML IV SCH ×2 (00:06→11:34)
[2022-09-21] MEDS: AMIODARONE / D5W 360 MG/200 ML BAG IV SCH ×2 (01:23→14:18)
[2022-09-21] MEDS: dilTIAZem HCL 125 MG in DEXTROSE 5% 100 ML IV SCH (06:22)
[2022-09-21 07:17] LABS: Hematocrit (blood only) 30.7 % (37.0-47.0); Hemoglobin 9.2 g/dl (12.0-16.0); Mean Corpuscular Volume 76.8 fL (80.0-100.0); Mean Platelet Volume 10.6 fL (9.4-12.4); Platelet Count 143 K/uL (130-400); RDW Coefficient of Variation 22.1 % (11.5-14.5); RDW Standard Deviation 59.1 fL (36.4-46.3); White Blood Count 6.32 K/ul (4.8-10.8)
[2022-09-21] MEDS: ALBUT/IPRATROP 3MG/0.5MG NEB 3 ML VIAL NEB SCH ×2 (07:19→19:18)
[2022-09-21 07:35] LABS: Anisocytosis Present; Basophils # (auto) 0.01 K/uL (0-0.2); Basophils % (auto) 0.2 %; Eosinophils # (auto) 0.03 K/uL (0-0.50); Eosinophils % (auto) 0.5 %; Immature Granulocytes # (auto) 0.04 K/uL (0.01-0.20); Immature Granulocytes % (auto) 0.6 %; Lymphocytes # (auto) 0.29 K/uL (1.2-3.4); Lymphocytes % (auto) 4.6 %; Monocytes # (auto) 0.54 K/uL (0.11-0.59); Monocytes % (auto) 8.5 %; Neutrophils # (auto) 5.41 K/uL (1.40-6.50); Neutrophils % (auto) 85.6 %; Poikilocytosis Present
[2022-09-21 07:51] LABS: BUN Creatinine Ratio 20.3 (10-20); Calcium 9.2 mg/dl (8.6-10.3); Creatinine Clr Calc Pharmacy 68.2 ml/min; Est GFR (African American) 103.9 ml/min; Est GFR (Non-African American) 89.7 ml/min; Potassium 3.6 mmol/L (3.5-5.1)
[2022-09-21] MEDS: APIXABAN 5 MG TABLET PO SCH ×2 (08:59→21:02)
[2022-09-21] MEDS: GABAPENTIN 300 MG CAP PO SCH ×2 (08:59→21:03)
[2022-09-21] MEDS: METOPROLOL TARTRATE 25 MG TAB PO SCH ×4 (08:59→21:04)
[2022-09-21] MEDS: PANTOprazole 40 MG TAB PO SCH ×2 (08:59→21:04)
[2022-09-21] MEDS: lisinopril 20 MG TAB PO SCH (08:59)
[2022-09-21] MEDS: guaiFENesin 600 MG TABCR PO SCH ×2 (08:59→21:03)
[2022-09-21] MEDS: buPROPion SR 150 MG TABCR PO SCH ×2 (08:59→21:03)
[2022-09-21] MEDS: CHOLECALCIFEROL 1,000 UNITS 25 MCG TAB PO SCH (09:00)
[2022-09-21] MEDS: ATORVASTATIN 40 MG TAB PO SCH (09:00)
[2022-09-21] MEDS: FUROSEMIDE 40 MG TAB PO SCH (09:01)
[2022-09-21] MEDS: CYANOCOBALAMIN 1000 MCG/ML VIAL IM SCH (09:01)
[2022-09-21] MEDS: FLUTICASONE FUROATE 100MCG 14 PUFFS/INHALER INH SCH (09:02)
[2022-09-21] MEDS: UMECLIDINIUM/VILANTEROL 62.5/25MCG 7 PUFFS/INHALER INH SCH (09:02)
[2022-09-21] MEDS: SUCRALFATE 1 GM/10 ML UDC PO SCH ×2 (09:02→21:04)
[2022-09-21] MEDS ORDERED: FUROSEMIDE 40 MG/4 ML VIAL IV ONE (12:10)
--- NOTE | 2022-09-21 12:11 | Hospitalist Progress Note ---
Date of Service September 21, 2022 Assessment & Plan (1) Acute GI bleeding: Plan: This is a 77-year-old female who has significant past medical history of chronic hypoxic respiratory failure on 2 to 3 L of oxygen, COPD, CAD, chronic diastolic CHF, hypertension, pulmonary hypertension, PFO, wandering atrial pacemaker, hyperlipidemia, senile osteoporosis, meningioma, iron deficiency anemia, tobacco use disorder, AAA status postrepair who presents to ED secondary to worsening shortness of breath for the last 2 to 3 weeks. FOBT positive, EGD with esophagitis and gastritis as below but no active bleeding, S/p 3 U PRBC. Symptomatic Anemia/Iron deficiency anemia due to chronic GI blood loss Vit B12 deficiency - Hb dropped from baseline of >11 in May to 6 on admission - Heme positive in ED, stool occult blood positive but no overt bleeding noted. Ferritin 7.6, Iron 17. Hemolysis panel negative. PBS for parasites negative. Folate normal, B12 low normal. - EGD 09/17 with gastritis and mild esophagitis - s/p 3 U PRBC and Hb now stabilized. -On IV iron and IM vitamin B12 - Continue PPI and carafate - Seen by GI- recommendations noted as below Iron supplement for 3 months Protonix 40 mg per day Carafate 1 gm bid x 12 weeks OP colonoscopy to be arranged Repeat EGD in 3 months for surveillance of Gastritis Biopsy result is pending Clinically much better and the hemoglobin remains stable at 9.0 Acute left shoulder pain( ? Pseudogout? Gout ? Septic arthritis) Left shoulder noted to have acutely inflamed with swelling, redness and tenderness since September 19, 2022. X-ray of the shoulder did not show soft tissue swelling but no bony abnormalities ESR of 42 Uric acid 3.7. Will need orthopedics opinion. Might need joint aspiration. Started on vancomycin. Pain control with Tylenol and tramadol. (2) Atrial fibrillation with rapid ventricular response: Plan: Paroxysmal a flutter Cardiology on board. Currently restarted on Eliquis. Recommended to continue IV amiodarone ((short-term given underlying lung disease). Continue oral metoprolol, add IV diltiazem) (3) Symptomatic anemia: Plan: As above (4) AP (acute kidney injury): Plan: AP- cr improved 1.24->1. Baseline around 0.7-0.8. Resume Lasix. Lisinopril currently on hold as patient is started on IV Cardizem as well. (5) CAD (coronary artery disease): Plan: CAD Diastolic CHF troponin minimally elevated, flat trend, likely demand ischemia in setting of anemia, pt without chest pain Patient appears to be in increasing shortness of breath on September 21, 2022. Will rule out acute on chronic diastolic heart failure. Obtain chest x-ray. Will give dose of IV Lasix (6) Chronic obstructive pulmonary disease: (7) Chronic hypoxemic respiratory failure: Plan: Chronic hypoxic resp failure on 2-3L of O2 COPD w/o exac continue trelegy DuoNebs twice daily Plan DVT ppx: Eliquis Dispo: Aniticipate discharge in 1-2 days. PT OT ordered. Continues to be hospitalized due to a flutter needing IV amiodarone and IV Cardizem; also requires cardiac monitoring. To be seen by orthopedic for left shoulder swelling. DNR/DNI Admission and Anticipated Discharge Date Admission Date: September 16, 2022 Subjective Patient seen and examined at bedside. She is awake alert oriented x3. She continues to report pain in her left shoulder. Telemetry shows a flutter with ventricular rate in 80s to 90s. She continues to be on Cardizem drip. Review of Systems Review of Systems: All systems reviewed & are unremarkable except as noted in Subjective Physical Exam Physical Exam: Constitutional: WD/WN, vitals as above, NAD, sitting up in bed, pleasant, conversing easily Respiratory: Bilateral crackles heard. Cardiovascular: Irregular, no murmur, no edema Vessels: no JVD or carotid bruit Chest: normal inspection of chest Abdomen: normal bowel sounds, soft, nontender, no hepatosplenomegaly Musculoskeletal: Left shoulder- joint effusion present, with redness overlying the skin. Tenderness present. ROM limited by pain. Skin: no rashes, warm and dry normal turgor Neurologic: Grossly intact. Psychiatric: A+Ox3, euthymic affect Lymphatic: no cervical or axillary lymphadenopathy : deferred Results & Data Results & Data Vital Signs (Past 12 Hours) Vital Signs Temp Pulse Pulse Resp BP Pulse Ox O2 Del Method 09/21/22 09:30 84 09/21/22 09:30 Nasal Cannula 09/21/22 07:53 36.7 C 108 H 21 145/97 H 93 Nasal Cannula 09/21/22 07:21 88 20 97 Nasal Cannula 09/21/22 04:04 36.6 C 84 16 100/78 98 Room Air, Nasal Cannula O2 Flow Rate 09/21/22 09:30 09/21/22 09:30 3 09/21/22 07:53 3 09/21/22 07:21 3 09/21/22 04:04 4 Laboratory Results Laboratory Results WBC 6.32 K/ul (4.8-10.8) 09/21/22 06:31 RBC 4.00 M/uL (4.20-5.40) L 09/21/22 06:31 Hgb 9.2 g/dl (12.0-16.0) L 09/21/22 06:31 Hct 30.7 % (37.0-47.0) L 09/21/22 06:31 MCV 76.8 fL (80.0-100.0) L 09/21/22 06:31 MCH 23.0 pg (25.0-34.0) L 09/21/22 06:31 MCHC 30.0 g/dL (32.0-36.0) L 09/21/22 06:31 RDW Std Deviation 59.1 fL (36.4-46.3) H 09/21/22 06:31 RDW Coeff of [place] 22.1 % (11.5-14.5) H 09/21/22 06:31 Plt Count 143 K/uL (130-400) 09/21/22 06:31 MPV 10.6 fL (9.4-12.4) 09/21/22 06:31 Immature Gran % (Auto) 0.6 % 09/21/22 06:31 Neut % (Auto) 85.6 % 09/21/22 06:31 Lymph % (Auto) 4.6 % 09/21/22 06:31 [place] % (Auto) 8.5 % 09/21/22 06:31 Eos % (Auto) 0.5 % 09/21/22 06:31 Baso % (Auto) 0.2 % 09/21/22 06:31 Reticulocyte % (Auto) 1.4 % (0.5-2.0) 09/17/22 17:09 Neut # (Auto) 5.41 K/uL (1.40-6.50) 09/21/22 06:31 Lymph # (Auto) 0.29 K/uL (1.2-3.4) L 09/21/22 06:31 [place] # (Auto) 0.54 K/uL (0.11-0.59) 09/21/22 06:31 Eos # (Auto) 0.03 K/uL (0-0.50) 09/21/22 06:31 Baso # (Auto) 0.01 K/uL (0-0.2) 09/21/22 06:31 Reticulocyte # 0.05 10^6/uL (0.02-0.10) 09/17/22 17:09 Immature Gran # (Auto) 0.04 K/uL (0.01-0.20) 09/21/22 06:31 Polychromasia 1+ 09/20/22 06:22 Hypochromasia Present 09/17/22 04:13 Poikilocytosis Present 09/21/22 06:31 Anisocytosis Present 09/21/22 06:31 Ovalocytes 1+ 09/16/22 16:35 Peripher Smr Path Cons 09/17/22 17:09 ESR 42 mm/hr (0-30) H 09/19/22 14:04 Haptoglobin 144 mg/dL (43-212) 09/17/22 17:09 PT 11.8 Seconds (9.0-12.0) 09/16/22 16:35 INR 1.1 (0.9-1.1) 09/16/22 16:35 Sodium 136 mmol/L (136-145) 09/21/22 06:31 Potassium 3.6 mmol/L (3.5-5.1) 09/21/22 06:31 Chloride 100 mmol/L (98-107) 09/21/22 06:31 Carbon Dioxide 29 mmol/L (21-32) 09/21/22 06:31 Anion Gap 7 (3-11) 09/21/22 06:31 BUN 12 mg/dl (6-23) 09/21/22 06:31 Creatinine 0.59 mg/dl (0.6-1.2) L 09/21/22 06:31 Est Cr Clr Drug Dosing 68.2 ml/min 09/21/22 06:31 Est GFR ( Amer) 103.9 ml/min 09/21/22 06:31 Est GFR (Non-Af Amer) 89.7 ml/min 09/21/22 06:31 BUN/Creatinine Ratio 20.3 (10-20) H 09/21/22 06:31 Glucose 112 mg/dl (70-99(Fasting)) H 09/21/22 06:31 Estimat Average Glucose 120 mg/dl 09/17/22 04:13 Hemoglobin A1c 5.8 % (4.5-5.6) H 09/17/22 04:13 Uric Acid 3.7 mg/dl (2.6-7.2) 09/19/22 14:04 Calcium 9.2 mg/dl (8.6-10.3) 09/21/22 06:31 Magnesium 1.8 mg/dl (1.7-2.4) 09/17/22 04:13 Iron 17 mcg/dl (35-150) L 09/16/22 16:35 Unsaturated IBC 349 mcg/dl (155-355) 09/16/22 16:35 Transferrin 291 mg/dl (200-360) 09/16/22 16:35 Ferritin 7.6 ng/ml (8-388) L 09/16/22 16:35 Total Bilirubin 1.2 mg/dl (0.2-1.0) H D 09/17/22 04:13 AST 11 U/L (13-39) L 09/17/22 04:13 ALT 10 U/L (7-52) 09/17/22 04:13 Alkaline Phosphatase 50 U/L (34-104) 09/17/22 04:13 Lactate Dehydrogenase 214 U/L (86-244) 09/17/22 17:09 Troponin I High Sens 16.4 pg/ml (0-14) H 09/17/22 04:13 B-Natriuretic Peptide 668 pg/ml (0-100) H 09/16/22 16:35 Total Protein 5.3 gm/dl (6.0-8.3) L 09/17/22 04:13 Albumin 3.5 gm/dl (3.4-5.0) 09/17/22 04:13 Globulin 1.8 gm/dl (2.5-4.0) L 09/17/22 04:13 Albumin/Globulin Ratio 1.9 (0.9-2) 09/17/22 04:13 Vitamin B12 185 pg/ml (180-914) 09/17/22 17:09 Folate 20.51 ng/ml (>5.38) 09/17/22 17:09 Urine Color Yellow 09/16/22 18:34 Urine Appearance Clear (Clear) 09/16/22 18:34 Urine pH 5.5 (4.5-7.5) 09/16/22 18:34 Ur Specific [place] 1.016 (1.000-1.030) 09/16/22 18:34 Urine Protein Trace (Negative) H 09/16/22 18:34 Urine Glucose (UA) Negative (Negative) 09/16/22 18:34 Urine Ketones Trace (Negative) H 09/16/22 18:34 Urine Blood Negative (Negative) 09/16/22 18:34 Urine Nitrite Negative (Negative) 09/16/22 18:34 Urine Bilirubin Negative (Negative) 09/16/22 18:34 Urine Urobilinogen Negative (Negative) 09/16/22 18:34 Ur Leukocyte Esterase Trace (Negative) H 09/16/22 18:34 Urine WBC (Auto) 1-5 /hpf (0-5) 09/16/22 18:34 Urine RBC (Auto) 0-4 /hpf (0-4) 09/16/22 18:34 U Hyaline Cast (Auto) 5-10 /lpf (0-5) H 09/16/22 18:34 U Epithel Cells (Auto) 20-30 /lpf (0-5) H 09/16/22 18:34 Urine Bacteria (Auto) Negative (Negative) 09/16/22 18:34 SARS-CoV-2, RNA, NAAT NEGATIVE (NEGATIVE) 09/16/22 16:35 Blood Type A Positive 09/16/22 17:23 Antibody Screen NEGATIVE 09/16/22 17:23 Direct Antiglob Test Negative (Negative) 09/16/22 17:23 NEHA (IgG-AHG) Neg (Negative) 09/16/22 17:23 NEHA, Polyspecific Neg (Negative) 09/16/22 17:23 NEHA C3b, C3d 5 Min Neg (Negative) 09/16/22 17:23 Crossmatch See Detail 09/16/22 17:23 Impressions Chest X-Ray 09/16/22 16:17 XR chest 1V portable CLINICAL HISTORY: Dyspnea. COMPARISON STUDY: Chest radiograph May 10, 2022. FINDINGS: Cardiomegaly is unchanged. There is no evidence for pulmonary edema. There is no consolidation. No pneumothorax or pleural effusion. IMPRESSION: No acute cardiopulmonary findings. No change in appearance of the chest. ACT 112: Negative or not required by law. Electronically signed by: Kanu Womack M.D. 09/16/2022 5:35 PM Shoulder X-Ray 09/19/22 12:13 XR shoulder LT min 2V routine CLINICAL HISTORY: Pain and swelling lt shoulder TECHNIQUE: 3 views of the left shoulder were obtained. Comparison: Comparison is made to left shoulder radiograph 05/26/2015 FINDINGS: There is no evidence of an acute fracture. Degenerative changes are seen in the glenohumeral joint. Soft tissue swelling is seen about the shoulder. The visualized portions of the lungs are clear. IMPRESSION: Soft tissue swelling without evidence of underlying bony abnormality. ACT 112: Negative or not required by law. Electronically signed by: Juan Carlos Kathleen M.D. 09/19/2022 12:50 PM
--- NOTE | 2022-09-21 12:41 | XRay Report ---
XR chest 1V portable CLINICAL HISTORY: Concern for pulmonary edema TECHNIQUE: Single frontal radiograph of the chest was obtained. Comparison: Comparison is made to chest radiograph 09/16/2022 FINDINGS: No lines and tubes are seen. The aorta is tortuous. The remainder of the cardiomediastinal silhouette is unremarkable. The lungs are clear. Bilateral blunting of the costophrenic angles noted. IMPRESSION: 1. No significant pulmonary edema. 2. Blunting of the costophrenic angles may represent trace effusions. ACT 112: Negative or not required by law. Electronically signed by: Juan Carlos Kathleen M.D. 09/21/2022 12:39 PM
--- NOTE | 2022-09-21 12:49 | Cardiology Progress Note ---
Date of Service September 21, 2022 Assessment & Plan (1) Chronic hypoxemic respiratory failure: (2) Symptomatic anemia: (3) Acute GI bleeding: (4) Bradycardia: (5) Paroxysmal atrial flutter: Plan Medically complex 77-year-old female found to have severe symptomatic anemia secondary to GI bleed. Hemoglobin improved status post several units of packed red blood cells by transfusion. Hbg 9.2 this morning. Stable Plan to repeat EGD in 3 months and needs colonoscopy - will need arranged/GI follow up on discharge Telemetry with findings of atrial flutter with 1:1 and now 2:1 conduction with improving HR's on IV amiodarone and IV diltiazem. Unfortunately patient has not converted to NSR. Increase metoprolol to 25 mg every 6 hours. Continue another 24 hours of IV medications in hopes she will convert to NSR. Plan to transition to oral diltiazem tomorrow. Likely will also stop amiodarone. Amiodarone not best choice of medication manager terminal given her underlying pulm disease. continue Eliquis with close monitoring for recurrent GI bleed. darya discussed with the patient's nurse at the nursing station. DVT prophy - Eliquis Case discussed with Dr. Watson I spent a total of 25 minutes on the date of service in preparation, delivery, and documentation of the care provided to this patient, excluding any time spent in the performance of separately billed services. Mary Mccauley PA-C Department of Cardiology, [facility] This chart was completed in part utilizing Speech Voice Recognition Software. Grammatical errors, random word insertions, pronoun errors, and incomplete sentences are an occasional consequence of this system due to software limitations, ambient noise, and hardware issues. Any formal questions or concerns about the content, text, or information contained within the body of this dictation should be directly addressed to the provider for clarification. Admission and Anticipated Discharge Date Admission Date: September 16, 2022 Supervising Physician Co-Signing Physician Notes Supervising Physician Attestation: I have personally performed a history and physical examination on the patient. I agree with the physician pharmacy technician assistant's findings and plan as documented with the following additions. Subjective: Patient remains in atrial flutter with rates in the range to 80 to 90 bpm, on ongoing IV amiodarone, IV diltiazem. Remains on Eliquis. Respiratory status stable. No subjective palpitations. As noted, patient has had progressive left shoulder discomfort, and had been seen by orthopedics earlier today. There is swelling and erythema over her shoulder and decreased range of motion. 20 cc of cloudy yellow fluid aspirated from her left shoulder at the time of orthopedic evaluation and sent for Gram stain and culture. Exam: Cardiovascular regular rhythm, no murmurs, no edema Pulm: Clear to auscultation bilaterally Musculoskeletal: Erythema over left shoulder Data: Erythrocyte sedimentation rate 77 mm/h Assessment and Plan: -Chronic hypoxic respiratory failure -Atrial flutter -Presented with severe anemia, likely due to chronic GI blood loss/gastritis in the setting of anticoagulation -Left shoulder pain, effusion, rule out septic joint. * Metoprolol tartrate increased to 25 mg p.o. 4 times daily today which she is currently tolerating well from a pulmonary standpoint. * She remains on diltiazem infusion at 5 mg/h * She remains on amiodarone infusion * Agree with vancomycin given shoulder complaints. We will likely discontinue IV amiodarone and diltiazem tomorrow. She is tolerating metoprolol from a lung standpoint. Orlin Watson, DO Subjective Patient just finished with PT this morning and reports feeling well. SOB improved and back at baseline. No evidence of recurrent GI bleeding. No fever, cough, chills. no sense of palpitations or tachypalpitations. No dizziness or lightheadedness. Remains in atrial fibrillation but rates are improving. Review of Systems Review of Systems: All systems reviewed & are unremarkable except as noted in HPI & below Physical Exam Constitutional: + thin; no acute distress Eyes: PERRL, conjunctivae normal, anicteric sclerae Neck: normal visual inspection and trachea midline Respiratory: normal respiratory effort, lungs clear to auscultation normal respiratory effort; no respiratory distress and no labored breathing Auscultation: + rhonchi and + wheezes Cardiovascular: RRR, no murmur, no edema Rate/Rhythm: regular rate, regular rhythm and + tachycardic Heart Sounds: normal S1, normal S2 and + murmur (+ 1/6 systolic murmur) Vessels: no JVD Extremities: no edema Gastrointestinal (Abdomen): normal bowel sounds, soft, nontender, no hepatosplenomegaly Percussion/Palpation: abdomen soft; abdomen nontender Skin: no rashes, warm and dry Neurologic: PERRL, EOMI, accommodation nl, no face palsy, no dysarthria Psychiatric: A+Ox3, euthymic affect Results & Data Vital Signs (Past 12 Hours) Vital Signs Temp Pulse Pulse Resp BP Pulse Ox O2 Del Method 09/21/22 09:30 84 09/21/22 09:30 Nasal Cannula 09/21/22 07:53 36.7 C 108 H 21 145/97 H 93 Nasal Cannula 09/21/22 07:21 88 20 97 Nasal Cannula 09/21/22 04:04 36.6 C 84 16 100/78 98 Room Air, Nasal Cannula O2 Flow Rate 09/21/22 09:30 09/21/22 09:30 3 09/21/22 07:53 3 09/21/22 07:21 3 09/21/22 04:04 4 Laboratory Results CBC 09/21/22 Range/Units 06:31 WBC 6.32 (4.8-10.8) K/ul RBC 4.00 L (4.20-5.40) M/uL Hgb 9.2 L (12.0-16.0) g/dl Hct 30.7 L (37.0-47.0) % Plt Count 143 (130-400) K/uL Neut # (Auto) 5.41 (1.40-6.50) K/uL Lymph # (Auto) 0.29 L (1.2-3.4) K/uL [place] # (Auto) 0.54 (0.11-0.59) K/uL Eos # (Auto) 0.03 (0-0.50) K/uL Baso # (Auto) 0.01 (0-0.2) K/uL Comprehensive Metabolic Panel 09/21/22 Range/Units 06:31 Sodium 136 (136-145) mmol/L Potassium 3.6 (3.5-5.1) mmol/L Chloride 100 (98-107) mmol/L Carbon Dioxide 29 (21-32) mmol/L BUN 12 (6-23) mg/dl Creatinine 0.59 L (0.6-1.2) mg/dl Glucose 112 H (70-99(Fasting)) mg/dl Calcium 9.2 (8.6-10.3) mg/dl Intake and Output 09/20/22 09/21/22 09/21/22 22:59 06:59 14:59 Intake Total 278.133 / 1757.373 854.240 / 1757.373 Output Total 675 / 725 50 / 725 Balance -396.867 / 1032.373 804.240 / 1032.373 Intake: IV 178.133 / 1057.373 614.240 / 1057.373 Amiodarone / D5w 360 mg In 200 178.133 / 423.623 245.490 / 423.623 ml @ 0.5 MG/MIN 16.667 mls/hr IV .Q12H [facility] Rx#:[id number] Vancomycin HCl 750 mg In Sodium 265 / 265 Chloride 0.9% 250 ml @ 200 mls /hr IV Q12H [facility] Rx#:[id number] dilTIAZem HCL 125 mg In 103.750 / 103.750 Dextrose 5% 100 ml @ 5 MG/HR 5 mls/hr IV .Q24H [facility] Rx#: [id number] Oral 100 / 700 240 / 700 Output: Urine 675 / 725 50 / 725 Other: Weight 55.6 kg Weight Measurement Method Built in [facility] Diagnostic Findings Telemetry reviewed: Atrial flutter with controlled rates ranging 80-90 bpm. Increasing to 110 with exertion. EKG this morning reviewed: Atrial flutter 2:1 with controlled ventricular response. Compared with prior EKG, HR has improved and ST depression improved. Chest xray today: IMPRESSION: 1. No significant pulmonary edema. 2. Blunting of the costophrenic angles may represent trace effusions. Medications Administered Current Inpatient Medications Acetaminophen (Acetaminophen 325 Mg Tab) 650 mg PO Q4H PRN PRN Reason: Pain or Fever Stop: 10/16/22 19:43 Last Admin: 09/20/22 08:36 Dose: 650 mg Albuterol (Albuterol 0.083% Nebu Soln 3 Ml Vial) 2.5 mg NEB Q6R PRN; Protocol PRN Reason: sob/wheezing Stop: 10/16/22 19:43 Last Admin: 09/18/22 07:03 Dose: 2.5 mg Albuterol (Albut/Ipratrop 3mg/0.5mg Neb 3 Ml Vial) 3 ml NEB BIDR [facility]; Protocol Stop: 10/18/22 18:59 Last Admin: 09/21/22 07:19 Dose: 3 ml Apixaban (Apixaban 5 Mg Tablet) 5 mg PO BID [facility] Stop: 10/18/22 20:59 Last Admin: 09/21/22 08:59 Dose: 5 mg Atorvastatin Calcium (Atorvastatin 40 Mg Tab) 80 mg PO QAM [facility] Stop: 10/17/22 08:59 Last Admin: 09/21/22 09:00 Dose: 80 mg Bupropion HCl (Bupropion Sr 150 Mg Tabcr) 150 mg PO AMHS [facility] Stop: 10/16/22 20:59 Last Admin: 09/21/22 08:59 Dose: 150 mg Fluticasone Furoate (Fluticasone Furoate 100mcg 14 Puffs/Inhaler) 1 puffs INH QAM [facility] Stop: 10/17/22 08:59 Last Admin: 09/21/22 09:02 Dose: 1 puffs Gabapentin (Gabapentin 300 Mg Cap) 300 mg PO BID [facility] Stop: 10/16/22 20:59 Last Admin: 09/21/22 08:59 Dose: 300 mg Guaifenesin (Guaifenesin 600 Mg Tabcr) 600 mg PO Q12 [facility] Stop: 10/16/22 20:59 Last Admin: 09/21/22 08:59 Dose: 600 mg Amiodarone HCl/Dextrose (Nexterone / D5w) 360 mg in 200 mls @ 16.667 mls/hr IV .Q12H [facility] Stop: 10/19/22 17:44 Last Infusion: 09/21/22 06:57 Dose: 0.5 mg/min, 16.7 mls/hr Diltiazem HCl 125 mg/ Dextrose 125 mls @ 5 mls/hr IV .Q24H [facility]; Protocol Stop: 10/20/22 09:14 Last Titration: 09/21/22 06:57 Dose: 5 mg/hr, 5 mls/hr Vancomycin HCl 750 mg/ Sodium (Chloride) 265 mls @ 200 mls/hr IV Q12H [facility]; Protocol Stop: 09/28/22 00:00 Last Admin: 09/21/22 11:34 Dose: 200 mls/hr Lisinopril (Lisinopril 20 Mg Tab) 20 mg PO QAM [facility] Stop: 10/21/22 08:59 Last Admin: 09/21/22 08:59 Dose: 20 mg Metoprolol Tartrate (Metoprolol Tartrate 25 Mg Tab) 25 mg PO QID [facility] Stop: 10/21/22 08:59 Last Admin: 09/21/22 12:16 Dose: 25 mg Miscellaneous Information (Vancomycin Consult Active) 1 each N/A UD PRN PRN Reason: Consult Stop: 10/20/22 12:10 Ondansetron HCl (Ondansetron Inj 2 Mg/Ml 2 Ml Vial) 4 mg IV Q6H PRN PRN Reason: Nausea Stop: 10/16/22 19:43 Pantoprazole Sodium (Pantoprazole 40 Mg Tab) 40 mg PO BID [facility] Stop: 10/20/22 20:59 Last Admin: 09/21/22 08:59 Dose: 40 mg Potassium Chloride (Potassium Chloride 10 Meq Tabcr) 10 meq PO AMHS [facility] Stop: 10/17/22 08:59 Last Admin: 09/18/22 08:47 Dose: 10 meq Sucralfate (Sucralfate 1 Gm/10 Ml Udc) 1 gm PO BID [facility] Stop: 10/17/22 20:59 Last Admin: 09/21/22 09:02 Dose: 1 gm Tramadol HCl (Tramadol Hcl 50 Mg Tablet) 25 mg PO Q6H PRN PRN Reason: Pain Stop: 10/20/22 11:35 Last Admin: 09/21/22 00:06 Dose: 25 mg Umeclidinium/Vilanterol (Umeclidinium/Vilanterol 62.5/25mcg 7 Puffs/Inhaler) 1 p[facility] [place]: 10/17/22 08:59 Last Admin: 09/21/22 09:02 Dose: 1 puffs Vitamin D (Cholecalciferol 1,000 Units 25 Mcg Tab) 1,000 units PO QAM [facility] Stop: 10/17/22 08:59 Last Admin: 09/21/22 09:00 Dose: 1,000 units
--- NOTE | 2022-09-21 15:13 | Electrocardiogram Report ---
Test Reason : Blood Pressure : / mmHG Vent. Rate : 090 BPM Atrial Rate : 241 BPM P-R Int : 000 ms QRS Dur : 086 ms QT Int : 344 ms P-R-T Axes : 000 089 269 degrees QTc Int : 420 ms Atrial flutter with variable A-V block Anteroseptal infarct (cited on or before 19-SEP-2022) Abnormal ECG When compared with ECG of 19-SEP-2022 11:20, Vent. rate has decreased BY 47 BPM Confirmed by Dru Castro ([id number]) on 09/21/2022 3:13:23 PM Referred By: REFERRED SELF Confirmed By:Dru Castro
[2022-09-21] MEDS ORDERED: MoRPHine SULFATE 2 MG/ML CARP IV ONE (16:40)
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
[2022-09-21 19:58] LABS: Appearance Synovial Fluid Turbid; Color Synovial Fluid Brown; RBC Synovial Fluid Auto < 2000 /uL; Source Synovial Fluid Other; WBC Synovial Fluid Auto 124800 /ul (0-200)
--- NOTE | 2022-09-21 21:42 | Magnetic Resonance Report ---
Exam(s): MRI LEFT SHOULDER Without Contrast EXAM: MR Left Upper Extremity Without Intravenous Contrast, Shoulder CLINICAL HISTORY: Reason for exam: r/o septic shoulder. TECHNIQUE: Multiplanar magnetic resonance images of the left shoulder without intravenous contrast. COMPARISON: No relevant prior studies available. FINDINGS: Full-thickness full width tears of both the supraspinatus and infraspinatus. There is tendon retraction to the level of the glenoid. Moderate to severe muscular atrophy within both. Teres minor is intact. Partial-thickness tearing of the superior fibers of the subscapularis. High riding humeral head. Broad areas of full-thickness cartilage loss along the superior humeral head and superior aspect of the glenoid. Circumferential maceration of the labrum. The biceps appears to be torn within the intra-articular segment. Large joint effusion. Mild pericapsular edema and edema within the deltoid. No abscess. Reactive appearing lymph nodes within the left axilla. Mild degenerative changes at the acromioclavicular joint. No evidence of osteomyelitis. IMPRESSION: 1. Full thickness full width tears of the supraspinatus and infraspinatus with tendon retraction and moderate to severe atrophy. 2. Tearing of the superior fibers of the subscapularis. 3. Broad areas of full-thickness cartilage loss. 4. Circumferential degenerative related maceration of the labrum. 5. Long head of the biceps appears torn in the intra-articular segment. 6. Large joint effusion with synovitis. Most likely related to the above findings. Septic arthritis considered less likely but cannot be excluded. Consider tapping the large effusion with fluid analysis. Electronically signed by: Carlos Manuel Ontiveros MD 09/21/22 21:41 PM
[2022-09-22] MEDS: VANCOMYCIN HCL 750 MG in SODIUM CHLORIDE 0.9% 250 ML IV SCH (00:14)
[2022-09-22] MEDS: AMIODARONE / D5W 360 MG/200 ML BAG IV SCH ×2 (01:13→12:32)
[2022-09-22] MEDS: ALBUT/IPRATROP 3MG/0.5MG NEB 3 ML VIAL NEB SCH ×2 (07:09→19:05)
[2022-09-22] MEDS: dilTIAZem HCL 125 MG in DEXTROSE 5% 100 ML IV SCH (07:37)
[2022-09-22 08:16] LABS: Basophils # (auto) 0.02 K/uL (0-0.2); Basophils % (auto) 0.5 %; Eosinophils # (auto) 0.04 K/uL (0-0.50); Eosinophils % (auto) 0.9 %; Hematocrit (blood only) 30.4 % (37.0-47.0); Immature Granulocytes # (auto) 0.02 K/uL (0.01-0.20); Immature Granulocytes % (auto) 0.5 %; Lymphocytes # (auto) 0.33 K/uL (1.2-3.4); Lymphocytes % (auto) 7.5 %; Mean Corpuscular Hemoglobin 23.4 pg (25.0-34.0); Mean Corpuscular Hgb Conc 29.6 g/dL (32.0-36.0); Monocytes # (auto) 0.34 K/uL (0.11-0.59); Monocytes % (auto) 7.7 %; Neutrophils # (auto) 3.65 K/uL (1.40-6.50); Neutrophils % (auto) 82.9 %; Platelet Count 180 K/uL (130-400); RDW Coefficient of Variation 22.7 % (11.5-14.5); RDW Standard Deviation 63.6 fL (36.4-46.3); Red Blood Count 3.85 M/uL (4.20-5.40)
[2022-09-22 08:31] LABS: BUN Creatinine Ratio 18.2 (10-20); Calcium 9.3 mg/dl (8.6-10.3); Creatinine Clr Calc Pharmacy 60.9 ml/min; Est GFR (African American) 100.2 ml/min; Est GFR (Non-African American) 86.4 ml/min
[2022-09-22 08:34] LABS: Anisocytosis Present; Ovalocytes 1+; Tear Drop Cells 1+
[2022-09-22] MEDS: PANTOprazole 40 MG TAB PO SCH (09:10)
[2022-09-22] MEDS: FLUTICASONE FUROATE 100MCG 14 PUFFS/INHALER INH SCH (09:10)
[2022-09-22] MEDS: UMECLIDINIUM/VILANTEROL 62.5/25MCG 7 PUFFS/INHALER INH SCH (09:10)
[2022-09-22] MEDS: SUCRALFATE 1 GM/10 ML UDC PO SCH ×2 (09:11→20:09)
[2022-09-22] MEDS: buPROPion SR 150 MG TABCR PO SCH ×2 (09:11→20:09)
[2022-09-22] MEDS: METOPROLOL TARTRATE 25 MG TAB PO SCH ×4 (09:11→20:09)
[2022-09-22] MEDS: guaiFENesin 600 MG TABCR PO SCH ×2 (09:11→20:09)
[2022-09-22] MEDS: GABAPENTIN 300 MG CAP PO SCH ×2 (09:11→20:09)
[2022-09-22] MEDS: lisinopril 20 MG TAB PO SCH (09:11)
[2022-09-22] MEDS: CHOLECALCIFEROL 1,000 UNITS 25 MCG TAB PO SCH (09:12)
[2022-09-22] MEDS: ATORVASTATIN 40 MG TAB PO SCH (09:12)
[2022-09-22] MEDS: VANCOMYCIN HCL 1,250 MG in SODIUM CHLORIDE 0.9% 250 ML IV SCH ×2 (09:45→21:46)
--- NOTE | 2022-09-22 11:44 | Hospitalist Progress Note ---
Date of Service September 22, 2022 Assessment & Plan (1) Acute GI bleeding: Plan: This is a 77-year-old female who has significant past medical history of chronic hypoxic respiratory failure on 2 to 3 L of oxygen, COPD, CAD, chronic diastolic CHF, hypertension, pulmonary hypertension, PFO, wandering atrial pacemaker, hyperlipidemia, senile osteoporosis, meningioma, iron deficiency anemia, tobacco use disorder, AAA status postrepair who presents to ED secondary to worsening shortness of breath for the last 2 to 3 weeks. FOBT positive, EGD with esophagitis and gastritis as below but no active bleeding, S/p 3 U PRBC. Symptomatic Anemia/Iron deficiency anemia due to chronic GI blood loss Vit B12 deficiency - Hb dropped from baseline of >11 in May to 6 on admission - Heme positive in ED, stool occult blood positive but no overt bleeding noted. Ferritin 7.6, Iron 17. Hemolysis panel negative. PBS for parasites negative. Folate normal, B12 low normal. - EGD 09/17 with gastritis and mild esophagitis - s/p 3 U PRBC and Hb now stabilized. - Continue PPI and carafate - Seen by GI- recommendations noted as below Iron supplement for 3 months Protonix 40 mg per day Carafate 1 gm bid x 12 weeks OP colonoscopy to be arranged Repeat EGD in 3 months for surveillance of Gastritis Biopsy result is pending Clinically much better and the hemoglobin remains stable at 9.0 Acute left shoulder pain(likely septic arthritis) Left shoulder noted to have acutely inflamed with swelling, redness and tenderness since September 19, 2022. X-ray of the shoulder did not show soft tissue swelling but no bony abnormalities Labs reviewed; ESR initially 42; increased to 77. CRP markedly elevated as well. MRI shoulder reviewed; large joint effusion with synovitis present. Discussed with orthopedics; plan was to do joint aspiration. It was done on August. Results of the aspiration reviewed; consistent with septic arthritis with WBC count of greater than 100,000 ( 95% N) Gram stain shows WBC. Culture negative so far. Continue on vancomycin for now Blood culture obtained Plan for I&D as per orthopedics. Eliquis at hold. (2) Atrial fibrillation with rapid ventricular response: Plan: Paroxysmal a flutter Cardiology on board. Currently restarted on Eliquis. Currently on IV Cardizem and amiodarone. Ventricular rate well controlled. We will follow-up on recommendation from cardiology. (3) Symptomatic anemia: Plan: As above (4) AP (acute kidney injury): Plan: AP- cr improved 1.24->1. Baseline around 0.7-0.8. Resume Lasix. Lisinopril currently on hold as patient is started on IV Cardizem as well. (5) CAD (coronary artery disease): Plan: CAD Diastolic CHF troponin minimally elevated, flat trend, likely demand ischemia in setting of anemia, pt without chest pain Patient appears to be in increasing shortness of breath on September 21, 2022. Will rule out acute on chronic diastolic heart failure. Chest x-ray reviewed; mild vascular congestion. Resume home dose of Lasix (6) Chronic obstructive pulmonary disease: (7) Chronic hypoxemic respiratory failure: Plan: Chronic hypoxic resp failure on 2-3L of O2 COPD w/o exac continue trelegy DuoNebs twice daily Plan DVT ppx: Eliquis Dispo: Continues to be hospitalized due to septic arthritis and a flutter. DNR/DNI Admission and Anticipated Discharge Date Admission Date: September 16, 2022 Subjective Patient seen and examined at bedside. She reports that shoulder pain is slightly better. Her oxygenation is at baseline. Telemetry showed a flutter with controlled ventricular rate. Review of Systems Review of Systems: All systems reviewed & are unremarkable except as noted in Subjective Physical Exam Physical Exam: Constitutional: WD/WN, vitals as above, NAD, sitting up in bed, pleasant, conversing easily Respiratory: Bilateral crackles heard. Cardiovascular: Irregular, no murmur, no edema Vessels: no JVD or carotid bruit Chest: normal inspection of chest Abdomen: normal bowel sounds, soft, nontender, no hepatosplenomegaly Musculoskeletal: Left shoulder- joint effusion present, with redness overlying the skin. Slightly improvement in redness. Tenderness present. ROM limited by pain. Skin: no rashes, warm and dry normal turgor Neurologic: Grossly intact. Psychiatric: A+Ox3, euthymic affect Lymphatic: no cervical or axillary lymphadenopathy : deferred Results & Data Results & Data Vital Signs (Past 12 Hours) Vital Signs Temp Pulse Resp BP Pulse Ox O2 Del Method O2 Flow Rate 09/22/22 10:37 36.5 C 87 18 101/72 97 Nasal Cannula 3 09/22/22 10:00 Nasal Cannula 3 09/22/22 08:00 36.5 C 82 20 122/68 96 Nasal Cannula 3 09/22/22 07:09 77 18 96 Nasal Cannula 3 09/22/22 04:01 36.7 C 69 20 115/71 96 Nasal Cannula 2 09/21/22 23:54 37.0 C 70 16 112/77 99 Nasal Cannula 2 Laboratory Results Laboratory Results WBC 4.40 K/ul (4.8-10.8) L 09/22/22 07:50 RBC 3.85 M/uL (4.20-5.40) L 09/22/22 07:50 Hgb 9.0 g/dl (12.0-16.0) L 09/22/22 07:50 Hct 30.4 % (37.0-47.0) L 09/22/22 07:50 MCV 79.0 fL (80.0-100.0) L 09/22/22 07:50 MCH 23.4 pg (25.0-34.0) L 09/22/22 07:50 MCHC 29.6 g/dL (32.0-36.0) L 09/22/22 07:50 RDW Std Deviation 63.6 fL (36.4-46.3) H 09/22/22 07:50 RDW Coeff of [place] 22.7 % (11.5-14.5) H 09/22/22 07:50 Plt Count 180 K/uL (130-400) 09/22/22 07:50 MPV 11.0 fL (9.4-12.4) 09/22/22 07:50 Immature Gran % (Auto) 0.5 % 09/22/22 07:50 Neut % (Auto) 82.9 % 09/22/22 07:50 Lymph % (Auto) 7.5 % 09/22/22 07:50 [place] % (Auto) 7.7 % 09/22/22 07:50 Eos % (Auto) 0.9 % 09/22/22 07:50 Baso % (Auto) 0.5 % 09/22/22 07:50 Reticulocyte % (Auto) 1.4 % (0.5-2.0) 09/17/22 17:09 Neut # (Auto) 3.65 K/uL (1.40-6.50) 09/22/22 07:50 Lymph # (Auto) 0.33 K/uL (1.2-3.4) L 09/22/22 07:50 [place] # (Auto) 0.34 K/uL (0.11-0.59) 09/22/22 07:50 Eos # (Auto) 0.04 K/uL (0-0.50) 09/22/22 07:50 Baso # (Auto) 0.02 K/uL (0-0.2) 09/22/22 07:50 Reticulocyte # 0.05 10^6/uL (0.02-0.10) 09/17/22 17:09 Immature Gran # (Auto) 0.02 K/uL (0.01-0.20) 09/22/22 07:50 Polychromasia 1+ 09/20/22 06:22 Hypochromasia Present 09/17/22 04:13 Poikilocytosis Present 09/21/22 06:31 Anisocytosis Present 09/22/22 07:50 Tear Drop Cells 1+ 09/22/22 07:50 Ovalocytes 1+ 09/22/22 07:50 Peripher Smr Path Cons 09/17/22 17:09 ESR 77 mm/hr (0-30) H 09/21/22 17:22 Haptoglobin 144 mg/dL (43-212) 09/17/22 17:09 PT 11.8 Seconds (9.0-12.0) 09/16/22 16:35 INR 1.1 (0.9-1.1) 09/16/22 16:35 Sodium 141 mmol/L (136-145) 09/22/22 07:50 Potassium 3.0 mmol/L (3.5-5.1) L 09/22/22 07:50 Chloride 100 mmol/L (98-107) 09/22/22 07:50 Carbon Dioxide 34 mmol/L (21-32) H 09/22/22 07:50 Anion Gap 7 (3-11) 09/22/22 07:50 BUN 12 mg/dl (6-23) 09/22/22 07:50 Creatinine 0.66 mg/dl (0.6-1.2) 09/22/22 07:50 Est Cr Clr Drug Dosing 60.9 ml/min 09/22/22 07:50 Est GFR ( Amer) 100.2 ml/min 09/22/22 07:50 Est GFR (Non-Af Amer) 86.4 ml/min 09/22/22 07:50 BUN/Creatinine Ratio 18.2 (10-20) 09/22/22 07:50 Glucose 103 mg/dl (70-99(Fasting)) H 09/22/22 07:50 Estimat Average Glucose 120 mg/dl 09/17/22 04:13 Hemoglobin A1c 5.8 % (4.5-5.6) H 09/17/22 04:13 Uric Acid 3.7 mg/dl (2.6-7.2) 09/19/22 14:04 Calcium 9.3 mg/dl (8.6-10.3) 09/22/22 07:50 Magnesium 1.8 mg/dl (1.7-2.4) 09/17/22 04:13 Iron 17 mcg/dl (35-150) L 09/16/22 16:35 Unsaturated IBC 349 mcg/dl (155-355) 09/16/22 16:35 Transferrin 291 mg/dl (200-360) 09/16/22 16:35 Ferritin 7.6 ng/ml (8-388) L 09/16/22 16:35 Total Bilirubin 1.2 mg/dl (0.2-1.0) H D 09/17/22 04:13 AST 11 U/L (13-39) L 09/17/22 04:13 ALT 10 U/L (7-52) 09/17/22 04:13 Alkaline Phosphatase 50 U/L (34-104) 09/17/22 04:13 Lactate Dehydrogenase 214 U/L (86-244) 09/17/22 17:09 Troponin I High Sens 16.4 pg/ml (0-14) H 09/17/22 04:13 C-Reactive Protein 27.98 mg/dl (0-0.5) H 09/21/22 17:22 B-Natriuretic Peptide 668 pg/ml (0-100) H 09/16/22 16:35 Total Protein 5.3 gm/dl (6.0-8.3) L 09/17/22 04:13 Albumin 3.5 gm/dl (3.4-5.0) 09/17/22 04:13 Globulin 1.8 gm/dl (2.5-4.0) L 09/17/22 04:13 Albumin/Globulin Ratio 1.9 (0.9-2) 09/17/22 04:13 Vitamin B12 185 pg/ml (180-914) 09/17/22 17:09 Folate 20.51 ng/ml (>5.38) 09/17/22 17:09 Urine Color Yellow 09/16/22 18:34 Urine Appearance Clear (Clear) 09/16/22 18:34 Urine pH 5.5 (4.5-7.5) 09/16/22 18:34 Ur Specific [place] 1.016 (1.000-1.030) 09/16/22 18:34 Urine Protein Trace (Negative) H 09/16/22 18:34 Urine Glucose (UA) Negative (Negative) 09/16/22 18:34 Urine Ketones Trace (Negative) H 09/16/22 18:34 Urine Blood Negative (Negative) 09/16/22 18:34 Urine Nitrite Negative (Negative) 09/16/22 18:34 Urine Bilirubin Negative (Negative) 09/16/22 18:34 Urine Urobilinogen Negative (Negative) 09/16/22 18:34 Ur Leukocyte Esterase Trace (Negative) H 09/16/22 18:34 Urine WBC (Auto) 1-5 /hpf (0-5) 09/16/22 18:34 Urine RBC (Auto) 0-4 /hpf (0-4) 09/16/22 18:34 U Hyaline Cast (Auto) 5-10 /lpf (0-5) H 09/16/22 18:34 U Epithel Cells (Auto) 20-30 /lpf (0-5) H 09/16/22 18:34 Urine Bacteria (Auto) Negative (Negative) 09/16/22 18:34 Fluid Comment 09/21/22 16:30 Synovial Source Other 09/21/22 16:30 Synovial Color Brown 09/21/22 16:30 Synovial Appearance Turbid 09/21/22 16:30 Synovial WBC (Auto) 657988 /ul (0-200) H 09/21/22 16:30 Synovial RBC (Auto) < 2000 /uL 09/21/22 16:30 Synovial Polynuclear % 95.0 % 09/21/22 16:30 Synovial Mononuclear % 5.0 % 09/21/22 16:30 Synovial Crystals 09/21/22 16:30 Random Vancomycin 11.0 mcg/ml (10-20) 09/22/22 07:50 SARS-CoV-2, RNA, NAAT NEGATIVE (NEGATIVE) 09/16/22 16:35 Blood Type A Positive 09/16/22 17:23 Antibody Screen NEGATIVE 09/16/22 17:23 Direct Antiglob Test Negative (Negative) 09/16/22 17:23 NEHA (IgG-AHG) Neg (Negative) 09/16/22 17:23 NEHA, Polyspecific Neg (Negative) 09/16/22 17:23 NEHA C3b, C3d 5 Min Neg (Negative) 09/16/22 17:23 Crossmatch See Detail 09/16/22 17:23 Impressions Shoulder X-Ray 09/19/22 12:13 XR shoulder LT min 2V routine CLINICAL HISTORY: Pain and swelling lt shoulder TECHNIQUE: 3 views of the left shoulder were obtained. Comparison: Comparison is made to left shoulder radiograph 05/26/2015 FINDINGS: There is no evidence of an acute fracture. Degenerative changes are seen in the glenohumeral joint. Soft tissue swelling is seen about the shoulder. The visualized portions of the lungs are clear. IMPRESSION: Soft tissue swelling without evidence of underlying bony abnormality. ACT 112: Negative or not required by law. Electronically signed by: Juan Carlos Kathleen M.D. 09/19/2022 12:50 PM Chest X-Ray 09/21/22 12:06 XR chest 1V portable CLINICAL HISTORY: Concern for pulmonary edema TECHNIQUE: Single frontal radiograph of the chest was obtained. Comparison: Comparison is made to chest radiograph 09/16/2022 FINDINGS: No lines and tubes are seen. The aorta is tortuous. The remainder of the cardiomediastinal silhouette is unremarkable. The lungs are clear. Bilateral bl unting of the costophrenic angles noted. IMPRESSION: 1. No significant pulmonary edema. 2. Blunting of the costophrenic angles may represent trace effusions. ACT 112: Negative or not required by law. Electronically signed by: Juan Carlos Kathleen M.D. 09/21/2022 12:39 PM Shoulder MRI 09/21/22 17:13 Exam(s): MRI LEFT SHOULDER Without Contrast EXAM: MR Left Upper Extremity Without Intravenous Contrast, Shoulder CLINICAL HISTORY: Reason for exam: r/o septic shoulder. TECHNIQUE: Multiplanar magnetic resonance images of the left shoulder without intravenous contrast. COMPARISON: No relevant prior studies available. FINDINGS: Full-thickness full width tears of both the supraspinatus and infraspinatus. There is tendon retraction to the level of the glenoid. Moderate to severe muscular atrophy within both. Teres minor is intact. Partial-thickness tearing of the superior fibers of the subscapularis. High riding humeral head. Broad areas of full-thickness cartilage loss along the superior humeral head and superior aspect of the glenoid. Circumferential maceration of the labrum. The biceps appears to be torn within the intra-articular segment. Large joint effusion. Mild pericapsular edema and edema within the deltoid. No abscess. Reactive appearing lymph nodes within the left axilla. Mild degenerative changes at the acromioclavicular joint. No evidence of osteomyelitis. IMPRESSION: 1. Full thickness full width tears of the supraspinatus and infraspinatus with tendon retraction and moderate to severe atrophy. 2. Tearing of the superior fibers of the subscapularis. 3. Broad areas of full-thickness cartilage loss. 4. Circumferential degenerative related maceration of the labrum. 5. Long head of the biceps appears torn in the intra-articular segment. 6. Large joint effusion with synovitis. Most likely related to the above findings. Septic arthritis considered less likely but cannot be excluded. Consider tapping the large effusion with fluid analysis. Electronically signed by: Carlos Manuel Ontiveros MD 09/21/22 21:41 PM
[2022-09-22] MEDS ORDERED: POTASSIUM CHLORIDE CRTAB 20 MEQ TABCR PO STA (11:48)
--- NOTE | 2022-09-22 14:06 | Pharmacy Report ---
Pharmacy PK ABX Note - Date of Service September 22, 2022 - Assessment and Plan Assessment 77 year old F receiving Vancomycin for treatment of possible septic arthritis of right shoulder. * Day #3 of antimicrobial therapy. * Afebrile x 36 hours. ESR/CRP elevated. No leukocytosis. Renal fxn stable. * Underwent shoulder aspiration yesterday by ortho. Fluid analysis shows elevated white cells. Gram stain shows no organisms yet. Possibility of going to OR today for I&D of shoulder. Plan Vancomycin * Current regimen: 750 mg IV every 12 hours * Random level obtained 09/22/22 4 hours prior to next dose resulted as 11.0 mcg/mL. This is subtherapeutic. * Change to 1250 mg IV every 12 hours. AUC monitoring program predicting an AUC/STEVAN of 693 on this regimen which is above the goal of 400-600. However, given clinical experience in elderly women with low body weight, opting for this more aggressive regimen which I think will ultimately be therapeutic. If not, can back down dose. * Repeat random level ordered for: 09/24/22 Pharmacy will continue to follow and will adjust dose/frequency as necessary. Thank you. Pharmacy has transitioned to AUC monitoring for vancomycin. AUC/STEVAN is the preferred PK/PD target and is associated with decreased risk of nephrotoxicity compared to traditional trough targets.
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
[2022-09-22] MEDS ORDERED: fentaNYL citrate PF 100 MCG/2 ML VIAL ONE (15:15)
[2022-09-22] MEDS ORDERED: DEXAMETHASONE SOD INJ 4 MG/ML VIAL ONE (15:19)
[2022-09-22] MEDS ORDERED: ONDANSETRON INJ 2 MG/ML 2 ML VIAL ONE (15:19)
[2022-09-22] MEDS ORDERED: ROCURONIUM BROMIDE 10 MG/ML 5 ML VIAL IV ONE (15:19)
[2022-09-22] MEDS ORDERED: LIDOCAINE 2% 2 ML VIAL/AMP(20MG/ML) INFIL ONE (15:19)
[2022-09-22] MEDS ORDERED: PROPOFOL IV EMULSION 10 MG/ML 20 ML VIAL IV ONE (15:19)
[2022-09-22] MEDS ORDERED: EPINEPHrine HCL INJ 1 MG/ML 30ML ONE (16:17)
--- NOTE | 2022-09-22 16:54 | Orthopedic Progress Note ---
Date of Service September 22, 2022 Assessment & Plan (1) Effusion, left shoulder: Plan: Left shoulder effusion infectious until proven otherwise due to elevated white count and fluid appearance upon aspiration. Plan was for left shoulder arthroscopy with irrigation and debridement infected tissue and soft tissue biopsies for culture however patient's Eliquis was never discontinued. Patient has been off this 48 to 72 hours prior to any surgical procedure. Patient's not septic at this time and stable on IV antibiotics so we will have to wait appropriate time at least until Tuesday this week to have procedure performed. Eliquis has to be discontinued at this time. (2) Primary osteoarthritis, left shoulder: Admission and Anticipated Discharge Date Admission Date: September 16, 2022 Subjective Left shoulder feeling somewhat better since antibiotics and aspiration Physical Exam Physical Exam: Subacromial effusion present but not tense. Patient has telangiectasias of skin but no real erythema. Patient has pseudoparalysis limited use of arm with marked weakness. Results & Data Vital Signs (Past 12 Hours) Vital Signs Temp Pulse Pulse Resp BP Pulse Ox O2 Del Method 09/22/22 16:14 36.9 C 101 H 18 121/82 98 Nasal Cannula 09/22/22 14:23 98 H 18 110/81 09/22/22 13:08 36.6 C 75 18 115/67 97 Room Air 09/22/22 12:30 95 H 124/71 09/22/22 10:37 36.5 C 87 18 101/72 97 Nasal Cannula 09/22/22 10:00 Nasal Cannula 09/22/22 08:00 36.5 C 82 20 122/68 96 Nasal Cannula 09/22/22 07:09 77 18 96 Nasal Cannula O2 Flow Rate 09/22/22 16:14 3 09/22/22 14:23 09/22/22 13:08 09/22/22 12:30 09/22/22 10:37 3 09/22/22 10:00 3 09/22/22 08:00 3 09/22/22 07:09 3 Laboratory Results White blood cell count in aspirate was over 100,000 and cultures are negative to date however CRP is elevated ESR elevated. Diagnostic Findings MRI reviewed demonstrates massive retracted irreparable rotator cuff tear with rotator cuff arthropathy
--- NOTE | 2022-09-22 17:16 | Cardiology Progress Note ---
Date of Service September 22, 2022 Assessment & Plan (1) Chronic hypoxemic respiratory failure: (2) Symptomatic anemia: Plan: - Presenting hemoglobin was 6 g/dL, EGD revealed gastritis with no active bleeding, hemoglobin improved to 9 as of 09/22/2022 status post transfusion of packed red blood cells, IV iron infusion. (3) Bradycardia: (4) Paroxysmal atrial flutter: (5) Effusion, left shoulder: (6) Preoperative cardiovascular examination: Plan * Patient's Eliquis held with most recent dose on 09/21/2022 at 2100. * Start heparin bridge, low-dose, no bolus given recent anemia issues * Heparin bridge felt to be indicated due to stroke risk with ongoing atrial flutter * Discontinue IV amiodarone. Discontinue IV diltiazem. * Continue metoprolol tartrate 25 mg 4 times daily * Add oral, short acting diltiazem, 30 mg 3 times daily * Patient may require going back on the diltiazem infusion for rate control during shoulder surgery, but will transition to orals for now to see how she does. * Patient's chronic respiratory insufficiency appears to be at baseline at present. DVT prophylaxis: Patient to start unfractionated heparin infusion for stroke prophylaxis given atrial flutter. Case reviewed with Dr Juarez for the purpose of coordination of care. Admission and Anticipated Discharge Date Admission Date: September 16, 2022 Subjective Patient seen in cardiology follow-up. She describes a stable degree of chronic shortness of breath, and remains on 3 L nasal cannula oxygen supplementation. Denies subjective palpitations. Ongoing atrial flutter noted on telemetry with rates in the range of 70s to 80 bpm at rest. Left shoulder pain improved status post arthrocentesis yesterday. Per orthopedic progress note, suggest need for irrigation and debridement of the left shoulder after she has been off of her anticoagulation with Eliquis for the necessary amount of time. Physical Exam Constitutional: no acute distress Respiratory: normal respiratory effort, lungs clear to auscultation Cardiovascular: RRR, no murmur, no edema Gastrointestinal (Abdomen): normal bowel sounds, soft, nontender, no hepatosplenomegaly Neurologic: PERRL, EOMI, accommodation nl, no face palsy, no dysarthria Results & Data Vital Signs (Past 12 Hours) Vital Signs Temp Pulse Pulse Resp BP Pulse Ox O2 Del Method 09/22/22 16:58 36.8 C 86 18 108/79 96 Nasal Cannula 09/22/22 16:14 36.9 C 101 H 18 121/82 98 Nasal Cannula 09/22/22 14:23 98 H 18 110/81 09/22/22 13:08 36.6 C 75 18 115/67 97 Room Air 09/22/22 12:30 95 H 124/71 09/22/22 10:37 36.5 C 87 18 101/72 97 Nasal Cannula 09/22/22 10:00 Nasal Cannula 09/22/22 08:00 36.5 C 82 20 122/68 96 Nasal Cannula 09/22/22 07:09 77 18 96 Nasal Cannula O2 Flow Rate 09/22/22 16:58 3 09/22/22 16:14 3 09/22/22 14:23 09/22/22 13:08 09/22/22 12:30 09/22/22 10:37 3 09/22/22 10:00 3 09/22/22 08:00 3 09/22/22 07:09 3 Laboratory Results CBC 09/22/22 Range/Units 07:50 WBC 4.40 L (4.8-10.8) K/ul RBC 3.85 L (4.20-5.40) M/uL Hgb 9.0 L (12.0-16.0) g/dl Hct 30.4 L (37.0-47.0) % Plt Count 180 (130-400) K/uL Neut # (Auto) 3.65 (1.40-6.50) K/uL Lymph # (Auto) 0.33 L (1.2-3.4) K/uL [place] # (Auto) 0.34 (0.11-0.59) K/uL Eos # (Auto) 0.04 (0-0.50) K/uL Baso # (Auto) 0.02 (0-0.2) K/uL Comprehensive Metabolic Panel 09/22/22 Range/Units 07:50 Sodium 141 (136-145) mmol/L Potassium 3.0 L (3.5-5.1) mmol/L Chloride 100 (98-107) mmol/L Carbon Dioxide 34 H (21-32) mmol/L BUN 12 (6-23) mg/dl Creatinine 0.66 (0.6-1.2) mg/dl Glucose 103 H (70-99(Fasting)) mg/dl Calcium 9.3 (8.6-10.3) mg/dl Intake and Output 09/22/22 09/22/22 09/22/22 06:59 14:59 22:59 Intake Total 447.308 / 1449.262 748.876 / 748.876 Output Total 400 / 400 Balance 447.308 / -1150.738 348.876 / 348.876 Intake: IV 447.308 / 879.262 525.876 / 525.876 Amiodarone / D5w 360 mg In 200 182.308 / 289.345 188.710 / 188.710 ml @ 0.5 MG/MIN 16.667 mls/hr IV .Q12H HUGH Rx#:[id number] Vancomycin HCl 1,250 mg In 265 / 530 275 / 275 Sodium Chloride 0.9% 250 ml @ 200 mls/hr IV Q12H HUGH Rx#: [id number] dilTIAZem HCL 125 mg In 62.166 / 62.166 Dextrose 5% 100 ml @ 5 MG/HR 5 mls/hr IV .Q24H HUGH Rx#: [id number] Oral 50 / 50 Other 173 / 173 Output: Urine 400 / 400 Other: Other Intake Source NPO IV Weight 58 kg 58 kg Weight Measurement Method Built in [facility] Patient Weight 09/23/22 06:59 Weight 58 kg
[2022-09-22] MEDS ORDERED: Heparin IV Adult Wt-Based Low-Dose *NO* Bolus Protocol IV SCH (17:30)
[2022-09-22 18:28] LABS: Partial Thromboplastin Time 28.8 Seconds (21.0-31.0); Prothrombin Time 11.2 Seconds (9.0-12.0)
[2022-09-22] MEDS ORDERED: HEPARIN 25000 UNIT/500 ML D5W IV ONE (18:35)
[2022-09-22] MEDS: HEPARIN SODIUM/DEXTROSE 25,000 UNITS/500 ML BAG IV SCH (18:45)
[2022-09-22] MEDS: dilTIAZem HCL 30 MG TAB PO SCH (20:09)
[2022-09-23 01:05] LABS: Basophils # (auto) 0.02 K/uL (0-0.2); Basophils % (auto) 0.4 %; Eosinophils # (auto) 0.06 K/uL (0-0.50); Eosinophils % (auto) 1.1 %; Hematocrit (blood only) 27.7 % (37.0-47.0); Hemoglobin 8.2 g/dl (12.0-16.0); Immature Granulocytes # (auto) 0.01 K/uL (0.01-0.20); Immature Granulocytes % (auto) 0.2 %; Lymphocytes # (auto) 0.56 K/uL (1.2-3.4); Lymphocytes % (auto) 10.5 %; Mean Corpuscular Hemoglobin 23.4 pg (25.0-34.0); Mean Corpuscular Hgb Conc 29.6 g/dL (32.0-36.0); Mean Corpuscular Volume 79.1 fL (80.0-100.0); Mean Platelet Volume 10.7 fL (9.4-12.4); Monocytes # (auto) 0.48 K/uL (0.11-0.59); Neutrophils # (auto) 4.18 K/uL (1.40-6.50); Neutrophils % (auto) 78.8 %; Platelet Count 167 K/uL (130-400); RDW Coefficient of Variation 22.9 % (11.5-14.5); White Blood Count 5.31 K/ul (4.8-10.8)
[2022-09-23 01:21] LABS: BUN Creatinine Ratio 19.5 (10-20); Calcium 8.6 mg/dl (8.6-10.3); Creatinine Clr Calc Pharmacy 52.2 ml/min; Est GFR (African American) 87.5 ml/min; Est GFR (Non-African American) 75.5 ml/min; Potassium 3.6 mmol/L (3.5-5.1)
[2022-09-23 01:34] LABS: Anisocytosis Present; Partial Thromboplastin Ratio 1.2; Partial Thromboplastin Time 33.8 Seconds (21.0-31.0); Polychromasia 2+
[2022-09-23] MEDS ORDERED: HEPARIN SOD (PORCINE) 1000 UNIT/ML IV ONE (02:00)
[2022-09-23] MEDS: ALBUT/IPRATROP 3MG/0.5MG NEB 3 ML VIAL NEB SCH ×2 (07:08→19:26)
[2022-09-23] MEDS: METOPROLOL TARTRATE 25 MG TAB PO SCH ×4 (08:45→22:59)
[2022-09-23] MEDS: SUCRALFATE 1 GM/10 ML UDC PO SCH ×2 (08:45→23:00)
[2022-09-23] MEDS: UMECLIDINIUM/VILANTEROL 62.5/25MCG 7 PUFFS/INHALER INH SCH (08:45)
[2022-09-23] MEDS: FUROSEMIDE 40 MG TAB PO SCH (08:46)
[2022-09-23] MEDS: lisinopril 20 MG TAB PO SCH (08:46)
[2022-09-23] MEDS: FLUTICASONE FUROATE 100MCG 14 PUFFS/INHALER INH SCH (08:46)
[2022-09-23] MEDS: PANTOprazole 40 MG TAB PO SCH (08:46)
[2022-09-23] MEDS: CHOLECALCIFEROL 1,000 UNITS 25 MCG TAB PO SCH (08:46)
[2022-09-23] MEDS: ATORVASTATIN 40 MG TAB PO SCH (08:46)
[2022-09-23] MEDS: dilTIAZem HCL 30 MG TAB PO SCH ×3 (08:47→22:59)
[2022-09-23] MEDS: buPROPion SR 150 MG TABCR PO SCH ×2 (08:47→23:00)
[2022-09-23] MEDS: GABAPENTIN 300 MG CAP PO SCH ×2 (08:47→23:00)
[2022-09-23] MEDS: guaiFENesin 600 MG TABCR PO SCH ×2 (08:47→22:59)
[2022-09-23 09:19] LABS: Partial Thromboplastin Time 28.5 Seconds (21.0-31.0)
[2022-09-23] MEDS: VANCOMYCIN HCL 1,000 MG in SODIUM CHLORIDE 0.9% 250 ML IV SCH ×2 (09:48→22:59)
--- NOTE | 2022-09-23 10:02 | Cardiology Progress Note ---
Date of Service September 23, 2022 Assessment & Plan (1) Chronic hypoxemic respiratory failure: (2) Symptomatic anemia: Plan: - Presenting hemoglobin was 6 g/dL, EGD revealed gastritis with no active bleeding, hemoglobin improved to 9 as of 09/22/2022 , 8.2 on 09/23/2022 status post transfusion of packed red blood cells, IV iron infusion. (3) Bradycardia: (4) Paroxysmal atrial flutter: (5) Effusion, left shoulder: (6) Preoperative cardiovascular examination: Plan -Patient to undergo left shoulder arthroscopy and debridement tomorrow. -Continue heparin bridge today for stroke prophylaxis given atrial flutter - IV amiodarone and IV diltiazem discontinued yesterday -Continue metoprolol 25 mg q 6 hours -Continue diltiazem 30 mg - 3 times daily -HR's controlled in the 80's currently -Patient's chronic respiratory insufficiency appears to be at baseline at present. -Continue antibiotics for septic shoulder and await debridement. -Hbg remains stable after GI bleed. DVT prophylaxis: Patient to start unfractionated heparin infusion for stroke prophylaxis given atrial flutter. Case discussed with Dr. watson I spent a total of 30 minutes on the date of service in preparation, delivery, and documentation of the care provided to this patient, excluding any time spent in the performance of separately billed services. Mary Mccauley PA-C Department of Cardiology, [facility] This chart was completed in part utilizing Speech Voice Recognition Software. Grammatical errors, random word insertions, pronoun errors, and incomplete sentences are an occasional consequence of this system due to software limitations, ambient noise, and hardware issues. Any formal questions or concerns about the content, text, or information contained within the body of this dictation should be directly addressed to the provider for clarification. Admission and Anticipated Discharge Date Admission Date: September 16, 2022 Supervising Physician Co-Signing Physician Notes Supervising Physician Attestation: I have personally performed a history and physical examination on the patient. I agree with the physician speech pathology assistant's findings and plan as documented with the following additions. Subjective: Patient denies chest discomfort, shortness of breath, or subjective p alpitations. Left shoulder still hurts, but improved compared to 2 days ago, which was before the arthrocentesis procedure. Telemetry reveals ongoing atrial flutter, ventricular rate controlled in the 80s to 90s. Exam: Pulmonary: Mild inspiratory wheezing, baseline Cardiovascular: Regular rhythm, no murmurs, no edema Data: EKG performed 09/21/2022 and interpreted dependently: Atrial flutter with variable conduction at 90 bpm. Chronic, nonspecific repolarization changes. Assessment and Plan: Atrial flutter: Most recent dose of Eliquis was administered on 09/21/2022 at 2102. Heparin drip initiated on 09/22/2022. If shoulder surgery planned for 09/24, we will need to hold the heparin for the amount of time directed as per orthopedics. Unless ortho suggests otherwise will hold heparin at 3 am on 09/24/22. With regards to rate control, continue with Toprol tartrate 25 mg 4 times daily, diltiazem 30 mg 3 times daily. Preoperative assessment. Stable from cardiac perspective to undergo shoulder intervention if deemed indicated. DVT prophylaxis: Patient currently on unfractioned heparin infusion Orlin Watson, DO Subjective Patient resting in chair. Feeling well. SOB at baseline. NO fever or chills. Ongoing left shoulder pain noted. Denies chest pain or dizziness. HR's improved. Transitioned off IV amiodarone and IV diltiazem yesterday. HR's remain well controlled in 80-90's Review of Systems Review of Systems: All systems reviewed & are unremarkable except as noted in HPI & below Physical Exam Constitutional: + thin; no acute distress Eyes: PERRL, conjunctivae normal, anicteric sclerae Neck: normal visual inspection and trachea midline Respiratory: normal respiratory effort; no respiratory distress and no labored breathing Auscultation: + rhonchi and + wheezes Cardiovascular: Rate/Rhythm: regular rate, regular rhythm and + tachycardic Heart Sounds: normal S1, normal S2 and + murmur (+ 1/6 systolic murmur) Vessels: no JVD Extremities: no edema Gastrointestinal (Abdomen): normal bowel sounds, soft, nontender, no hepatosplenomegaly Percussion/Palpation: abdomen soft; abdomen nontender Skin: no rashes, warm and dry Neurologic: PERRL, EOMI, accommodation nl, no face palsy, no dysarthria Psychiatric: A+Ox3, euthymic affect Results & Data Vital Signs (Past 12 Hours) Vital Signs Temp Pulse Pulse Resp BP Pulse Ox O2 Del Method 09/23/22 07:24 90 20 97 Nasal Cannula 09/23/22 07:02 36.7 C 82 18 125/85 95 Nasal Cannula 09/23/22 02:48 36.8 C 75 18 106/72 99 Nasal Cannula 09/22/22 23:19 90 09/22/22 23:00 37.0 C 92 H 18 100/71 98 Nasal Cannula O2 Flow Rate 09/23/22 07:24 4 09/23/22 07:02 09/23/22 02:48 3 09/22/22 23:19 09/22/22 23:00 3 Laboratory Results Coagulation 09/22/22 09/23/22 09/23/22 Range/Units 17:34 00:54 08:03 PT 11.2 (9.0-12.0) Seconds APTT 28.8 33.8 H 28.5 (21.0-31.0) Seconds CBC 09/23/22 Range/Units 00:54 WBC 5.31 (4.8-10.8) K/ul RBC 3.50 L (4.20-5.40) M/uL Hgb 8.2 L (12.0-16.0) g/dl Hct 27.7 L (37.0-47.0) % Plt Count 167 (130-400) K/uL Neut # (Auto) 4.18 (1.40-6.50) K/uL Lymph # (Auto) 0.56 L (1.2-3.4) K/uL [place] # (Auto) 0.48 (0.11-0.59) K/uL Eos # (Auto) 0.06 (0-0.50) K/uL Baso # (Auto) 0.02 (0-0.2) K/uL Comprehensive Metabolic Panel 09/23/22 Range/Units 00:54 Sodium 140 (136-145) mmol/L Potassium 3.6 (3.5-5.1) mmol/L Chloride 104 (98-107) mmol/L Carbon Dioxide 31 (21-32) mmol/L BUN 15 (6-23) mg/dl Creatinine 0.77 (0.6-1.2) mg/dl Glucose 110 H (70-99(Fasting)) mg/dl Calcium 8.6 (8.6-10.3) mg/dl Intake and Output 09/22/22 09/23/22 09/23/22 22:59 06:59 14:59 Intake Total 231.998 / 1450.341 469.467 / 1450.341 Output Total 50 / 450 Balance 231.998 / 1000.341 419.467 / 1000.341 Intake: IV 131.998 / 1027.341 369.467 / 1027.341 Amiodarone / D5w 360 mg In 200 82.665 / 271.375 ml @ 0.5 MG/MIN 16.667 mls/hr IV .Q12H [facility] Rx#:[id number] Heparin Sodium/Dextrose 25,000 94.467 / 94.467 units In 500 ml @ 750 UNITS/HR 15 mls/hr IV .Q24H [facility] Rx#: [id number] Vancomycin HCl 1,250 mg In 275 / 550 Sodium Chloride 0.9% 250 ml @ 200 mls/hr IV Q12H [facility] Rx#: [id number] dilTIAZem HCL 125 mg In 49.333 / 111.499 Dextrose 5% 100 ml @ 5 MG/HR 5 mls/hr IV .Q24H [facility] Rx#: [id number] Oral 100 / 250 100 / 250 Output: Urine 50 / 450 Other: Weight 58 kg 57.1 kg Weight Measurement Method Built in [facility] Diagnostic Findings Telemetry reviewed: Atrial flutter 80-90's Shoulder MRI reviewed: IMPRESSION: 1. Full thickness full width tears of the supraspinatus and infraspinatus with tendon retraction and moderate to severe atrophy. 2. Tearing of the superior fibers of the subscapularis. 3. Broad areas of full-thickness cartilage loss. 4. Circumferential degenerative related maceration of the labrum. 5. Long head of the biceps appears torn in the intra-articular segment. 6. Large joint effusion with synovitis. Most likely related to the above findings. Septic arthritis considered less likely but cannot be excluded. Consider tapping the large effusion with fluid analysis. Medications Administered Current Inpatient Medications Acetaminophen (Acetaminophen 325 Mg Tab) 650 mg PO Q4H PRN PRN Reason: Pain or Fever Stop: 10/16/22 19:43 Last Admin: 09/20/22 08:36 Dose: 650 mg Albuterol (Albuterol 0.083% Nebu Soln 3 Ml Vial) 2.5 mg NEB Q6R PRN; Protocol PRN Reason: sob/wheezing Stop: 10/16/22 19:43 Last Admin: 09/18/22 07:03 Dose: 2.5 mg Albuterol (Albut/Ipratrop 3mg/0.5mg Neb 3 Ml Vial) 3 ml NEB BIDR [facility]; Protocol Stop: 10/18/22 18:59 Last Admin: 09/23/22 07:08 Dose: 3 ml Atorvastatin Calcium (Atorvastatin 40 Mg Tab) 80 mg PO QAM [facility] Stop: 10/17/22 08:59 Last Admin: 09/23/22 08:46 Dose: 80 mg Bupropion HCl (Bupropion Sr 150 Mg Tabcr) 150 mg PO AMHS [facility] Stop: 10/16/22 20:59 Last Admin: 09/23/22 08:47 Dose: 150 mg Diltiazem HCl (Diltiazem Hcl 30 Mg Tab) 30 mg PO TID [facility] Stop: 10/22/22 20:59 Last Admin: 09/23/22 08:47 Dose: 30 mg Fluticasone Furoate (Fluticasone Furoate 100mcg 14 Puffs/Inhaler) 1 puffs INH QAM [facility] Stop: 10/17/22 08:59 Last Admin: 09/23/22 08:46 Dose: 1 puffs Furosemide (Furosemide 40 Mg Tab) 40 mg PO QAM [facility] Stop: 10/23/22 08:59 Last Admin: 09/23/22 08:46 Dose: 40 mg Gabapentin (Gabapentin 300 Mg Cap) 300 mg PO BID [facility] Stop: 10/16/22 20:59 Last Admin: 09/23/22 08:47 Dose: 300 mg Guaifenesin (Guaifenesin 600 Mg Tabcr) 600 mg PO Q12 [facility] Stop: 10/16/22 20:59 Last Admin: 09/23/22 08:47 Dose: 600 mg Heparin Sodium/Dextrose (Heparin Sodium/Dextrose) 25,000 units in 500 mls @ 15 mls/hr IV .Q24H [facility]; Protocol Stop: 10/22/22 18:44 Last Titration: 09/23/22 02:01 Dose: 750 units/hr, 15 mls/hr Vancomycin HCl 1,000 mg/ (Sodium Chloride) 270 mls @ 200 mls/hr IV Q12H [facility]; Protocol Stop: 09/30/22 09:59 Last Admin: 09/23/22 09:48 Dose: 200 mls/hr Heparin Sodium (Porcine) 4,000 (units/ Syringe) 4 mls @ 10 mls/min IV ONE ONE Stop: 09/23/22 09:58 Lisinopril (Lisinopril 20 Mg Tab) 20 mg PO QAM [facility] Stop: 10/21/22 08:59 Last Admin: 09/23/22 08:46 Dose: 20 mg Metoprolol Tartrate (Metoprolol Tartrate 25 Mg Tab) 25 mg PO QID [facility] Stop: 10/21/22 08:59 Last Admin: 09/23/22 08:45 Dose: 25 mg Miscellaneous Information (Vancomycin Consult Active) 1 each N/A UD PRN PRN Reason: Consult Stop: 10/20/22 12:10 Ondansetron HCl (Ondansetron Inj 2 Mg/Ml 2 Ml Vial) 4 mg IV Q6H PRN PRN Reason: Nausea Stop: 10/16/22 19:43 Pantoprazole Sodium (Pantoprazole 40 Mg Tab) 40 mg PO DAILY [facility] Stop: 10/23/22 08:59 Last Admin: 09/23/22 08:46 Dose: 40 mg Potassium Chloride (Potassium Chloride 10 Meq Tabcr) 10 meq PO AMHS [facility] Stop: 10/17/22 08:59 Last Admin: 09/18/22 08:47 Dose: 10 meq Sucralfate (Sucralfate 1 Gm/10 Ml Udc) 1 gm PO BID [facility] Stop: 10/17/22 20:59 Last Admin: 09/23/22 08:45 Dose: 1 gm Tramadol HCl (Tramadol Hcl 50 Mg Tablet) 25 mg PO Q6H PRN PRN Reason: Pain Stop: 10/20/22 11:35 Last Admin: 09/21/22 00:06 Dose: 25 mg Umeclidinium/Vilanterol (Umeclidinium/Vilanterol 62.5/25mcg 7 Puffs/Inhaler) 1 puffs INH QAM [facility] Stop: 10/17/22 08:59 Last Admin: 09/23/22 08:45 Dose: 1 puffs Vitamin D (Cholecalciferol 1,000 Units 25 Mcg Tab) 1,000 units PO QAM [facility] Stop: 10/17/22 08:59 Last Admin: 09/23/22 08:46 Dose: 1,000 units
[2022-09-23] MEDS ORDERED: HEPARIN IV BOLUS 4,000 UNITS in SYRINGE 0 ML IV ONE (10:15)
--- NOTE | 2022-09-23 10:51 | Hospitalist Progress Note ---
Date of Service September 23, 2022 Assessment & Plan (1) Acute GI bleeding: Plan: This is a 77-year-old female who has significant past medical history of chronic hypoxic respiratory failure on 2 to 3 L of oxygen, COPD, CAD, chronic diastolic CHF, hypertension, pulmonary hypertension, PFO, wandering atrial pacemaker, hyperlipidemia, senile osteoporosis, meningioma, iron deficiency anemia, tobacco use disorder, AAA status postrepair who presents to ED secondary to worsening shortness of breath for the last 2 to 3 weeks. FOBT positive, EGD with esophagitis and gastritis as below but no active bleeding, S/p 3 U PRBC. Symptomatic Anemia/Iron deficiency anemia due to chronic GI blood loss Vit B12 deficiency - Hb dropped from baseline of >11 in May to 6 on admission - Heme positive in ED, stool occult blood positive but no overt bleeding noted. Ferritin 7.6, Iron 17. Hemolysis panel negative. PBS for parasites negative. Folate normal, B12 low normal. - EGD 09/17 with gastritis and mild esophagitis - s/p 3 U PRBC and Hb now stabilized. - Continue PPI and carafate - Seen by GI- recommendations noted as below Iron supplement for 3 months Protonix 40 mg per day Carafate 1 gm bid x 12 weeks OP colonoscopy to be arranged Repeat EGD in 3 months for surveillance of Gastritis Biopsy result is pending Clinically much better and the hemoglobin remains stable at 8 to 9. Acute left shoulder pain( septic arthritis) Left shoulder noted to have acutely inflamed with swelling, redness and tenderness since September 19, 2022. X-ray of the shoulder showed soft tissue swelling but no bony abnormalities Labs reviewed; ESR initially 42; increased to 77. CRP markedly elevated as well. MRI shoulder reviewed; large joint effusion with synovitis present. Discussed with orthopedics; plan was to do joint aspiration. It was done on August. Results of the aspiration reviewed; consistent with septic arthritis with WBC count of greater than 100,000 ( 95% N) Gram stain shows WBC. Culture negative so far. Continue on vancomycin for now Blood culture no growth till date. Plan for I&D as per orthopedics tomorrow. Currently on heparin bridge; plan to stop heparin drip at 2 AM tomorrow a.m. N.p.o. from midnight. Last dose of Eliquis was on September 21, 2022 at 9 PM. (2) Atrial fibrillation with rapid ventricular response: Plan: Paroxysmal a flutter Cardiology on board. Was restarted on Eliquis. Currently on heparin drip for procedure tomorrow. Received IV Cardizem and amiodarone. Discussed with cardiology; recommended to continue metoprolol 25 mg every 6 and Cardizem 30 mg every 8 hourly. (3) Symptomatic anemia: Plan: As above (4) AP (acute kidney injury): Plan: AP- cr improved 1.24->1. Baseline around 0.7-0.8. Resume Lasix. Lisinopril restarted. Monitor kidney function. (5) CAD (coronary artery disease): Plan: CAD Diastolic CHF troponin minimally elevated, flat trend, likely demand ischemia in setting of anemia, pt without chest pain Patient appears to be in increasing shortness of breath on September 21, 2022. Will rule out acute on chronic diastolic heart failure. Chest x-ray reviewed; mild vascular congestion. Resume home dose of Lasix (6) Chronic obstructive pulmonary disease: (7) Chronic hypoxemic respiratory failure: Plan: Chronic hypoxic resp failure on 2-3L of O2 COPD w/o exac continue trelegy DuoNebs twice daily Plan DVT ppx: Eliquis Dispo: Continues to be hospitalized due to left shoulder septic arthritis and a flutter. DNR/DNI Time spent evaluating patient, direct bedside care, chart review, placing orders, interpretation of diagnostic studies, discussion with consultants, patient, and family members, as well as other required patient management activities is 60 minutes. Please note the above document was generated using voice recognition software. It may contain grammatical, syntax or spelling errors. Any formal questions or concerns about the content, text or information contained within the body of this dictation should be directly addressed to the provider for clarification Admission and Anticipated Discharge Date Admission Date: September 16, 2022 Subjective Patient seen and examined at bedside. She is sitting up on the chair at the side of the bed; not in any distress. Reports that her breathing is back to baseline. She continues to have significant pain on her left shoulder. Telemetry reviewed; a flutter with ventricular rate in 70s to 80s. Review of Systems Review of Systems: All systems reviewed & are unremarkable except as noted in Subjective Physical Exam Physical Exam: Constitutional: WD/WN, vitals as above, NAD, sitting up in bed, pleasant, conversing easily Respiratory: Bilateral crackles heard. Cardiovascular: Irregular, no murmur, no edema Vessels: no JVD or carotid bruit Chest: normal inspection of chest Abdomen: normal bowel sounds, soft, nontender, no hepatosplenomegaly Musculoskeletal: Left shoulder- joint effusion present, with redness overlying the skin. Slightly improvement in redness. Tender to touch. ROM limited by pain. Skin: no rashes, warm and dry normal turgor Neurologic: Grossly intact. Psychiatric: A+Ox3, euthymic affect Lymphatic: no cervical or axillary lymphadenopathy : deferred Results & Data Results & Data Vital Signs (Past 12 Hours) Vital Signs Temp Pulse Pulse Resp BP Pulse Ox O2 Del Method 09/23/22 10:00 81 09/23/22 10:00 Nasal Cannula 09/23/22 07:24 90 20 97 Nasal Cannula 09/23/22 07:02 36.7 C 82 18 125/85 95 Nasal Cannula 09/23/22 02:48 36.8 C 75 18 106/72 99 Nasal Cannula 09/22/22 23:19 90 09/22/22 23:00 37.0 C 92 H 18 100/71 98 Nasal Cannula O2 Flow Rate 09/23/22 10:00 09/23/22 10:00 3 09/23/22 07:24 4 09/23/22 07:02 09/23/22 02:48 3 09/22/22 23:19 09/22/22 23:00 3 Laboratory Results Laboratory Results WBC 5.31 K/ul (4.8-10.8) 09/23/22 00:54 RBC 3.50 M/uL (4.20-5.40) L 09/23/22 00:54 Hgb 8.2 g/dl (12.0-16.0) L 09/23/22 00:54 Hct 27.7 % (37.0-47.0) L 09/23/22 00:54 MCV 79.1 fL (80.0-100.0) L 09/23/22 00:54 MCH 23.4 pg (25.0-34.0) L 09/23/22 00:54 MCHC 29.6 g/dL (32.0-36.0) L 09/23/22 00:54 RDW Std Deviation 64.0 fL (36.4-46.3) H 09/23/22 00:54 RDW Coeff of [place] 22.9 % (11.5-14.5) H 09/23/22 00:54 Plt Count 167 K/uL (130-400) 09/23/22 00:54 MPV 10.7 fL (9.4-12.4) 09/23/22 00:54 Immature Gran % (Auto) 0.2 % 09/23/22 00:54 Neut % (Auto) 78.8 % 09/23/22 00:54 Lymph % (Auto) 10.5 % 09/23/22 00:54 [place] % (Auto) 9.0 % 09/23/22 00:54 Eos % (Auto) 1.1 % 09/23/22 00:54 Baso % (Auto) 0.4 % 09/23/22 00:54 Reticulocyte % (Auto) 1.4 % (0.5-2.0) 09/17/22 17:09 Neut # (Auto) 4.18 K/uL (1.40-6.50) 09/23/22 00:54 Lymph # (Auto) 0.56 K/uL (1.2-3.4) L 09/23/22 00:54 [place] # (Auto) 0.48 K/uL (0.11-0.59) 09/23/22 00:54 Eos # (Auto) 0.06 K/uL (0-0.50) 09/23/22 00:54 Baso # (Auto) 0.02 K/uL (0-0.2) 09/23/22 00:54 Reticulocyte # 0.05 10^6/uL (0.02-0.10) 09/17/22 17:09 Immature Gran # (Auto) 0.01 K/uL (0.01-0.20) 09/23/22 00:54 Polychromasia 2+ 09/23/22 00:54 Hypochromasia Present 09/17/22 04:13 Poikilocytosis Present 09/21/22 06:31 Anisocytosis Present 09/23/22 00:54 Tear Drop Cells 1+ 09/22/22 07:50 Ovalocytes 1+ 09/22/22 07:50 Peripher Smr Path Cons 09/17/22 17:09 ESR 77 mm/hr (0-30) H 09/21/22 17:22 Haptoglobin 144 mg/dL (43-212) 09/17/22 17:09 PT 11.2 Seconds (9.0-12.0) 09/22/22 17:34 INR 1.0 (0.9-1.1) 09/22/22 17:34 APTT 28.5 Seconds (21.0-31.0) 09/23/22 08:03 PTT Ratio 1.0 09/23/22 08:03 Sodium 140 mmol/L (136-145) 09/23/22 00:54 Potassium 3.6 mmol/L (3.5-5.1) 09/23/22 00:54 Chloride 104 mmol/L (98-107) 09/23/22 00:54 Carbon Dioxide 31 mmol/L (21-32) 09/23/22 00:54 Anion Gap 5 (3-11) 09/23/22 00:54 BUN 15 mg/dl (6-23) 09/23/22 00:54 Creatinine 0.77 mg/dl (0.6-1.2) 09/23/22 00:54 Est Cr Clr Drug Dosing 52.2 ml/min 09/23/22 00:54 Est GFR ( Amer) 87.5 ml/min 09/23/22 00:54 Est GFR (Non-Af Amer) 75.5 ml/min 09/23/22 00:54 BUN/Creatinine Ratio 19.5 (10-20) 09/23/22 00:54 Glucose 110 mg/dl (70-99(Fasting)) H 09/23/22 00:54 Estimat Average Glucose 120 mg/dl 09/17/22 04:13 Hemoglobin A1c 5.8 % (4.5-5.6) H 09/17/22 04:13 Uric Acid 3.7 mg/dl (2.6-7.2) 09/19/22 14:04 Calcium 8.6 mg/dl (8.6-10.3) 09/23/22 00:54 Magnesium 1.8 mg/dl (1.7-2.4) 09/17/22 04:13 Iron 17 mcg/dl (35-150) L 09/16/22 16:35 Unsaturated IBC 349 mcg/dl (155-355) 09/16/22 16:35 Transferrin 291 mg/dl (200-360) 09/16/22 16:35 Ferritin 7.6 ng/ml (8-388) L 09/16/22 16:35 Total Bilirubin 1.2 mg/dl (0.2-1.0) H D 09/17/22 04:13 AST 11 U/L (13-39) L 09/17/22 04:13 ALT 10 U/L (7-52) 09/17/22 04:13 Alkaline Phosphatase 50 U/L (34-104) 09/17/22 04:13 Lactate Dehydrogenase 214 U/L (86-244) 09/17/22 17:09 Troponin I High Sens 16.4 pg/ml (0-14) H 09/17/22 04:13 C-Reactive Protein 27.98 mg/dl (0-0.5) H 09/21/22 17:22 B-Natriuretic Peptide 668 pg/ml (0-100) H 09/16/22 16:35 Total Protein 5.3 gm/dl (6.0-8.3) L 09/17/22 04:13 Albumin 3.5 gm/dl (3.4-5.0) 09/17/22 04:13 Globulin 1.8 gm/dl (2.5-4.0) L 09/17/22 04:13 Albumin/Globulin Ratio 1.9 (0.9-2) 09/17/22 04:13 Vitamin B12 185 pg/ml (180-914) 09/17/22 17:09 Folate 20.51 ng/ml (>5.38) 09/17/22 17:09 Urine Color Yellow 09/16/22 18:34 Urine Appearance Clear (Clear) 09/16/22 18:34 Urine pH 5.5 (4.5-7.5) 09/16/22 18:34 Ur Specific [place] 1.016 (1.000-1.030) 09/16/22 18:34 Urine Protein Trace (Negative) H 09/16/22 18:34 Urine Glucose (UA) Negative (Negative) 09/16/22 18:34 Urine Ketones Trace (Negative) H 09/16/22 18:34 Urine Blood Negative (Negative) 09/16/22 18:34 Urine Nitrite Negative (Negative) 09/16/22 18:34 Urine Bilirubin Negative (Negative) 09/16/22 18:34 Urine Urobilinogen Negative (Negative) 09/16/22 18:34 Ur Leukocyte Esterase Trace (Negative) H 09/16/22 18:34 Urine WBC (Auto) 1-5 /hpf (0-5) 09/16/22 18:34 Urine RBC (Auto) 0-4 /hpf (0-4) 09/16/22 18:34 U Hyaline Cast (Auto) 5-10 /lpf (0-5) H 09/16/22 18:34 U Epithel Cells (Auto) 20-30 /lpf (0-5) H 09/16/22 18:34 Urine Bacteria (Auto) Negative (Negative) 09/16/22 18:34 Fluid Comment 09/21/22 16:30 Synovial Source Other 09/21/22 16:30 Synovial Color Brown 09/21/22 16:30 Synovial Appearance Turbid 09/21/22 16:30 Synovial WBC (Auto) 192981 /ul (0-200) H 09/21/22 16:30 Synovial RBC (Auto) < 2000 /uL 09/21/22 16:30 Synovial Polynuclear % 95.0 % 09/21/22 16:30 Synovial Mononuclear % 5.0 % 09/21/22 16:30 Synovial Crystals 09/21/22 16:30 Random Vancomycin 15.1 mcg/ml (10-20) 09/23/22 08:03 SARS-CoV-2, RNA, NAAT NEGATIVE (NEGATIVE) 09/16/22 16:35 Blood Type A Positive 09/16/22 17: Antibody Screen NEGATIVE 09/16/22 17:23 Direct Antiglob Test Negative (Negative) 09/16/22 17:23 NEHA (IgG-AHG) Neg (Negative) 09/16/22 17: NEHA, Polyspecific Neg (Negative) 09/16/22 17: NEHA C3b, C3d 5 Min Neg (Negative) 09/16/22 17: Crossmatch See Detail 09/16/22 17: Impressions Shoulder X-Ray 09/19/22 12:13 XR shoulder LT min 2V routine CLINICAL HISTORY: Pain and swelling lt shoulder TECHNIQUE: 3 views of the left shoulder were obtained. Comparison: Comparison is made to left shoulder radiograph 05/26/2015 FINDINGS: There is no evidence of an acute fracture. Degenerative changes are seen in the glenohumeral joint. Soft tissue swelling is seen about the shoulder. The visualized portions of the lungs are clear. IMPRESSION: Soft tissue swelling without evidence of underlying bony abnormality. ACT 112: Negative or not required by law. Electronically signed by: Juan Carlos Kathleen M.D. 09/19/2022 12:50 PM Chest X-Ray 09/21/22 12:06 XR chest 1V portable CLINICAL HISTORY: Concern for pulmonary edema TECHNIQUE: Single frontal radiograph of the chest was obtained. Comparison: Comparison is made to chest radiograph 09/16/2022 FINDINGS: No lines and tubes are seen. The aorta is tortuous. The remainder of the cardiomediastinal silhouette is unremarkable. The lungs are clear. Bilateral blunting of the costophrenic angles noted. IMPRESSION: 1. No significant pulmonary edema. 2. Blunting of the costophrenic angles may represent trace effusions. ACT 112: Negative or not required by law. Electronically signed by: Juan Carlos Kathleen M.D. 09/21/2022 12:39 PM Shoulder MRI 09/21/22 17:13 Exam(s): MRI LEFT SHOULDER Without Contrast EXAM: MR Left Upper Extremity Without Intravenous Contrast, Shoulder CLINICAL HISTORY: Reason for exam: r/o septic shoulder. TECHNIQUE: Multiplanar magnetic resonance images of the left shoulder without intravenous contrast. COMPARISON: No relevant prior studies available. FINDINGS: Full-thickness full width tears of both the supraspinatus and infraspinatus. There is tendon retraction to the level of the glenoid. Moderate to severe muscular atrophy within both. Teres minor is intact. Partial-thickness tearing of the superior fibers of the subscapularis. High riding humeral head. Broad areas of full-thickness cartilage loss along the superior humeral head and superior aspect of the glenoid. Circumferential maceration of the labrum. The biceps appears to be torn within the intra-articular segment. Large joint effusion. Mild pericapsular edema and edema within the deltoid. No abscess. Reactive appearing lymph nodes within the left axilla. Mild degenerative changes at the acromioclavicular joint. No evidence of osteomyelitis. IMPRESSION: 1. Full thickness full width tears of the supraspinatus and infraspinatus with tendon retraction and moderate to severe atrophy. 2. Tearing of the superior fibers of the subscapularis. 3. Broad areas of full-thickness cartilage loss. 4. Circumferential degenerative related maceration of the labrum. 5. Long head of the biceps appears torn in the intra-articular segment. 6. Large joint effusion with synovitis. Most likely related to the above findings. Septic arthritis considered less likely but cannot be excluded. Consider tapping the large effusion with fluid analysis. Electronically signed by: Carlos Manuel Ontiveros MD 09/21/22 21:41 PM
--- NOTE | 2022-09-23 10:54 | Pharmacy Report ---
Pharmacy PK ABX Note - Date of Service September 23, 2022 - Assessment and Plan Assessment 77 year old F receiving Vancomycin for treatment of possible septic arthritis of right shoulder. * Day #4 of antimicrobial therapy. * Afebrile x 48 hours. ESR/CRP elevated. No leukocytosis. Renal fxn slightly worsened today so ordered a random vanc level to assess appropriateness of dose. UO seems better according to eMAR today. Will monitor. * Underwent shoulder aspiration on 09/21/22 by ortho. Fluid analysis shows elevated white cells. Gram stain shows no organisms yet. Will go to OR tomorrow for I&D of shoulder. No growth in any cultures. Plan Vancomycin * Current regimen: 1250 mg IV every 12 hours * Random level obtained 09/23/22 resulted as 15.1 mcg/mL. This is predicted to achieve target AUC/STEVAN of 400-600 mg/L.hr. However, given only two doses have been administered (pre-steady state), will empirically reduce dose to 1000 mg q12h. * Change to 1000 mg IV every 12 hours * Repeat random level ordered for: 09/24/22 Pharmacy will continue to follow and will adjust dose/frequency as necessary. Thank you. Pharmacy has transitioned to AUC monitoring for vancomycin. AUC/STEVAN is the preferred PK/PD target and is associated with decreased risk of nephrotoxicity compared to traditional trough targets.
[2022-09-23 17:57] LABS: Partial Thromboplastin Ratio 1.2; Partial Thromboplastin Time 34.2 Seconds (21.0-31.0)
[2022-09-23] MEDS ORDERED: HEPARIN IV BOLUS 2,000 UNITS in SYRINGE 0 ML IV ONE (18:30)
[2022-09-23] MEDS: ACETAMINOPHEN 325 MG TAB PO PRN (18:48)
[2022-09-24 01:12] LABS: Basophils # (auto) 0.01 K/uL (0-0.2); Basophils % (auto) 0.2 %; Eosinophils # (auto) 0.04 K/uL (0-0.50); Hematocrit (blood only) 26.4 % (37.0-47.0); Hemoglobin 7.7 g/dl (12.0-16.0); Immature Granulocytes # (auto) 0.01 K/uL (0.01-0.20); Immature Granulocytes % (auto) 0.2 %; Lymphocytes # (auto) 0.55 K/uL (1.2-3.4); Lymphocytes % (auto) 13.2 %; Mean Corpuscular Hemoglobin 23.4 pg (25.0-34.0); Mean Corpuscular Hgb Conc 29.2 g/dL (32.0-36.0); Mean Corpuscular Volume 80.2 fL (80.0-100.0); Mean Platelet Volume 10.2 fL (9.4-12.4); Monocytes # (auto) 0.35 K/uL (0.11-0.59); Monocytes % (auto) 8.4 %; Platelet Count 149 K/uL (130-400); RDW Coefficient of Variation 23.1 % (11.5-14.5); RDW Standard Deviation 66.1 fL (36.4-46.3); Red Blood Count 3.29 M/uL (4.20-5.40); White Blood Count 4.16 K/ul (4.8-10.8)
[2022-09-24 01:24] LABS: Calcium 8.5 mg/dl (8.6-10.3); Creatinine Clr Calc Pharmacy 40.2 ml/min; Est GFR (African American) 63.8 ml/min; Est GFR (Non-African American) 55.1 ml/min; Potassium 3.6 mmol/L (3.5-5.1)
[2022-09-24 01:32] LABS: Ovalocytes 1+; Polychromasia 1+
[2022-09-24 01:37] LABS: Partial Thromboplastin Ratio 1.3; Partial Thromboplastin Time 35.3 Seconds (21.0-31.0)
[2022-09-24] MEDS: ALBUT/IPRATROP 3MG/0.5MG NEB 3 ML VIAL NEB SCH ×2 (06:52→19:48)
[2022-09-24] MEDS: HEPARIN SODIUM/DEXTROSE 25,000 UNITS/500 ML BAG IV SCH (07:29)
[2022-09-24] MEDS: ACETAMINOPHEN 325 MG TAB PO PRN (08:02)
[2022-09-24] MEDS: METOPROLOL TARTRATE 25 MG TAB PO SCH ×4 (08:03→21:32)
[2022-09-24] MEDS: dilTIAZem HCL 30 MG TAB PO SCH ×3 (08:03→21:33)
[2022-09-24] MEDS: ATORVASTATIN 40 MG TAB PO SCH (08:04)
[2022-09-24] MEDS: CHOLECALCIFEROL 1,000 UNITS 25 MCG TAB PO SCH (08:04)
[2022-09-24] MEDS: FUROSEMIDE 40 MG TAB PO SCH (08:04)
[2022-09-24] MEDS: SUCRALFATE 1 GM/10 ML UDC PO SCH ×2 (08:04→21:32)
[2022-09-24] MEDS: lisinopril 20 MG TAB PO SCH (08:04)
[2022-09-24] MEDS: buPROPion SR 150 MG TABCR PO SCH ×2 (08:04→21:33)
[2022-09-24] MEDS: GABAPENTIN 300 MG CAP PO SCH ×2 (08:04→21:33)
[2022-09-24] MEDS: guaiFENesin 600 MG TABCR PO SCH ×2 (08:04→21:33)
[2022-09-24] MEDS: FLUTICASONE FUROATE 100MCG 14 PUFFS/INHALER INH SCH (08:05)
[2022-09-24] MEDS: PANTOprazole 40 MG TAB PO SCH (08:05)
[2022-09-24] MEDS: UMECLIDINIUM/VILANTEROL 62.5/25MCG 7 PUFFS/INHALER INH SCH (08:07)
[2022-09-24] MEDS: VANCOMYCIN HCL 750 MG in SODIUM CHLORIDE 0.9% 250 ML IV SCH ×2 (10:09→21:32)
--- NOTE | 2022-09-24 10:53 | Pharmacy Report ---
Pharmacy PK ABX Note - Date of Service September 24, 2022 - Assessment and Plan Assessment 77 year old F receiving Vancomycin for treatment of possible septic arthritis of right shoulder. * Day #5 of antimicrobial therapy. * Afebrile. ESR/CRP elevated. No leukocytosis. Renal fxn continues to worsen today (SCr 0.59-0.66-0.77-1.00). Monitor urine output. * Underwent shoulder aspiration on 09/21/22 by ortho. Fluid analysis shows elevated white cells. Gram stain shows no organisms yet. Going to OR today for I&D of shoulder. No growth in any cultures. Plan Vancomycin * Current regimen: 1000 mg IV every 12 hours * Random level obtained 09/24/22 resulted as 16.5 mcg/mL. This is therapeutic for now but expected to be supratherapeutic at steady state. Predicted AUC at steady state: 693 mg/L.hr * Change to 750 mg IV every 12 hours. Goal AUC/STEVAN is 400 - 600 mg/L.hr. Predicted AUC at steady state on this regimen is 494 mg/L.hr. * Repeat random level ordered for: 09/25/22 Pharmacy will continue to follow and will adjust dose/frequency as necessary. Thank you. Pharmacy has transitioned to AUC monitoring for vancomycin. AUC/STEVAN is the preferred PK/PD target and is associated with decreased risk of nephrotoxicity compared to traditional trough targets.
--- NOTE | 2022-09-24 12:16 | Hospitalist Progress Note ---
Date of Service September 24, 2022 Assessment & Plan (1) Acute GI bleeding: Plan: This is a 77-year-old female who has significant past medical history of chronic hypoxic respiratory failure on 2 to 3 L of oxygen, COPD, CAD, chronic diastolic CHF, hypertension, pulmonary hypertension, PFO, wandering atrial pacemaker, hyperlipidemia, senile osteoporosis, meningioma, iron deficiency anemia, tobacco use disorder, AAA status postrepair who presents to ED secondary to worsening shortness of breath for the last 2 to 3 weeks. FOBT positive, EGD with esophagitis and gastritis as below but no active bleeding, S/p 3 U PRBC. Symptomatic Anemia/Iron deficiency anemia due to chronic GI blood loss Vit B12 deficiency - Hb dropped from baseline of >11 in May to 6 on admission - Heme positive in ED, stool occult blood positive but no overt bleeding noted. Ferritin 7.6, Iron 17. Hemolysis panel negative. PBS for parasites negative. Folate normal, B12 low normal. - EGD 09/17 with gastritis and mild esophagitis - s/p 3 U PRBC and Hb now stabilized. - Continue PPI and carafate - Seen by GI- recommendations noted as below Iron supplement for 3 months Protonix 40 mg per day Carafate 1 gm bid x 12 weeks OP colonoscopy to be arranged Repeat EGD in 3 months for surveillance of Gastritis Biopsy result is pending Clinically much better and the hemoglobin remains stable at 8 to 9. Acute left shoulder pain( septic arthritis) Left shoulder noted to have acutely inflamed with swelling, redness and tenderness since September 19, 2022. X-ray of the shoulder showed soft tissue swelling but no bony abnormalities Labs reviewed; ESR initially 42; increased to 77. CRP markedly elevated as well. MRI shoulder reviewed; large joint effusion with synovitis present. Discussed with orthopedics; plan was to do joint aspiration. It was done on August. Results of the aspiration reviewed; consistent with septic arthritis with WBC count of greater than 100,000 ( 95% N) Gram stain shows WBC. Culture negative so far. Continue on vancomycin for now Blood culture no growth till date. Plan for I&D as per orthopedics today. Currently heparin is on hold. Resume when okay with orthopedic. (2) Atrial fibrillation with rapid ventricular response: Plan: Paroxysmal a flutter Cardiology on board. Was restarted on Eliquis. Currently on heparin drip for procedure tomorrow. Received IV Cardizem and amiodarone during the initial hospitalization. Discussed with cardiology; recommended to continue metoprolol 25 mg every 6 and Cardizem 30 mg every 8 hourly. (3) Symptomatic anemia: Plan: As above (4) AP (acute kidney injury): Plan: AP- cr improved 1.24->1. Baseline around 0.7-0.8. Resume Lasix. Lisinopril restarted. Monitor kidney function. (5) CAD (coronary artery disease): Plan: CAD Diastolic CHF troponin minimally elevated, flat trend, likely demand ischemia in setting of anemia, pt without chest pain Patient appears to be in increasing shortness of breath on September 21, 2022. Will rule out acute on chronic diastolic heart failure. Chest x-ray reviewed; mild vascular congestion. Resume home dose of Lasix (6) Chronic obstructive pulmonary disease: (7) Chronic hypoxemic respiratory failure: Plan: Chronic hypoxic resp failure on 2-3L of O2 COPD w/o exac continue trelegy DuoNebs twice daily Plan DVT ppx: Heparin on hold. Dispo: Continues to be hospitalized due to left shoulder septic arthritis and a flutter. DNR/DNI Time spent evaluating patient, direct bedside care, chart review, placing orders, interpretation of diagnostic studies, discussion with consultants, patient, and family members, as well as other required patient management activities is 60 minutes. Please note the above document was generated using voice recognition software. It may contain grammatical, syntax or spelling errors. Any formal questions or concerns about the content, text or information contained within the body of this dictation should be directly addressed to the provider for clarification Admission and Anticipated Discharge Date Admission Date: September 16, 2022 Subjective Patient seen and examined at bedside. She is frustrated about being n.p.o. Denies fever, chills, chest pain or increasing shortness of breath. Telemetry showed a flutter with ventricular rate in 80s to 90s. Review of Systems Review of Systems: All systems reviewed & are unremarkable except as noted in Subjective Physical Exam Physical Exam: Constitutional: WD/WN, vitals as above, NAD, sitting up in bed, pleasant, conversing easily Respiratory: Bilateral crackles heard. Cardiovascular: Irregular, no murmur, no edema Vessels: no JVD or carotid bruit Chest: normal inspection of chest Abdomen: normal bowel sounds, soft, nontender, no hepatosplenomegaly Musculoskeletal: Left shoulder- joint effusion present, with redness overlying the skin. Improvement noted in the erythema. Tender to touch. ROM limited by pain. Skin: no rashes, warm and dry normal turgor Neurologic: Grossly intact. Psychiatric: A+Ox3, euthymic affect Lymphatic: no cervical or axillary lymphadenopathy : deferred Results & Data Results & Data Vital Signs (Past 12 Hours) Vital Signs Temp Pulse Pulse Resp BP Pulse Ox O2 Del Method 09/24/22 11:44 36.5 C 68 19 100/58 L 96 Nasal Cannula 09/24/22 07:54 82 09/24/22 07:54 Nasal Cannula 09/24/22 07:40 36.8 C 81 20 140/95 95 Nasal Cannula 09/24/22 06:53 81 20 94 Nasal Cannula 09/24/22 03:00 36.5 C 83 16 119/87 100 Nasal Cannula O2 Flow Rate 09/24/22 11:44 3.0 09/24/22 07:54 09/24/22 07:54 3 09/24/22 07:40 3.0 09/24/22 06:53 3 09/24/22 03:00 3
--- NOTE | 2022-09-24 15:51 | Cardiology Progress Note ---
Date of Service September 24, 2022 Assessment & Plan (1) Chronic hypoxemic respiratory failure: (2) Symptomatic anemia: Plan: - Presenting hemoglobin was 6 g/dL, EGD revealed gastritis with no active bleeding, hemoglobin improved to 9. Morning of 09/24, hbg dropped to 7.7, but then again improved to > 9 on repeat (3) Bradycardia: (4) Paroxysmal atrial flutter: (5) Effusion, left shoulder: (6) Preoperative cardiovascular examination: Plan -Patient to undergo left shoulder arthroscopy and debridement today. -IV heparin on hold. Resume Eliquis once acceptable by ortho surgery. - IV amiodarone and IV diltiazem discontinued and transitioned to oral medications. -HR's well controlled on current doses of metoprolol and diltiazem. -Patient's chronic respiratory insufficiency appears to be at baseline at p resent. -Continue antibiotics for septic shoulder and await debridement. -Hbg dropped early this morning but no symptoms and no signs of GI blood loss. -Repeat hbg - then improved DVT prophylaxis: resume Eliquis post op if bleeding risk is minimal. Case discussed with Dr. Watson I spent a total of 30 minutes on the date of service in preparation, delivery, and documentation of the care provided to this patient, excluding any time spent in the performance of separately billed services. Mary Mccauley PA-C Department of Cardiology, [facility] This chart was completed in part utilizing Speech Voice Recognition Software. Grammatical errors, random word insertions, pronoun errors, and incomplete sentences are an occasional consequence of this system due to software limitations, ambient noise, and hardware issues. Any formal questions or concerns about the content, text, or information contained within the body of this dictation should be directly addressed to the provider for clarification. Admission and Anticipated Discharge Date Admission Date: September 16, 2022 Supervising Physician Co-Signing Physician Notes Case discussed with Mary Mccauley PA-C. Patient was in the operating room at the time when I attempted to see her, and remained in the operating room on second and third attempts. Repeat hemoglobin today stable. Continue current heart rate medications including oral diltiazem and metoprolol. Resume Eliquis when acceptable from an orthopedic surgery standpoint. Marbella Watson , DO Subjective Patient evaluated earlier this morning, 09/24/22. Resting in bed comfortably. Mild shoulder discomfort. Awaiting procedure. HR's controlled. SOB at baseline. Denies chest pain. No orthopnea, PND or edema. No dizziness. Heparin and eliquis on hold for left shoulder arthroscopy Review of Systems Review of Systems: All systems reviewed & are unremarkable except as noted in HPI & below Physical Exam Constitutional: + thin; no acute distress Eyes: PERRL, conjunctivae normal, anicteric sclerae Neck: normal visual inspection and trachea midline Respiratory: normal respiratory effort; no respiratory distress and no labored breathing Auscultation: + rhonchi and + wheezes Cardiovascular: Rate/Rhythm: + irregularly irregular Heart Sounds: normal S1, normal S2 and + murmur (+ 1/6 systolic murmur) Vessels: no JVD Extremities: no edema Gastrointestinal (Abdomen): normal bowel sounds, soft, nontender, no hepatosplenomegaly Percussion/Palpation: abdomen soft; abdomen nontender Skin: no rashes, warm and dry Neurologic: PERRL, EOMI, accommodation nl, no face palsy, no dysarthria Psychiatric: A+Ox3, euthymic affect Results & Data Vital Signs (Past 12 Hours) Vital Signs Temp Pulse Pulse Resp BP Pulse Ox O2 Del Method 09/24/22 15:28 61 09/24/22 11:44 36.5 C 68 19 100/58 L 96 Nasal Cannula 09/24/22 07:54 82 09/24/22 07:54 Nasal Cannula 09/24/22 07:40 36.8 C 81 20 140/95 95 Nasal Cannula 09/24/22 06:53 81 20 94 Nasal Cannula O2 Flow Rate 09/24/22 15:28 09/24/22 11:44 3.0 09/24/22 07:54 09/24/22 07:54 3 09/24/22 07:40 3.0 09/24/22 06:53 3 Laboratory Results Coagulation 09/23/22 09/24/22 Range/Units 17:12 00:54 APTT 34.2 H 35.3 H (21.0-31.0) Seconds CBC 09/24/22 09/24/22 Range/Units 00:50 07:55 WBC 4.16 L (4.8-10.8) K/ul RBC 3.29 L (4.20-5.40) M/uL Hgb 7.7 L 9.1 L (12.0-16.0) g/dl Hct 26.4 L (37.0-47.0) % Plt Count 149 (130-400) K/uL Neut # (Auto) 3.20 (1.40-6.50) K/uL Lymph # (Auto) 0.55 L (1.2-3.4) K/uL [place] # (Auto) 0.35 (0.11-0.59) K/uL Eos # (Auto) 0.04 (0-0.50) K/uL Baso # (Auto) 0.01 (0-0.2) K/uL Comprehensive Metabolic Panel 09/24/22 Range/Units 00:50 Sodium 141 (136-145) mmol/L Potassium 3.6 (3.5-5.1) mmol/L Chloride 104 (98-107) mmol/L Carbon Dioxide 33 H (21-32) mmol/L BUN 18 (6-23) mg/dl Creatinine 1.00 (0.6-1.2) mg/dl Glucose 110 H (70-99(Fasting)) mg/dl Calcium 8.5 L (8.6-10.3) mg/dl Intake and Output 09/24/22 09/24/22 09/24/22 06:59 14:59 22:59 Intake Total 400.683 / 1424.533 265 / 265 Output Total 750 / 750 Balance 400.683 / 623.533 -485 / -485 Intake: IV 400.683 / 944.533 265 / 265 Heparin Sodium/Dextrose 25,000 130.683 / 404.533 0 / 0 units In 500 ml @ 1,000 UNITS/ HR 20 mls/hr IV .Q24H [facility] Rx#: [id number] Vancomycin HCl 750 mg In Sodium 270 / 540 265 / 265 Chloride 0.9% 250 ml @ 200 mls /hr IV Q12H [facility] Rx#:[id number] Output: Urine 750 / 750 Other: Other Intake Source NPO Weight 60.3 kg Weight Measurement Method Built in [facility] Diagnostic Findings Telemetry reviewed: Atrial flutter with controlled rates ranging 70-90 bmp Medications Administered Current Inpatient Medications Acetaminophen (Acetaminophen 325 Mg Tab) 650 mg PO Q4H PRN PRN Reason: Pain or Fever Stop: 10/16/22 19:43 Last Admin: 09/24/22 08:02 Dose: 650 mg Albuterol (Albuterol 0.083% Nebu Soln 3 Ml Vial) 2.5 mg NEB Q6R PRN; Protocol PRN Reason: sob/wheezing Stop: 10/16/22 19:43 Last Admin: 09/18/22 07:03 Dose: 2.5 mg Albuterol (Albut/Ipratrop 3mg/0.5mg Neb 3 Ml Vial) 3 ml NEB BIDR [facility]; Protocol Stop: 10/18/22 18:59 Last Admin: 09/24/22 06:52 Dose: 3 ml Atorvastatin Calcium (Atorvastatin 40 Mg Tab) 80 mg PO QAM [facility] Stop: 10/17/22 08:59 Last Admin: 09/24/22 08:04 Dose: 80 mg Bupropion HCl (Bupropion Sr 150 Mg Tabcr) 150 mg PO AMHS [facility] Stop: 10/16/22 20:59 Last Admin: 09/24/22 08:04 Dose: 150 mg Diltiazem HCl (Diltiazem Hcl 30 Mg Tab) 30 mg PO TID [facility] Stop: 10/22/22 20:59 Last Admin: 09/24/22 13:46 Dose: 30 mg Fluticasone Furoate (Fluticasone Furoate 100mcg 14 Puffs/Inhaler) 1 puffs INH QAM [facility] Stop: 10/17/22 08:59 Last Admin: 09/24/22 08:05 Dose: 1 puffs Furosemide (Furosemide 40 Mg Tab) 40 mg PO QAM [facility] Stop: 10/23/22 08:59 Last Admin: 09/24/22 08:04 Dose: 40 mg Gabapentin (Gabapentin 300 Mg Cap) 300 mg PO BID [facility] Stop: 10/16/22 20:59 Last Admin: 09/24/22 08:04 Dose: 300 mg Guaifenesin (Guaifenesin 600 Mg Tabcr) 600 mg PO Q12 [facility] Stop: 10/16/22 20:59 Last Admin: 09/24/22 08:04 Dose: 600 mg Heparin Sodium/Dextrose (Heparin Sodium/Dextrose) 25,000 units in 500 mls @ 0 mls/hr IV .Q0M [facility]; Protocol Stop: 10/22/22 18:44 Last Titration: 09/24/22 10:36 Dose: Infused Vancomycin HCl 750 mg/ Sodium (Chloride) 265 mls @ 200 mls/hr IV Q12H [facility]; Protocol Stop: 10/01/22 09:59 Last Infusion: 09/24/22 12:04 Dose: Infused Lisinopril (Lisinopril 20 Mg Tab) 20 mg PO QAM [facility] Stop: 10/21/22 08:59 Last Admin: 09/24/22 08:04 Dose: 20 mg Metoprolol Tartrate (Metoprolol Tartrate 25 Mg Tab) 25 mg PO QID [facility] Stop: 10/21/22 08:59 Last Admin: 09/24/22 13:47 Dose: 25 mg Miscellaneous Information (Vancomycin Consult Active) 1 each N/A UD PRN PRN Reason: Consult Stop: 10/20/22 12:10 Ondansetron HCl (Ondansetron Inj 2 Mg/Ml 2 Ml Vial) 4 mg IV Q6H PRN PRN Reason: Nausea Stop: 10/16/22 19:43 Pantoprazole Sodium (Pantoprazole 40 Mg Tab) 40 mg PO DAILY [facility] Stop: 10/23/22 08:59 Last Admin: 09/24/22 08:05 Dose: 40 mg Potassium Chloride (Potassium Chloride 10 Meq Tabcr) 10 meq PO AMHS [facility] Stop: 10/17/22 08:59 Last Admin: 09/18/22 08:47 Dose: 10 meq Sucralfate (Sucralfate 1 Gm/10 Ml Udc) 1 gm PO BID [facility] Stop: 10/17/22 20:59 Last Admin: 09/24/22 08:04 Dose: 1 gm Tramadol HCl (Tramadol Hcl 50 Mg Tablet) 25 mg PO Q6H PRN PRN Reason: Pain Stop: 10/20/22 11:35 Last Admin: 09/21/22 00:06 Dose: 25 mg Umeclidinium/Vilanterol (Umeclidinium/Vilanterol 62.5/25mcg 7 Puffs/Inhaler) 1 puffs INH QAM [facility] Stop: 10/17/22 08:59 Last Admin: 09/24/22 08:07 Dose: 1 puffs Vitamin D (Cholecalciferol 1,000 Units 25 Mcg Tab) 1,000 units PO QAM [facility] Stop: 10/17/22 08:59 Last Admin: 09/24/22 08:04 Dose: 1,000 units
[2022-09-24] MEDS ORDERED: ONDANSETRON INJ 2 MG/ML 2 ML VIAL ONE ×2 (16:34→18:16)
[2022-09-24] MEDS ORDERED: LIDOCAINE 2% 2 ML VIAL/AMP(20MG/ML) INFIL ONE (16:34)
[2022-09-24] MEDS ORDERED: PROPOFOL IV EMULSION 10 MG/ML 20 ML VIAL IV ONE (16:34)
--- NOTE | 2022-09-24 16:43 | History & Physical Bridge Note ---
Date of Service September 24, 2022 History & Physical Bridge Note I have examined the patient, reviewed the History & Physical and in the interval since the performance of the History & Physical I have noted the following changes of clinical significance: no changes noted
[2022-09-24] MEDS ORDERED: fentaNYL citrate PF 100 MCG/2 ML VIAL ONE (16:45)
[2022-09-24] MEDS ORDERED: MIDAZOLAM HCL 1 MG/ML 2ML VIAL ONE (16:45)
[2022-09-24] MEDS ORDERED: EpINEphrine HCL INJ 1 MG/ML 1ML SYRINGE ONE (16:51)
[2022-09-24] MEDS ORDERED: ePHEDrine sulfate 50 MG/ML AMP IV PRN (16:55)
[2022-09-24] MEDS ORDERED: HYDROmorphone INJ 2 MG/ML SYR/VIAL IV PRN (16:55)
[2022-09-24] MEDS ORDERED: ATROPINE SULFATE 0.1 MG/ML 10ML SYR IV PRN (16:55)
[2022-09-24] MEDS ORDERED: ONDANSETRON INJ 2 MG/ML 2 ML VIAL IV PRN ×2 (16:55→20:03)
[2022-09-24] MEDS ORDERED: PROMETHAZINE HCL 12.5 MG in SODIUM CHLORIDE 0.9% 50 ML IV PRN (16:55)
[2022-09-24] MEDS ORDERED: ceFAZolin 330 MG/ML 1 GM VIAL ONE ×2 (16:59→17:47)
[2022-09-24] MEDS ORDERED: PHENYLEPHRINE HCL 10 MG/ML VIAL ONE (17:24)
[2022-09-24] MEDS ORDERED: ceFAZolin 2000MG 2,000 MG/15 ML SYR IV ONE (18:12)
[2022-09-24] MEDS ORDERED: SUGAMMADEX SODIUM 200 MG/2 ML VIAL IV ONE (18:17)
--- NOTE | 2022-09-24 18:42 | Operative Report ---
Post Operative Report Pre & Post Diagnosis Operation Date: 09/24/22 07:00 Preoperative diagnosis: Left shoulder septic glenohumeral joint with chronic massive rotator cuff tear with rotator cuff arthropathy Postoperative diagnosis: Left shoulder septic glenohumeral joint with chronic massive rotator cuff tear with rotator cuff arthropathy, chronic bursitis, synovitis, degeneration glenoid labrum degenerative arthritis glenohumeral joint, massive retracted rotator cuff tear, absent biceps tendon, fibrinous material consistent with infection. I identified the patient and participated in the time-out.: Yes Procedure Operation Date: 09/24/22 07:00 <No data on this case meets the specified criteria> Left shoulder arthroscopy with extensive debridement and placement of Hemovac drains and soft tissue biopsies for culture and joint fluid culture. Surgeon Adan Duvall MD [employer] Apprentice Wilberto MANCINI Estimated Blood Loss 15 Findings Consistent with Post-Op Diagnosis Specimens Swab cultures, soft tissue biopsies for culture Drains 2 Hemovac Anesthesia Type General Complications none Disposition Disposition: Recovery Room Indications 77-year-old female with severe pain and swelling left shoulder with aspiration demonstrating over 125,000 white cell count and C-reactive protein over 20 with joint fluid consistent with septic shoulder. Cultures are negative but patient has been on IV antibiotics. Some improvement in condition on IV antibiotics alone. MRI demonstrates massive rotator cuff tear with extensive joint effusion and bursitis Description of Procedure The patient was to the operating room anesthetized under regional block and general anesthesia. The patient was positioned on the operating table in the 70 beachchair position. All of the other extremities were well-padded. The left upper extremity was prepped and draped in the usual sterile fashion. Examination demonstrated a thin arm with subacromial bursal effusion. Range of motion was 130 degrees flexion 90 degrees AB duction. Some crepitation with range of motion.. Arthroscopy of the shoulder was performed via anterior and posterior arthroscopy portals. Posterior portal was placed in the soft spot and the anterior portal was placed in the rotator interval. Subsequent portals included lateral subacromial. The following findings were noted: When the scope cannulas placed into the glenohumeral joint some bloody fluid was evacuated out of the joint. It did not look purulent like prior aspiration. This was sent for culture. We held preop antibiotics until cultures were obtained. Patient was on vancomycin however and that was given earlier in the day. Inspection of the glenohumeral joint demonstrated synovitis and fibrinous type material that would be consistent with an infection. This extended into the subacromial space and was in the subdeltoid soft acromial bursa area. There was tendinopathy of the subscapularis tendon but a thin area subscapularis still intact. There was a chronic supraspinatus and infraspinatus tendon tear retracted beyond the glenoid. There is an intact teres minor. There was grade 3-4 articular wear on the humeral articular surface and grade 2 3 wear on the glenoid and circumferential fraying of the labrum. There was chronic bursitis which likely preexisted the infection and also this fibrinous material in the subacromial bursa consistent with infection. There were subacromial bone spurs type III acromion. There was fraying of the CA ligament. Attention was first taken to using a punch and grasper to get synovial biopsies and some biopsy of the bursal tissue with the fibrinous type material. These were sent for culture. Antibiotics 2 g Ancef were administered then. An extensive debridement was performed debriding all the fibrinous material visible in the subacromial space and glenohumeral space and synovium was debrided for rotator cuff frayed tissue of the subscapularis and supraspinatus infraspinatus was debrided the labrum was debrided circumferentially joint surfaces were lightly debrided we did not do any bony debridement because of the infection. I also used a radiofrequency ablator to ablate some of the bursal tissue in the fat posteriorly for visualization purposes. We used Ancef and one of the irrigation bags of 3 L. 24 total liters of fluid were utilized irrigating out the joint thoroughly. Via the anterior and lateral portal sites Hemovac drains were then placed and sutured in place with 3-0 nylon. Posterior portal was closed with 3-0 nylon as well. Sterile dressings were applied and a sling immobilizer. The patient tolerated the procedure well. My physician student assistant Wilberto Teague, assisted in arm positioning, instrument management, suture management when indicated, incision closure, sling application, and will participate in the postoperative care of the patient. I attest to the content of the Intraoperative Record and any orders documented therein. Any exceptions are noted below.
[2022-09-24] MEDS: fentaNYL citrate PF 100 MCG/2 ML VIAL IV PRN ×4 (19:02→19:17)
[2022-09-24] MEDS ORDERED: NALOXONE HCL 0.4 MG/1 ML VIAL/CARP IV PRN (20:03)
[2022-09-24] MEDS ORDERED: SODIUM CHLORIDE 0.9% 1000ML 1,000 ML IV SCH (20:03)
[2022-09-24] MEDS ORDERED: bisacodyL 10 MG SUPP PR PRN (20:03)
[2022-09-24] MEDS ORDERED: HYDROmorphone INJ 0.5 MG/0.5 ML SYR IV PRN (20:03)
[2022-09-24] MEDS ORDERED: MAGNESIUM HYDROXIDE SUSP 30 ML UDC PO PRN (20:03)
--- NOTE | 2022-09-24 20:23 | Anesthesiology Progress Note ---
Date of Service September 24, 2022 Anesthesia Post Procedure Vital Signs Vital Signs: Temp Pulse Pulse Pulse Resp BP Pulse Ox 09/24/22 19:25 36.7 C 89 24 162/99 H 99 09/24/22 19:15 84 21 165/109 H 98 09/24/22 19:05 79 20 171/105 H 100 09/24/22 18:55 77 20 163/108 H 100 09/24/22 18:45 36.1 C L 81 18 156/103 H 99 09/24/22 16:30 36.7 C 81 18 125/84 96 09/24/22 16:00 86 18 111/66 94 09/24/22 15:28 61 09/24/22 11:44 36.5 C 68 19 100/58 L 96 09/24/22 07:54 82 09/24/22 07:54 09/24/22 07:40 36.8 C 81 20 140/95 95 09/24/22 06:53 81 20 94 09/23/22 22:00 80 09/24/22 03:00 36.5 C 83 16 119/87 100 09/23/22 23:12 37.0 C 78 16 113/72 96 O2 Del Method O2 Flow Rate 09/24/22 19:25 Nasal Cannula 3 09/24/22 19:15 Nasal Cannula 3 09/24/22 19:05 Oxymask 4 09/24/22 18:55 Oxymask 6 09/24/22 18:45 Oxymask 8 09/24/22 16:30 Nasal Cannula 3 09/24/22 16:00 Nasal Cannula 09/24/22 15:28 09/24/22 11:44 Nasal Cannula 3.0 09/24/22 07:54 09/24/22 07:54 Nasal Cannula 3 09/24/22 07:40 Nasal Cannula 3.0 09/24/22 06:53 Nasal Cannula 3 09/23/22 22:00 09/24/22 03:00 Nasal Cannula 3 09/23/22 23:12 Nasal Cannula 3 Pain Intensity Left Shoulder: Pain Intensity: 2 Transfer of Care Handoff Completed per policy Notes Mental Status: alert / awake / arousable and participated in evaluation Patient Amnestic to Procedure: Yes Nausea / Vomiting: adequately controlled Pain: adequately controlled Airway Patency, RR, SpO2: stable & adequate BP & HR: stable & adequate Hydration State: stable & adequate Anesthetic Complications: no major complications apparent
[2022-09-24] MEDS: DOCUSATE SODIUM 100 MG CAP PO SCH (21:33)
[2022-09-25 05:05] LABS: Basophils # (auto) 0.03 K/uL (0-0.2); Basophils % (auto) 0.6 %; Eosinophils # (auto) 0.02 K/uL (0-0.50); Eosinophils % (auto) 0.4 %; Hematocrit (blood only) 30.3 % (37.0-47.0); Hemoglobin 8.8 g/dl (12.0-16.0); Immature Granulocytes # (auto) 0.01 K/uL (0.01-0.20); Immature Granulocytes % (auto) 0.2 %; Lymphocytes # (auto) 0.28 K/uL (1.2-3.4); Mean Corpuscular Hemoglobin 23.3 pg (25.0-34.0); Mean Corpuscular Volume 80.4 fL (80.0-100.0); Mean Platelet Volume 10.1 fL (9.4-12.4); Monocytes # (auto) 0.33 K/uL (0.11-0.59); Neutrophils # (auto) 4.03 K/uL (1.40-6.50); Neutrophils % (auto) 85.8 %; Platelet Count 185 K/uL (130-400); RDW Coefficient of Variation 23.8 % (11.5-14.5); Red Blood Count 3.77 M/uL (4.20-5.40)
[2022-09-25 05:28] LABS: Calcium 9.2 mg/dl (8.6-10.3); Potassium 3.5 mmol/L (3.5-5.1)
[2022-09-25 05:29] LABS: Acanthocytes 1+; Anisocytosis Present; Polychromasia 1+
[2022-09-25 06:05] LABS: BUN Creatinine Ratio 24.6 (10-20); Creatinine Clr Calc Pharmacy 61.9 ml/min; Est GFR (African American) 100.7 ml/min; Est GFR (Non-African American) 86.8 ml/min
[2022-09-25] MEDS: ALBUT/IPRATROP 3MG/0.5MG NEB 3 ML VIAL NEB SCH ×2 (07:07→19:18)
--- NOTE | 2022-09-25 08:06 | Orthopedic Progress Note ---
Date of Service September 25, 2022 Assessment & Plan (1) Effusion, left shoulder: Plan: Postop day 1 status post left arthroscopic irrigation and debridement Compared to her original aspirate, the fluid drained from her shoulder during the procedure has changed. Minimal serous/bloody drainage. No odor. 1 culture of synovial fluid taken and 2 cultures of tissue taken. Await culture results. Original culture results showing no growth. Currently on vancomycin. Continue dressings and drain for now. Possible DC tomorrow versus Tuesday. DVT prophylaxis- consider restarting apixaban tonight. Pain management as written-consider increasing tramadol if needed. Sling for comfort only. Patient may remove as needed. (2) Primary osteoarthritis, left shoulder: Admission and Anticipated Discharge Date Admission Date: September 16, 2022 Subjective Postop day 1 Patient sitting up eating her breakfast at the bedside. States that she is having some pain in the left shoulder but overall feels well. No other complaints at this time Physical Exam Physical Exam: Dressings are clean, dry, and intact. Hemovac continues to function. Minimal output. Sling is in place. Neurovascular intact. Results & Data Vital Signs (Past 12 Hours) Vital Signs Temp Pulse Pulse Pulse Resp BP Pulse Ox 09/25/22 07:10 90 20 90 09/24/22 22:22 91 H 09/25/22 03:00 36.8 C 83 22 124/87 94 09/24/22 20:15 09/24/22 22:33 37.1 C 81 24 143/86 H 94 09/24/22 21:33 37 C 94 H 24 142/78 H 95 09/24/22 20:33 36.8 C 98 H 22 154/87 H 98 09/24/22 20:03 37.1 C 88 16 146/84 H 98 O2 Del Method O2 Flow Rate 09/25/22 07:10 Nasal Cannula 3 09/24/22 22:22 09/25/22 03:00 Nasal Cannula 3 09/24/22 20:15 Nasal Cannula 3 09/24/22 22:33 Nasal Cannula 3 09/24/22 21:33 Nasal Cannula 3 09/24/22 20:33 Nasal Cannula 3 09/24/22 20:03 Nasal Cannula Laboratory Results Laboratory Results WBC 4.70 K/ul (4.8-10.8) L 09/25/22 04:46 RBC 3.77 M/uL (4.20-5.40) L 09/25/22 04:46 Hgb 8.8 g/dl (12.0-16.0) L 09/25/22 04:46 Hct 30.3 % (37.0-47.0) L 09/25/22 04:46 MCV 80.4 fL (80.0-100.0) 09/25/22 04:46 MCH 23.3 pg (25.0-34.0) L 09/25/22 04:46 MCHC 29.0 g/dL (32.0-36.0) L 09/25/22 04:46 RDW Std Deviation 68.0 fL (36.4-46.3) H 09/25/22 04:46 RDW Coeff of [place] 23.8 % (11.5-14.5) H 09/25/22 04:46 Plt Count 185 K/uL (130-400) 09/25/22 04:46 MPV 10.1 fL (9.4-12.4) 09/25/22 04:46 Immature Gran % (Auto) 0.2 % 09/25/22 04:46 Neut % (Auto) 85.8 % 09/25/22 04:46 Lymph % (Auto) 6.0 % 09/25/22 04:46 [place] % (Auto) 7.0 % 09/25/22 04:46 Eos % (Auto) 0.4 % 09/25/22 04:46 Baso % (Auto) 0.6 % 09/25/22 04:46 Reticulocyte % (Auto) 1.4 % (0.5-2.0) 09/17/22 17:09 Neut # (Auto) 4.03 K/uL (1.40-6.50) 09/25/22 04:46 Lymph # (Auto) 0.28 K/uL (1.2-3.4) L 09/25/22 04:46 [place] # (Auto) 0.33 K/uL (0.11-0.59) 09/25/22 04:46 Eos # (Auto) 0.02 K/uL (0-0.50) 09/25/22 04:46 Baso # (Auto) 0.03 K/uL (0-0.2) 09/25/22 04:46 Reticulocyte # 0.05 10^6/uL (0.02-0.10) 09/17/22 17:09 Immature Gran # (Auto) 0.01 K/uL (0.01-0.20) 09/25/22 04:46 Polychromasia 1+ 09/25/22 04:46 Hypochromasia Present 09/17/22 04:13 Poikilocytosis Present 09/21/22 06:31 Anisocytosis Present 09/25/22 04:46 Tear Drop Cells 1+ 09/22/22 07:50 Ovalocytes 1+ 09/24/22 00:50 Acanthocytes (Spur) 1+ 09/25/22 04:46 Peripher Smr Path Cons 09/17/22 17:09 ESR 77 mm/hr (0-30) H 09/21/22 17:22 Haptoglobin 144 mg/dL (43-212) 09/17/22 17:09 PT 11.2 Seconds (9.0-12.0) 09/22/22 17:34 INR 1.0 (0.9-1.1) 09/22/22 17:34 APTT 35.3 Seconds (21.0-31.0) H 09/24/22 00:54 PTT Ratio 1.3 09/24/22 00:54 Sodium 142 mmol/L (136-145) 09/25/22 04:46 Potassium 3.5 mmol/L (3.5-5.1) 09/25/22 04:46 Chloride 103 mmol/L (98-107) 09/25/22 04:46 Carbon Dioxide 32 mmol/L (21-32) 09/25/22 04:46 Anion Gap 7 (3-11) 09/25/22 04:46 BUN 16 mg/dl (6-23) 09/25/22 04:46 Creatinine 0.65 mg/dl (0.6-1.2) D 09/25/22 04:46 Est Cr Clr Drug Dosing 61.9 ml/min 09/25/22 04:46 Est GFR ( Amer) 100.7 ml/min 09/25/22 04:46 Est GFR (Non-Af Amer) 86.8 ml/min 09/25/22 04:46 BUN/Creatinine Ratio 24.6 (10-20) H 09/25/22 04:46 Glucose 120 mg/dl (70-99(Fasting)) H 09/25/22 04:46 Estimat Average Glucose 120 mg/dl 09/17/22 04:13 Hemoglobin A1c 5.8 % (4.5-5.6) H 09/17/22 04:13 Uric Acid 3.7 mg/dl (2.6-7.2) 09/19/22 14:04 Calcium 9.2 mg/dl (8.6-10.3) 09/25/22 04:46 Magnesium 1.8 mg/dl (1.7-2.4) 09/17/22 04:13 Iron 17 mcg/dl (35-150) L 09/16/22 16:35 Unsaturated IBC 349 mcg/dl (155-355) 09/16/22 16:35 Transferrin 291 mg/dl (200-360) 09/16/22 16:35 Ferritin 7.6 ng/ml (8-388) L 09/16/22 16:35 Total Bilirubin 1.2 mg/dl (0.2-1.0) H D 09/17/22 04:13 AST 11 U/L (13-39) L 09/17/22 04:13 ALT 10 U/L (7-52) 09/17/22 04:13 Alkaline Phosphatase 50 U/L (34-104) 09/17/22 04:13 Lactate Dehydrogenase 214 U/L (86-244) 09/17/22 17:09 Troponin I High Sens 16.4 pg/ml (0-14) H 09/17/22 04:13 C-Reactive Protein 27.98 mg/dl (0-0.5) H 09/21/22 17:22 B-Natriuretic Peptide 668 pg/ml (0-100) H 09/16/22 16:35 Total Protein 5.3 gm/dl (6.0-8.3) L 09/17/22 04:13 Albumin 3.5 gm/dl (3.4-5.0) 09/17/22 04:13 Globulin 1.8 gm/dl (2.5-4.0) L 09/17/22 04:13 Albumin/Globulin Ratio 1.9 (0.9-2) 09/17/22 04:13 Vitamin B12 185 pg/ml (180-914) 09/17/22 17:09 Folate 20.51 ng/ml (>5.38) 09/17/22 17:09 Urine Color Yellow 09/16/22 18:34 Urine Appearance Clear (Clear) 09/16/22 18:34 Urine pH 5.5 (4.5-7.5) 09/16/22 18:34 Ur Specific [place] 1.016 (1.000-1.030) 09/16/22 18:34 Urine Protein Trace (Negative) H 09/16/22 18:34 Urine Glucose (UA) Negative (Negative) 09/16/22 18:34 Urine Ketones Trace (Negative) H 09/16/22 18:34 Urine Blood Negative (Negative) 09/16/22 18:34 Urine Nitrite Negative (Negative) 09/16/22 18:34 Urine Bilirubin Negative (Negative) 09/16/22 18:34 Urine Urobilinogen Negative (Negative) 09/16/22 18:34 Ur Leukocyte Esterase Trace (Negative) H 09/16/22 18:34 Urine WBC (Auto) 1-5 /hpf (0-5) 09/16/22 18:34 Urine RBC (Auto) 0-4 /hpf (0-4) 09/16/22 18:34 U Hyaline Cast (Auto) 5-10 /lpf (0-5) H 09/16/22 18:34 U Epithel Cells (Auto) 20-30 /lpf (0-5) H 09/16/22 18:34 Urine Bacteria (Auto) Negative (Negative) 09/16/22 18:34 Fluid Comment 09/21/22 16:30 Synovial Source Other 09/21/22 16:30 Synovial Color Brown 09/21/22 16:30 Synovial Appearance Turbid 09/21/22 16:30 Synovial WBC (Auto) 115841 /ul (0-200) H 09/21/22 16:30 Synovial RBC (Auto) < 2000 /uL 09/21/22 16:30 Synovial Polynuclear % 95.0 % 09/21/22 16:30 Synovial Mononuclear % 5.0 % 09/21/22 16:30 Synovial Crystals 09/21/22 16:30 Random Vancomycin 18.1 mcg/ml (10-20) 09/25/22 04:46 SARS-CoV-2, RNA, NAAT NEGATIVE (NEGATIVE) 09/16/22 16:35 Blood Type A Positive 09/16/22 17:23 Antibody Screen NEGATIVE 09/16/22 17:23 Direct Antiglob Test Negative (Negative) 09/16/22 17:23 NEHA (IgG-AHG) Neg (Negative) 09/16/22 17: NEHA, Polyspecific Neg (Negative) 09/16/22 17:23 NEHA C3b, C3d 5 Min Neg (Negative) 09/16/22 17:23 Crossmatch See Detail 09/16/22 17:23
[2022-09-25] MEDS: dilTIAZem HCL 30 MG TAB PO SCH ×3 (08:41→20:09)
[2022-09-25] MEDS: CHOLECALCIFEROL 1,000 UNITS 25 MCG TAB PO SCH (08:41)
[2022-09-25] MEDS: buPROPion SR 150 MG TABCR PO SCH ×2 (08:41→20:09)
[2022-09-25] MEDS: ATORVASTATIN 40 MG TAB PO SCH (08:41)
[2022-09-25] MEDS: FUROSEMIDE 40 MG TAB PO SCH (08:42)
[2022-09-25] MEDS: GABAPENTIN 300 MG CAP PO SCH ×2 (08:42→20:09)
[2022-09-25] MEDS: DOCUSATE SODIUM 100 MG CAP PO SCH ×2 (08:42→20:09)
[2022-09-25] MEDS: FLUTICASONE FUROATE 100MCG 14 PUFFS/INHALER INH SCH (08:42)
[2022-09-25] MEDS: SUCRALFATE 1 GM/10 ML UDC PO SCH ×2 (08:43→20:09)
[2022-09-25] MEDS: PANTOprazole 40 MG TAB PO SCH (08:43)
[2022-09-25] MEDS: lisinopril 20 MG TAB PO SCH (08:43)
[2022-09-25] MEDS: METOPROLOL TARTRATE 25 MG TAB PO SCH ×4 (08:43→20:09)
[2022-09-25] MEDS: guaiFENesin 600 MG TABCR PO SCH ×2 (08:43→20:09)
[2022-09-25] MEDS: UMECLIDINIUM/VILANTEROL 62.5/25MCG 7 PUFFS/INHALER INH SCH (09:28)
[2022-09-25] MEDS: VANCOMYCIN HCL 750 MG in SODIUM CHLORIDE 0.9% 250 ML IV SCH (09:30)
--- NOTE | 2022-09-25 09:56 | Pharmacy Report ---
Pharmacy PK ABX Note - Date of Service September 25, 2022 - Assessment and Plan Assessment 77 year old F receiving Vancomycin for treatment of possible septic arthritis of right shoulder. * Day #6 of antimicrobial therapy. * Renal fxn improving today, base to ~baseline * Underwent shoulder aspiration on 09/21/22 by ortho. Fluid analysis shows elevated white cells. Gram stain shows no organisms yet. * OR 09/24/22 for I&D - no growth yet but this was post-antibiotics Plan Vancomycin * Current regimen: 750 mg IV every 12 hours * Random level obtained 09/25/22 resulted as 181.8 mcg/mL. This is associiated with a suptherapeutic AUC, likely 2nd potential improvement in renal function * Change to 1000 mg IV every 12 hours. * Goal AUC/STEVAN is 400 - 600 mg/L.hr. Predicted AUC at steady state on this regimen is 441 mg/L.hr. * Repeat random level ordered for: 09/27/22 Pharmacy will continue to follow and will adjust dose/frequency as necessary. Thank you. Pharmacy has transitioned to AUC monitoring for vancomycin. AUC/STEVAN is the preferred PK/PD target and is associated with decreased risk of nephrotoxicity compared to traditional trough targets.
--- NOTE | 2022-09-25 10:06 | Cardiology Progress Note ---
Date of Service September 25, 2022 Assessment & Plan (1) Chronic hypoxemic respiratory failure: (2) Symptomatic anemia: Plan: - Presenting hemoglobin was 6 g/dL, EGD revealed gastritis with no active bleeding, hemoglobin improved to 9. Morning of 09/24, hbg dropped to 7.7, but then again improved to > 9 on repeat (3) Bradycardia: (4) Paroxysmal atrial flutter: (5) Effusion, left shoulder: (6) Preoperative cardiovascular examination: Plan The patient's heart rhythm is currently stable. I would continue with the diltiazem and metoprolol. Her hemoglobin is 8.8 today. She has a wound VAC in that this draining bloody fluid and I would recommend that we hold the Eliquis again today and reassess tomorrow before restarting this medication. Admission and Anticipated Discharge Date Admission Date: September 16, 2022 Subjective The patient had an uneventful night. Review of Systems Review of Systems: Review of Systems: See HPI for pertinent positives. All other 10 point review of systems are negative. Physical Exam Physical Exam: General: no acute distress and stated age Head: normocephalic, no masses, lesions, tenderness or abnormalities Eyes: conjunctiva are pink and non-injected, sclera clear Neck: supple, no adenopathy, no bruits, normal jugular venous pulse, no hepatojugular reflux Chest: normal shape and normal respiratory effort Lungs: clear to auscultation and percussion Cardiac Exam: - regular rate & rhythm, no murmurs gallops or rubs - normal S1, normal S2 Pulses: 2(+) throughout Abdomen: abdomen soft, non-tender, no abnormal masses and no hepatosplenomegaly Musculoskeletal: no gait disturbance, no joint inflammation, no deforming arthritis Extremities: Left shoulder sling and vac Neuro: grossly normal exam Results & Data Vital Signs (Past 12 Hours) Vital Signs Temp Pulse Pulse Pulse Resp BP Pulse Ox 09/25/22 09:00 09/25/22 08:06 36.8 C 97 H 19 124/88 94 09/25/22 07:10 90 20 90 09/24/22 22:22 91 H 09/25/22 03:00 36.8 C 83 22 124/87 94 09/24/22 22:33 37.1 C 81 24 143/86 H 94 O2 Del Method O2 Flow Rate 09/25/22 09:00 Nasal Cannula 3 09/25/22 08:06 Nasal Cannula 3.0 09/25/22 07:10 Nasal Cannula 3 09/24/22 22:22 09/25/22 03:00 Nasal Cannula 3 09/24/22 22:33 Nasal Cannula 3 Laboratory Results Laboratory Results - last 24 hr 09/24/22 09/25/22 09/25/22 07:55 04:46 04:46 WBC 4.70 L RBC 3.77 L Hgb 9.1 L 8.8 L Hct 30.3 L MCV 80.4 MCH 23.3 L MCHC 29.0 L RDW Std Deviation 68.0 H RDW Coeff of [place] 23.8 H Plt Count 185 MPV 10.1 Immature Gran % (Auto) 0.2 Neut % (Auto) 85.8 Lymph % (Auto) 6.0 [place] % (Auto) 7.0 Eos % (Auto) 0.4 Baso % (Auto) 0.6 Neut # (Auto) 4.03 Lymph # (Auto) 0.28 L [place] # (Auto) 0.33 Eos # (Auto) 0.02 Baso # (Auto) 0.03 Immature Gran # (Auto) 0.01 Polychromasia 1+ Anisocytosis Present Acanthocytes (Spur) 1+ Sodium Potassium Chloride Carbon Dioxide Anion Gap BUN Creatinine Est Cr Clr Drug Dosing Est GFR ( Amer) Est GFR (Non-Af Amer) BUN/Creatinine Ratio Glucose Calcium Random Vancomycin 18.1 09/25/22 04:46 WBC RBC Hgb Hct MCV MCH MCHC RDW Std Deviation RDW Coeff of [place] Plt Count MPV Immature Gran % (Auto) Neut % (Auto) Lymph % (Auto) [place] % (Auto) Eos % (Auto) Baso % (Auto) Neut # (Auto) Lymph # (Auto) [place] # (Auto) Eos # (Auto) Baso # (Auto) Immature Gran # (Auto) Polychromasia Anisocytosis Acanthocytes (Spur) Sodium 142 Potassium 3.5 Chloride 103 Carbon Dioxide 32 Anion Gap 7 BUN 16 Creatinine 0.65 D Est Cr Clr Drug Dosing 61.9 Est GFR ( Amer) 100.7 Est GFR (Non-Af Amer) 86.8 BUN/Creatinine Ratio 24.6 H Glucose 120 H Calcium 9.2 Random Vancomycin Medications Administered Current Inpatient Medications Acetaminophen (Acetaminophen 325 Mg Tab) 650 mg PO Q4H PRN PRN Reason: Pain or Fever Stop: 10/16/22 19:43 Last Admin: 09/24/22 08:02 Dose: 650 mg Albuterol (Albuterol 0.083% Nebu Soln 3 Ml Vial) 2.5 mg NEB Q6R PRN; Protocol PRN Reason: sob/wheezing Stop: 10/16/22 19:43 Last Admin: 09/18/22 07:03 Dose: 2.5 mg Albuterol (Albut/Ipratrop 3mg/0.5mg Neb 3 Ml Vial) 3 ml NEB BIDR HUGH; Protocol Stop: 10/18/22 18:59 Last Admin: 09/25/22 07:07 Dose: 3 ml Atorvastatin Calcium (Atorvastatin 40 Mg Tab) 80 mg PO QAM [facility] Stop: 10/17/22 08:59 Last Admin: 09/25/22 08:41 Dose: 80 mg Bisacodyl (Bisacodyl 10 Mg Supp) 10 mg MI DAILY PRN PRN Reason: Constipation Stop: 10/24/22 20:02 Bupropion HCl (Bupropion Sr 150 Mg Tabcr) 150 mg PO AMHS [facility] Stop: 10/16/22 20:59 Last Admin: 09/25/22 08:41 Dose: 150 mg Diltiazem HCl (Diltiazem Hcl 30 Mg Tab) 30 mg PO TID [facility] Stop: 10/22/22 20:59 Last Admin: 09/25/22 08:41 Dose: 30 mg Docusate Sodium (Docusate Sodium 100 Mg Cap) 100 mg PO BID [facility] Stop: 10/24/22 20:59 Last Admin: 09/25/22 08:42 Dose: 100 mg Fluticasone Furoate (Fluticasone Furoate 100mcg 14 Puffs/Inhaler) 1 puffs INH [facility] Stop: 10/17/22 08:59 Last Admin: 09/25/22 08:42 Dose: 1 puffs Furosemide (F[facility]semide 40 Mg Tab) [facility] [place] Stop: 10/23/22 08:59 Last Admin: 09/25/22 08:42 Dose: 40 mg Gabapentin (Gabapentin 300 Mg Cap) 300 mg PO BID [facility] Stop: 10/16/22 20:59 Last Admin: 09/25/22 08:42 Dose: 300 mg Guaifenesin (Guaifenesin 600 Mg Tabcr) 600 mg PO Q12 [facility] Stop: 10/16/22 20:59 Last Admin: 09/25/22 08:43 Dose: 600 mg Hydromorphone HCl (Hydromorphone Inj 0.5 Mg/0.5 Ml Syr) 0.25 mg IV Q4H PRN PRN Reason: Pain or Pre PT Stop: 10/08/22 20:02 Last Admin: 09/25/22 05:10 Dose: 0.25 mg Heparin Sodium/Dextrose (Heparin Sodium/Dextrose) 25,000 units in 500 mls @ 0 mls/hr IV .Q0M [facility]; Protocol Stop: 10/22/22 18:44 Last Titration: 09/24/22 10:36 Dose: Infused Vancomycin HCl 750 mg/ Sodium (Chloride) 265 mls @ 200 mls/hr IV Q12H [facility]; Protocol Stop: 09/25/22 12:00 Last Admin: 09/25/22 09:30 Dose: 200 mls/hr Vancomycin HCl 1,000 mg/ (Sodium Chloride) 270 mls @ 200 mls/hr IV Q12H [facility]; Protocol Stop: 11/06/22 19:59 Lisinopril (Lisinopril 20 Mg Tab) 20 mg PO QAM [facility] Stop: 10/21/22 08:59 Last Admin: 09/25/22 08:43 Dose: 20 mg Magnesium Hydroxide (Magnesium Hydroxide Susp 30 Ml Udc) 30 ml PO Q6H PRN PRN Reason: Constipation Stop: 10/24/22 20:02 Metoprolol Tartrate (Metoprolol Tartrate 25 Mg Tab) 25 mg PO QID [facility] Stop: 10/21/22 08:59 Last Admin: 09/25/22 08:43 Dose: 25 mg Miscellaneous Information (Vancomycin Consult Active) 1 each N/A UD PRN PRN Reason: Consult Stop: 10/20/22 12:10 Naloxone HCl (Naloxone Hcl 0.4 Mg/1 Ml Vial/Carp) 0.1 mg IV Q5M PRN PRN Reason: Oversedation/Resp Depression Stop: 10/24/22 20:02 Ondansetron HCl (Ondansetron Inj 2 Mg/Ml 2 Ml Vial) 4 mg IV Q6H PRN PRN Reason: Nausea Stop: 10/16/22 19:43 Ondansetron HCl (Ondansetron Inj 2 Mg/Ml 2 Ml Vial) 4 mg IV Q6H PRN PRN Reason: Nausea And Vomiting Stop: 10/24/22 20:02 Pantoprazole Sodium (Pantoprazole 40 Mg Tab) 40 mg PO DAILY [facility] Stop: 10/23/22 08:59 Last Admin: 09/25/22 08:43 Dose: 40 mg Potassium Chloride (Potassium Chloride 10 Meq Tabcr) 10 meq PO AMHS [facility] Stop: 10/17/22 08:59 Last Admin: 09/18/22 08:47 Dose: 10 meq Sucralfate (Sucralfate 1 Gm/10 Ml Udc) 1 gm PO BID [facility] Stop: 10/17/22 20:59 Last Admin: 09/25/22 08:43 Dose: 1 gm Tramadol HCl (Tramadol Hcl 50 Mg Tablet) 25 mg PO Q6H PRN PRN Reason: Pain Stop: 10/20/22 11:35 Last Admin: 09/21/22 00:06 Dose: 25 mg Umeclidinium/Vilanterol (Umeclidinium/Vilanterol 62.5/25mcg 7 Puffs/Inhaler) 1 puffs INH QAM [facility] Stop: 10/17/22 08:59 Last Admin: 09/25/22 09:28 Dose: 1 puffs Vitamin D (Cholecalciferol 1,000 Units 25 Mcg Tab) 1,000 units PO QAM [facility] Stop: 10/17/22 08:59 Last Admin: 09/25/22 08:41 Dose: 1,000 units
--- NOTE | 2022-09-25 11:30 | Hospitalist Progress Note ---
Date of Service September 25, 2022 Assessment & Plan (1) Acute GI bleeding: Plan: This is a 77-year-old female who has significant past medical history of chronic hypoxic respiratory failure on 2 to 3 L of oxygen, COPD, CAD, chronic diastolic CHF, hypertension, pulmonary hypertension, PFO, wandering atrial pacemaker, hyperlipidemia, senile osteoporosis, meningioma, iron deficiency anemia, tobacco use disorder, AAA status postrepair who presents to ED secondary to worsening shortness of breath for the last 2 to 3 weeks. FOBT positive, EGD with esophagitis and gastritis as below but no active bleeding, S/p 3 U PRBC. Symptomatic Anemia/Iron deficiency anemia due to chronic GI blood loss Vit B12 deficiency - Hb dropped from baseline of >11 in May to 6 on admission - Heme positive in ED, stool occult blood positive but no overt bleeding noted. Ferritin 7.6, Iron 17. Hemolysis panel negative. PBS for parasites negative. Folate normal, B12 low normal. - EGD 09/17 with gastritis and mild esophagitis - s/p 3 U PRBC and Hb now stabilized. - Continue PPI and carafate - Seen by GI- recommendations noted as below Iron supplement for 3 months Protonix 40 mg per day Carafate 1 gm bid x 12 weeks OP colonoscopy to be arranged Repeat EGD in 3 months for surveillance of Gastritis Biopsy result is pending Clinically much better and the hemoglobin remains stable at 8 to 9. Septic arthritis status post Left shoulder arthroscopy with extensive debridement and placement of Hemovac drains and soft tissue biopsies for culture and joint fluid culture on September 24. Left shoulder noted to have acutely inflamed with swelling, redness and tenderness since September 19, 2022. X-ray of the shoulder showed soft tissue swelling but no bony abnormalities Labs reviewed; ESR initially 42; increased to 77. CRP markedly elevated as well. MRI shoulder reviewed; large joint effusion with synovitis present. Results of the joint aspiration done on September 21 reviewed; consistent with septic arthritis with WBC count of greater than 100,000 ( 95% N) Gram stain shows WBC. Culture negative so far. Continue on vancomycin for now Blood culture no growth till date. Follow-up Intra-Op cultures. (2) Atrial fibrillation with rapid ventricular response: Plan: Paroxysmal a flutter Cardiology on board. Was restarted on Eliquis. Currently on heparin drip for procedure tomorrow. Received IV Cardizem and amiodarone during the initial hospitalization. Discussed with cardiology; recommended to continue metoprolol 25 mg every 6 and Cardizem 30 mg every 8 hourly. Currently Eliquis is on hold due to surgery. Resume when okay with cardiology and orthopedics. (3) Symptomatic anemia: Plan: As above (4) AP (acute kidney injury): Plan: AP- cr improved 1.24->1. Baseline around 0.7-0.8. Resume Lasix. Lisinopril restarted. Monitor kidney function. (5) CAD (coronary artery disease): Plan: CAD Diastolic CHF troponin minimally elevated, flat trend, likely demand ischemia in setting of anemia, pt without chest pain Patient appears to be in increasing shortness of breath on September 21, 2022. Will rule out acute on chronic diastolic heart failure. Chest x-ray reviewed; mild vascular congestion. Resume home dose of Lasix (6) Chronic obstructive pulmonary disease: (7) Chronic hypoxemic respiratory failure: Plan: Chronic hypoxic resp failure on 2-3L of O2 COPD w/o exac continue trelegy DuoNebs twice daily Plan DVT ppx: Eliquis on hold due to recent procedure. Dispo: Continues to be hospitalized due to left shoulder septic arthritis and a flutter. DNR/DNI Time spent evaluating patient, direct bedside care, chart review, placing orders, interpretation of diagnostic studies, discussion with consultants, patient, and family members, as well as other required patient management activities is 60 minutes. Please note the above document was generated using voice recognition software. It may contain grammatical, syntax or spelling errors. Any formal questions or concerns about the content, text or information contained within the body of this dictation should be directly addressed to the provider for clarification Admission and Anticipated Discharge Date Admission Date: September 16, 2022 Subjective Patient seen and examined at bedside. She is lying in the bed comfortable; not in distress. Has sanguinous output from left shoulder drain. Review of Systems Review of Systems: All systems reviewed & are unremarkable except as noted in Subjective Physical Exam Physical Exam: Constitutional: WD/WN, vitals as above, NAD, sitting up in bed, pleasant, conversing easily Respiratory: Bilateral crackles heard. Cardiovascular: Irregular, no murmur, no edema Vessels: no JVD or carotid bruit Chest: normal inspection of chest Abdomen: normal bowel sounds, soft, nontender, no hepatosplenomegaly Musculoskeletal: Left shoulder-there is a dressing with hemovac in place. Skin: no rashes, warm and dry normal turgor Neurologic: Grossly intact. Psychiatric: A+Ox3, euthymic affect Lymphatic: no cervical or axillary lymphadenopathy : deferred Results & Data Results & Data Vital Signs (Past 12 Hours) Vital Signs Temp Pulse Pulse Resp BP Pulse Ox O2 Del Method 09/25/22 09:00 Nasal Cannula 09/25/22 08:06 36.8 C 97 H 19 124/88 94 Nasal Cannula 09/25/22 07:10 90 20 90 Nasal Cannula 09/25/22 03:00 36.8 C 83 22 124/87 94 Nasal Cannula O2 Flow Rate 09/25/22 09:00 3 09/25/22 08:06 3.0 09/25/22 07:10 3 09/25/22 03:00 3 Laboratory Results Laboratory Results WBC 4.70 K/ul (4.8-10.8) L 09/25/22 04:46 RBC 3.77 M/uL (4.20-5.40) L 09/25/22 04:46 Hgb 8.8 g/dl (12.0-16.0) L 09/25/22 04:46 Hct 30.3 % (37.0-47.0) L 09/25/22 04:46 MCV 80.4 fL (80.0-100.0) 09/25/22 04:46 MCH 23.3 pg (25.0-34.0) L 09/25/22 04:46 MCHC 29.0 g/dL (32.0-36.0) L 09/25/22 04:46 RDW Std Deviation 68.0 fL (36.4-46.3) H 09/25/22 04:46 RDW Coeff of [place] 23.8 % (11.5-14.5) H 09/25/22 04:46 Plt Count 185 K/uL (130-400) 09/25/22 04:46 MPV 10.1 fL (9.4-12.4) 09/25/22 04:46 Immature Gran % (Auto) 0.2 % 09/25/22 04:46 Neut % (Auto) 85.8 % 09/25/22 04:46 Lymph % (Auto) 6.0 % 09/25/22 04:46 [place] % (Auto) 7.0 % 09/25/22 04:46 Eos % (Auto) 0.4 % 09/25/22 04:46 Baso % (Auto) 0.6 % 09/25/22 04:46 Reticulocyte % (Auto) 1.4 % (0.5-2.0) 09/17/22 17:09 Neut # (Auto) 4.03 K/uL (1.40-6.50) 09/25/22 04:46 Lymph # (Auto) 0.28 K/uL (1.2-3.4) L 09/25/22 04:46 [place] # (Auto) 0.33 K/uL (0.11-0.59) 09/25/22 04:46 Eos # (Auto) 0.02 K/uL (0-0.50) 09/25/22 04:46 Baso # (Auto) 0.03 K/uL (0-0.2) 09/25/22 04:46 Reticulocyte # 0.05 10^6/uL (0.02-0.10) 09/17/22 17:09 Immature Gran # (Auto) 0.01 K/uL (0.01-0.20) 09/25/22 04:46 Polychromasia 1+ 09/25/22 04:46 Hypochromasia Present 09/17/22 04:13 Poikilocytosis Present 09/21/22 06:31 Anisocytosis Present 09/25/22 04:46 Tear Drop Cells 1+ 09/22/22 07:50 Ovalocytes 1+ 09/24/22 00:50 Acanthocytes (Spur) 1+ 09/25/22 04:46 Peripher Smr Path Cons 09/17/22 17:09 ESR 77 mm/hr (0-30) H 09/21/22 17:22 Haptoglobin 144 mg/dL (43-212) 09/17/22 17:09 PT 11.2 Seconds (9.0-12.0) 09/22/22 17:34 INR 1.0 (0.9-1.1) 09/22/22 17:34 APTT 35.3 Seconds (21.0-31.0) H 09/24/22 00:54 PTT Ratio 1.3 09/24/22 00:54 Sodium 142 mmol/L (136-145) 09/25/22 04:46 Potassium 3.5 mmol/L (3.5-5.1) 09/25/22 04:46 Chloride 103 mmol/L (98-107) 09/25/22 04:46 Carbon Dioxide 32 mmol/L (21-32) 09/25/22 04:46 Anion Gap 7 (3-11) 09/25/22 04:46 BUN 16 mg/dl (6-23) 09/25/22 04:46 Creatinine 0.65 mg/dl (0.6-1.2) D 09/25/22 04:46 Est Cr Clr Drug Dosing 61.9 ml/min 09/25/22 04:46 Est GFR ( Amer) 100.7 ml/min 09/25/22 04:46 Est GFR (Non-Af Amer) 86.8 ml/min 09/25/22 04:46 BUN/Creatinine Ratio 24.6 (10-20) H 09/25/22 04:46 Glucose 120 mg/dl (70-99(Fasting)) H 09/25/22 04:46 Estimat Average Glucose 120 mg/dl 09/17/22 04:13 Hemoglobin A1c 5.8 % (4.5-5.6) H 09/17/22 04:13 Uric Acid 3.7 mg/dl (2.6-7.2) 09/19/22 14:04 Calcium 9.2 mg/dl (8.6-10.3) 09/25/22 04:46 Magnesium 1.8 mg/dl (1.7-2.4) 09/17/22 04:13 Iron 17 mcg/dl (35-150) L 09/16/22 16:35 Unsaturated IBC 349 mcg/dl (155-355) 09/16/22 16:35 Transferrin 291 mg/dl (200-360) 09/16/22 16:35 Ferritin 7.6 ng/ml (8-388) L 09/16/22 16:35 Total Bilirubin 1.2 mg/dl (0.2-1.0) H D 09/17/22 04:13 AST 11 U/L (13-39) L 09/17/22 04:13 ALT 10 U/L (7-52) 09/17/22 04:13 Alkaline Phosphatase 50 U/L (34-104) 09/17/22 04:13 Lactate Dehydrogenase 214 U/L (86-244) 09/17/22 17:09 Troponin I High Sens 16.4 pg/ml (0-14) H 09/17/22 04:13 C-Reactive Protein 27.98 mg/dl (0-0.5) H 09/21/22 17:22 B-Natriuretic Peptide 668 pg/ml (0-100) H 09/16/22 16:35 Total Protein 5.3 gm/dl (6.0-8.3) L 09/17/22 04:13 Albumin 3.5 gm/dl (3.4-5.0) 09/17/22 04:13 Globulin 1.8 gm/dl (2.5-4.0) L 09/17/22 04:13 Albumin/Globulin Ratio 1.9 (0.9-2) 09/17/22 04:13 Vitamin B12 185 pg/ml (180-914) 09/17/22 17:09 Folate 20.51 ng/ml (>5.38) 09/17/22 17:09 Urine Color Yellow 09/16/22 18:34 Urine Appearance Clear (Clear) 09/16/22 18:34 Urine pH 5.5 (4.5-7.5) 09/16/22 18:34 Ur Specific [place] 1.016 (1.000-1.030) 09/16/22 18:34 Urine Protein Trace (Negative) H 09/16/22 18:34 Urine Glucose (UA) Negative (Negative) 09/16/22 18:34 Urine Ketones Trace (Negative) H 09/16/22 18:34 Urine Blood Negative (Negative) 09/16/22 18:34 Urine Nitrite Negative (Negative) 09/16/22 18:34 Urine Bilirubin Negative (Negative) 09/16/22 18:34 Urine Urobilinogen Negative (Negative) 09/16/22 18:34 Ur Leukocyte Esterase Trace (Negative) H 09/16/22 18:34 Urine WBC (Auto) 1-5 /hpf (0-5) 09/16/22 18:34 Urine RBC (Auto) 0-4 /hpf (0-4) 09/16/22 18:34 U Hyaline Cast (Auto) 5-10 /lpf (0-5) H 09/16/22 18:34 U Epithel Cells (Auto) 20-30 /lpf (0-5) H 09/16/22 18:34 Urine Bacteria (Auto) Negative (Negative) 09/16/22 18:34 Fluid Comment 09/21/22 16:30 Synovial Source Other 09/21/22 16:30 Synovial Color Brown 09/21/22 16:30 Synovial Appearance Turbid 09/21/22 16:30 Synovial WBC (Auto) 877534 /ul (0-200) H 09/21/22 16:30 Synovial RBC (Auto) < 2000 /uL 09/21/22 16:30 Synovial Polynuclear % 95.0 % 09/21/22 16:30 Synovial Mononuclear % 5.0 % 09/21/22 16:30 Synovial Crystals 09/21/22 16:30 Random Vancomycin 18.1 mcg/ml (10-20) 09/25/22 04:46 SARS-CoV-2, RNA, NAAT NEGATIVE (NEGATIVE) 09/16/22 16:35 Blood Type A Positive 09/16/22 17:23 Antibody Screen NEGATIVE 09/16/22 17:23 Direct Antiglob Test Negative (Negative) 09/16/22 17:23 NEHA (IgG-AHG) Neg (Negative) 09/16/22 17:23 NEHA, Polyspecific Neg (Negative) 09/16/22 17:23 NEHA C3b, C3d 5 Min Neg (Negative) 09/16/22 17:23 Crossmatch See Detail 09/16/22 17:23 Impressions Shoulder X-Ray 09/19/22 12:13 XR shoulder LT min 2V routine CLINICAL HISTORY: Pain and swelling lt shoulder TECHNIQUE: 3 views of the left shoulder were obtained. Comparison: Comparison is made to left shoulder radiograph 05/26/2015 FINDINGS: There is no evidence of an acute fracture. Degenerative changes are seen in the glenohumeral joint. Soft tissue swelling is seen about the shoulder. The visualized portions of the lungs are clear. IMPRESSION: Soft tissue swelling without evidence of underlying bony abnormality. ACT 112: Negative or not required by law. Electronically signed by: Juan Carlos Kathleen M.D. 09/19/2022 12:50 PM Chest X-Ray 09/21/22 12:06 XR chest 1V portable CLINICAL HISTORY: Concern for pulmonary edema TECHNIQUE: Single frontal radiograph of the chest was obtained. Comparison: Comparison is made to chest radiograph 09/16/2022 FINDINGS: No lines and tubes are seen. The aorta is tortuous. The remainder of the cardiomediastinal silhouette is unremarkable. The lungs are clear. Bilateral blunting of the costophrenic angles noted. IMPRESSION: 1. No significant pulmonary edema. 2. Blunting of the costophrenic angles may represent trace effusions. ACT 112: Negative or not required by law. Electronically signed by: Juan Carlos Kathleen M.D. 09/21/2022 12:39 PM Shoulder MRI 09/21/22 17:13 Exam(s): MRI LEFT SHOULDER Without Contrast EXAM: MR Left Upper Extremity Without Intravenous Contrast, Shoulder CLINICAL HISTORY: Reason for exam: r/o septic shoulder. TECHNIQUE: Multiplanar magnetic resonance images of the left shoulder without intravenous contrast. COMPARISON: No relevant prior studies available. FINDINGS: Full-thickness full width tears of both the supraspinatus and infraspinatus. There is tendon retraction to the level of the glenoid. Moderate to severe muscular atrophy within both. Teres minor is intact. Partial-thickness tearing of the superior fibers of the subscapularis. High riding humeral head. Broad areas of full-thickness cartilage loss along the superior humeral head and superior aspect of the glenoid. Circumferential maceration of the labrum. The biceps appears to be torn within the intra-articular segment. Large joint effusion. Mild pericapsular edema and edema within the deltoid. No abscess. Reactive appearing lymph nodes within the left axilla. Mild degenerative changes at the acromioclavicular joint. No evidence of osteomyelitis. IMPRESSION: 1. Full thickness full width tears of the supraspinatus and infraspinatus with tendon retraction and moderate to severe atrophy. 2. Tearing of the superior fibers of the subscapularis. 3. Broad areas of full-thickness cartilage loss. 4. Circumferential degenerative related maceration of the labrum. 5. Long head of the biceps appears torn in the intra-articular segment. 6. Large joint effusion with synovitis. Most likely related to the above findings. Septic arthritis considered less likely but cannot be excluded. Consider tapping the large effusion with fluid analysis. Electronically signed by: Carlos Manuel Ontiveros MD 09/21/22 21:41 PM
[2022-09-25] MEDS: VANCOMYCIN HCL 1,000 MG in SODIUM CHLORIDE 0.9% 250 ML IV SCH (20:18)
[2022-09-26] MEDS: ALBUT/IPRATROP 3MG/0.5MG NEB 3 ML VIAL NEB SCH ×2 (06:56→18:59)
[2022-09-26 07:02] LABS: Hematocrit (blood only) 30.3 % (37.0-47.0); Hemoglobin 8.6 g/dl (12.0-16.0); Mean Corpuscular Hemoglobin 23.5 pg (25.0-34.0); Mean Corpuscular Hgb Conc 28.4 g/dL (32.0-36.0); Mean Corpuscular Volume 82.8 fL (80.0-100.0); Platelet Count 205 K/uL (130-400); RDW Coefficient of Variation 23.9 % (11.5-14.5); RDW Standard Deviation 70.7 fL (36.4-46.3); Red Blood Count 3.66 M/uL (4.20-5.40); White Blood Count 4.12 K/ul (4.8-10.8)
[2022-09-26 07:13] LABS: Calcium 9.3 mg/dl (8.6-10.3); Creatinine Clr Calc Pharmacy 59.1 ml/min; Est GFR (African American) 99.2 ml/min; Est GFR (Non-African American) 85.6 ml/min; Potassium 3.7 mmol/L (3.5-5.1)
[2022-09-26 07:31] LABS: Basophils # (auto) 0.02 K/uL (0-0.2); Basophils % (auto) 0.5 %; Eosinophils # (auto) 0.05 K/uL (0-0.50); Eosinophils % (auto) 1.2 %; Immature Granulocytes # (auto) 0.03 K/uL (0.01-0.20); Immature Granulocytes % (auto) 0.7 %; Lymphocytes # (auto) 0.43 K/uL (1.2-3.4); Lymphocytes % (auto) 10.4 %; Microcytosis Present; Monocytes # (auto) 0.31 K/uL (0.11-0.59); Monocytes % (auto) 7.5 %; Neutrophils # (auto) 3.28 K/uL (1.40-6.50); Neutrophils % (auto) 79.7 %; Polychromasia 1+
--- NOTE | 2022-09-26 08:26 | Orthopedic Progress Note ---
Date of Service September 26, 2022 Assessment & Plan (1) Effusion, left shoulder: Plan: Postop day 2 status post left arthroscopic irrigation and debridement Cultures continue to remain negative. Currently on vancomycin. Await infectious disease input. Discussed with patient that she might need an extended period of IV antibiotics secondary to the infection being in the joint. Patient understands and is agreeable. DVT prophylaxis-okay to restart Eliquis per orthopedics. Pain management as written-consider increasing tramadol if needed. Sling for comfort only. Patient may remove as needed. Repeat CRP ordered. (2) Primary osteoarthritis, left shoulder: Admission and Anticipated Discharge Date Admission Date: September 16, 2022 Subjective Postop day 2 Patient sitting at the edge of her bed. No complaints this morning. Pain controlled. Hemovac drainage has slowed down and plans for removal today. Physical Exam Physical Exam: Dressings removed. Hemovac taken out. Scant serous drainage from the anterior and lateral portals. Minimal swelling. Posterior portal without drainage or erythema. Bulky dressing reapplied. Sling in place. Neurovascular intact. Results & Data Vital Signs (Past 12 Hours) Vital Signs Temp Pulse Resp BP Pulse Ox O2 Del Method O2 Flow Rate 09/26/22 07:53 36.6 C 102 H 17 136/88 93 Nasal Cannula 3.0 09/26/22 06:56 61 18 96 Nasal Cannula 3 09/26/22 03:00 36.9 C 82 16 100/65 100 Nasal Cannula 3 09/25/22 21:00 Nasal Cannula 3 09/25/22 23:00 36.8 C 76 18 116/80 99 Nasal Cannula 3
[2022-09-26] MEDS: VANCOMYCIN HCL 1,000 MG in SODIUM CHLORIDE 0.9% 250 ML IV SCH ×2 (08:41→20:00)
[2022-09-26] MEDS: lisinopril 20 MG TAB PO SCH (08:42)
[2022-09-26] MEDS: SUCRALFATE 1 GM/10 ML UDC PO SCH ×2 (08:42→20:05)
[2022-09-26] MEDS: DOCUSATE SODIUM 100 MG CAP PO SCH ×2 (08:42→20:04)
[2022-09-26] MEDS: PANTOprazole 40 MG TAB PO SCH (08:42)
[2022-09-26] MEDS: FLUTICASONE FUROATE 100MCG 14 PUFFS/INHALER INH SCH (08:42)
[2022-09-26] MEDS: UMECLIDINIUM/VILANTEROL 62.5/25MCG 7 PUFFS/INHALER INH SCH (08:42)
[2022-09-26] MEDS: ATORVASTATIN 40 MG TAB PO SCH (08:43)
[2022-09-26] MEDS: FUROSEMIDE 40 MG TAB PO SCH (08:43)
[2022-09-26] MEDS: CHOLECALCIFEROL 1,000 UNITS 25 MCG TAB PO SCH (08:43)
[2022-09-26] MEDS: guaiFENesin 600 MG TABCR PO SCH ×2 (08:43→20:04)
[2022-09-26] MEDS: GABAPENTIN 300 MG CAP PO SCH ×2 (08:43→20:04)
[2022-09-26] MEDS: dilTIAZem HCL 30 MG TAB PO SCH ×3 (08:43→20:04)
[2022-09-26] MEDS: buPROPion SR 150 MG TABCR PO SCH ×2 (08:43→20:04)
[2022-09-26] MEDS: METOPROLOL TARTRATE 25 MG TAB PO SCH ×4 (08:44→20:04)
--- NOTE | 2022-09-26 10:15 | Cardiology Progress Note ---
Date of Service September 26, 2022 Assessment & Plan (1) Chronic hypoxemic respiratory failure: (2) Symptomatic anemia: (3) Bradycardia: (4) Paroxysmal atrial flutter: (5) Effusion, left shoulder: (6) Preoperative cardiovascular examination: Plan Hemoglobin has stabilized. The wound VAC has been removed. At this point I agree with restarting the Eliquis. The patient remains in a rate controlled atrial flutter. Admission and Anticipated Discharge Date Admission Date: September 16, 2022 Subjective The patient had an uneventful night. Review of Systems Review of Systems: Review of Systems: See HPI for pertinent positives. All other 10 point review of systems are negative. Physical Exam Physical Exam: General: no acute distress and stated age Head: normocephalic, no masses, lesions, tenderness or abnormalities Eyes: conjunctiva are pink and non-injected, sclera clear Neck: supple, no adenopathy, no bruits, normal jugular venous pulse, no hepatojugular reflux Chest: normal shape and normal respiratory effort Lungs: clear to auscultation and percussion Cardiac Exam: - irregular rate & rhythm, no murmurs gallops or rubs - normal S1, normal S2 Pulses: 2(+) throughout Abdomen: abdomen soft, non-tender, no abnormal masses and no hepatosplenomegaly Musculoskeletal: no gait disturbance, no joint inflammation, no deforming arthritis Extremities: no edema and no cyanosis Neuro: grossly normal exam Results & Data Vital Signs (Past 12 Hours) Vital Signs Temp Pulse Pulse Resp BP Pulse Ox O2 Del Method 09/26/22 09:00 85 09/26/22 09:00 Nasal Cannula 09/26/22 07:53 36.6 C 102 H 17 136/88 93 Nasal Cannula 09/26/22 06:56 61 18 96 Nasal Cannula 09/26/22 03:00 36.9 C 82 16 100/65 100 Nasal Cannula 09/25/22 23:00 36.8 C 76 18 116/80 99 Nasal Cannula O2 Flow Rate 09/26/22 09:00 09/26/22 09:00 3 09/26/22 07:53 3.0 09/26/22 06:56 3 09/26/22 03:00 3 09/25/22 23:00 3 Laboratory Results Laboratory Results - last 24 hr 09/26/22 09/26/22 09/26/22 06:27 06:27 08:20 WBC 4.12 L RBC 3.66 L Hgb 8.6 L Hct 30.3 L MCV 82.8 MCH 23.5 L MCHC 28.4 L RDW Std Deviation 70.7 H RDW Coeff of Sierra 23.9 H Plt Count 205 MPV 11.0 Immature Gran % (Auto) 0.7 Neut % (Auto) 79.7 Lymph % (Auto) 10.4 Cameron % (Auto) 7.5 Eos % (Auto) 1.2 Baso % (Auto) 0.5 Neut # (Auto) 3.28 Lymph # (Auto) 0.43 L Cameron # (Auto) 0.31 Eos # (Auto) 0.05 Baso # (Auto) 0.02 Immature Gran # (Auto) 0.03 Polychromasia 1+ Microcytosis Present Sodium 142 Potassium 3.7 Chloride 104 Carbon Dioxide 35 H Anion Gap 3 BUN 17 Creatinine 0.68 Est Cr Clr Drug Dosing 59.1 Est GFR ( Amer) 99.2 Est GFR (Non-Af Amer) 85.6 BUN/Creatinine Ratio 25.0 H Glucose 103 H Calcium 9.3 C-Reactive Protein 6.23 H Medications Administered Current Inpatient Medications Acetaminophen (Acetaminophen 325 Mg Tab) 650 mg PO Q4H PRN PRN Reason: Pain or Fever Stop: 10/16/22 19:43 Last Admin: 09/24/22 08:02 Dose: 650 mg Albuterol (Albuterol 0.083% Nebu Soln 3 Ml Vial) 2.5 mg NEB Q6R PRN; Protocol PRN Reason: sob/wheezing Stop: 10/16/22 19:43 Last Admin: 09/18/22 07:03 Dose: 2.5 mg Albuterol (Albut/Ipratrop 3mg/0.5mg Neb 3 Ml Vial) 3 ml NEB BIDR [facility]; Protocol Stop: 10/18/22 18:59 Last Admin: 09/26/22 06:56 Dose: 3 ml Apixaban (Apixaban 5 Mg Tablet) 5 mg PO BID [facility] Stop: 10/26/22 09:59 Atorvastatin Calcium (Atorvastatin 40 Mg Tab) 80 mg PO QAM [facility] Stop: 10/17/22 08:59 Last Admin: 09/26/22 08:43 Dose: 80 mg Bisacodyl (Bisacodyl 10 Mg Supp) 10 mg TN DAILY PRN PRN Reason: Constipation Stop: 10/24/22 20:02 Bupropion HCl (Bupropion Sr 150 Mg Tabcr) 150 mg PO AMHS [facility] Stop: 10/16/22 20:59 Last Admin: 09/26/22 08:43 Dose: 150 mg Diltiazem HCl (Diltiazem Hcl 30 Mg Tab) 30 mg PO TID [facility] Stop: 10/22/22 20:59 Last Admin: 09/26/22 08:43 Dose: 30 mg Docusate Sodium (Docusate Sodium 100 Mg Cap) 100 mg PO BID [facility] Stop: 10/24/22 20:59 Last Admin: 09/26/22 08:42 Dose: 100 mg Fluticasone Furoate (Fluticasone Furoate 100mcg 14 Puffs/Inhaler) 1 puffs INH QAM [facility] Stop: 10/17/22 08:59 Last Admin: 09/26/22 08:42 Dose: 1 puffs Furosemide (Furosemide 40 Mg Tab) 40 mg PO QAM [facility] Stop: 10/23/22 08:59 Last Admin: 09/26/22 08:43 Dose: 40 mg Gabapentin (Gabapentin 300 Mg Cap) 300 mg PO BID [facility] Stop: 10/16/22 20:59 Last Admin: 09/26/22 08:43 Dose: 300 mg Guaifenesin (Guaifenesin 600 Mg Tabcr) 600 mg PO Q12 [facility] Stop: 10/16/22 20:59 Last Admin: 09/26/22 08:43 Dose: 600 mg Hydromorphone HCl (Hydromorphone Inj 0.5 Mg/0.5 Ml Syr) 0.25 mg IV Q4H PRN PRN Reason: Pain or Pre PT Stop: 10/08/22 20:02 Last Admin: 09/25/22 05:10 Dose: 0.25 mg Vancomycin HCl 1,000 mg/ (Sodium Chloride) 270 mls @ 200 mls/hr IV Q12H [facility]; Protocol Stop: 11/06/22 19:59 Last Admin: 09/26/22 08:41 Dose: 200 mls/hr Lisinopril (Lisinopril 20 Mg Tab) 20 mg PO QAM [facility] Stop: 10/21/22 08:59 Last Admin: 09/26/22 08:42 Dose: 20 mg Magnesium Hydroxide (Magnesium Hydroxide Susp 30 Ml Udc) 30 ml PO Q6H PRN PRN Reason: Constipation Stop: 10/24/22 20:02 Metoprolol Tartrate (Metoprolol Tartrate 25 Mg Tab) 25 mg PO QID [facility] Stop: 10/21/22 08:59 Last Admin: 09/26/22 08:44 Dose: 25 mg Miscellaneous Information (Vancomycin Consult Active) 1 each N/A UD PRN PRN Reason: Consult Stop: 10/20/22 12:10 Naloxone HCl (Naloxone Hcl 0.4 Mg/1 Ml Vial/Carp) 0.1 mg IV Q5M PRN PRN Reason: Oversedation/Resp Depression Stop: 10/24/22 20:02 Ondansetron HCl (Ondansetron Inj 2 Mg/Ml 2 Ml Vial) 4 mg IV Q6H PRN PRN Reason: Nausea Stop: 10/16/22 19:43 Ondansetron HCl (Ondansetron Inj 2 Mg/Ml 2 Ml Vial) 4 mg IV Q6H PRN PRN Reason: Nausea And Vomiting Stop: 10/24/22 20:02 Pantoprazole Sodium (Pantoprazole 40 Mg Tab) 40 mg PO DAILY [facility] Stop: 10/23/22 08:59 Last Admin: 09/26/22 08:42 Dose: 40 mg Potassium Chloride (Potassium Chloride 10 Meq Tabcr) 10 meq PO AMHS [facility] Stop: 10/17/22 08:59 Last Admin: 09/18/22 08:47 Dose: 10 meq Sucralfate (Sucralfate 1 Gm/10 Ml Udc) 1 gm PO BID [facility] Stop: 10/17/22 20:59 Last Admin: 09/26/22 08:42 Dose: 1 gm Tramadol HCl (Tramadol Hcl 50 Mg Tablet) 25 mg PO Q6H PRN PRN Reason: Pain Stop: 10/20/22 11:35 Last Admin: 09/21/22 00:06 Dose: 25 mg Umeclidinium/Vilanterol (Umeclidinium/Vilanterol 62.5/25mcg 7 Puffs/Inhaler) 1 puffs INH QAM [facility] Stop: 10/17/22 08:59 Last Admin: 09/26/22 08:42 Dose: 1 puffs Vitamin D (Cholecalciferol 1,000 Units 25 Mcg Tab) 1,000 units PO QAM [facility] Stop: 10/17/22 08:59 Last Admin: 09/26/22 08:43 Dose: 1,000 units
[2022-09-26] MEDS: APIXABAN 5 MG TABLET PO SCH ×2 (10:32→20:04)
--- NOTE | 2022-09-26 12:10 | Hospitalist Progress Note ---
Date of Service September 26, 2022 Assessment & Plan (1) Acute GI bleeding: Plan: This is a 77-year-old female who has significant past medical history of chronic hypoxic respiratory failure on 2 to 3 L of oxygen, COPD, CAD, chronic diastolic CHF, hypertension, pulmonary hypertension, PFO, wandering atrial pacemaker, hyperlipidemia, senile osteoporosis, meningioma, iron deficiency anemia, tobacco use disorder, AAA status postrepair who presents to ED secondary to worsening shortness of breath for the last 2 to 3 weeks. FOBT positive, EGD with esophagitis and gastritis as below but no active bleeding, S/p 3 U PRBC. Symptomatic Anemia/Iron deficiency anemia due to chronic GI blood loss Vit B12 deficiency - Hb dropped from baseline of >11 in May to 6 on admission - Heme positive in ED, stool occult blood positive but no overt bleeding noted. Ferritin 7.6, Iron 17. Hemolysis panel negative. PBS for parasites negative. Folate normal, B12 low normal. - EGD 09/17 with gastritis and mild esophagitis - s/p 3 U PRBC and Hb now stabilized. - Continue PPI and carafate - Seen by GI- recommendations noted as below Iron supplement for 3 months Protonix 40 mg per day Carafate 1 gm bid x 12 weeks OP colonoscopy to be arranged Repeat EGD in 3 months for surveillance of Gastritis Biopsy result is pending Clinically much better and the hemoglobin remains stable at 8 to 9. Septic arthritis status post Left shoulder arthroscopy with extensive debridement and placement of Hemovac drains and soft tissue biopsies for culture and joint fluid culture on September 24. Left shoulder noted to have acutely inflamed with swelling, redness and tenderness since September 19, 2022. X-ray of the shoulder showed soft tissue swelling but no bony abnormalities Labs reviewed; ESR initially 42; increased to 77. CRP markedly elevated as well. MRI shoulder reviewed; large joint effusion with synovitis present. Results of the joint aspiration done on September 21 reviewed; consistent with septic arthritis with WBC count of greater than 100,000 ( 95% N) Gram stain shows WBC. Culture negative so far. Continue on vancomycin for now Blood culture no growth till date. Intra-Op cultures negative so far. Consulted infectious disease regarding duration and choice of IV antibiotics. (2) Atrial fibrillation with rapid ventricular response: Plan: Paroxysmal a flutter Cardiology on board. Was restarted on Eliquis. Currently on heparin drip for procedure tomorrow. Received IV Cardizem and amiodarone during the initial hospitalization. Discussed with cardiology; recommended to continue metoprolol 25 mg every 6 and Cardizem 30 mg every 8 hourly. Discussed with orthopedics; continue Eliquis. (3) Symptomatic anemia: Plan: As above (4) AP (acute kidney injury): Plan: AP- cr improved 1.24->1. Baseline around 0.7-0.8. Resume Lasix. Lisinopril restarted. Monitor kidney function. (5) CAD (coronary artery disease): Plan: CAD Diastolic CHF troponin minimally elevated, flat trend, likely demand ischemia in setting of anemia, pt without chest pain Patient appears to be in increasing shortness of breath on September 21, 2022. Will rule out acute on chronic diastolic heart failure. Chest x-ray reviewed; mild vascular congestion. Resume home dose of Lasix (6) Chronic obstructive pulmonary disease: (7) Chronic hypoxemic respiratory failure: Plan: Chronic hypoxic resp failure on 2-3L of O2 COPD w/o exac continue trelegy DuoNebs twice daily Plan DVT ppx: Eliquis Dispo: Continues to be hospitalized due to left shoulder septic arthritis and a flutter. Infectious disease consulted. DNR/DNI Time spent evaluating patient, direct bedside care, chart review, placing orders, interpretation of diagnostic studies, discussion with consultants, patient, and family members, as well as other required patient management activities is 60 minutes. Please note the above document was generated using voice recognition software. It may contain grammatical, syntax or spelling errors. Any formal questions or concerns about the content, text or information contained within the body of this dictation should be directly addressed to the provider for clarification Admission and Anticipated Discharge Date Admission Date: September 16, 2022 Subjective Patient seen and examined at bedside. She is comfortable; pain is well controlled. Telemetry shows a flutter with controlled ventricular rate. Review of Systems Review of Systems: All systems reviewed & are unremarkable except as noted in Subjective Physical Exam Physical Exam: Constitutional: WD/WN, vitals as above, NAD, sitting up in bed, pleasant, conversing easily Respiratory: Bilateral crackles heard. Cardiovascular: Irregular, no murmur, no edema Vessels: no JVD or carotid bruit Chest: normal inspection of chest Abdomen: normal bowel sounds, soft, nontender, no hepatosplenomegaly Musculoskeletal: Left shoulder-dressing in place. No soakage. Skin: no rashes, warm and dry normal turgor Neurologic: Grossly intact. Psychiatric: A+Ox3, euthymic affect Lymphatic: no cervical or axillary lymphadenopathy : deferred Results & Data Results & Data Vital Signs (Past 12 Hours) Vital Signs Temp Pulse Pulse Resp BP Pulse Ox O2 Del Method 09/26/22 12:04 36.7 C 91 H 18 123/90 93 Nasal Cannula 09/26/22 09:00 85 09/26/22 09:00 Nasal Cannula 09/26/22 07:53 36.6 C 102 H 17 136/88 93 Nasal Cannula 09/26/22 06:56 61 18 96 Nasal Cannula 09/26/22 03:00 36.9 C 82 16 100/65 100 Nasal Cannula O2 Flow Rate 09/26/22 12:04 3.0 09/26/22 09:00 09/26/22 09:00 3 09/26/22 07:53 3.0 09/26/22 06:56 3 09/26/22 03:00 3 Laboratory Results Laboratory Results WBC 4.12 K/ul (4.8-10.8) L 09/26/22 06:27 RBC 3.66 M/uL (4.20-5.40) L 09/26/22 06:27 Hgb 8.6 g/dl (12.0-16.0) L 09/26/22 06:27 Hct 30.3 % (37.0-47.0) L 09/26/22 06:27 MCV 82.8 fL (80.0-100.0) 09/26/22 06:27 MCH 23.5 pg (25.0-34.0) L 09/26/22 06:27 MCHC 28.4 g/dL (32.0-36.0) L 09/26/22 06:27 RDW Std Deviation 70.7 fL (36.4-46.3) H 09/26/22 06:27 RDW Coeff of Sierra 23.9 % (11.5-14.5) H 09/26/22 06:27 Plt Count 205 K/uL (130-400) 09/26/22 06:27 MPV 11.0 fL (9.4-12.4) 09/26/22 06:27 Immature Gran % (Auto) 0.7 % 09/26/22 06:27 Neut % (Auto) 79.7 % 09/26/22 06:27 Lymph % (Auto) 10.4 % 09/26/22 06:27 [place] % (Auto) 7.5 % 09/26/22 06:27 Eos % (Auto) 1.2 % 09/26/22 06:27 Baso % (Auto) 0.5 % 09/26/22 06:27 Reticulocyte % (Auto) 1.4 % (0.5-2.0) 09/17/22 17:09 Neut # (Auto) 3.28 K/uL (1.40-6.50) 09/26/22 06:27 Lymph # (Auto) 0.43 K/uL (1.2-3.4) L 09/26/22 06:27 [place] # (Auto) 0.31 K/uL (0.11-0.59) 09/26/22 06:27 Eos # (Auto) 0.05 K/uL (0-0.50) 09/26/22 06:27 Baso # (Auto) 0.02 K/uL (0-0.2) 09/26/22 06:27 Reticulocyte # 0.05 10^6/uL (0.02-0.10) 09/17/22 17:09 Immature Gran # (Auto) 0.03 K/uL (0.01-0.20) 09/26/22 06:27 Polychromasia 1+ 09/26/22 06:27 Hypochromasia Present 09/17/22 04:13 Poikilocytosis Present 09/21/22 06:31 Anisocytosis Present 09/25/22 04:46 Microcytosis Present 09/26/22 06:27 Tear Drop Cells 1+ 09/22/22 07:50 Ovalocytes 1+ 09/24/22 00:50 Acanthocytes (Spur) 1+ 09/25/22 04:46 Peripher Smr Path Cons 09/17/22 17:09 ESR 77 mm/hr (0-30) H 09/21/22 17:22 Haptoglobin 144 mg/dL (43-212) 09/17/22 17:09 PT 11.2 Seconds (9.0-12.0) 09/22/22 17:34 INR 1.0 (0.9-1.1) 09/22/22 17:34 APTT 35.3 Seconds (21.0-31.0) H 09/24/22 00:54 PTT Ratio 1.3 09/24/22 00:54 Sodium 142 mmol/L (136-145) 09/26/22 06:27 Potassium 3.7 mmol/L (3.5-5.1) 09/26/22 06:27 Chloride 104 mmol/L (98-107) 09/26/22 06:27 Carbon Dioxide 35 mmol/L (21-32) H 09/26/22 06:27 Anion Gap 3 (3-11) 09/26/22 06:27 BUN 17 mg/dl (6-23) 09/26/22 06:27 Creatinine 0.68 mg/dl (0.6-1.2) 09/26/22 06:27 Est Cr Clr Drug Dosing 59.1 ml/min 09/26/22 06:27 Est GFR ( Amer) 99.2 ml/min 09/26/22 06:27 Est GFR (Non-Af Amer) 85.6 ml/min 09/26/22 06:27 BUN/Creatinine Ratio 25.0 (10-20) H 09/26/22 06:27 Glucose 103 mg/dl (70-99(Fasting)) H 09/26/22 06:27 Estimat Average Glucose 120 mg/dl 09/17/22 04:13 Hemoglobin A1c 5.8 % (4.5-5.6) H 09/17/22 04:13 Uric Acid 3.7 mg/dl (2.6-7.2) 09/19/22 14:04 Calcium 9.3 mg/dl (8.6-10.3) 09/26/22 06:27 Magnesium 1.8 mg/dl (1.7-2.4) 09/17/22 04:13 Iron 17 mcg/dl (35-150) L 09/16/22 16:35 Unsaturated IBC 349 mcg/dl (155-355) 09/16/22 16:35 Transferrin 291 mg/dl (200-360) 09/16/22 16:35 Ferritin 7.6 ng/ml (8-388) L 09/16/22 16:35 Total Bilirubin 1.2 mg/dl (0.2-1.0) H D 09/17/22 04:13 AST 11 U/L (13-39) L 09/17/22 04:13 ALT 10 U/L (7-52) 09/17/22 04:13 Alkaline Phosphatase 50 U/L (34-104) 09/17/22 04:13 Lactate Dehydrogenase 214 U/L (86-244) 09/17/22 17:09 Troponin I High Sens 16.4 pg/ml (0-14) H 09/17/22 04:13 C-Reactive Protein 6.23 mg/dl (0-0.5) H 09/26/22 08:20 B-Natriuretic Peptide 668 pg/ml (0-100) H 09/16/22 16:35 Total Protein 5.3 gm/dl (6.0-8.3) L 09/17/22 04:13 Albumin 3.5 gm/dl (3.4-5.0) 09/17/22 04:13 Globulin 1.8 gm/dl (2.5-4.0) L 09/17/22 04:13 Albumin/Globulin Ratio 1.9 (0.9-2) 09/17/22 04:13 Vitamin B12 185 pg/ml (180-914) 09/17/22 17:09 Folate 20.51 ng/ml (>5.38) 09/17/22 17:09 Urine Color Yellow 09/16/22 18:34 Urine Appearance Clear (Clear) 09/16/22 18:34 Urine pH 5.5 (4.5-7.5) 09/16/22 18:34 Ur Specific [place] 1.016 (1.000-1.030) 09/16/22 18:34 Urine Protein Trace (Negative) H 09/16/22 18:34 Urine Glucose (UA) Negative (Negative) 09/16/22 18:34 Urine Ketones Trace (Negative) H 09/16/22 18:34 Urine Blood Negative (Negative) 09/16/22 18:34 Urine Nitrite Negative (Negative) 09/16/22 18:34 Urine Bilirubin Negative (Negative) 09/16/22 18:34 Urine Urobilinogen Negative (Negative) 09/16/22 18:34 Ur Leukocyte Esterase Trace (Negative) H 09/16/22 18:34 Urine WBC (Auto) 1-5 /hpf (0-5) 09/16/22 18:34 Urine RBC (Auto) 0-4 /hpf (0-4) 09/16/22 18:34 U Hyaline Cast (Auto) 5-10 /lpf (0-5) H 09/16/22 18:34 U Epithel Cells (Auto) 20-30 /lpf (0-5) H 09/16/22 18:34 Urine Bacteria (Auto) Negative (Negative) 09/16/22 18:34 Fluid Comment 09/21/22 16:30 Synovial Source Other 09/21/22 16:30 Synovial Color Brown 09/21/22 16:30 Synovial Appearance Turbid 09/21/22 16:30 Synovial WBC (Auto) 053509 /ul (0-200) H 09/21/22 16:30 Synovial RBC (Auto) < 2000 /uL 09/21/22 16:30 Synovial Polynuclear % 95.0 % 09/21/22 16:30 Synovial Mononuclear % 5.0 % 09/21/22 16:30 Synovial Crystals 09/21/22 16:30 Random Vancomycin 18.1 mcg/ml (10-20) 09/25/22 04:46 SARS-CoV-2, RNA, NAAT NEGATIVE (NEGATIVE) 09/16/22 16:35 Blood Type A Positive 09/16/22 17:23 Antibody Screen NEGATIVE 09/16/22 17:23 Direct Antiglob Test Negative (Negative) 09/16/22 17:23 NEHA (IgG-AHG) Neg (Negative) 09/16/22 17:23 NEHA, Polyspecific Neg (Negative) 09/16/22 17:23 NEHA C3b, C3d 5 Min Neg (Negative) 09/16/22 17:23 Crossmatch See Detail 09/16/22 17:23 Impressions Shoulder X-Ray 09/19/22 12:13 XR shoulder LT min 2V routine CLINICAL HISTORY: Pain and swelling lt shoulder TECHNIQUE: 3 views of the left shoulder were obtained. Comparison: Comparison is made to left shoulder radiograph 05/26/2015 FINDINGS: There is no evidence of an acute fracture. Degenerative changes are seen in the glenohumeral joint. Soft tissue swelling is seen about the shoulder. The visualized portions of the lungs are clear. IMPRESSION: Soft tissue swelling without evidence of underlying bony abnormality. ACT 112: Negative or not required by law. Electronically signed by: Juan Carlos Kathleen M.D. 09/19/2022 12:50 PM Chest X-Ray 09/21/22 12:06 XR chest 1V portable CLINICAL HISTORY: Concern for pulmonary edema TECHNIQUE: Single frontal radiograph of the chest was obtained. Comparison: Comparison is made to chest radiograph 09/16/2022 FINDINGS: No lines and tubes are seen. The aorta is tortuous. The remainder of the cardiomediastinal silhouette is unremarkable. The lungs are clear. Bilateral blunting of the costophrenic angles noted. IMPRESSION: 1. No significant pulmonary edema. 2. Blunting of the costophrenic angles may represent trace effusions. ACT 112: Negative or not required by law. Electronically signed by: Juan Carlos Kathleen M.D. 09/21/2022 12:39 PM Shoulder MRI 09/21/22 17:13 Exam(s): MRI LEFT SHOULDER Without Contrast EXAM: MR Left Upper Extremity Without Intravenous Contrast, Shoulder CLINICAL HISTORY: Reason for exam: r/o septic shoulder. TECHNIQUE: Multiplanar magnetic resonance images of the left shoulder without intravenous contrast. COMPARISON: No relevant prior studies available. FINDINGS: Full-thickness full width tears of both the supraspinatus and infraspinatus. There is tendon retraction to the level of the glenoid. Moderate to severe muscular atrophy within both. Teres minor is intact. Partial-thickness tearing of the superior fibers of the subscapularis. High riding humeral head. Broad areas of full-thickness cartilage loss along the superior humeral head and superior aspect of the glenoid. Circumferential maceration of the labrum. The biceps appears to be torn within the intra-articular segment. Large joint effusion. Mild pericapsular edema and edema within the deltoid. No abscess. Reactive appearing lymph nodes within the left axilla. Mild degenerative changes at the acromioclavicular joint. No evidence of osteomyelitis. IMPRESSION: 1. Full thickness full width tears of the supraspinatus and infraspinatus with tendon retraction and moderate to severe atrophy. 2. Tearing of the superior fibers of the subscapularis. 3. Broad areas of full-thickness cartilage loss. 4. Circumferential degenerative related maceration of the labrum. 5. Long head of the biceps appears torn in the intra-articular segment. 6. Large joint effusion with synovitis. Most likely related to the above findings. Septic arthritis considered less likely but cannot be excluded. Consider tapping the large effusion with fluid analysis. Electronically signed by: Carlos Manuel Ontiveros MD 09/21/22 21:41 PM
[2022-09-26 23:42] LABS: Lyme DNA PCR CSF or Synovial Not Detected (Not Detected); Lyme DNA Source SYNOVIAL FLUID
[2022-09-27 06:10] LABS: BUN Creatinine Ratio 27.3 (10-20); Calcium 8.6 mg/dl (8.6-10.3); Creatinine Clr Calc Pharmacy 73.1 ml/min; Est GFR (African American) 106.3 ml/min; Est GFR (Non-African American) 91.8 ml/min; Potassium 3.7 mmol/L (3.5-5.1)
[2022-09-27 06:22] LABS: Anisocytosis Present; Basophils # (auto) 0.02 K/uL (0-0.2); Basophils % (auto) 0.5 %; Eosinophils # (auto) 0.04 K/uL (0-0.50); Eosinophils % (auto) 0.9 %; Hematocrit (blood only) 26.4 % (37.0-47.0); Hemoglobin 7.4 g/dl (12.0-16.0); Hypochromasia Present; Immature Granulocytes # (auto) 0.01 K/uL (0.01-0.20); Immature Granulocytes % (auto) 0.2 %; Lymphocytes # (auto) 0.44 K/uL (1.2-3.4); Lymphocytes % (auto) 10.1 %; Mean Corpuscular Hemoglobin 23.3 pg (25.0-34.0); Mean Platelet Volume 10.1 fL (9.4-12.4); Monocytes # (auto) 0.35 K/uL (0.11-0.59); Neutrophils % (auto) 80.3 %; Platelet Count 174 K/uL (130-400); Polychromasia 1+; RDW Coefficient of Variation 24.2 % (11.5-14.5); RDW Standard Deviation 72.1 fL (36.4-46.3); Red Blood Count 3.18 M/uL (4.20-5.40); White Blood Count 4.36 K/ul (4.8-10.8)
[2022-09-27] MEDS: ALBUT/IPRATROP 3MG/0.5MG NEB 3 ML VIAL NEB SCH ×2 (07:03→18:55)
[2022-09-27] MEDS ORDERED: VANCOMYCIN LEVEL ONE (07:30)
[2022-09-27] MEDS: FLUTICASONE FUROATE 100MCG 14 PUFFS/INHALER INH SCH (08:58)
[2022-09-27] MEDS: APIXABAN 5 MG TABLET PO SCH (08:58)
[2022-09-27] MEDS: METOPROLOL TARTRATE 25 MG TAB PO SCH ×4 (08:58→19:45)
[2022-09-27] MEDS: buPROPion SR 150 MG TABCR PO SCH ×2 (08:59→19:42)
[2022-09-27] MEDS: UMECLIDINIUM/VILANTEROL 62.5/25MCG 7 PUFFS/INHALER INH SCH (08:59)
[2022-09-27] MEDS: FUROSEMIDE 40 MG TAB PO SCH (08:59)
[2022-09-27] MEDS: ATORVASTATIN 40 MG TAB PO SCH (08:59)
[2022-09-27] MEDS: guaiFENesin 600 MG TABCR PO SCH ×2 (08:59→19:44)
[2022-09-27] MEDS: lisinopril 20 MG TAB PO SCH (08:59)
[2022-09-27] MEDS: SUCRALFATE 1 GM/10 ML UDC PO SCH ×2 (09:00→19:45)
[2022-09-27] MEDS: CHOLECALCIFEROL 1,000 UNITS 25 MCG TAB PO SCH (09:00)
[2022-09-27] MEDS: PANTOprazole 40 MG TAB PO SCH (09:00)
[2022-09-27] MEDS: dilTIAZem HCL 30 MG TAB PO SCH ×3 (09:00→19:43)
[2022-09-27] MEDS: GABAPENTIN 300 MG CAP PO SCH ×2 (09:00→19:45)
[2022-09-27] MEDS: DOCUSATE SODIUM 100 MG CAP PO SCH ×2 (09:04→19:44)
--- NOTE | 2022-09-27 09:04 | Orthopedic Progress Note ---
Final abx recs per ID, no further ortho intervention, will sign off. May follow up with Dr Duvall 10-14 days after surgery date. Date of Service September 27, 2022 Assessment & Plan (1) Effusion, left shoulder: Plan: Postop day 3 status post left arthroscopic irrigation and debridement Cultures continue to remain negative. Currently on vancomycin. Await infectious disease input. Discussed with patient that she might need an extended period of IV antibiotics secondary to the infection being in the joint. Patient understands and is agreeable. DVT prophylaxis- Apixaban twice daily Pain management as written-consider increasing tramadol if needed. Sling for comfort only. Patient may remove as needed. Repeat CRP ordered. CRP down to 6 from 27 on admission No further surgery indicated at this time. Orthopedics will sign off. Await input from infectious disease team for extended use of IV antibiotics. Daily dressing changes. Follow-up with Dr. Taylor in 2 weeks from the day of surgery. (2) Primary osteoarthritis, left shoulder: Admission and Anticipated Discharge Date Admission Date: September 16, 2022 Subjective Postop day 3 Patient sitting up in bed awake and alert. No complaints this morning. States that her shoulder is continuing to feel better each day. States that she is using her sling for ambulation but has been removing it at times. Physical Exam Physical Exam: Dressings are clean, dry, and intact. Sling is in place. Good range of motion of her left wrist and fingers. Sensation is intact. Capillary refill is less than 2 seconds. Results & Data Vital Signs (Past 12 Hours) Vital Signs Temp Pulse Pulse Resp BP Pulse Ox O2 Del Method 09/27/22 07:36 36.6 C 83 22 124/71 91 Nasal Cannula 09/27/22 07:03 94 H 20 Nasal Cannula 09/27/22 03:00 36.6 C 61 16 129/80 98 Nasal Cannula 09/26/22 23:00 36.6 C 81 16 111/82 96 Nasal Cannula O2 Flow Rate 09/27/22 07:36 3 09/27/22 07:03 3 09/27/22 03:00 3 09/26/22 23:00 3
[2022-09-27] MEDS: VANCOMYCIN HCL 1,000 MG in SODIUM CHLORIDE 0.9% 250 ML IV SCH ×2 (10:23→22:00)
--- NOTE | 2022-09-27 10:26 | Cardiology Progress Note ---
Date of Service September 27, 2022 Assessment & Plan (1) Chronic hypoxemic respiratory failure: (2) Symptomatic anemia: (3) Bradycardia: (4) Paroxysmal atrial flutter: (5) Effusion, left shoulder: Plan She is stable from a cardiac standpoint however her hemoglobin is trending down and is concerning. You will hold her anticoagulation. Consider transfusion. Admission and Anticipated Discharge Date Admission Date: September 16, 2022 Subjective The patient is ambulating in the room without difficulty Review of Systems Review of Systems: Review of Systems: See HPI for pertinent positives. All other 10 point review of systems are negative. Physical Exam Physical Exam: General: no acute distress and stated age Head: normocephalic, no masses, lesions, tenderness or abnormalities Eyes: conjunctiva are pink and non-injected, sclera clear Neck: supple, no adenopathy, no bruits, normal jugular venous pulse, no hepatojugular reflux Chest: normal shape and normal respiratory effort Lungs: clear to auscultation and percussion Cardiac Exam: - irregular rate & rhythm, no murmurs gallops or rubs - normal S1, normal S2 Pulses: 2(+) throughout Abdomen: abdomen soft, non-tender, no abnormal masses and no hepatosplenomegaly Musculoskeletal: no gait disturbance, no joint inflammation, no deforming arthritis Extremities: no edema and no cyanosis Neuro: grossly normal exam Results & Data Vital Signs (Past 12 Hours) Vital Signs Temp Pulse Pulse Pulse Resp BP Pulse Ox 09/27/22 09:00 09/27/22 08:00 62 09/27/22 07:36 36.6 C 83 22 124/71 91 09/27/22 07:03 94 H 20 09/27/22 03:00 36.6 C 61 16 129/80 98 09/26/22 23:00 36.6 C 81 16 111/82 96 O2 Del Method O2 Flow Rate 09/27/22 09:00 Nasal Cannula 3 09/27/22 08:00 09/27/22 07:36 Nasal Cannula 3 09/27/22 07:03 Nasal Cannula 3 09/27/22 03:00 Nasal Cannula 3 09/26/22 23:00 Nasal Cannula 3 Laboratory Results Laboratory Results - last 24 hr 09/21/22 09/27/22 09/27/22 16:30 05:27 05:27 WBC 4.36 L RBC 3.18 L Hgb 7.4 L Hct 26.4 L MCV 83.0 MCH 23.3 L MCHC 28.0 L RDW Std Deviation 72.1 H RDW Coeff of [place] 24.2 H Plt Count 174 MPV 10.1 Immature Gran % (Auto) 0.2 Neut % (Auto) 80.3 Lymph % (Auto) 10.1 [place] % (Auto) 8.0 Eos % (Auto) 0.9 Baso % (Auto) 0.5 Neut # (Auto) 3.50 Lymph # (Auto) 0.44 L [place] # (Auto) 0.35 Eos # (Auto) 0.04 Baso # (Auto) 0.02 Immature Gran # (Auto) 0.01 Polychromasia 1+ Hypochromasia Present Anisocytosis Present Sodium Potassium Chloride Carbon Dioxide Anion Gap BUN Creatinine Est Cr Clr Drug Dosing Est GFR ( Amer) Est GFR (Non-Af Amer) BUN/Creatinine Ratio Glucose Calcium Fld Lyme DNA (PCR) Not Detected Random Vancomycin 23.1 H Lyme Specimen Source SYNOVIAL FLUID Lyme DNA Comment see note 09/27/22 05:27 WBC RBC Hgb Hct MCV MCH MCHC RDW Std Deviation RDW Coeff of [place] Plt Count MPV Immature Gran % (Auto) Neut % (Auto) Lymph % (Auto) [place] % (Auto) Eos % (Auto) Baso % (Auto) Neut # (Auto) Lymph # (Auto) [place] # (Auto) Eos # (Auto) Baso # (Auto) Immature Gran # (Auto) Polychromasia Hypochromasia Anisocytosis Sodium 142 Potassium 3.7 Chloride 105 Carbon Dioxide 32 Anion Gap 5 BUN 15 Creatinine 0.55 L Est Cr Clr Drug Dosing 73.1 Est GFR ( Amer) 106.3 Est GFR (Non-Af Amer) 91.8 BUN/Creatinine Ratio 27.3 H Glucose 97 Calcium 8.6 Fld Lyme DNA (PCR) Random Vancomycin Lyme Specimen Source Lyme DNA Comment Diagnostic Findings The patient is in a rate controlled atrial flutter Medications Administered Current Inpatient Medications Acetaminophen (Acetaminophen 325 Mg Tab) 650 mg PO Q4H PRN PRN Reason: Pain or Fever Stop: 10/16/22 19:43 Last Admin: 09/24/22 08:02 Dose: 650 mg Albuterol (Albuterol 0.083% Nebu Soln 3 Ml Vial) 2.5 mg NEB Q6R PRN; Protocol PRN Reason: sob/wheezing Stop: 10/16/22 19:43 Last Admin: 09/18/22 07:03 Dose: 2.5 mg Albuterol (Albut/Ipratrop 3mg/0.5mg Neb 3 Ml Vial) 3 ml NEB BIDR HUGH; Protocol Stop: 10/18/22 18:59 Last Admin: 09/27/22 07:03 Dose: 3 ml Apixaban (Apixaban 5 Mg Tablet) 5 mg PO BID HUGH Stop: 10/26/22 09:59 Last Admin: 09/27/22 08:58 Dose: 5 mg Atorvastatin Calcium (Atorvastatin 40 Mg Tab) 80 mg PO QAM [facility] Stop: 10/17/22 08:59 Last Admin: 09/27/22 08:59 Dose: 80 mg Bisacodyl (Bisacodyl 10 Mg Supp) 10 mg FL DAILY PRN PRN Reason: Constipation Stop: 10/24/22 20:02 Bupropion HCl (Bupropion Sr 150 Mg Tabcr) 150 mg PO AMHS [facility] Stop: 10/16/22 20:59 Last Admin: 09/27/22 08:59 Dose: 150 mg Diltiazem HCl (Diltiazem Hcl 30 Mg Tab) 30 mg PO TID [facility] Stop: 10/22/22 20:59 Last Admin: 09/27/22 09:00 Dose: 30 mg Docusate Sodium (Docusate Sodium 100 Mg Cap) 100 mg PO BID [facility] Stop: 10/24/22 20:59 Last Admin: 09/27/22 09:04 Dose: 100 mg Fluticasone Furoate (Fluticasone Furoate 100mcg 14 Puffs/Inhaler) 1 puffs INH QAM [facility] Stop: 10/17/22 08:59 Last Admin: 09/27/22 08:58 Dose: 1 puffs Furosemide (Furosemide 40 Mg Tab) 40 mg PO QAM [facility] Stop: 10/23/22 08:59 Last Admin: 09/27/22 08:59 Dose: 40 mg Gabapentin (Gabapentin 300 Mg Cap) 300 mg PO BID [facility] Stop: 10/16/22 20:59 Last Admin: 09/27/22 09:00 Dose: 300 mg Guaifenesin (Guaifenesin 600 Mg Tabcr) 600 mg PO Q12 [facility] Stop: 10/16/22 20:59 Last Admin: 09/27/22 08:59 Dose: 600 mg Hydromorphone HCl (Hydromorphone Inj 0.5 Mg/0.5 Ml Syr) 0.25 mg IV Q4H PRN PRN Reason: Pain or Pre PT Stop: 10/08/22 20:02 Last Admin: 09/25/22 05:10 Dose: 0.25 mg Vancomycin HCl 1,000 mg/ (Sodium Chloride) 270 mls @ 200 mls/hr IV Q12H [facility]; Protocol Stop: 11/06/22 19:59 Last Admin: 09/27/22 10:23 Dose: 200 mls/hr Lisinopril (Lisinopril 20 Mg Tab) 20 mg PO QAM [facility] Stop: 10/21/22 08:59 Last Admin: 09/27/22 08:59 Dose: 20 mg Magnesium Hydroxide (Magnesium Hydroxide Susp 30 Ml Udc) 30 ml PO Q6H PRN PRN Reason: Constipation Stop: 10/24/22 20:02 Metoprolol Tartrate (Metoprolol Tartrate 25 Mg Tab) 25 mg PO QID [facility] Stop: 10/21/22 08:59 Last Admin: 09/27/22 08:58 Dose: 25 mg Miscellaneous Information (Vancomycin Consult Active) 1 each N/A UD PRN PRN Reason: Consult Stop: 10/20/22 12:10 Naloxone HCl (Naloxone Hcl 0.4 Mg/1 Ml Vial/Carp) 0.1 mg IV Q5M PRN PRN Reason: Oversedation/Resp Depression Stop: 10/24/22 20:02 Ondansetron HCl (Ondansetron Inj 2 Mg/Ml 2 Ml Vial) 4 mg IV Q6H PRN PRN Reason: Nausea Stop: 10/16/22 19:43 Ondansetron HCl (Ondansetron Inj 2 Mg/Ml 2 Ml Vial) 4 mg IV Q6H PRN PRN Reason: Nausea And Vomiting Stop: 10/24/22 20:02 Pantoprazole Sodium (Pantoprazole 40 Mg Tab) 40 mg PO DAILY [facility] Stop: 10/23/22 08:59 Last Admin: 09/27/22 09:00 Dose: 40 mg Potassium Chloride (Potassium Chloride 10 Meq Tabcr) 10 meq PO AMHS [facility] Stop: 10/17/22 08:59 Last Admin: 09/18/22 08:47 Dose: 10 meq Sucralfate (Sucralfate 1 Gm/10 Ml Udc) 1 gm PO BID [facility] Stop: 10/17/22 20:59 Last Admin: 09/27/22 09:00 Dose: 1 gm Tramadol HCl (Tramadol Hcl 50 Mg Tablet) 25 mg PO Q6H PRN PRN Reason: Pain Stop: 10/20/22 11:35 Last Admin: 09/21/22 00:06 Dose: 25 mg Umeclidinium/Vilanterol (Umeclidinium/Vilanterol 62.5/25mcg 7 Puffs/Inhaler) [facility] [place] Stop: 10/17/22 08:59 Last Admin: 09/27/22 08:59 Dose: 1 puffs Vitamin D (Cholecalciferol 1,000 Units 25 Mcg Tab) 1,000 units PO QAM [facility] Stop: 10/17/22 08:59 Last Admin: 09/27/22 09:00 Dose: 1,000 units
--- NOTE | 2022-09-27 12:11 | Hospitalist Progress Note ---
Date of Service September 27, 2022 Assessment & Plan (1) Acute GI bleeding: Plan: This is a 77-year-old female who has significant past medical history of chronic hypoxic respiratory failure on 2 to 3 L of oxygen, COPD, CAD, chronic diastolic CHF, hypertension, pulmonary hypertension, PFO, wandering atrial pacemaker, hyperlipidemia, senile osteoporosis, meningioma, iron deficiency anemia, tobacco use disorder, AAA status postrepair who presents to ED secondary to worsening shortness of breath for the last 2 to 3 weeks. FOBT positive, EGD with esophagitis and gastritis as below but no active bleeding, S/p 3 U PRBC. Symptomatic Anemia/Iron deficiency anemia due to chronic GI blood loss Vit B12 deficiency - Hb dropped from baseline of >11 in May to 6 on admission - Heme positive in ED, stool occult blood positive but no overt bleeding noted. Ferritin 7.6, Iron 17. Hemolysis panel negative. PBS for parasites negative. Folate normal, B12 low normal. - EGD 09/17 with gastritis and mild esophagitis - s/p 3 U PRBC and Hb now stabilized. - Continue PPI and carafate - Seen by GI- recommendations noted as below Iron supplement for 3 months Protonix 40 mg per day Carafate 1 gm bid x 12 weeks OP colonoscopy to be arranged Repeat EGD in 3 months for surveillance of Gastritis Biopsy result is pending Hemoglobin slightly down trended to 7.2; likely due to surgery. Monitor for now. Eliquis on hold as recommended by cardiology. Septic arthritis status post Left shoulder arthroscopy with extensive debridement and placement of Hemovac drains and soft tissue biopsies for culture and joint fluid culture on September 24. Left shoulder noted to have acutely inflamed with swelling, redness and tenderness since September 19, 2022. X-ray of the shoulder showed soft tissue swelling but no bony abnormalities Labs reviewed; ESR initially 42; increased to 77. CRP markedly elevated as well. MRI shoulder reviewed; large joint effusion with synovitis present. Results of the joint aspiration done on September 21 reviewed; consistent with septic arthritis with WBC count of greater than 100,000 ( 95% N) Gram stain shows WBC. Culture negative so far. Continue on vancomycin for now Blood culture no growth till date. Intra-Op cultures negative so far. CRP down trended with IV hydration. Consulted infectious disease regarding duration and choice of IV antibiotics. Awaiting recommendation. (2) Atrial fibrillation with rapid ventricular response: Plan: Paroxysmal a flutter Cardiology on board. Was restarted on Eliquis. Currently on heparin drip for procedure tomorrow. Received IV Cardizem and amiodarone during the initial hospitalization. Discussed with cardiology; recommended to continue metoprolol 25 mg every 6 and Cardizem 30 mg every 8 hourly. Discussed with orthopedics; awaiting infectious disease input for duration of antibiotic. (3) Symptomatic anemia: Plan: As above (4) AP (acute kidney injury): Plan: AP- cr improved 1.24->1. Baseline around 0.7-0.8. Resume Lasix. Lisinopril restarted. Monitor kidney function. (5) CAD (coronary artery disease): Plan: CAD Diastolic CHF troponin minimally elevated, flat trend, likely demand ischemia in setting of anemia, pt without chest pain Patient appears to be in increasing shortness of breath on September 21, 2022. Will rule out acute on chronic diastolic heart failure. Chest x-ray reviewed; mild vascular congestion. Resume home dose of Lasix (6) Chronic obstructive pulmonary disease: (7) Chronic hypoxemic respiratory failure: Plan: Chronic hypoxic resp failure on 2-3L of O2 COPD w/o exac continue trelegy DuoNebs twice daily Plan DVT ppx: Eliquis Dispo: Continues to be hospitalized due to left shoulder septic arthritis and a flutter. Infectious disease consulted. Awaiting recommendation. DNR/DNI Time spent evaluating patient, direct bedside care, chart review, placing orders, interpretation of diagnostic studies, discussion with consultants, patient, and family members, as well as other required patient management activities is 60 minutes. Please note the above document was generated using voice recognition software. It may contain grammatical, syntax or spelling errors. Any formal questions or concerns about the content, text or information contained within the body of this dictation should be directly addressed to the provider for clarification Admission and Anticipated Discharge Date Admission Date: September 16, 2022 Subjective Patient seen and examined at bedside. She reports that her shoulder pain has improved. Requiring 3 L by nasal cannula. Telemetry -A-fib with controlled heart rate. Review of Systems Review of Systems: All systems reviewed & are unremarkable except as noted in Subjective Physical Exam Physical Exam: Constitutional: WD/WN, vitals as above, NAD, sitting up in bed, pleasant, conversing easily Respiratory: b/l clear breath sounds Cardiovascular: Irregular, no murmur, no edema Vessels: no JVD or carotid bruit Chest: normal inspection of chest Abdomen: normal bowel sounds, soft, nontender, no hepatosplenomegaly Musculoskeletal: Left shoulder-dressing in place. No soakage. Skin: no rashes, warm and dry normal turgor Neurologic: Grossly intact. Psychiatric: A+Ox3, euthymic affect Lymphatic: no cervical or axillary lymphadenopathy : deferred Results & Data Results & Data Vital Signs (Past 12 Hours) Vital Signs Temp Pulse Pulse Pulse Resp BP Pulse Ox 09/27/22 11:46 36.6 C 77 17 129/87 97 09/27/22 09:00 09/27/22 08:00 62 09/27/22 07:36 36.6 C 83 22 124/71 91 09/27/22 07:03 94 H 20 09/27/22 03:00 36.6 C 61 16 129/80 98 O2 Del Method O2 Flow Rate 09/27/22 11:46 Nasal Cannula 3 09/27/22 09:00 Nasal Cannula 3 09/27/22 08:00 09/27/22 07:36 Nasal Cannula 3 09/27/22 07:03 Nasal Cannula 3 09/27/22 03:00 Nasal Cannula 3 Laboratory Results Laboratory Results WBC 4.36 K/ul (4.8-10.8) L 09/27/22 05:27 RBC 3.18 M/uL (4.20-5.40) L 09/27/22 05:27 Hgb 7.4 g/dl (12.0-16.0) L 09/27/22 05:27 Hct 26.4 % (37.0-47.0) L 09/27/22 05:27 MCV 83.0 fL (80.0-100.0) 09/27/22 05:27 MCH 23.3 pg (25.0-34.0) L 09/27/22 05:27 MCHC 28.0 g/dL (32.0-36.0) L 09/27/22 05:27 RDW Std Deviation 72.1 fL (36.4-46.3) H 09/27/22 05:27 RDW Coeff of Sierra 24.2 % (11.5-14.5) H 09/27/22 05:27 Plt Count 174 K/uL (130-400) 09/27/22 05:27 MPV 10.1 fL (9.4-12.4) 09/27/22 05:27 Immature Gran % (Auto) 0.2 % 09/27/22 05:27 Neut % (Auto) 80.3 % 09/27/22 05:27 Lymph % (Auto) 10.1 % 09/27/22 05:27 [place] % (Auto) 8.0 % 09/27/22 05:27 Eos % (Auto) 0.9 % 09/27/22 05:27 Baso % (Auto) 0.5 % 09/27/22 05:27 Reticulocyte % (Auto) 1.4 % (0.5-2.0) 09/17/22 17:09 Neut # (Auto) 3.50 K/uL (1.40-6.50) 09/27/22 05:27 Lymph # (Auto) 0.44 K/uL (1.2-3.4) L 09/27/22 05:27 [place] # (Auto) 0.35 K/uL (0.11-0.59) 09/27/22 05:27 Eos # (Auto) 0.04 K/uL (0-0.50) 09/27/22 05:27 Baso # (Auto) 0.02 K/uL (0-0.2) 09/27/22 05:27 Reticulocyte # 0.05 10^6/uL (0.02-0.10) 09/17/22 17:09 Immature Gran # (Auto) 0.01 K/uL (0.01-0.20) 09/27/22 05:27 Polychromasia 1+ 09/27/22 05:27 Hypochromasia Present 09/27/22 05:27 Poikilocytosis Present 09/21/22 06:31 Anisocytosis Present 09/27/22 05:27 Microcytosis Present 09/26/22 06:27 Tear Drop Cells 1+ 09/22/22 07:50 Ovalocytes 1+ 09/24/22 00:50 Acanthocytes (Spur) 1+ 09/25/22 04:46 Peripher Smr Path Cons 09/17/22 17:09 ESR 77 mm/hr (0-30) H 09/21/22 17:22 Haptoglobin 144 mg/dL (43-212) 09/17/22 17:09 PT 11.2 Seconds (9.0-12.0) 09/22/22 17:34 INR 1.0 (0.9-1.1) 09/22/22 17:34 APTT 35.3 Seconds (21.0-31.0) H 09/24/22 00:54 PTT Ratio 1.3 09/24/22 00:54 Sodium 142 mmol/L (136-145) 09/27/22 05:27 Potassium 3.7 mmol/L (3.5-5.1) 09/27/22 05:27 Chloride 105 mmol/L (98-107) 09/27/22 05:27 Carbon Dioxide 32 mmol/L (21-32) 09/27/22 05:27 Anion Gap 5 (3-11) 09/27/22 05:27 BUN 15 mg/dl (6-23) 09/27/22 05:27 Creatinine 0.55 mg/dl (0.6-1.2) L 09/27/22 05:27 Est Cr Clr Drug Dosing 73.1 ml/min 09/27/22 05:27 Est GFR ( Amer) 106.3 ml/min 09/27/22 05:27 Est GFR (Non-Af Amer) 91.8 ml/min 09/27/22 05:27 BUN/Creatinine Ratio 27.3 (10-20) H 09/27/22 05:27 Glucose 97 mg/dl (70-99(Fasting)) 09/27/22 05:27 Estimat Average Glucose 120 mg/dl 09/17/22 04:13 Hemoglobin A1c 5.8 % (4.5-5.6) H 09/17/22 04:13 Uric Acid 3.7 mg/dl (2.6-7.2) 09/19/22 14:04 Calcium 8.6 mg/dl (8.6-10.3) 09/27/22 05:27 Magnesium 1.8 mg/dl (1.7-2.4) 09/17/22 04:13 Iron 17 mcg/dl (35-150) L 09/16/22 16:35 Unsaturated IBC 349 mcg/dl (155-355) 09/16/22 16:35 Transferrin 291 mg/dl (200-360) 09/16/22 16:35 Ferritin 7.6 ng/ml (8-388) L 09/16/22 16:35 Total Bilirubin 1.2 mg/dl (0.2-1.0) H D 09/17/22 04:13 AST 11 U/L (13-39) L 09/17/22 04:13 ALT 10 U/L (7-52) 09/17/22 04:13 Alkaline Phosphatase 50 U/L (34-104) 09/17/22 04:13 Lactate Dehydrogenase 214 U/L (86-244) 09/17/22 17:09 Troponin I High Sens 16.4 pg/ml (0-14) H 09/17/22 04:13 C-Reactive Protein 6.23 mg/dl (0-0.5) H 09/26/22 08:20 B-Natriuretic Peptide 668 pg/ml (0-100) H 09/16/22 16:35 Total Protein 5.3 gm/dl (6.0-8.3) L 09/17/22 04:13 Albumin 3.5 gm/dl (3.4-5.0) 09/17/22 04:13 Globulin 1.8 gm/dl (2.5-4.0) L 09/17/22 04:13 Albumin/Globulin Ratio 1.9 (0.9-2) 09/17/22 04:13 Vitamin B12 185 pg/ml (180-914) 09/17/22 17:09 Folate 20.51 ng/ml (>5.38) 09/17/22 17:09 Urine Color Yellow 09/16/22 18:34 Urine Appearance Clear (Clear) 09/16/22 18:34 Urine pH 5.5 (4.5-7.5) 09/16/22 18:34 Ur Specific [place] 1.016 (1.000-1.030) 09/16/22 18:34 Urine Protein Trace (Negative) H 09/16/22 18:34 Urine Glucose (UA) Negative (Negative) 09/16/22 18:34 Urine Ketones Trace (Negative) H 09/16/22 18:34 Urine Blood Negative (Negative) 09/16/22 18:34 Urine Nitrite Negative (Negative) 09/16/22 18:34 Urine Bilirubin Negative (Negative) 09/16/22 18:34 Urine Urobilinogen Negative (Negative) 09/16/22 18:34 Ur Leukocyte Esterase Trace (Negative) H 09/16/22 18:34 Urine WBC (Auto) 1-5 /hpf (0-5) 09/16/22 18:34 Urine RBC (Auto) 0-4 /hpf (0-4) 09/16/22 18:34 U Hyaline Cast (Auto) 5-10 /lpf (0-5) H 09/16/22 18:34 U Epithel Cells (Auto) 20-30 /lpf (0-5) H 09/16/22 18:34 Urine Bacteria (Auto) Negative (Negative) 09/16/22 18:34 Fld Lyme DNA (PCR) Not Detected (Not Detected) 09/21/22 16:30 Fluid Comment 09/21/22 16:30 Synovial Source Other 09/21/22 16:30 Synovial Color Brown 09/21/22 16:30 Synovial Appearance Turbid 09/21/22 16:30 Synovial WBC (Auto) 650937 /ul (0-200) H 09/21/22 16:30 Synovial RBC (Auto) < 2000 /uL 09/21/22 16:30 Synovial Polynuclear % 95.0 % 09/21/22 16:30 Synovial Mononuclear % 5.0 % 09/21/22 16:30 Synovial Crystals 09/21/22 16:30 Random Vancomycin 23.1 mcg/ml (10-20) H 09/27/22 05:27 Lyme Specimen Source SYNOVIAL FLUID 09/21/22 16:30 Lyme DNA Comment see note 09/21/22 16:30 SARS-CoV-2, RNA, NAAT NEGATIVE (NEGATIVE) 09/16/22 16:35 Blood Type A Positive 09/16/22 17:23 Antibody Screen NEGATIVE 09/16/22 17:23 Direct Antiglob Test Negative (Negative) 09/16/22 17:23 NEHA (IgG-AHG) Neg (Negative) 09/16/22 17:23 NEHA, Polyspecific Neg (Negative) 09/16/22 17:23 NEHA C3b, C3d 5 Min Neg (Negative) 09/16/22 17:23 Crossmatch See Detail 09/16/22 17:23 Impressions Shoulder X-Ray 09/19/22 12:13 XR shoulder LT min 2V routine CLINICAL HISTORY: Pain and swelling lt shoulder TECHNIQUE: 3 views of the left shoulder were obtained. Comparison: Comparison is made to left shoulder radiograph 05/26/2015 FINDINGS: There is no evidence of an acute fracture. Degenerative changes are seen in the glenohumeral joint. Soft tissue swelling is seen about the shoulder. The visualized portions of the lungs are clear. IMPRESSION: Soft tissue swelling without evidence of underlying bony abnormality. ACT 112: Negative or not required by law. Electronically signed by: Juan Carlos Kathleen M.D. 09/19/2022 12:50 PM Chest X-Ray 09/21/22 12:06 XR chest 1V portable CLINICAL HISTORY: Concern for pulmonary edema TECHNIQUE: Single frontal radiograph of the chest was obtained. Comparison: Comparison is made to chest radiograph 09/16/2022 FINDINGS: No lines and tubes are seen. The aorta is tortuous. The remainder of the cardiomediastinal silhouette is unremarkable. The lungs are clear. Bilateral blunting of the costophrenic angles noted. IMPRESSION: 1. No significant pulmonary edema. 2. Blunting of the costophrenic angles may represent trace effusions. ACT 112: Negative or not required by law. Electronically signed by: Juan Carlos Kathleen M.D. 09/21/2022 12:39 PM Shoulder MRI 09/21/22 17:13 Exam(s): MRI LEFT SHOULDER Without Contrast EXAM: MR Left Upper Extremity Without Intravenous Contrast, Shoulder CLINICAL HISTORY: Reason for exam: r/o septic shoulder. TECHNIQUE: Multiplanar magnetic resonance images of the left shoulder without intravenous contrast. COMPARISON: No relevant prior studies available. FINDINGS: Full-thickness full width tears of both the supraspinatus and infraspinatus. There is tendon retraction to the level of the glenoid. Moderate to severe muscular atrophy within both. Teres minor is intact. Partial-thickness tearing of the superior fibers of the subscapularis. High riding humeral head. Broad areas of full-thickness cartilage loss along the superior humeral head and superior aspect of the glenoid. Circumferential maceration of the labrum. The biceps appears to be torn within the intra-articular segment. Large joint effusion. Mild pericapsular edema and edema within the deltoid. No abscess. Reactive appearing lymph nodes within the left axilla. Mild degenerative changes at the acromioclavicular joint. No evidence of osteomyelitis. IMPRESSION: 1. Full thickness full width tears of the supraspinatus and infraspinatus with tendon retraction and moderate to severe atrophy. 2. Tearing of the superior fibers of the subscapularis. 3. Broad areas of full-thickness cartilage loss. 4. Circumferential degenerative related maceration of the labrum. 5. Long head of the biceps appears torn in the intra-articular segment. 6. Large joint effusion with synovitis. Most likely related to the above findings. Septic arthritis considered less likely but cannot be excluded. Consider tapping the large effusion with fluid analysis. Electronically signed by: Carlos Manuel Ontiveros MD 09/21/22 21:41 PM
--- NOTE | 2022-09-27 14:08 | Pharmacy Report ---
Pharmacy PK ABX Note - Date of Service September 27, 2022 - Assessment and Plan Assessment 77 year old F receiving Vancomycin for treatment of possible septic arthritis of right shoulder. * Day 8 of antimicrobial therapy. * Underwent shoulder aspiration on 09/21/22 by ortho. Cultures finalized with no growth. * OR on 09/24/22 for extensive debridement with drain placement - no growth yet but this was post-antibiotics Plan Vancomycin * Current regimen: 1000 mg IV every 12 hours * Random level obtained 09/25/22 resulted as 23.1 mcg/mL (drawn ~2.5 hours before next dose) * Predicted AUC at steady state on this regimen is 436 mg/L.hr * Goal AUC/STEVAN is 400 - 600 mg/L.hr. . * Continue to 1000 mg IV every 12 hours for now * Ordered true trough level for 09/28 at 0930 Pharmacy will continue to follow and will adjust dose/frequency as necessary. Thank you. Pharmacy has transitioned to AUC monitoring for vancomycin. AUC/STEVAN is the preferred PK/PD target and is associated with decreased risk of nephrotoxicity compared to traditional trough targets.
[2022-09-27] MEDS: ACETAMINOPHEN 325 MG TAB PO PRN (19:41)
[2022-09-28] MEDS: ALBUT/IPRATROP 3MG/0.5MG NEB 3 ML VIAL NEB SCH ×2 (07:03→19:38)
[2022-09-28 07:17] LABS: BUN Creatinine Ratio 22.4 (10-20); Calcium 9.3 mg/dl (8.6-10.3); Est GFR (African American) 99.7 ml/min; Potassium 3.9 mmol/L (3.5-5.1)
[2022-09-28 07:26] LABS: Anisocytosis Present; Basophils # (auto) 0.02 K/uL (0-0.2); Basophils % (auto) 0.4 %; Eosinophils # (auto) 0.05 K/uL (0-0.50); Eosinophils % (auto) 1.1 %; Hematocrit (blood only) 29.6 % (37.0-47.0); Hemoglobin 8.4 g/dl (12.0-16.0); Hypersegmented Neutrophils 1+; Immature Granulocytes # (auto) 0.02 K/uL (0.01-0.20); Immature Granulocytes % (auto) 0.4 %; Lymphocytes # (auto) 0.34 K/uL (1.2-3.4); Lymphocytes % (auto) 7.3 %; Mean Corpuscular Hemoglobin 23.8 pg (25.0-34.0); Mean Corpuscular Hgb Conc 28.4 g/dL (32.0-36.0); Mean Corpuscular Volume 83.9 fL (80.0-100.0); Mean Platelet Volume 10.1 fL (9.4-12.4); Monocytes # (auto) 0.36 K/uL (0.11-0.59); Monocytes % (auto) 7.7 %; Neutrophils # (auto) 3.86 K/uL (1.40-6.50); Neutrophils % (auto) 83.1 %; Ovalocytes 1+; Platelet Count 189 K/uL (130-400); Polychromasia 1+; RDW Standard Deviation 75.3 fL (36.4-46.3); Red Blood Count 3.53 M/uL (4.20-5.40); White Blood Count 4.65 K/ul (4.8-10.8)
[2022-09-28] MEDS: UMECLIDINIUM/VILANTEROL 62.5/25MCG 7 PUFFS/INHALER INH SCH (08:55)
[2022-09-28] MEDS: FLUTICASONE FUROATE 100MCG 14 PUFFS/INHALER INH SCH (08:56)
[2022-09-28] MEDS: SUCRALFATE 1 GM/10 ML UDC PO SCH ×2 (08:56→22:16)
[2022-09-28] MEDS: GABAPENTIN 300 MG CAP PO SCH ×2 (08:56→22:14)
[2022-09-28] MEDS: METOPROLOL TARTRATE 25 MG TAB PO SCH ×4 (08:56→22:16)
[2022-09-28] MEDS: guaiFENesin 600 MG TABCR PO SCH ×2 (08:56→22:17)
[2022-09-28] MEDS: DOCUSATE SODIUM 100 MG CAP PO SCH ×2 (08:56→22:13)
[2022-09-28] MEDS: ATORVASTATIN 40 MG TAB PO SCH (08:57)
[2022-09-28] MEDS: PANTOprazole 40 MG TAB PO SCH (08:57)
[2022-09-28] MEDS: lisinopril 20 MG TAB PO SCH (08:57)
[2022-09-28] MEDS: CHOLECALCIFEROL 1,000 UNITS 25 MCG TAB PO SCH (08:57)
[2022-09-28] MEDS: FUROSEMIDE 40 MG TAB PO SCH (08:58)
[2022-09-28] MEDS: dilTIAZem HCL 30 MG TAB PO SCH ×3 (08:58→22:17)
[2022-09-28] MEDS: buPROPion SR 150 MG TABCR PO SCH ×2 (09:03→22:14)
[2022-09-28] MEDS ORDERED: VANCOMYCIN LEVEL ONE (09:30)
--- NOTE | 2022-09-28 10:12 | Cardiology Progress Note ---
Date of Service September 28, 2022 Assessment & Plan (1) Chronic hypoxemic respiratory failure: (2) Symptomatic anemia: (3) Bradycardia: (4) Paroxysmal atrial flutter: (5) Effusion, left shoulder: Plan Hemoglobin has improved. I would continue to hold the Eliquis through today and reassess tomorrow. Admission and Anticipated Discharge Date Admission Date: September 16, 2022 Subjective The patient has no new cardiac complaints. Review of Systems Review of Systems: Review of Systems: See HPI for pertinent positives. All other 10 point review of systems are negative. Physical Exam Physical Exam: General: no acute distress and stated age Head: normocephalic, no masses, lesions, tenderness or abnormalities Eyes: conjunctiva are pink and non-injected, sclera clear Neck: supple, no adenopathy, no bruits, normal jugular venous pulse, no hepatojugular reflux Chest: normal shape and normal respiratory effort Lungs: clear to auscultation and percussion Cardiac Exam: - irregular rate & rhythm, no murmurs gallops or rubs - normal S1, normal S2 Pulses: 2(+) throughout Abdomen: abdomen soft, non-tender, no abnormal masses and no hepatosplenomegaly Musculoskeletal: no gait disturbance, no joint inflammation, no deforming arthritis Extremities: no edema and no cyanosis Neuro: grossly normal exam Results & Data Vital Signs (Past 12 Hours) Vital Signs Temp Pulse Pulse Pulse Resp BP Pulse Ox 09/28/22 07:00 37.2 C 80 98 H 18 139/91 99 09/28/22 07:00 09/28/22 07:00 83 09/28/22 07:03 83 18 95 09/28/22 03:00 37.1 C 72 18 138/96 98 09/27/22 23:00 75 09/27/22 23:00 36.8 C 52 L 16 117/62 99 O2 Del Method O2 Flow Rate 09/28/22 07:00 Nasal Cannula 3 09/28/22 07:00 Nasal Cannula 3 09/28/22 07:00 09/28/22 07:03 Nasal Cannula 3 09/28/22 03:00 Nasal Cannula 3 09/27/22 23:00 09/27/22 23:00 Nasal Cannula 3 Laboratory Results Laboratory Results - last 24 hr 09/28/22 09/28/22 09/28/22 06:21 06:21 09:31 WBC 4.65 L RBC 3.53 L Hgb 8.4 L Hct 29.6 L MCV 83.9 MCH 23.8 L MCHC 28.4 L RDW Std Deviation 75.3 H RDW Coeff of Sierra 25.0 H Plt Count 189 MPV 10.1 Immature Gran % (Auto) 0.4 Neut % (Auto) 83.1 Lymph % (Auto) 7.3 Sargent % (Auto) 7.7 Eos % (Auto) 1.1 Baso % (Auto) 0.4 Neut # (Auto) 3.86 Lymph # (Auto) 0.34 L Sargent # (Auto) 0.36 Eos # (Auto) 0.05 Baso # (Auto) 0.02 Immature Gran # (Auto) 0.02 Hypersegmented Neuts 1+ Polychromasia 1+ Anisocytosis Present Ovalocytes 1+ Sodium 143 Potassium 3.9 Chloride 103 Carbon Dioxide 36 H Anion Gap 4 BUN 15 Creatinine 0.67 Est Cr Clr Drug Dosing 60.0 Est GFR ( Amer) 99.7 Est GFR (Non-Af Amer) 86.0 BUN/Creatinine Ratio 22.4 H Glucose 109 H Calcium 9.3 Random Vancomycin Pending Medications Administered Current Inpatient Medications Acetaminophen (Acetaminophen 325 Mg Tab) 650 mg PO Q4H PRN PRN Reason: Pain or Fever Stop: 10/16/22 19:43 Last Admin: 09/27/22 19:41 Dose: 650 mg Albuterol (Albuterol 0.083% Nebu Soln 3 Ml Vial) 2.5 mg NEB Q6R PRN; Protocol PRN Reason: sob/wheezing Stop: 10/16/22 19:43 Last Admin: 09/18/22 07:03 Dose: 2.5 mg Albuterol (Albut/Ipratrop 3mg/0.5mg Neb 3 Ml Vial) 3 ml NEB BIDR COUNTS INCLUDE 234 BEDS AT THE [facility]; Protocol Stop: 10/18/22 18:59 Last Admin: 09/28/22 07:03 Dose: 3 ml Apixaban (Apixaban 5 Mg Tablet) 5 mg PO BID COUNTS INCLUDE 234 BEDS AT THE [facility] Stop: 10/26/22 09:59 Last Admin: 09/27/22 08:58 Dose: 5 mg Atorvastatin Calcium (Atorvastatin 40 Mg Tab) 80 mg PO QAM COUNTS INCLUDE 234 BEDS AT THE [facility] Stop: 10/17/22 08:59 Last Admin: 09/28/22 08:57 Dose: 80 mg Bisacodyl (Bisacodyl 10 Mg Supp) 10 mg MN DAILY PRN PRN Reason: Constipation Stop: 10/24/22 20:02 Bupropion HCl (Bupropion Sr 150 Mg Tabcr) 150 mg PO AMHS COUNTS INCLUDE 234 BEDS AT THE [facility] Stop: 10/16/22 20:59 Last Admin: 09/28/22 09:03 Dose: 150 mg Diltiazem HCl (Diltiazem Hcl 30 Mg Tab) 30 mg PO TID COUNTS INCLUDE 234 BEDS AT THE [facility] Stop: 10/22/22 20:59 Last Admin: 09/28/22 08:58 Dose: 30 mg Docusate Sodium (Docusate Sodium 100 Mg Cap) 100 mg PO BID COUNTS INCLUDE 234 BEDS AT THE [facility] Stop: 10/24/22 20:59 Last Admin: 09/28/22 08:56 Dose: 100 mg Fluticasone Furoate (Fluticasone Furoate 100mcg 14 Puffs/Inhaler) 1 puffs INH QAM COUNTS INCLUDE 234 BEDS AT THE [facility] Stop: 10/17/22 08:59 Last Admin: 09/28/22 08:56 Dose: 1 puffs Furosemide (Furosemide 40 Mg Tab) 40 mg PO QAM COUNTS INCLUDE 234 BEDS AT THE [facility] Stop: 10/23/22 08:59 Last Admin: 09/28/22 08:58 Dose: 40 mg Gabapentin (Gabapentin 300 Mg Cap) 300 mg PO BID COUNTS INCLUDE 234 BEDS AT THE [facility] Stop: 10/16/22 20:59 Last Admin: 09/28/22 08:56 Dose: 300 mg Guaifenesin (Guaifenesin 600 Mg Tabcr) 600 mg PO Q12 COUNTS INCLUDE 234 BEDS AT THE [facility] Stop: 10/16/22 20:59 Last Admin: 09/28/22 08:56 Dose: 600 mg Hydromorphone HCl (Hydromorphone Inj 0.5 Mg/0.5 Ml Syr) 0.25 mg IV Q4H PRN PRN Reason: Pain or Pre PT Stop: 10/08/22 20:02 Last Admin: 09/25/22 05:10 Dose: 0.25 mg Vancomycin HCl 1,000 mg/ (Sodium Chloride) 270 mls @ 200 mls/hr IV Q12H COUNTS INCLUDE 234 BEDS AT THE [facility]; Protocol Stop: 11/06/22 19:59 Last Infusion: 09/27/22 23:25 Dose: Infused Lisinopril (Lisinopril 20 Mg Tab) 20 mg PO QAM COUNTS INCLUDE 234 BEDS AT THE [facility] Stop: 10/21/22 08:59 Last Admin: 09/28/22 08:57 Dose: 20 mg Magnesium Hydroxide (Magnesium Hydroxide Susp 30 Ml Udc) 30 ml PO Q6H PRN PRN Reason: Constipation Stop: 10/24/22 20:02 Metoprolol Tartrate (Metoprolol Tartrate 25 Mg Tab) 25 mg PO QID COUNTS INCLUDE 234 BEDS AT THE [facility] Stop: 10/21/22 08:59 Last Admin: 09/28/22 08:56 Dose: 25 mg Miscellaneous Information (Vancomycin Consult Active) 1 each N/A UD PRN PRN Reason: Consult Stop: 10/20/22 12:10 Naloxone HCl (Naloxone Hcl 0.4 Mg/1 Ml Vial/Carp) 0.1 mg IV Q5M PRN PRN Reason: Oversedation/Resp Depression Stop: 10/24/22 20:02 Ondansetron HCl (Ondansetron Inj 2 Mg/Ml 2 Ml Vial) 4 mg IV Q6H PRN PRN Reason: Nausea Stop: 10/16/22 19:43 Ondansetron HCl (Ondansetron Inj 2 Mg/Ml 2 Ml Vial) 4 mg IV Q6H PRN PRN Reason: Nausea And Vomiting Stop: 10/24/22 20:02 Pantoprazole Sodium (Pantoprazole 40 Mg Tab) 40 mg PO DAILY COUNTS INCLUDE 234 BEDS AT THE [facility] Stop: 10/23/22 08:59 Last Admin: 09/28/22 08:57 Dose: 40 mg Potassium Chloride (Potassium Chloride 10 Meq Tabcr) 10 meq PO AMHS COUNTS INCLUDE 234 BEDS AT THE [facility] Stop: 10/17/22 08:59 Last Admin: 09/18/22 08:47 Dose: 10 meq Sucralfate (Sucralfate 1 Gm/10 Ml Udc) 1 gm PO BID COUNTS INCLUDE 234 BEDS AT THE [facility] Stop: 10/17/22 20:59 Last Admin: 09/28/22 08:56 Dose: 1 gm Tramadol HCl (Tramadol Hcl 50 Mg Tablet) 25 mg PO Q6H PRN PRN Reason: Pain Stop: 10/20/22 11:35 Last Admin: 09/21/22 00:06 Dose: 25 mg Umeclidinium/Vilanterol (Umeclidinium/Vilanterol 62.5/25mcg 7 Puffs/Inhaler) 1 puffs INH QAM COUNTS INCLUDE 234 BEDS AT THE [facility] Stop: 10/17/22 08:59 Last Admin: 05/30/23 08:55 Dose: 1 puffs Vitamin D (Cholecalciferol 1,000 Units 25 Mcg Tab) [facility] [place] Stop: 10/17/22 08:59 Last Admin: 09/28/22 08:57 Dose: 1,000 units
--- NOTE | 2022-09-28 10:40 | Pharmacy Report ---
Pharmacy PK ABX Note - Date of Service September 28, 2022 - Assessment and Plan Assessment 77 year old F receiving Vancomycin for treatment of possible septic arthritis of right shoulder. * Day 8 of antimicrobial therapy. * Underwent shoulder aspiration on 09/21/22 by ortho. Cultures finalized with no growth. * OR on 09/24/22 for extensive debridement with drain placement - no growth yet but this was post-antibiotics 09/28: Cultures remain negative. ID consult pending. Vancomycin level 16.0 mcg/mL this morning, therapeutic. Plan Vancomycin * Current regimen: 1000 mg IV every 12 hours * Random level obtained 09/25/22 resulted as 23.1 mcg/mL (drawn ~2.5 hours before next dose) * Predicted AUC at steady state on this regimen is 436 mg/L.hr * Goal AUC/STEVAN is 400 - 600 mg/L.hr. . * Continue to 1000 mg IV every 12 hours for now * Ordered true trough level for 09/28 at 0930 09/28: Continue current dose 1000 mg q12H; this is predicting an AUC within goal range (522 mg/L.hr) Pharmacy will continue to follow and will adjust dose/frequency as necessary. Thank you. Pharmacy has transitioned to AUC monitoring for vancomycin. AUC/STEVAN is the preferred PK/PD target and is associated with decreased risk of nephrotoxicity compared to traditional trough targets.
[2022-09-28] MEDS: VANCOMYCIN HCL 1,000 MG in SODIUM CHLORIDE 0.9% 250 ML IV SCH ×2 (11:02→22:18)
--- NOTE | 2022-09-28 14:11 | Hospitalist Progress Note ---
Date of Service September 28, 2022 Assessment & Plan (1) Acute GI bleeding: Plan: This is a 77-year-old female who has significant past medical history of chronic hypoxic respiratory failure on 2 to 3 L of oxygen, COPD, CAD, chronic diastolic CHF, hypertension, pulmonary hypertension, PFO, wandering atrial pacemaker, hyperlipidemia, senile osteoporosis, meningioma, iron deficiency anemia, tobacco use disorder, AAA status postrepair who presents to ED secondary to worsening shortness of breath for the last 2 to 3 weeks. FOBT positive, EGD with esophagitis and gastritis as below but no active bleeding, S/p 3 U PRBC. Symptomatic Anemia/Iron deficiency anemia due to chronic GI blood loss Vit B12 deficiency - Hb dropped from baseline of >11 in May to 6 on admission - Heme positive in ED, stool occult blood positive but no overt bleeding noted. Ferritin 7.6, Iron 17. Hemolysis panel negative. PBS for parasites negative. Folate normal, B12 low normal. - EGD 09/17 with gastritis and mild esophagitis - s/p 3 U PRBC and Hb now stabilized. - Continue PPI and carafate - Seen by GI- recommendations noted as below Iron supplement for 3 months Protonix 40 mg per day Carafate 1 gm bid x 12 weeks OP colonoscopy to be arranged Repeat EGD in 3 months for surveillance of Gastritis Eliquis is currently on hold as per cardiology recommendation. Hemoglobin is stable around 7-8. Septic arthritis status post Left shoulder arthroscopy with extensive debridement and placement of Hemovac drains and soft tissue biopsies for culture and joint fluid culture on September 24. Left shoulder noted to have acutely inflamed with swelling, redness and tenderness since September 19, 2022. X-ray of the shoulder showed soft tissue swelling but no bony abnormalities Labs reviewed; ESR initially 42; increased to 77. CRP markedly elevated as well. MRI shoulder reviewed; large joint effusion with synovitis present. Results of the joint aspiration done on September 21 reviewed; consistent with septic arthritis with WBC count of greater than 100,000 ( 95% N) Gram stain shows WBC. Culture negative so far. Continue on vancomycin for now Blood culture no growth till date. Intra-Op cultures negative so far. CRP down trended with. Consulted infectious disease regarding duration and choice of IV antibiotics. Awaiting recommendation. (2) Atrial fibrillation with rapid ventricular response: Plan: Paroxysmal a flutter Cardiology on board. Received IV Cardizem and amiodarone during the initial hospitalization. Discussed with cardiology; recommended to continue metoprolol 25 mg every 6 and Cardizem 30 mg every 8 hourly. Eliquis currently on hold. Resume tomorrow if hemoglobin stable. (3) Symptomatic anemia: Plan: As above (4) AP (acute kidney injury): Plan: AP- cr improved 1.24->1. Baseline around 0.7-0.8. Resume Lasix. Lisinopril restarted. Monitor kidney function. (5) CAD (coronary artery disease): Plan: CAD Diastolic CHF troponin minimally elevated, flat trend, likely demand ischemia in setting of anemia, pt without chest pain Patient appears to be in increasing shortness of breath on September 21, 2022. Will rule out acute on chronic diastolic heart failure. Chest x-ray reviewed; mild vascular congestion. Resume home dose of Lasix (6) Chronic obstructive pulmonary disease: (7) Chronic hypoxemic respiratory failure: Plan: Chronic hypoxic resp failure on 2-3L of O2 COPD w/o exac continue trelegy DuoNebs twice daily Plan DVT ppx: Eliquis on hold today. Dispo: Continues to be hospitalized due to left shoulder septic arthritis and a flutter. Infectious disease consulted. Awaiting recommendation. DNR/DNI Time spent evaluating patient, direct bedside care, chart review, placing orders, interpretation of diagnostic studies, discussion with consultants, patient, and family members, as well as other required patient management ac tivities is 60 minutes. Please note the above document was generated using voice recognition software. It may contain grammatical, syntax or spelling errors. Any formal questions or concerns about the content, text or information contained within the body of this dictation should be directly addressed to the provider for clarification Admission and Anticipated Discharge Date Admission Date: September 16, 2022 Subjective Patient seen and examined at bedside. She is comfortable; not in distress. Reports that her left shoulder pain has improved. Review of Systems Review of Systems: All systems reviewed & are unremarkable except as noted in Subjective Physical Exam Physical Exam: Constitutional: WD/WN, vitals as above, NAD, sitting up in bed, pleasant, conversing easily Respiratory: b/l clear breath sounds Cardiovascular: Irregular, no murmur, no edema Vessels: no JVD or carotid bruit Chest: normal inspection of chest Abdomen: normal bowel sounds, soft, nontender, no hepatosplenomegaly Musculoskeletal: Left shoulder-dressing in place. No soakage. Skin: no rashes, warm and dry normal turgor Neurologic: Grossly intact. Psychiatric: A+Ox3, euthymic affect Lymphatic: no cervical or axillary lymphadenopathy : deferred Results & Data Results & Data Vital Signs (Past 12 Hours) Vital Signs Temp Pulse Pulse Pulse Resp BP Pulse Ox 09/28/22 13:26 83 128/90 95 09/28/22 11:00 37.0 C 81 20 139/68 96 09/28/22 07:00 37.2 C 80 98 H 18 139/91 99 09/28/22 07:00 09/28/22 07:00 83 09/28/22 07:03 83 18 95 09/28/22 03:00 37.1 C 72 18 138/96 98 O2 Del Method O2 Flow Rate 09/28/22 13:26 Nasal Cannula 3 09/28/22 11:00 Nasal Cannula 3 09/28/22 07:00 Nasal Cannula 3 09/28/22 07:00 Nasal Cannula 3 09/28/22 07:00 09/28/22 07:03 Nasal Cannula 3 09/28/22 03:00 Nasal Cannula 3 Laboratory Results Laboratory Results WBC 4.65 K/ul (4.8-10.8) L 09/28/22 06:21 RBC 3.53 M/uL (4.20-5.40) L 09/28/22 06:21 Hgb 8.4 g/dl (12.0-16.0) L 09/28/22 06:21 Hct 29.6 % (37.0-47.0) L 09/28/22 06:21 MCV 83.9 fL (80.0-100.0) 09/28/22 06:21 MCH 23.8 pg (25.0-34.0) L 09/28/22 06:21 MCHC 28.4 g/dL (32.0-36.0) L 09/28/22 06:21 RDW Std Deviation 75.3 fL (36.4-46.3) H 09/28/22 06:21 RDW Coeff of Sierra 25.0 % (11.5-14.5) H 09/28/22 06:21 Plt Count 189 K/uL (130-400) 09/28/22 06:21 MPV 10.1 fL (9.4-12.4) 09/28/22 06:21 Immature Gran % (Auto) 0.4 % 09/28/22 06:21 Neut % (Auto) 83.1 % 09/28/22 06:21 Lymph % (Auto) 7.3 % 09/28/22 06:21 Jones % (Auto) 7.7 % 09/28/22 06:21 Eos % (Auto) 1.1 % 09/28/22 06:21 Baso % (Auto) 0.4 % 09/28/22 06:21 Reticulocyte % (Auto) 1.4 % (0.5-2.0) 09/17/22 17:09 Neut # (Auto) 3.86 K/uL (1.40-6.50) 09/28/22 06:21 Lymph # (Auto) 0.34 K/uL (1.2-3.4) L 09/28/22 06:21 Jones # (Auto) 0.36 K/uL (0.11-0.59) 09/28/22 06:21 Eos # (Auto) 0.05 K/uL (0-0.50) 09/28/22 06:21 Baso # (Auto) 0.02 K/uL (0-0.2) 09/28/22 06:21 Reticulocyte # 0.05 10^6/uL (0.02-0.10) 09/17/22 17:09 Immature Gran # (Auto) 0.02 K/uL (0.01-0.20) 09/28/22 06:21 Hypersegmented Neuts 1+ 09/28/22 06:21 Polychromasia 1+ 09/28/22 06:21 Hypochromasia Present 09/27/22 05:27 Poikilocytosis Present 09/21/22 06:31 Anisocytosis Present 09/28/22 06:21 Microcytosis Present 09/26/22 06:27 Tear Drop Cells 1+ 09/22/22 07:50 Ovalocytes 1+ 09/28/22 06:21 Acanthocytes (Spur) 1+ 09/25/22 04:46 Peripher Smr Path Cons 09/17/22 17:09 ESR 77 mm/hr (0-30) H 09/21/22 17:22 Haptoglobin 144 mg/dL (43-212) 09/17/22 17:09 PT 11.2 Seconds (9.0-12.0) 09/22/22 17:34 INR 1.0 (0.9-1.1) 09/22/22 17:34 APTT 35.3 Seconds (21.0-31.0) H 09/24/22 00:54 PTT Ratio 1.3 09/24/22 00:54 Sodium 143 mmol/L (136-145) 09/28/22 06:21 Potassium 3.9 mmol/L (3.5-5.1) 09/28/22 06:21 Chloride 103 mmol/L (98-107) 09/28/22 06:21 Carbon Dioxide 36 mmol/L (21-32) H 09/28/22 06:21 Anion Gap 4 (3-11) 09/28/22 06:21 BUN 15 mg/dl (6-23) 09/28/22 06:21 Creatinine 0.67 mg/dl (0.6-1.2) 09/28/22 06:21 Est Cr Clr Drug Dosing 60.0 ml/min 09/28/22 06:21 Est GFR ( Amer) 99.7 ml/min 09/28/22 06:21 Est GFR (Non-Af Amer) 86.0 ml/min 09/28/22 06:21 BUN/Creatinine Ratio 22.4 (10-20) H 09/28/22 06:21 Glucose 109 mg/dl (70-99(Fasting)) H 09/28/22 06:21 Estimat Average Glucose 120 mg/dl 09/17/22 04:13 Hemoglobin A1c 5.8 % (4.5-5.6) H 09/17/22 04:13 Uric Acid 3.7 mg/dl (2.6-7.2) 09/19/22 14:04 Calcium 9.3 mg/dl (8.6-10.3) 09/28/22 06:21 Magnesium 1.8 mg/dl (1.7-2.4) 09/17/22 04:13 Iron 17 mcg/dl (35-150) L 09/16/22 16:35 Unsaturated IBC 349 mcg/dl (155-355) 09/16/22 16:35 Transferrin 291 mg/dl (200-360) 09/16/22 16:35 Ferritin 7.6 ng/ml (8-388) L 09/16/22 16:35 Total Bilirubin 1.2 mg/dl (0.2-1.0) H D 09/17/22 04:13 AST 11 U/L (13-39) L 09/17/22 04:13 ALT 10 U/L (7-52) 09/17/22 04:13 Alkaline Phosphatase 50 U/L (34-104) 09/17/22 04:13 Lactate Dehydrogenase 214 U/L (86-244) 09/17/22 17:09 Troponin I High Sens 16.4 pg/ml (0-14) H 09/17/22 04:13 C-Reactive Protein 6.23 mg/dl (0-0.5) H 09/26/22 08:20 B-Natriuretic Peptide 668 pg/ml (0-100) H 09/16/22 16:35 Total Protein 5.3 gm/dl (6.0-8.3) L 09/17/22 04:13 Albumin 3.5 gm/dl (3.4-5.0) 09/17/22 04:13 Globulin 1.8 gm/dl (2.5-4.0) L 09/17/22 04:13 Albumin/Globulin Ratio 1.9 (0.9-2) 09/17/22 04:13 Vitamin B12 185 pg/ml (180-914) 09/17/22 17:09 Folate 20.51 ng/ml (>5.38) 09/17/22 17:09 Urine Color Yellow 09/16/22 18:34 Urine Appearance Clear (Clear) 09/16/22 18:34 Urine pH 5.5 (4.5-7.5) 09/16/22 18:34 Ur Specific [place] 1.016 (1.000-1.030) 09/16/22 18:34 Urine Protein Trace (Negative) H 09/16/22 18:34 Urine Glucose (UA) Negative (Negative) 09/16/22 18:34 Urine Ketones Trace (Negative) H 09/16/22 18:34 Urine Blood Negative (Negative) 09/16/22 18:34 Urine Nitrite Negative (Negative) 09/16/22 18:34 Urine Bilirubin Negative (Negative) 09/16/22 18:34 Urine Urobilinogen Negative (Negative) 09/16/22 18:34 Ur Leukocyte Esterase Trace (Negative) H 09/16/22 18:34 Urine WBC (Auto) 1-5 /hpf (0-5) 09/16/22 18:34 Urine RBC (Auto) 0-4 /hpf (0-4) 09/16/22 18:34 U Hyaline Cast (Auto) 5-10 /lpf (0-5) H 09/16/22 18:34 U Epithel Cells (Auto) 20-30 /lpf (0-5) H 09/16/22 18:34 Urine Bacteria (Auto) Negative (Negative) 09/16/22 18:34 Fld Lyme DNA (PCR) Not Detected (Not Detected) 09/21/22 16:30 Fluid Comment 09/21/22 16:30 Synovial Source Other 09/21/22 16:30 Synovial Color Brown 09/21/22 16:30 Synovial Appearance Turbid 09/21/22 16:30 Synovial WBC (Auto) 787694 /ul (0-200) H 09/21/22 16:30 Synovial RBC (Auto) < 2000 /uL 09/21/22 16:30 Synovial Polynuclear % 95.0 % 09/21/22 16:30 Synovial Mononuclear % 5.0 % 09/21/22 16:30 Synovial Crystals 09/21/22 16:30 Random Vancomycin 16.0 mcg/ml (10-20) 09/28/22 09:31 Lyme Specimen Source SYNOVIAL FLUID 09/21/22 16:30 Lyme DNA Comment see note 09/21/22 16:30 SARS-CoV-2, RNA, NAAT NEGATIVE (NEGATIVE) 09/16/22 16:35 Blood Type A Positive 09/16/22 17:23 Antibody Screen NEGATIVE 09/16/22 17:23 Direct Antiglob Test Negative (Negative) 09/16/22 17:23 NEHA (IgG-AHG) Neg (Negative) 09/16/22 17:23 NEHA, Polyspecific Neg (Negative) 09/16/22 17:23 NEHA C3b, C3d 5 Min Neg (Negative) 09/16/22 17:23 Crossmatch See Detail 09/16/22 17:23 Impressions Shoulder X-Ray 09/19/22 12:13 XR shoulder LT min 2V routine CLINICAL HISTORY: Pain and swelling lt shoulder TECHNIQUE: 3 views of the left shoulder were obtained. Comparison: Comparison is made to left shoulder radiograph 05/26/2015 FINDINGS: There is no evidence of an acute fracture. Degenerative changes are seen in the glenohumeral joint. Soft tissue swelling is seen about the shoulder. The visualized portions of the lungs are clear. IMPRESSION: Soft tissue swelling without evidence of underlying bony abnormality. ACT 112: Negative or not required by law. Electronically signed by: Juan Carlos Kathleen M.D. 09/19/2022 12:50 PM Chest X-Ray 09/21/22 12:06 XR chest 1V portable CLINICAL HISTORY: Concern for pulmonary edema TECHNIQUE: Single frontal radiograph of the chest was obtained. Comparison: Comparison is made to chest radiograph 09/16/2022 FINDINGS: No lines and tubes are seen. The aorta is tortuous. The remainder of the cardiomediastinal silhouette is unremarkable. The lungs are clear. Bilateral blunting of the costophrenic angles noted. IMPRESSION: 1. No significant pulmonary edema. 2. Blunting of the costophrenic angles may represent trace effusions. ACT 112: Negative or not required by law. Electronically signed by: Juan Carlos Kathleen M.D. 09/21/2022 12:39 PM Shoulder MRI 09/21/22 17:13 Exam(s): MRI LEFT SHOULDER Without Contrast EXAM: MR Left Upper Extremity Without Intravenous Contrast, Shoulder CLINICAL HISTORY: Reason for exam: r/o septic shoulder. TECHNIQUE: Multiplanar magnetic resonance images of the left shoulder without intravenous contrast. COMPARISON: No relevant prior studies available. FINDINGS: Full-thickness full width tears of both the supraspinatus and infraspinatus. There is tendon retraction to the level of the glenoid. Moderate to severe muscular atrophy within both. Teres minor is intact. Partial-thickness tearing of the superior fibers of the subscapularis. High riding humeral head. Broad areas of full-thickness cartilage loss along the superior humeral head and superior aspect of the glenoid. Circumferential maceration of the labrum. The biceps appears to be torn within the intra-articular segment. Large joint effusion. Mild pericapsular edema and edema within the deltoid. No abscess. Reactive appearing lymph nodes within the left axilla. Mild degenerative changes at the acromioclavicular joint. No evidence of osteomyelitis. IMPRESSION: 1. Full thickness full width tears of the supraspinatus and infraspinatus with tendon retraction and moderate to severe atrophy. 2. Tearing of the superior fibers of the subscapularis. 3. Broad areas of full-thickness cartilage loss. 4. Circumferential degenerative related maceration of the labrum. 5. Long head of the biceps appears torn in the intra-articular segment. 6. Large joint effusion with synovitis. Most likely related to the above findings. Septic arthritis considered less likely but cannot be excluded. Consider tapping the large effusion with fluid analysis. Electronically signed by: Carlos Manuel Ontiveros MD 09/21/22 21:41 PM
[2022-09-29 06:51] LABS: Basophils # (auto) 0.02 K/uL (0-0.2); Basophils % (auto) 0.5 %; Eosinophils # (auto) 0.04 K/uL (0-0.50); Eosinophils % (auto) 0.9 %; Hematocrit (blood only) 29.6 % (37.0-47.0); Hemoglobin 8.6 g/dl (12.0-16.0); Immature Granulocytes # (auto) 0.02 K/uL (0.01-0.20); Immature Granulocytes % (auto) 0.5 %; Lymphocytes # (auto) 0.28 K/uL (1.2-3.4); Lymphocytes % (auto) 6.6 %; Mean Corpuscular Hemoglobin 24.1 pg (25.0-34.0); Mean Corpuscular Hgb Conc 29.1 g/dL (32.0-36.0); Mean Corpuscular Volume 82.9 fL (80.0-100.0); Mean Platelet Volume 9.5 fL (9.4-12.4); Monocytes # (auto) 0.37 K/uL (0.11-0.59); Monocytes % (auto) 8.7 %; Neutrophils % (auto) 82.8 %; Platelet Count 189 K/uL (130-400); RDW Coefficient of Variation 25.3 % (11.5-14.5); RDW Standard Deviation 75.8 fL (36.4-46.3); Red Blood Count 3.57 M/uL (4.20-5.40); White Blood Count 4.23 K/ul (4.8-10.8)
[2022-09-29] MEDS: ALBUT/IPRATROP 3MG/0.5MG NEB 3 ML VIAL NEB SCH ×2 (06:53→19:17)
[2022-09-29 07:13] LABS: Anisocytosis Present; Ovalocytes 1+; Polychromasia 1+
[2022-09-29 07:30] LABS: Calcium 9.3 mg/dl (8.6-10.3); Potassium 3.7 mmol/L (3.5-5.1)
[2022-09-29 07:36] LABS: Creatinine Clr Calc Pharmacy 61.9 ml/min; Est GFR (African American) 100.7 ml/min; Est GFR (Non-African American) 86.8 ml/min
[2022-09-29] MEDS: lisinopril 20 MG TAB PO SCH (08:26)
[2022-09-29] MEDS: GABAPENTIN 300 MG CAP PO SCH ×2 (08:26→20:49)
[2022-09-29] MEDS: dilTIAZem HCL 30 MG TAB PO SCH ×3 (08:26→20:50)
[2022-09-29] MEDS: ATORVASTATIN 40 MG TAB PO SCH (08:26)
[2022-09-29] MEDS: DOCUSATE SODIUM 100 MG CAP PO SCH ×2 (08:26→20:45)
[2022-09-29] MEDS: METOPROLOL TARTRATE 25 MG TAB PO SCH ×4 (08:26→20:48)
[2022-09-29] MEDS: guaiFENesin 600 MG TABCR PO SCH ×2 (08:26→20:49)
[2022-09-29] MEDS: CHOLECALCIFEROL 1,000 UNITS 25 MCG TAB PO SCH (08:26)
[2022-09-29] MEDS: FUROSEMIDE 40 MG TAB PO SCH (08:26)
[2022-09-29] MEDS: FLUTICASONE FUROATE 100MCG 14 PUFFS/INHALER INH SCH (08:27)
[2022-09-29] MEDS: UMECLIDINIUM/VILANTEROL 62.5/25MCG 7 PUFFS/INHALER INH SCH (08:27)
[2022-09-29] MEDS: SUCRALFATE 1 GM/10 ML UDC PO SCH ×2 (08:27→20:50)
[2022-09-29] MEDS: PANTOprazole 40 MG TAB PO SCH (08:27)
[2022-09-29] MEDS: buPROPion SR 150 MG TABCR PO SCH ×2 (09:17→20:49)
[2022-09-29] MEDS: VANCOMYCIN HCL 1,000 MG in SODIUM CHLORIDE 0.9% 250 ML IV SCH (09:17)
--- NOTE | 2022-09-29 10:48 | Cardiology Progress Note ---
Date of Service September 29, 2022 Assessment & Plan (1) Chronic hypoxemic respiratory failure: (2) Symptomatic anemia: (3) Bradycardia: (4) Paroxysmal atrial flutter: (5) Effusion, left shoulder: Plan The patient's hemoglobin continues to be stable and rising slowly. I am reluctant to anticoagulate her because the risk versus benefit I think favors no anticoagulation at this time. At most I would put her on aspirin 81 mg daily after she is discharged and started later in the week. I will arrange follow-up with our practice if she is discharged. Admission and Anticipated Discharge Date Admission Date: September 16, 2022 Subjective The patient had an uneventful night. Review of Systems Review of Systems: Review of Systems: See HPI for pertinent positives. All other 10 point review of systems are negative. Physical Exam Physical Exam: General: no acute distress and stated age Head: normocephalic, no masses, lesions, tenderness or abnormalities Eyes: conjunctiva are pink and non-injected, sclera clear Neck: supple, no adenopathy, no bruits, normal jugular venous pulse, no hepatojugular reflux Chest: normal shape and normal respiratory effort Lungs: clear to auscultation and percussion Cardiac Exam: - irregular rate & rhythm, no murmurs gallops or rubs - normal S1, normal S2 Pulses: 2(+) throughout Abdomen: abdomen soft, non-tender, no abnormal masses and no hepatosplenomegaly Musculoskeletal: no gait disturbance, no joint inflammation, no deforming arthritis Extremities: no edema and no cyanosis Neuro: grossly normal exam Results & Data Vital Signs (Past 12 Hours) Vital Signs Temp Pulse Pulse Pulse Resp BP BP 09/29/22 08:12 87 09/29/22 07:22 36.6 C 94 H 18 162/101 H 09/29/22 06:53 83 18 09/29/22 03:28 36.7 C 73 79 18 137/87 09/28/22 23:00 78 09/28/22 23:02 09/28/22 22:50 36.7 C 79 18 127/74 Pulse Ox O2 Del Method O2 Flow Rate 09/29/22 08:12 09/29/22 07:22 94 Oxymask 3 09/29/22 06:53 94 Nasal Cannula 3 09/29/22 03:28 99 Nasal Cannula 3 09/28/22 23:00 09/28/22 23:02 Nasal Cannula 3 09/28/22 22:50 99 Nasal Cannula 3 Laboratory Results Laboratory Results - last 24 hr 09/29/22 09/29/22 06:39 06:39 WBC 4.23 L RBC 3.57 L Hgb 8.6 L Hct 29.6 L MCV 82.9 MCH 24.1 L MCHC 29.1 L RDW Std Deviation 75.8 H RDW Coeff of [place] 25.3 H Plt Count 189 MPV 9.5 Immature Gran % (Auto) 0.5 Neut % (Auto) 82.8 Lymph % (Auto) 6.6 [place] % (Auto) 8.7 Eos % (Auto) 0.9 Baso % (Auto) 0.5 Neut # (Auto) 3.50 Lymph # (Auto) 0.28 L [place] # (Auto) 0.37 Eos # (Auto) 0.04 Baso # (Auto) 0.02 Immature Gran # (Auto) 0.02 Polychromasia 1+ Anisocytosis Present Ovalocytes 1+ Sodium 142 Potassium 3.7 Chloride 101 Carbon Dioxide 37 H Anion Gap 4 BUN 13 Creatinine 0.65 Est Cr Clr Drug Dosing 61.9 Est GFR ( Amer) 100.7 Est GFR (Non-Af Amer) 86.8 BUN/Creatinine Ratio 20.0 Glucose 124 H Calcium 9.3 Diagnostic Findings Remains in a rate controlled atrial flutter on telemetry. Medications Administered Current Inpatient Medications Acetaminophen (Acetaminophen 325 Mg Tab) 650 mg PO Q4H PRN PRN Reason: Pain or Fever Stop: 10/16/22 19:43 Last Admin: 09/27/22 19:41 Dose: 650 mg Albuterol (Albuterol 0.083% Nebu Soln 3 Ml Vial) 2.5 mg NEB Q6R PRN; Protocol PRN Reason: sob/wheezing Stop: 10/16/22 19:43 Last Admin: 09/18/22 07:03 Dose: 2.5 mg Albuterol (Albut/Ipratrop 3mg/0.5mg Neb 3 Ml Vial) 3 ml NEB BIDR [facility]; Protocol Stop: 10/18/22 18:59 Last Admin: 09/29/22 06:53 Dose: 3 ml Apixaban (Apixaban 5 Mg Tablet) 5 mg PO BID [facility] Stop: 10/26/22 09:59 Last Admin: 09/27/22 08:58 Dose: 5 mg Atorvastatin Calcium (Atorvastatin 40 Mg Tab) 80 mg PO QAM [facility] Stop: 10/17/22 08:59 Last Admin: 09/29/22 08:26 Dose: 80 mg Bisacodyl (Bisacodyl 10 Mg Supp) 10 mg RI DAILY PRN PRN Reason: Constipation Stop: 10/24/22 20:02 Bupropion HCl (Bupropion Sr 150 Mg Tabcr) 150 mg PO AMHS [facility] Stop: 10/16/22 20:59 Last Admin: 09/29/22 09:17 Dose: 150 mg Diltiazem HCl (Diltiazem Hcl 30 Mg Tab) 30 mg PO TID [facility] Stop: 10/22/22 20:59 Last Admin: 09/29/22 08:26 Dose: 30 mg Docusate Sodium (Docusate Sodium 100 Mg Cap) 100 mg PO BID [facility] Stop: 10/24/22 20:59 Last Admin: 09/29/22 08:26 Dose: 100 mg Fluticasone Furoate (Fluticasone Furoate 100mcg 14 Puffs/Inhaler) [facility] [place]: 10/17/22 08:59 Last Admin: 09/29/22 08:27 Dose: 1 puffs Furosemide (Furosemide 40 Mg Tab) 40 mg PO QAM [facility] Stop: 10/23/22 08:59 Last Admin: 09/29/22 08:26 Dose: 40 mg Gabapentin (Gabapentin 300 Mg Cap) 300 mg PO BID [facility] Stop: 10/16/22 20:59 Last Admin: 09/29/22 08:26 Dose: 300 mg Guaifenesin (Guaifenesin 600 Mg Tabcr) 600 mg PO Q12 [facility] Stop: 10/16/22 20:59 Last Admin: 09/29/22 08:26 Dose: 600 mg Hydromorphone HCl (Hydromorphone Inj 0.5 Mg/0.5 Ml Syr) 0.25 mg IV Q4H PRN PRN Reason: Pain or Pre PT Stop: 10/08/22 20:02 Last Admin: 09/25/22 05:10 Dose: 0.25 mg Vancomycin HCl 1,000 mg/ (Sodium Chloride) 270 mls @ 200 mls/hr IV Q12H [facility]; Protocol Stop: 11/06/22 19:59 Last Infusion: 09/29/22 10:40 Dose: Infused Lisinopril (Lisinopril 20 Mg Tab) 20 mg PO QAM [facility] Stop: 10/21/22 08:59 Last Admin: 09/29/22 08:26 Dose: 20 mg Magnesium Hydroxide (Magnesium Hydroxide Susp 30 Ml Udc) 30 ml PO Q6H PRN PRN Reason: Constipation Stop: 10/24/22 20:02 Metoprolol Tartrate (Metoprolol Tartrate 25 Mg Tab) 25 mg PO QID [facility] Stop: 10/21/22 08:59 Last Admin: 09/29/22 08:26 Dose: 25 mg Miscellaneous Information (Vancomycin Consult Active) 1 each N/A UD PRN PRN Reason: Consult Stop: 10/20/22 12:10 Naloxone HCl (Naloxone Hcl 0.4 Mg/1 Ml Vial/Carp) 0.1 mg IV Q5M PRN PRN Reason: Oversedation/Resp Depression Stop: 10/24/22 20:02 Ondansetron HCl (Ondansetron Inj 2 Mg/Ml 2 Ml Vial) 4 mg IV Q6H PRN PRN Reason: Nausea Stop: 10/16/22 19:43 Ondansetron HCl (Ondansetron Inj 2 Mg/Ml 2 Ml Vial) 4 mg IV Q6H PRN PRN Reason: Nausea And Vomiting Stop: 10/24/22 20:02 Pantoprazole Sodium (Pantoprazole 40 Mg Tab) 40 mg PO DAILY [facility] Stop: 10/23/22 08:59 Last Admin: 09/29/22 08:27 Dose: 40 mg Potassium Chloride (Potassium Chloride 10 Meq Tabcr) 10 meq PO AMHS [facility] Stop: 10/17/22 08:59 Last Admin: 09/18/22 08:47 Dose: 10 meq Sucralfate (Sucralfate 1 Gm/10 Ml Udc) 1 gm PO BID [facility] Stop: 10/17/22 20:59 Last Admin: 09/29/22 08:27 Dose: 1 gm Tramadol HCl (Tramadol Hcl 50 Mg Tablet) 25 mg PO Q6H PRN PRN Reason: Pain Stop: 10/20/22 11:35 Last Admin: 09/21/22 00:06 Dose: 25 mg Umeclidinium/Vilanterol (Umeclidinium/Vilanterol 62.5/25mcg 7 Puffs/Inhaler) 1 puffs INH QAM [facility] Stop: 10/17/22 08:59 Last Admin: 09/29/22 08:27 Dose: 1 puffs Vitamin D (Cholecalciferol 1,000 Units 25 Mcg Tab) 1,000 units PO QAM [facility] Stop: 10/17/22 08:59 Last Admin: 09/29/22 08:26 Dose: 1,000 units
[2022-09-29] MEDS: cefTRIAXone SODIUM 2,000 MG in DEXTROSE 5% 50 ML IV SCH (14:11)
--- NOTE | 2022-09-29 19:35 | Hospitalist Progress Note ---
Date of Service September 29, 2022 Assessment & Plan (1) Acute GI bleeding: Plan: This is a 77-year-old female who has significant past medical history of chronic hypoxic respiratory failure on 2 to 3 L of oxygen, COPD, CAD, chronic diastolic CHF, hypertension, pulmonary hypertension, PFO, wandering atrial pacemaker, hyperlipidemia, senile osteoporosis, meningioma, iron deficiency anemia, tobacco use disorder, AAA status postrepair who presents to ED secondary to worsening shortness of breath for the last 2 to 3 weeks. FOBT positive, EGD with esophagitis and gastritis as below but no active bleeding, S/p 3 U PRBC. Symptomatic Anemia/Iron deficiency anemia due to chronic GI blood loss Vit B12 deficiency - Hb dropped from baseline of >11 in May to 6 on admission - Heme positive in ED, stool occult blood positive but no overt bleeding noted. Ferritin 7.6, Iron 17. Hemolysis panel negative. PBS for parasites negative. Folate normal, B12 low normal. - EGD 09/17 with gastritis and mild esophagitis - s/p 3 U PRBC and Hb now stabilized. - Continue PPI and carafate - Seen by GI- recommendations noted as below Iron supplement for 3 months Protonix 40 mg per day Carafate 1 gm bid x 12 weeks OP colonoscopy to be arranged Repeat EGD in 3 months for surveillance of Gastritis Eliquis is currently on hold as per cardiology recommendation. Hemoglobin is stable around 7-8. (2) Atrial fibrillation with rapid ventricular response: Plan: Paroxysmal a flutter Cardiology on board. Received IV Cardizem and amiodarone during the initial hospitalization. Discussed with cardiology; recommended to continue metoprolol 25 mg every 6 and Cardizem 30 mg every 8 hourly. Cont holding Eliquis with recent acute blood loss anemia (3) Symptomatic anemia: Plan: GI related blood loss s/p blood transfusion this admission, improved with Hb stable. (4) AP (acute kidney injury): Plan: Cr improved 1.24->1. Baseline around 0.7-0.8. Resumed Lasix at 40mg PO daily.. (5) CAD (coronary artery disease): Plan: CAD Diastolic CHF troponin minimally elevated, flat trend, likely demand ischemia in setting of anemia, pt without chest pain Patient appears to be in increasing shortness of breath on September 21, 2022. Will rule out acute on chronic diastolic heart failure. Chest x-ray reviewed; mild vascular congestion. Resume home dose of Lasix (6) Chronic obstructive pulmonary disease: Plan: chronic, stable. No evidence of exacerbation. (7) Chronic hypoxemic respiratory failure: Plan: Chronic hypoxic resp failure on 2-3L of O2 COPD w/o exac continue trelegy DuoNebs twice daily (8) Septic arthritis of shoulder, left: Plan: Septic arthritis status post Left shoulder arthroscopy with extensive debridement and placement of Hemovac drains and soft tissue biopsies for culture and joint fluid culture on September 24. Left shoulder noted to have acutely inflamed with swelling, redness and tenderness since September 19, 2022. X-ray of the shoulder showed soft tissue swelling but no bony abnormalities Labs reviewed; ESR initially 42; increased to 77. CRP markedly elevated as well. MRI shoulder reviewed; large joint effusion with synovitis present. Results of the joint aspiration done on September 21 reviewed; consistent with septic arthritis with WBC count of greater than 100,000 ( 95% N) Gram stain shows WBC. Culture negative so far. Continue on vancomycin for now Blood culture no growth till date. Intra-Op cultures negative so far. CRP down trended with. Consulted infectious disease regarding duration and choice of IV antibiotics, and there was initially a problem with the technology. They will be attempting again to solidify recommendations today. Plan DVT ppx: SCDs, ambulation. DNR/SNI Dispo-per patient she doesn't want SNF, per CM daughter and mom cannot manage IV abx at home, [facility] is an option. Appreciate CM assistance with this coordination. I spent a total [id number] coordinating, documenting, and providing care for this patient excluding time spent in the performance of separately billed services Vanessa Medellin DO [facility] Hospitalist Admission and Anticipated Discharge Date Admission Date: September 16, 2022 Subjective 77 yo F presented with Shortness of breath x2 to 3 weeks. She is at her baseline oxygen needs today She denies any worsening shortness of breath Pain is controlled in the shoulder and healing postop Denies any further bleeding We discussed disposition to home and she states that she does not want to go to rehab and would like to go home with home health ID to readdress the antibiotic regimen Review of Systems Review of Systems: All systems reviewed negative except as indicated above Physical Exam Physical Exam: CONSTITUTIONAL: thin, vitals as above, generally well-appearing, NAD EYES: normal conjunctivae, no scleral icterus ENT: external ear and nose normal, MMM NECK: trachea midline, RESPIRATORY: clear to auscultation bilaterally with breath sounds significantly diminished throughout, no crackles, rales or wheezes, normal respiratory effort CARDIOVASCULAR: regular rate and rhythm, S1 and 2 heard without murmurs, gallops or rubs, no JVD, no peripheral edema CHEST: inspection of chest was normal GASTROINTESTINAL: normal bowel sounds, soft, nontender, ND MUSCULOSKELETAL: strength 5/5 throughout, head is normocephalic and atraumatic SKIN: warm and dry NEUROLOGIC: CN 2-12 grossly intact, no sensory deficit, normal cognition, normal speech, no tremor PSYCHIATRIC: alert cooperative and oriented to person, place and time. Euthymic mood, makes good eye contact, language grossly intact, recent and remote memory grossly intact. Results & Data Results & Data Vital Signs (Past 12 Hours) Vital Signs Temp Pulse Pulse Resp BP Pulse Ox O2 Del Method 09/29/22 19:18 71 15 98 Nasal Cannula 09/29/22 15:52 36.6 C 77 18 116/66 94 Nasal Cannula 09/29/22 15:06 80 09/29/22 11:15 36.6 C 79 18 175/93 H 95 Nasal Cannula 09/29/22 08:12 87 O2 Flow Rate 09/29/22 19:18 3 09/29/22 15:52 3 09/29/22 15:06 09/29/22 11:15 3 09/29/22 08:12 Laboratory Results Short CBC 09/29/22 Range/Units 06:39 WBC 4.23 L (4.8-10.8) K/ul Hgb 8.6 L (12.0-16.0) g/dl Hct 29.6 L (37.0-47.0) % Plt Count 189 (130-400) K/uL BMP 09/29/22 06:39 Sodium 142 Potassium 3.7 Chloride 101 Carbon Dioxide 37 H BUN 13 Creatinine 0.65 Glucose 124 H Calcium 9.3 Medications Administered Current Inpatient Medications Acetaminophen (Acetaminophen 325 Mg Tab) 650 mg PO Q4H PRN PRN Reason: Pain or Fever Stop: 10/16/22 19:43 Last Admin: 09/27/22 19:41 Dose: 650 mg Albuterol (Albuterol 0.083% Nebu Soln 3 Ml Vial) 2.5 mg NEB Q6R PRN; Protocol PRN Reason: sob/wheezing Stop: 10/16/22 19:43 Last Admin: 09/18/22 07:03 Dose: 2.5 mg Albuterol (Albut/Ipratrop 3mg/0.5mg Neb 3 Ml Vial) 3 ml NEB BIDR [facility]; Protocol Stop: 10/18/22 18:59 Last Admin: 09/29/22 19:17 Dose: 3 ml Apixaban (Apixaban 5 Mg Tablet) 5 mg PO BID [facility] Stop: 10/26/22 09:59 Last Admin: 09/27/22 08:58 Dose: 5 mg Atorvastatin Calcium (Atorvastatin 40 Mg Tab) 80 mg PO QAM [facility] Stop: 10/17/22 08:59 Last Admin: 09/29/22 08:26 Dose: 80 mg Bisacodyl (Bisacodyl 10 Mg Supp) 10 mg NM DAILY PRN PRN Reason: Constipation Stop: 10/24/22 20:02 Bupropion HCl (Bupropion Sr 150 Mg Tabcr) 150 mg PO AMHS [facility] Stop: 10/16/22 20:59 Last Admin: 09/29/22 09:17 Dose: 150 mg Diltiazem HCl (Diltiazem Hcl 30 Mg Tab) 30 mg PO TID [facility] Stop: 10/22/22 20:59 Last Admin: 09/29/22 13:37 Dose: 30 mg Docusate Sodium (Docusate Sodium 100 Mg Cap) 100 mg PO BID [facility] Stop: 10/24/22 20:59 Last Admin: 09/29/22 08:26 Dose: 100 mg Fluticasone Furoate (Fluticasone Furoate 100mcg 14 Puffs/Inhaler) 1 puffs INH Q AM [facility] Stop: 10/17/22 08:59 Last Admin: 09/29/22 08:27 Dose: 1 puffs Furosemide (Furosemide 40 Mg Tab) 40 mg PO QAM [facility] Stop: 10/23/22 08:59 Last Admin: 09/29/22 08:26 Dose: 40 mg Gabapentin (Gabapentin 300 Mg Cap) 300 mg PO BID [facility] Stop: 10/16/22 20:59 Last Admin: 09/29/22 08:26 Dose: 300 mg Guaifenesin (Guaifenesin 600 Mg Tabcr) 600 mg PO Q12 [facility] Stop: 10/16/22 20:59 Last Admin: 09/29/22 08:26 Dose: 600 mg Hydromorphone HCl (Hydromorphone Inj 0.5 Mg/0.5 Ml Syr) 0.25 mg IV Q4H PRN PRN Reason: Pain or Pre PT Stop: 10/08/22 20:02 Last Admin: 09/25/22 05:10 Dose: 0.25 mg Ceftriaxone Sodium 2,000 mg/ (Dextrose) 70 mls @ 100 mls/hr IV Q24H [facility]; Protocol Stop: 10/06/22 13:59 Last Infusion: 09/29/22 15:11 Dose: Infused Lisinopril (Lisinopril 20 Mg Tab) 20 mg PO QAM [facility] Stop: 10/21/22 08:59 Last Admin: 09/29/22 08:26 Dose: 20 mg Magnesium Hydroxide (Magnesium Hydroxide Susp 30 Ml Udc) 30 ml PO Q6H PRN PRN Reason: Constipation Stop: 10/24/22 20:02 Metoprolol Tartrate (Metoprolol Tartrate 25 Mg Tab) 25 mg PO QID [facility] Stop: 10/21/22 08:59 Last Admin: 09/29/22 16:38 Dose: 25 mg Naloxone HCl (Naloxone Hcl 0.4 Mg/1 Ml Vial/Carp) 0.1 mg IV Q5M PRN PRN Reason: Oversedation/Resp Depression Stop: 10/24/22 20:02 Ondansetron HCl (Ondansetron Inj 2 Mg/Ml 2 Ml Vial) 4 mg IV Q6H PRN PRN Reason: Nausea Stop: 10/16/22 19:43 Ondansetron HCl (Ondansetron Inj 2 Mg/Ml 2 Ml Vial) 4 mg IV Q6H PRN PRN Reason: Nausea And Vomiting Stop: 10/24/22 20:02 Pantoprazole Sodium (Pantoprazole 40 Mg Tab) 40 mg PO DAILY [facility] Stop: 10/23/22 08:59 Last Admin: 09/29/22 08:27 Dose: 40 mg Potassium Chloride (Potassium Chloride 10 Meq Tabcr) 10 meq PO AMHS [facility] Stop: 10/17/22 08:59 Last Admin: 09/18/22 08:47 Dose: 10 meq Sucralfate (Sucralfate 1 Gm/10 Ml Udc) 1 gm PO BID [facility] Stop: 10/17/22 20:59 Last Admin: 09/29/22 08:27 Dose: 1 gm Tramadol HCl (Tramadol Hcl 50 Mg Tablet) 25 mg PO Q6H PRN PRN Reason: Pain Stop: 10/20/22 11:35 Last Admin: 09/21/22 00:06 Dose: 25 mg Umeclidinium/Vilanterol (Umeclidinium/Vilanterol 62.5/25mcg 7 Puffs/Inhaler) 1 puffs INH QAM [facility] Stop: 10/17/22 08:59 Last Admin: 09/29/22 08:27 Dose: 1 puffs Vitamin D (Cholecalciferol 1,000 Units 25 Mcg Tab) 1,000 units PO QAM [facility] Stop: 10/17/22 08:59 Last Admin: 09/29/22 08:26 Dose: 1,000 units
[2022-09-30] MEDS: ALBUT/IPRATROP 3MG/0.5MG NEB 3 ML VIAL NEB SCH (07:14)
[2022-09-30 07:54] LABS: BUN Creatinine Ratio 20.7 (10-20); Calcium 9.4 mg/dl (8.6-10.3); Creatinine Clr Calc Pharmacy 69.3 ml/min; Est GFR (African American) 104.5 ml/min; Est GFR (Non-African American) 90.2 ml/min; Potassium 3.5 mmol/L (3.5-5.1)
[2022-09-30 08:12] LABS: Anisocytosis Present; Basophils # (auto) 0.01 K/uL (0-0.2); Basophils % (auto) 0.2 %; Eosinophils # (auto) 0.04 K/uL (0-0.50); Hematocrit (blood only) 32.1 % (37.0-47.0); Hemoglobin 9.1 g/dl (12.0-16.0); Immature Granulocytes # (auto) 0.01 K/uL (0.01-0.20); Immature Granulocytes % (auto) 0.2 %; Lymphocytes # (auto) 0.41 K/uL (1.2-3.4); Lymphocytes % (auto) 9.8 %; Mean Corpuscular Hemoglobin 23.5 pg (25.0-34.0); Mean Corpuscular Hgb Conc 28.3 g/dL (32.0-36.0); Mean Corpuscular Volume 82.7 fL (80.0-100.0); Monocytes # (auto) 0.36 K/uL (0.11-0.59); Monocytes % (auto) 8.6 %; Neutrophils # (auto) 3.37 K/uL (1.40-6.50); Neutrophils % (auto) 80.2 %; Ovalocytes 1+; Platelet Count 247 K/uL (130-400); Polychromasia 1+; RDW Coefficient of Variation 25.7 % (11.5-14.5); RDW Standard Deviation 75.7 fL (36.4-46.3); Red Blood Count 3.88 M/uL (4.20-5.40)
[2022-09-30] MEDS: FLUTICASONE FUROATE 100MCG 14 PUFFS/INHALER INH SCH (10:00)
[2022-09-30] MEDS: buPROPion SR 150 MG TABCR PO SCH (10:01)
[2022-09-30] MEDS: dilTIAZem HCL 30 MG TAB PO SCH ×2 (10:01→13:29)
[2022-09-30] MEDS: DOCUSATE SODIUM 100 MG CAP PO SCH (10:01)
[2022-09-30] MEDS: CHOLECALCIFEROL 1,000 UNITS 25 MCG TAB PO SCH (10:02)
[2022-09-30] MEDS: ATORVASTATIN 40 MG TAB PO SCH (10:02)
[2022-09-30] MEDS: FUROSEMIDE 40 MG TAB PO SCH (10:03)
[2022-09-30] MEDS: guaiFENesin 600 MG TABCR PO SCH (10:03)
[2022-09-30] MEDS: GABAPENTIN 300 MG CAP PO SCH (10:04)
[2022-09-30] MEDS: PANTOprazole 40 MG TAB PO SCH (10:04)
[2022-09-30] MEDS: lisinopril 20 MG TAB PO SCH (10:04)
[2022-09-30] MEDS: SUCRALFATE 1 GM/10 ML UDC PO SCH (10:05)
[2022-09-30] MEDS: METOPROLOL TARTRATE 25 MG TAB PO SCH ×2 (10:05→13:30)
[2022-09-30] MEDS: UMECLIDINIUM/VILANTEROL 62.5/25MCG 7 PUFFS/INHALER INH SCH (10:06)
[2022-09-30] MEDS: cefTRIAXone SODIUM 2,000 MG in DEXTROSE 5% 50 ML IV SCH (14:11)
--- NOTE | 2022-10-02 08:39 | Discharge Summary ---
Discharge Summary Date of Service September 30, 2022 Notes For Next Care Provider consider resuming Eliquis if stable post op orthopedics followup Medication Changes From Visit New Ceftriaxone 2gm IV daily until 10/22/22 New diltiazem 30 mg p.o. 3 times daily New Protonix 40 mg p.o. daily New sucralfate 1 g p.o. twice daily Stop Eliquis 5 mg p.o. twice daily Admission HPI Per Admitting Provider This is a 77-year-old female who has significant past medical history of chronic hypoxic respiratory failure on 2 to 3 L of oxygen, COPD, CAD, chronic diastolic CHF, hypertension, pulmonary hypertension, PFO, wandering atrial pacemaker, hyperlipidemia, senile osteoporosis, meningioma, iron deficiency anemia, tobacco use disorder, AAA status postrepair who presents to ED secondary to worsening shortness of breath for the last 2 to 3 weeks. Patient states she has noticed gradual worsening of her breathing status over the last couple weeks. Typically patient requires 2 to 3 L of oxygen and has been since requiring 3.5 L to maintain saturation and breathing status. She denies any lightheadedness, dizziness or presyncope. She further denies any chest pain. She does occasionally get lower abdominal discomfort but denies any epigastric pain or pain with meals. She denies any history of requiring transfusion in the past or history of peptic ulcer disease. She denies any recent illness. She does have a cough for the past 2 to 3 days of clear productive sputum. She denies any orthopnea, PND or edema. She states her weights have been stable at ap proximately 113. She is been taking medications as prescribed. She is moving her bowels regularly but does not look at her bowels to note color. In ED patient was found to be significantly anemic with a hemoglobin of 6.0. She was also found to have microcytosis. She had mild elevation of BUN and creatinine at 26 and 1.24. Her glucose was elevated at 172. She initially had a mildly elevated troponin as well as BNP of 668. In ED she received 20 mg of IV Lasix. She was also consented, typed and crossed for 3 units. ER reports Heme +. Principal Dx & Hospital Course #1 = Principal Diagnosis (1) Acute GI bleeding: (2) Atrial fibrillation with rapid ventricular response: (3) Symptomatic anemia: (4) AP (acute kidney injury): (5) CAD (coronary artery disease): (6) Chronic obstructive pulmonary disease: (7) Chronic hypoxemic respiratory failure: (8) Septic arthritis of shoulder, left: Plan 77-year-old female with chronic hypoxic respiratory failure on 2 to 3 L of oxygen secondary to COPD, pulmonary hypertension, chronic diastolic heart failure presents with shortness of breath x 2 to 3 weeks. She reported a slight increase in the baseline oxygen to maintain her oxygen saturation. Initially had a mildly elevated troponin and BNP of 668. In the ER she received 20 mg of Lasix and was treated for her anemia with 3 units of blood. Initial H&H was 6.0/21.6. She was admitted to medicine and GI was consulted. Intravenous PPI bolus and drip was started. She underwent an EGD by Dr. Sams on 09/17 revealing esophagitis with no bleeding and gastritis with a normal examined duodenum. Protonix 40 mg p.o. daily, sucralfate 1 g p.o. twice daily x8 weeks was recommended. Iron supplement recommended. Repeat upper endoscopy in 3 months to check healing was recommended. Her dyspnea and weakness was considered secondary to her severe anemia. Cardiology was consulted given her mildly reduced EF and she was receiving intravenous Lasix post blood transfusions. Hemoglobin responded appropriately and Eliquis was held. She continued to intermittently have paroxysmal atrial flutter on telemetry throughout her hospital stay. On 09/19 she had telemetry findings of atrial flutter with a one-to-one conduction for 30 seconds with heart rates as high as 230 bpm. She was chronically short of breath at that time with no changes from her baseline. In addition to metoprolol tartrate 12.5 mg twice daily, and amiodarone infusion was initiated. Given her underlying lung disease amiodarone was not an ideal long-term medication but was used in the short-term for rhythm control. She was placed back on Eliquis 5 mg twice daily with continued monitoring of hemoglobin. Despite amiodarone drip and metoprolol there was no successful conversion the following day, so diltiazem drip with bolus was added. Hemoglobin continued to improve. On 09/21 she is still not converted to normal sinus rhythm and metoprolol was increased to 25 mg every 6 hours. She was continued on her drips. During this time her left shoulder was noted to be acutely inflamed with swelling redness and tenderness since approximately September 19. An x-ray of the shoulder did not reveal any bony abnormalities and orthopedics was consulted. Her left shoulder effusion was aspirated with 20 cc of a cloudy yellow fluid. Given the evidence of infection she was planned for a left shoulder arthroscopy with irrigation and debridement however her Eliquis was not discontinued. This would need to be off 48 to 72 hours prior to any surgical procedure. Given she was not septic and stable on intravenous antibiotics, the procedure was scheduled after this could be held. She underwent a left shoulder was arthroscopy with extensive debridement and placement of Hemovac drains on 09/[address] Hurd. She recovered well without complications and per infectious disease, she would continue on Rocephin 2 g IV daily for total of 4 weeks post operation. Apixaban was restarted postoperatively however her hemoglobin was trending down which was a concern and her Eliquis was held for the remainder of the stay. At time of discharge she was hemodynamically stable and afebrile and tolerating p.o. She was oxygenating well on her baseline oxygen supplement and was discharged in stable condition with close primary care follow-up recommended. Discharge Exam CONSTITUTIONAL: thin, vitals as above, generally well-appearing, NAD EYES: normal conjunctivae, no scleral icterus ENT: external ear and nose normal, MMM NECK: trachea midline, RESPIRATORY: clear to auscultation bilaterally with breath sounds significantly diminished throughout, no crackles, rales or wheezes, normal respiratory effort CARDIOVASCULAR: regular rate and rhythm, S1 and 2 heard without murmurs, gallops or rubs, no JVD, no peripheral edema CHEST: inspection of chest was normal GASTROINTESTINAL: normal bowel sounds, soft, nontender, ND MUSCULOSKELETAL: strength 5/5 throughout, head is normocephalic and atraumatic SKIN: warm and dry NEUROLOGIC: CN 2-12 grossly intact, no sensory deficit, normal cognition, normal speech, no tremor PSYCHIATRIC: alert cooperative and oriented to person, place and time. Euthymic mood, makes good eye contact, language grossly intact, recent and remote memory grossly intact. Updated Medication List Medication Instructions Recorded Confirmed Type lisinopril 40 mg tablet 20 mg PO QAM 12/18/18 10/01/22 History atorvastatin 80 mg tablet 80 mg PO QAM 04/04/19 10/01/22 History cholecalciferol (vitamin D3) 25 25 mcg PO QAM 04/02/21 10/01/22 History mcg (1,000 unit) tablet nitroglycerin 0.4 mg sublingual 0.4 mg sublingual DAILY PRN Chest 04/02/21 10/01/22 History tablet (Nitrostat) Pain albuterol sulfate 90 mcg/actuation 2 puff inhalation Q4 PRN Shortness 01/24/22 10/01/22 History aerosol inhaler Of Breath furosemide 40 mg tablet 40 mg PO BID 01/24/22 10/01/22 History ipratropium 0.5 mg-albuterol 3 mg 3 ml inhalation BID 01/24/22 10/01/22 History (2.5 mg base)/3 mL nebulization soln potassium chloride 10 mEq 10 meq PO AMHS 01/24/22 10/01/22 History tablet,extended release(part/cryst) albuterol sulfate 2.5 mg/3 mL 2.5 mg inhalation QID PRN 04/22/22 10/01/22 History (0.083 %) solution for nebulization Shortness Of Breath bupropion HCl 150 mg tablet,12 hr 150 mg PO AMHS 04/22/22 10/01/22 History sustained-release fluticasone fur. 100 mcg-umeclid 1 inh inhalation QAM 04/22/22 10/01/22 History 62.5 mcg-vilant 25 mcg inhalat.powder (Trelegy Ellipta) gabapentin 300 mg capsule 300 mg PO BID 04/22/22 10/01/22 History metoprolol tartrate 25 mg tablet 25 mg PO QID 09/16/22 10/01/22 History diltiazem HCl 30 mg tablet 30 mg PO TID #90 tabs 09/30/22 10/01/22 Rx pantoprazole 40 mg tablet,delayed 40 mg PO DAILY #30 tabs 09/30/22 10/01/22 Rx release sucralfate 1 gram tablet (Carafate) 1 g PO BID #112 tabs 09/30/22 10/01/22 Rx Hospital Stay Data Consultations 09/16/22 17:54 ED Decision to Admit Stat 09/17/22 07:00 Consult Gastroenterology Routine 09/17/22 12:21 Consult Cardiology Routine 09/20/22 11:37 Consult Orthopedic Surgery Routine 09/26/22 07:56 Consult Infectious Diseases Routine Procedures Performed Operation Date: 09/24/22 07:00 Actual Procedures p Left Arthroscopy Shoulder, extensive Debridement, Placement of drain, Cultures(Left) - Adan Duvall MD Diagnostic Imagining Performed 09/21/22 17:13 MRI Shoulder [MR shoulder LT wo con] Stat Pending Results Patient Have Any Pending Studies at Discharge: No Discharge Instructions Given to Patient (Per Discharging Provider) Please take all medications as instructed on discharge list below. Please follow-up with all scheduled providers as listed above. These include your heart doctor, gastroenterology provider and your primary care doctor. Please contact [facility] at the number below to set up your post surgical followup in one week. It is recommended that you continue Protonix 40mg once daily and sucralfate 1gm twice daily x 8 weeks followed by a repeat upper endoscopy to ensure your stomach is healing. Please avoid apixaban or other blood thinners at this time. Please understand that Ibuprofen or other NSAIDs may cause irritation of your stomach lining if taken consistently. As needed for severe pain should be fine as long as Protonix is continued. Tylenol is an option for pain control that will not affect your stomach and will not cause any bleeding. You are set up to receive your once daily infusion of antibiotic at the [facility] starting 10/01/22. You should continue taking this antibiotic for the duration prescribed and consider follow-up with [facility] Infectious disease. While you are on intravenous antibiotics, you will have weekly blood work for monitoring that should be sent to your PCP for review. Please follow all post operative instructions as outlined below. Smoking cessation is strongly advised. It was a pleasure taking care of you! Please call if you have any questions or problems. You can reach a [facility] hospitalist on duty at [facility] 24 hours a day by calling [phone]. Take care of yourself. Vanessa Medellin, [facility] Hospitalist Total Time Total Time Spent Total Time Spent (In Minutes): 60
== END 2022-09-30 15:24 | disposition home or self-care (01) | DRG 501 ==
LOC: ED 15:53 → SUATTDRO 18:03 → 2E 18:03

== ENCOUNTER 2022-10-01 14:29 | Inpatient (IN) ==
[2022-10-01] MEDS ORDERED: ALBUT/IPRATROP 3MG/0.5MG NEB 3 ML VIAL NEB STA (15:26)
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
[2022-10-01] MEDS ORDERED: FUROSEMIDE 40 MG/4 ML VIAL IV ONE (15:38)
--- NOTE | 2022-10-01 15:44 | XRay Report ---
SINGLE VIEW CHEST CLINICAL HISTORY: Dyspnea FINDINGS: An AP, portable, upright chest radiograph is compared to study dated 09/21/2022. The heart i s enlarged noting atherosclerotic calcification of the thoracic aorta. There is mild pulmonary vascul ar congestion. Chronic interstitial thickening is similar to previous. There is bibasilar scarring/at electasis. Small pleural effusions are noted. There is no airspace consolidation typical for pneumoni a. No pneumothorax is seen. The skeletal structures are osteopenic. The bony thorax is grossly intact . IMPRESSION: 1. Cardiomegaly with mild pulmonary vascular congestion. 2. Small pleural effusion. ACT 112: Negative or not required by law. Electronically signed by: Curtis Brantley M.D. 10/01/2022 3:43 PM
[2022-10-01 16:09] LABS: Basophils # (auto) 0.02 K/uL (0-0.2); Basophils % (auto) 0.5 %; Eosinophils # (auto) 0.02 K/uL (0-0.50); Eosinophils % (auto) 0.5 %; Hematocrit (blood only) 27.4 % (37.0-47.0); Immature Granulocytes # (auto) 0.01 K/uL (0.01-0.20); Immature Granulocytes % (auto) 0.3 %; Lymphocytes # (auto) 0.25 K/uL (1.2-3.4); Lymphocytes % (auto) 6.7 %; Mean Corpuscular Hemoglobin 24.4 pg (25.0-34.0); Mean Corpuscular Hgb Conc 29.2 g/dL (32.0-36.0); Mean Corpuscular Volume 83.5 fL (80.0-100.0); Mean Platelet Volume 9.5 fL (9.4-12.4); Monocytes # (auto) 0.23 K/uL (0.11-0.59); Monocytes % (auto) 6.2 %; Neutrophils % (auto) 85.8 %; Platelet Count 213 K/uL (130-400); RDW Standard Deviation 75.7 fL (36.4-46.3); Red Blood Count 3.28 M/uL (4.20-5.40); White Blood Count 3.73 K/ul (4.8-10.8)
[2022-10-01 16:28] LABS: Appearance Urine Clear (Clear); Bilirubin Urine Negative (Negative); Blood Urine Negative (Negative); Color Urine Yellow; Glucose Urine UA Negative (Negative); Ketones Urine Negative (Negative); Leukocyte Esterase Urine Negative (Negative); Nitrite Urine Negative (Negative); Protein Urine Negative (Negative); Specific Gravity Urine 1.007 (1.000-1.030); Urobilinogen Urine Negative (Negative)
[2022-10-01 16:28] LABS: Anisocytosis Present; Polychromasia 1+; Stomatocytes 1+
[2022-10-01 16:38] LABS: Albumin Globulin Ratio 1.1 (0.9-2); Albumin Level 3.1 gm/dl (3.4-5.0); BUN Creatinine Ratio 21.6 (10-20); Bilirubin,Total 0.6 mg/dl (0.2-1.0); C Reactive Protein 6.06 mg/dl (0-0.5); Calcium 9.4 mg/dl (8.6-10.3); Creatinine Clr Calc Pharmacy 85.8 ml/min; Est GFR (Non-African American) 94.1 ml/min; Globulin 2.8 gm/dl (2.5-4.0); Magnesium 1.7 mg/dl (1.7-2.4); Potassium 2.9 mmol/L (3.5-5.1); Total Protein 5.9 gm/dl (6.0-8.3)
[2022-10-01 16:40] LABS: INR 1.1 (0.9-1.1); Partial Thromboplastin Ratio 0.9; Partial Thromboplastin Time 24.3 Seconds (21.0-31.0); Prothrombin Time 11.5 Seconds (9.0-12.0)
--- NOTE | 2022-10-01 16:52 | Electrocardiogram Report ---
Test Reason : Blood Pressure : / mmHG Vent. Rate : 082 BPM Atrial Rate : 000 BPM P-R Int : 000 ms QRS Dur : 096 ms QT Int : 376 ms P-R-T Axes : 000 085 162 degrees QTc Int : 439 ms Atrial flutter with variable A-V block Old Septal infarct (cited on or before 19-SEP-2022) Chronic ST-T abnormality Anterolateral leads Abnormal ECG When compared with ECG of 21-SEP-2022 12:12, No significant change Confirmed by Gallito Ferreira ([id number]) on 10/01/2022 4:51:47 PM Referred By: Confirmed By:Gallito Ferreira
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
[2022-10-01] MEDS: POTASSIUM CHLORIDE / WTR 10 MEQ/100 ML PLCT IV SCH ×2 (17:05→19:52)
[2022-10-01] MEDS ORDERED: POTASSIUM CHLORIDE CRTAB 20 MEQ TABCR PO STA (17:42)
[2022-10-01] MEDS ORDERED: OPTIRAY 320 500ml IV ONE (17:49)
--- NOTE | 2022-10-01 18:09 | CT Scan Report ---
CT ANGIOGRAM OF THE CHEST CLINICAL HISTORY: Dyspnea COMPARISON STUDY: Chest x-ray dated 10/01/2022. Abdominal CT dated 12/06/2018. TECHNIQUE: Following the IV administration of 114 cc of Optiray 320, CT angiogram of the chest was pe rformed from the upper abdomen to the thoracic inlet utilizing the pulmonary embolus protocol. Images are reviewed in the axial, sagittal, and coronal planes. 3-D MIPS images are created and assessed. I V contrast was administered without complication. A dose lowering technique was utilized adhering to the principles of ALARA. There is streak artifact from the left arm which could not be elevated abov e the chest. CT DOSE: 370.91 mGy.cm FINDINGS: Thyroid: Imaged portions of the thyroid gland are normal in size and attenuation. Thoracic aorta: There is atherosclerotic calcification of the thoracic aorta, which is normal in margi luis and demonstrates standard 3-vessel arch anatomy. The thoracic aorta is unopacified. Pulmonary vasculature: The pulmonary trunk is dilated, measuring 3.7 cm in transverse diameter. This indicates pulmonary artery hypertension. There are no filling defects identified in main, lobar, or s egmental pulmonary branches to suggest acute pulmonary embolus. There is chronic appearing thrombus i n the distal left main pulmonary artery seen on image #138. Heart: The heart is enlarged and without pericardial effusion. The coronary arteries are densely calc ified. Reflux of contrast into the IVC and hepatic veins suggests cardiac dysfunction. Lungs and pleural spaces: Emphysematous changes noted. There are right large left pleural effusions w ith dependent atelectasis. Irregular linear airspace opacities are seen in the right lower lobe on im ages #116 and #127. Mediastinum: There is no mediastinal lymphadenopathy. Trisha: Clear. Axillae: There is no axillary lymphadenopathy. Upper abdomen: A 2.1 cm left adrenal nodule is unchanged from 2019. Partially visualized upper abdomi nal viscera is otherwise within normal limits. Skeletal structures: The skeletal structures are osteopenic. Degenerative change and hyperkyphosis is noted in the thoracic spine. No lytic or blastic bony lesions are seen. Arthritic change is seen in the shoulders. IMPRESSION: 1. There is no evidence of acute pulmonary embolus in the main, lobar, or segmental pulmonary arterie s. 2. There is a small amount of chronic appearing thrombus in the distal left main pulmonary artery. 3. Cardiomegaly and emphysema with evidence of pulmonary artery hypertension. 4. Right larger than left pleural effusions with dependent atelectasis. 5. Irregular linear airspace opacities are seen in the right lower lobe. These may be atelectatic or inflammatory but are not well assessed due to adjacent pleural effusion. A follow-up chest CT in 3-4 months time is recommended for reevaluation. 6. Additional findings as above. ACT 112: Negative or not required by law. Electronically signed by: Curtis Brantley M.D. 10/01/2022 6:07 PM
[2022-10-01] MEDS ORDERED: ENOXAPARIN INJ 60 MG/0.6 ML SYR SC STA (18:28)
[2022-10-01 19:21] LABS: Base Excess VBG 22.6 mEq/L; HCO3 VBG 50 mmol/L; Oxygen Saturation VBG < 60.0 %; PCO2 VBG 66 mmHg (38-50); PO2 VBG 34 mmHg; pH VBG 7.49 (7.36-7.41)
--- NOTE | 2022-10-01 20:49 | Ultrasound Report ---
ULTRASOUND RIGHT LOWER EXTREMITY VENOUS CLINICAL HISTORY: Right leg swelling. COMPARISON STUDY: Bilateral lower extremity venous ultrasound dated 04/24/2022. TECHNIQUE: Real-time, grayscale, and color Doppler sonography of the deep veins of the right lower ex tremity was performed from the inguinal crease to the calf. Compression and augmentation were utilize d. FINDINGS: There is no sonographic evidence of deep venous thrombosis identified in the right lower ex tremity. The common femoral, superficial femoral, and popliteal veins are patent and normally mylene sible. The greater saphenous vein and the profunda femoris vein at the junction with the common femor al vein are clear. The visualized calf veins are patent. IMPRESSION: There is no sonographic evidence of deep venous thrombosis identified in the right lower extremity. ACT 112: Negative or not required by law. Electronically signed by: Curtis Brantley M.D. 10/01/2022 8:46 PM
[2022-10-01] MEDS ORDERED: POTASSIUM CHLORIDE CRTAB 20 MEQ TABCR PO ONE (21:17)
[2022-10-01] MEDS ORDERED: POLYETHYLENE (MIRALAX) 17 GM PACK PO PRN (21:17)
[2022-10-01] MEDS ORDERED: ENOXAPARIN INJ 60 MG/0.6 ML SYR SQ SCH (22:00)
[2022-10-01] MEDS: ALBUT/IPRATROP 3MG/0.5MG NEB 3 ML VIAL NEB SCH (22:37)
[2022-10-01] MEDS: cefTRIAXone SODIUM 2,000 MG in DEXTROSE 5% 50 ML IV SCH (22:38)
[2022-10-01] MEDS: buPROPion SR 150 MG TABCR PO SCH (22:39)
[2022-10-01] MEDS: SUCRALFATE 1 GM TAB PO SCH (22:39)
[2022-10-01] MEDS: dilTIAZem HCL 30 MG TAB PO SCH (22:40)
[2022-10-01] MEDS: GABAPENTIN 300 MG CAP PO SCH (22:41)
[2022-10-01] MEDS: POTASSIUM CHLORIDE 10 MEQ TABCR PO SCH (22:42)
[2022-10-01] MEDS: METOPROLOL TARTRATE 25 MG TAB PO SCH (22:43)
[2022-10-02] MEDS ORDERED: ENOXAPARIN 1 MG/KG SC SCH (06:30)
[2022-10-02 07:05] LABS: Basophils # (auto) 0.01 K/uL (0-0.2); Basophils % (auto) 0.4 %; Eosinophils # (auto) 0.02 K/uL (0-0.50); Eosinophils % (auto) 0.7 %; Hematocrit (blood only) 27.3 % (37.0-47.0); Immature Granulocytes # (auto) 0.01 K/uL (0.01-0.20); Immature Granulocytes % (auto) 0.4 %; Lymphocytes # (auto) 0.35 K/uL (1.2-3.4); Lymphocytes % (auto) 12.3 %; Mean Corpuscular Hemoglobin 24.2 pg (25.0-34.0); Mean Corpuscular Hgb Conc 29.3 g/dL (32.0-36.0); Mean Corpuscular Volume 82.5 fL (80.0-100.0); Mean Platelet Volume 9.8 fL (9.4-12.4); Monocytes # (auto) 0.26 K/uL (0.11-0.59); Monocytes % (auto) 9.2 %; Neutrophils # (auto) 2.19 K/uL (1.40-6.50); Platelet Count 220 K/uL (130-400); RDW Coefficient of Variation 26.2 % (11.5-14.5); RDW Standard Deviation 78.2 fL (36.4-46.3); Red Blood Count 3.31 M/uL (4.20-5.40); White Blood Count 2.84 K/ul (4.8-10.8)
[2022-10-02 07:19] LABS: Est GFR (Non-African American) 92.3 ml/min; Potassium 4.5 mmol/L (3.5-5.1)
[2022-10-02 07:20] LABS: Albumin Level 2.9 gm/dl (3.4-5.0); BUN Creatinine Ratio 20.4 (10-20); Bilirubin,Total 0.4 mg/dl (0.2-1.0); Calcium 9.4 mg/dl (8.6-10.3); Creatinine Clr Calc Pharmacy 78.4 ml/min; Globulin 2.8 gm/dl (2.5-4.0); Magnesium 1.8 mg/dl (1.7-2.4); Total Protein 5.7 gm/dl (6.0-8.3)
[2022-10-02] MEDS: ALBUT/IPRATROP 3MG/0.5MG NEB 3 ML VIAL NEB SCH ×4 (07:20→19:18)
[2022-10-02 07:33] LABS: Polychromasia 1+
--- NOTE | 2022-10-02 08:17 | Hospitalist Progress Note ---
Date of Service October 02, 2022 Assessment & Plan (1) Acute on chronic diastolic heart failure: Plan: Improved breathing and hypoxia has resolved to baseline. 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 Cont Lasix 40mg IV BID per cardiology. (2) Chronic obstructive pulmonary disease: Plan: chronic, stable. Chronic oxygen supplementation and she is at her baseline. No wheezing heard. Cont once daily Trelegy inhaler substitute. (3) Hypokalemia: Plan: replaced, cont to monitor BMP with ongoing IV Lasix. K is currently 4.5. (4) History of GI bleed: Plan: chronic blood loss anemia with EGD revealing gastritis last admission. She required 3 units of pRBCs two weeks ago and initially blood thinners were held. Restarted anticoagulation with Lovenox given on admission transitioned to low dose heparin. Cont PPI and carafate. Will need to start iron supplementation at discharge. Prefer to avoid starting this now because it can cause constipation. (5) Septic arthritis of shoulder, left: Plan: cont Rocephin daily until 10/22 per recent ID recommendations. (6) Atrial fibrillation and flutter: Plan: cont diltiazem and metoprolol, low dose heparin ongoing for now. (7) CAD (coronary artery disease): Plan: chronic, stable. Mildly reduced EF 45-50% (8) HTN (hypertension): Plan: chronic, stable. Cont current medications. (9) Abnormal CT scan, chest: Plan: Irregular linear airspace opacities are seen in the right lower lobe that may be atelectatic or inflammatory but not well seen in setting of pleural effusion. Followup CT chest in 3-4 monnths for re-evaluation. Heparin DNR/DNI Dispo-uncertain at this time. Vanessa Medellin DO [facility] Hospitalist Admission and Anticipated Discharge Date Admission Date: October 01, 2022 Subjective 77 yo F presents as a readmission after recently being discharged home. She returned with increased shortness of breath. Workup revealed a chronic PE and R>L pleural effusions. she was given IV furosemide yesterday and this morning with improvement in her b reathing she is reporting soreness in her left shoulder (recent arthroscopy) and is stating that she doesn't want any further blood work done today, at least from that arm she denies any chest pain or other issues. Review of Systems Review of Systems: All systems were reviewed and negative except as indicated on subjective above. Physical Exam Physical Exam: CONSTITUTIONAL: WNWD, vitals as above, generally well-appearing, NAD EYES: normal conjunctivae, no scleral icterus ENT: external ear and nose normal, MMM NECK: trachea midline RESPIRATORY: clear to auscultation bilaterally, no crackles, rales or wheezes, normal respiratory effort CARDIOVASCULAR: regular rate and rhythm, S1 and 2 heard without murmurs, gallops or rubs, no JVD, no peripheral edema CHEST: inspection of chest was normal GASTROINTESTINAL: soft, nontender, ND, no guarding MUSCULOSKELETAL: strength 5/5 throughout, head is normocephalic and atraumatic SKIN: warm and dry, multiple areas on ecchymosis on her legs. NEUROLOGIC: CN 2-12 grossly intact, no sensory deficit, normal cognition, normal speech, no tremor PSYCHIATRIC: alert cooperative and oriented to person, place and time. Euthymic mood, makes good eye contact, language grossly intact, recent and remote memory grossly intact. Results & Data Results & Data Vital Signs (Past 12 Hours) Vital Signs Temp Pulse Pulse Resp BP BP Pulse Ox 10/02/22 07:20 81 16 98 10/02/22 03:33 36.4 C L 73 18 122/84 100 10/01/22 23:32 77 10/01/22 21:17 88 10/01/22 22:30 36.7 C 77 18 144/78 H 97 10/01/22 21:17 10/01/22 21:17 10/01/22 21:18 36.8 C 77 22 138/77 97 10/01/22 20:45 80 20 136/90 97 Pulse Ox O2 Del Method O2 Del Method O2 Flow Rate O2 Flow Rate 10/02/22 07:20 Nasal Cannula 3 10/02/22 03:33 Nasal Cannula 3 10/01/22 23:32 10/01/22 21:17 10/01/22 22:30 Nasal Cannula 3 10/01/22 21:17 Nasal Cannula 3 10/01/22 21:17 97 Nasal Cannula 3 10/01/22 21:18 Nasal Cannula 3 10/01/22 20:45 Nasal Cannula 3 Laboratory Results Short CBC 10/01/22 10/02/22 Range/Units 15:39 06:29 WBC 3.73 L 2.84 L (4.8-10.8) K/ul Hgb 8.0 L 8.0 L (12.0-16.0) g/dl Hct 27.4 L 27.3 L (37.0-47.0) % Plt Count 213 220 (130-400) K/uL BMP 10/01/22 10/02/22 15:39 06:29 Sodium 144 143 Potassium 2.9 L 4.5 D Chloride 97 L 97 L Carbon Dioxide 42 H* 41 H* BUN 11 11 Creatinine 0.51 L 0.54 L Glucose 110 H 85 Calcium 9.4 9.4 Liver Function 10/01/22 10/02/22 Range/Units 15:39 06:29 Total Bilirubin 0.6 0.4 (0.2-1.0) mg/dl AST 11 L 11 L (13-39) U/L ALT 9 8 (7-52) U/L Alkaline Phosphatase 70 64 (34-104) U/L Albumin 3.1 L 2.9 L (3.4-5.0) gm/dl Urine 10/01/22 Range/Units 16:03 Urine Color Yellow Urine Appearance Clear (Clear) Urine pH 7.0 (4.5-7.5) Ur Specific [place] 1.007 (1.000-1.030) Urine Protein Negative (Negative) Urine Glucose (UA) Negative (Negative) Diagnostic Findings Venous Doppler Study 10/01/22 17:31 ULTRASOUND RIGHT LOWER EXTREMITY VENOUS CLINICAL HISTORY: Right leg swelling. COMPARISON STUDY: Bilateral lower extremity venous ultrasound dated 04/24/2022. TECHNIQUE: Real-time, grayscale, and color Doppler sonography of the deep veins of the right lower extremity was performed from the inguinal crease to the calf. Compression and augmentation were utilized. FINDINGS: There is no sonographic evidence of deep venous thrombosis identified in the right lower extremity. The common femoral, superficial femoral, and popliteal veins are patent and normally compressible. The greater saphenous vein and the profunda femoris vein at the junction with the common femoral vein are c lear. The visualized calf veins are patent. IMPRESSION: There is no sonographic evidence of deep venous thrombosis identified in the right lower extremity. ACT 112: Negative or not required by law. Electronically signed by: Curtis Brantley M.D. 10/01/2022 8:46 PM Medications Administered Current Inpatient Medications Acetaminophen (Acetaminophen 325 Mg Tab) 650 mg PO Q4H PRN PRN Reason: Pain or Fever Stop: 10/31/22 21:16 Albuterol (Albut/Ipratrop 3mg/0.5mg Neb 3 Ml Vial) 3 ml NEB QIDR HUGH; Protocol Stop: 10/31/22 21:16 Last Admin: 10/02/22 07:20 Dose: 3 ml Atorvastatin Calcium (Atorvastatin 40 Mg Tab) 80 mg PO QAM [facility] Stop: 11/01/22 08:59 Bupropion HCl (Bupropion Sr 150 Mg Tabcr) 150 mg PO AMHS [facility] Stop: 10/31/22 21:16 Last Admin: 10/01/22 22:39 Dose: 150 mg Diltiazem HCl (Diltiazem Hcl 30 Mg Tab) 30 mg PO TID HUGH Stop: 10/31/22 21:16 Last Admin: 10/01/22 22:40 Dose: 30 mg Enoxaparin Sodium (Enoxaparin Inj 60 Mg/0.6 Ml Syr) 60 mg SQ Q12H [facility] Stop: 10/31/22 21:59 Last Admin: 10/01/22 22:38 Dose: 60 mg Ferrous Sulfate (Ferrous Sulfate 325 Mg Tab) 325 mg PO QAM [facility] Stop: 11/01/22 08:59 Fluticasone/Vilanterol (Fluticasone/Vilanterol 100/25mcg 14 Puffs/Inhaler) 1 puffs INH DAILY [facility] Stop: 11/01/22 08:59 Furosemide (Furosemide 40 Mg/4 Ml Vial) 40 mg IV BID17 HUGH Stop: 11/01/22 08:59 Gabapentin (Gabapentin 300 Mg Cap) 300 mg PO BID HUGH Stop: 10/31/22 21:16 Last Admin: 10/01/22 22:41 Dose: 300 mg Ceftriaxone Sodium 2,000 mg/ (Dextrose) 70 mls @ 100 mls/hr IV Q24H [facility]; Protocol Stop: 10/22/22 21:29 Last Infusion: 10/01/22 23:34 Dose: Infused Lisinopril (Lisinopril 20 Mg Tab) 20 mg PO QAM [facility] Stop: 11/01/22 08:59 Metoprolol Tartrate (Metoprolol Tartrate 25 Mg Tab) 25 mg PO QID [facility] Stop: 10/31/22 21:16 Last Admin: 10/01/22 22:43 Dose: 25 mg Pantoprazole Sodium (Pantoprazole 40 Mg Tab) 40 mg PO DAILY [facility] Stop: 11/01/22 08:59 Polyethylene Glycol (Polyethylene (Miralax) 17 Gm Pack) 17 gm PO DAILY PRN PRN Reason: Constipation Stop: 10/31/22 21:16 Potassium Chloride (Potassium Chloride 10 Meq Tabcr) 10 meq PO AMHS [facility] Stop: 10/31/22 21:16 Last Admin: 10/01/22 22:42 Dose: 10 meq Sucralfate (Sucralfate 1 Gm Tab) 1 gm PO BID [facility] Stop: 10/31/22 21:16 Last Admin: 10/01/22 22:39 Dose: 1 gm Vitamin D (Cholecalciferol 1,000 Units 25 Mcg Tab) 1,000 units PO QAM [facility] Stop: 11/01/22 08:59
[2022-10-02] MEDS ORDERED: Heparin IV Adult Wt-Based Low-Dose *NO* Bolus Protocol IV SCH (08:45)
[2022-10-02] MEDS: SUCRALFATE 1 GM TAB PO SCH ×2 (08:48→20:42)
[2022-10-02] MEDS: GABAPENTIN 300 MG CAP PO SCH ×2 (08:48→20:42)
[2022-10-02] MEDS: lisinopril 20 MG TAB PO SCH (08:48)
[2022-10-02] MEDS: POTASSIUM CHLORIDE 10 MEQ TABCR PO SCH ×2 (08:48→20:42)
[2022-10-02] MEDS: PANTOprazole 40 MG TAB PO SCH (08:48)
[2022-10-02] MEDS: FERROUS SULFATE 325 MG TAB PO SCH (08:48)
[2022-10-02] MEDS: buPROPion SR 150 MG TABCR PO SCH ×2 (08:49→20:43)
[2022-10-02] MEDS: ATORVASTATIN 40 MG TAB PO SCH (08:49)
[2022-10-02] MEDS: CHOLECALCIFEROL 1,000 UNITS 25 MCG TAB PO SCH (08:49)
[2022-10-02] MEDS: dilTIAZem HCL 30 MG TAB PO SCH ×3 (08:49→20:37)
[2022-10-02] MEDS: FLUTICASONE/VILANTEROL 100/25MCG 14 PUFFS/INHALER INH SCH (08:50)
[2022-10-02] MEDS ORDERED: FUROSEMIDE 40 MG/4 ML VIAL IV SCH ×2 (09:00→14:00)
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
[2022-10-02] MEDS: HEPARIN SODIUM/DEXTROSE 25,000 UNITS/500 ML BAG IV SCH (09:07)
[2022-10-02] MEDS: METOPROLOL TARTRATE 25 MG TAB PO SCH ×2 (09:11→12:17)
--- NOTE | 2022-10-02 10:39 | Electrocardiogram Report ---
Test Reason : Blood Pressure : / mmHG Vent. Rate : 085 BPM Atrial Rate : 220 BPM P-R Int : 000 ms QRS Dur : 094 ms QT Int : 398 ms P-R-T Axes : 000 083 140 degrees QTc Int : 473 ms Atrial flutter with variable A-V block Low voltage QRS Nonspecific ST abnormality Abnormal ECG When compared with ECG of 01-OCT-2022 15:06, No significant change was found Confirmed by Shawn Chua ([id number]) on 10/02/2022 10:39:30 AM Referred By: REFERRED SELF Confirmed By:Bernard Chua
[2022-10-02 19:15] LABS: Partial Thromboplastin Time 27.1 Seconds (21.0-31.0)
[2022-10-02] MEDS ORDERED: HEPARIN IV BOLUS 4,000 UNITS in SYRINGE 0 ML IV ONE (19:30)
[2022-10-02] MEDS ORDERED: Nursing to Pharmacy Communication SCH (19:30)
[2022-10-02] MEDS ORDERED: ALBUMIN 25% 25 GM/100 ML VIAL IV ONE (20:36)
[2022-10-02] MEDS: METOPROLOL SUCC 50MG EXT REL TAB PO SCH (20:37)
[2022-10-02] MEDS ORDERED: MAGNESIUM SULFATE / D5W 1 GM/100 ML BAG IV ONE (20:38)
[2022-10-02] MEDS: ACETAMINOPHEN 325 MG TAB PO PRN (20:41)
[2022-10-02 21:20] LABS: Hematocrit (blood only) 27.2 % (37.0-47.0)
[2022-10-02] MEDS: cefTRIAXone SODIUM 2,000 MG in DEXTROSE 5% 50 ML IV SCH (21:25)
[2022-10-02 21:30] LABS: BUN Creatinine Ratio 27.8 (10-20); Calcium 9.3 mg/dl (8.6-10.3); Creatinine Clr Calc Pharmacy 58.8 ml/min; Est GFR (African American) 94.9 ml/min; Est GFR (Non-African American) 81.9 ml/min; Potassium 3.7 mmol/L (3.5-5.1)
[2022-10-03 01:50] LABS: Hematocrit (blood only) 23.6 % (37.0-47.0); Mean Corpuscular Hemoglobin 24.8 pg (25.0-34.0); Mean Corpuscular Hgb Conc 29.7 g/dL (32.0-36.0); Mean Corpuscular Volume 83.7 fL (80.0-100.0); Mean Platelet Volume 9.9 fL (9.4-12.4); Platelet Count 199 K/uL (130-400); Red Blood Count 2.82 M/uL (4.20-5.40)
[2022-10-03 01:58] LABS: BUN Creatinine Ratio 27.4 (10-20); Calcium 9.1 mg/dl (8.6-10.3); Est GFR (African American) 93.4 ml/min; Est GFR (Non-African American) 80.6 ml/min; Potassium 3.7 mmol/L (3.5-5.1)
[2022-10-03 02:16] LABS: Partial Thromboplastin Ratio 1.2; Partial Thromboplastin Time 35.1 Seconds (21.0-31.0)
[2022-10-03] MEDS ORDERED: Nursing to Pharmacy Communication SCH (02:45)
[2022-10-03] MEDS ORDERED: HEPARIN IV BOLUS 2,000 UNITS in SYRINGE 0 ML IV ONE (03:15)
--- NOTE | 2022-10-03 07:28 | Communication Note ---
Date of Service: October 02, 2022 Late entry : 2099 Made aware by RN of SBP 90s, unable to administer scheduled beta-andrés and calcium channel andrés due to hold parameters. Serum creatinine 0.72 from 0.54 in a.m. AP Hypotension Possible overdiuresis given increase in serum creatinine IV albumin Hold scheduled IV diuretics for now.
[2022-10-03] MEDS: ALBUT/IPRATROP 3MG/0.5MG NEB 3 ML VIAL NEB SCH ×2 (07:31→19:11)
[2022-10-03] MEDS: POTASSIUM CHLORIDE CRTAB 20 MEQ TABCR PO SCH ×2 (08:29→21:29)
[2022-10-03] MEDS: GABAPENTIN 300 MG CAP PO SCH ×2 (08:29→21:30)
[2022-10-03] MEDS: FLUTICASONE/VILANTEROL 100/25MCG 14 PUFFS/INHALER INH SCH (08:29)
[2022-10-03] MEDS: CHOLECALCIFEROL 1,000 UNITS 25 MCG TAB PO SCH (08:30)
[2022-10-03] MEDS: PANTOprazole 40 MG TAB PO SCH (08:30)
[2022-10-03] MEDS: SUCRALFATE 1 GM TAB PO SCH ×2 (08:30→21:30)
[2022-10-03] MEDS: buPROPion SR 150 MG TABCR PO SCH ×2 (08:30→21:30)
[2022-10-03] MEDS: FERROUS SULFATE 325 MG TAB PO SCH (08:30)
[2022-10-03] MEDS: dilTIAZem HCL 30 MG TAB PO SCH ×2 (08:31→17:14)
[2022-10-03] MEDS: METOPROLOL SUCC 50MG EXT REL TAB PO SCH ×2 (08:31→21:30)
[2022-10-03] MEDS: lisinopril 20 MG TAB PO SCH (08:32)
[2022-10-03] MEDS: ATORVASTATIN 40 MG TAB PO SCH (09:01)
[2022-10-03] MEDS ORDERED: ALBUT/IPRATROP 3MG/0.5MG NEB 3 ML VIAL NEB PRN (09:18)
[2022-10-03 09:51] LABS: Partial Thromboplastin Ratio 1.2; Partial Thromboplastin Time 33.6 Seconds (21.0-31.0)
[2022-10-03] MEDS ORDERED: HEPARIN SOD (PORCINE) 1000 UNIT/ML IV ONE ×2 (10:01→18:00)
[2022-10-03] MEDS ORDERED: SODIUM CHLORIDE 0.9% 250 ML IV PRN (10:19)
[2022-10-03] MEDS: ACETAMINOPHEN 325 MG TAB PO PRN (11:15)
--- NOTE | 2022-10-03 11:29 | Cardiology Progress Note ---
Date of Service October 03, 2022 Assessment & Plan (1) Acute on chronic diastolic heart failure: Plan: - Resume diuretics: Change furosemide to 40 mg 1 time per day as compared to twice daily. Monitor blood pressure, intake and output, kidney function and electrolytes. -Antiplatelet therapy on hold due to her recent anemia. (2) Acute on chronic respiratory failure with hypoxia and hypercapnia: Plan: - Chronic COPD noted. She is at her baseline level of function supplementation 3 L/min nasal cannula. (3) Atrial flutter: Plan: - Rate control: Metoprolol tartrate 25 mg 4 times daily changed to metoprolol succinate 50 mg twice daily. -Although with diltiazem as a preferred medication given her COPD, she is tolerating beta-andrés relatively well, I would like to minimize her use of diltiazem in the setting of fluid retention. I have therefore reduced her short acting diltiazem from 30 mg 3 times daily to 30 mg 2 times per day with meals. -The patient's [id number] score is is 8 for risk factors of CHF, hypertension, age over 75 (2 points), female sex, vascular disease with CAD and AAA repair, and history of stroke (2 points). -Patient had been admitted last month with profound anemia, hemoglobin 6, prompting anticoagulation to be held. Anticoagulation with Eliquis and then heparin was reinitiated, and her hemoglobin had declined again. -Hemoglobin was 8 g/dL on 10/02/2022, now down to 7 g/dL on 10/22. -Continue heparin infusion with caution. Patient without any subjective symptoms of hematuria or blood per rectum. No back pain. Plan for repeat H&H at 5 PM as already ordered by the primary team. (4) Anemia: Plan: - As noted above (5) Septic arthritis of shoulder, left: Plan: - Doing well from an infection standpoint. Cultures from previous admission were negative. Continue Rocephin as per prior infectious disease advice. Case reviewed with Dr. Medellin by phone for the purpose of coordinating care. Admission and Anticipated Discharge Date Admission Date: October 01, 2022 Subjective Patient seen in cardiology follow-up. Notes that the edema has resolved since her presentation to the emergency department. Breathing is relatively unchanged. She received furosemide 40 mg IV x3 doses thus far, and her morning dose was held since that she was hypertensive on several measurements overnight last night with systolic blood pressure in the upper 90s. Blood pressure is in turn improved, most recent measurement was 134/82. Telemetry reveals atrial flutter with rate ranging in the 80s to 100s. For the most part she is rate controlled, heart rates little bit higher when she is active or eating. She remains on her same chronic oxygen supplementation level 3 L/min. Review of Systems Review of Systems: All systems reviewed & are unremarkable except as noted in HPI & below Physical Exam Constitutional: WD/WN, vitals as above Respiratory: Auscultation: + diminished lung sounds (Decreased breath sounds at the right lung and left base); no crackles and no rales Cardiovascular: Rate/Rhythm: regular rate and regular rhythm Heart Sounds: no murmur Extremities: no edema Gastrointestinal (Abdomen): normal bowel sounds, soft, nontender, no hepatosplenomegaly Neurologic: PERRL, EOMI, accommodation nl, no face palsy, no dysarthria Results & Data Vital Signs (Past 12 Hours) Vital Signs Temp Pulse Resp BP Pulse Ox O2 Del Method O2 Flow Rate 10/03/22 11:23 36.5 C 93 H 19 125/81 92 Nasal Cannula 3 10/03/22 08:00 Nasal Cannula 3 10/03/22 08:01 36.6 C 76 19 134/82 94 Nasal Cannula 3 10/03/22 07:32 95 H 16 96 Nasal Cannula 3 10/03/22 03:30 36.8 C 73 14 121/81 99 Nasal Cannula 2 10/02/22 23:41 36.5 C 71 16 111/71 99 Room Air Laboratory Results Coagulation 10/02/22 10/03/22 10/03/22 Range/Units 18:26 01:30 09:03 APTT 27.1 35.1 H 33.6 H (21.0-31.0) Seconds CBC 10/02/22 10/03/22 Range/Units 21:01 01:30 WBC 2.80 L (4.8-10.8) K/ul RBC 2.82 L (4.20-5.40) M/uL Hgb 8.0 L 7.0 L (12.0-16.0) g/dl Hct 27.2 L 23.6 L (37.0-47.0) % Plt Count 199 (130-400) K/uL Comprehensive Metabolic Panel 10/02/22 10/03/22 Range/Units 21:01 01:30 Sodium 141 140 (136-145) mmol/L Potassium 3.7 3.7 (3.5-5.1) mmol/L Chloride 97 L 96 L (98-107) mmol/L Carbon Dioxide 38 H 40 H (21-32) mmol/L BUN 20 20 (6-23) mg/dl Creatinine 0.72 0.73 (0.6-1.2) mg/dl Glucose 136 H 101 H (70-99(Fasting)) mg/dl Calcium 9.3 9.1 (8.6-10.3) mg/dl Intake and Output 10/02/22 10/03/22 10/03/22 22:59 06:59 14:59 Intake Total 659.534 / 1523.801 384.267 / 1523.801 64.5 / 64.5 Output Total 1011 Balance -352.466 / -488.199 384.267 / -488.199 64.5 / 64.5 Intake: IV 209.534 / 593.801 384.267 / 593.801 64.5 / 64.5 Albumin 25% 25 gm In 100 ml @ 100 / 100 50 mls/hr IV ONE ONE Rx#: [id number] Heparin Sodium/Dextrose 25,000 139.534 / 323.801 184.267 / 323.801 64.5 / 64.5 units In 500 ml @ 900 UNITS/HR 18 mls/hr IV .Q24H [facility] Rx#: [id number] Magnesium Sulfate / D5w 1 gm In 100 / 100 100 ml @ 50 mls/hr IV ONE ONE Rx#:[id number] cefTRIAXone SODIUM 2,000 mg In 70 / 70 Dextrose 5% 50 ml @ 100 mls/hr IV Q24H [facility] Rx#:[id number] Oral 450 / 930 Output: Urine 1010 / 1010 # Bowel Movements 2 / 2 Other: # Unmeasured Voids 1 0 Weight 55.3 kg Weight Measurement Method Built in [facility] (3) Atrial flutter Atrial flutter type: unspecified Qualified Code(s): I48.92 - Unspecified atrial flutter (4) Anemia Anemia type: unspecified type Qualified Code(s): D64.9 - Anemia, unspecified
[2022-10-03] MEDS: FUROSEMIDE 40 MG/4 ML VIAL IV SCH (12:00)
--- NOTE | 2022-10-03 13:34 | Hospitalist Progress Note ---
Date of Service October 03, 2022 Assessment & Plan (1) Acute on chronic diastolic heart failure: Plan: Breathing is reportedly about the same or worse today despite diuresis efforts and a net negative output of 400cc. Overnight her diuretic was held because of hypotension. He Hb is also 7, and SOB may be related to this in combination with her other issues. 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 Will give one unit of blood today followed by Lasix 20mg IV as long as blood pressure allows for this. (2) Chronic obstructive pulmonary disease: Plan: chronic, stable. Chronic oxygen supplementation and she is at her baseline. No wheezing heard. Cont once daily Trelegy inhaler substitute. (3) Hypokalemia: Plan: replaced, cont to monitor BMP with ongoing IV Lasix. (4) History of GI bleed: Plan: chronic blood loss anemia with EGD revealing gastritis last admission. She r equired 3 units of pRBCs two weeks ago and initially blood thinners were held. Restarted anticoagulation with Lovenox given on admission transitioned to low dose heparin. Cont PPI and carafate. Will need to start iron supplementation at discharge. Prefer to avoid starting this now because it can cause constipation. (5) Septic arthritis of shoulder, left: Plan: cont Rocephin daily until 10/22 per recent ID recommendations. (6) Atrial fibrillation and flutter: Plan: cont diltiazem and metoprolol, heparin ongoing for now. (7) CAD (coronary artery disease): Plan: chronic, stable. Mildly reduced EF 45-50% (8) HTN (hypertension): Plan: chronic, stable. Cont current medications. (9) Abnormal CT scan, chest: Plan: Irregular linear airspace opacities are seen in the right lower lobe that may be atelectatic or inflammatory but not well seen in setting of pleural effusion. Followup CT chest in 3-4 monnths for re-evaluation. Heparin DNR/DNI Dispo-uncertain at this time. Vanessa Medellin DO [facility] Hospitalist Admission and Anticipated Discharge Date Admission Date: October 01, 2022 Subjective Patient seen in cardiology follow-up. Notes that the edema has resolved since her presentation to the emergency department. Patient reports that her breathing is still worse than her baseline and she is still short of breath despite efforts to diurese. We discussed the possibility of symptomatic anemia being presents to contribute to this and she verbalized understanding and is fine with the blood transfusion. She remains on the heparin drip but is not therapeutic--repeat bolus is being given Pt denies any blood loss and reports abdomen is not an issue Her left shoulder is still sore and with expected decreased ROM but pain is controlled wtih medication Review of Systems Review of Systems: All systems were reviewed and negative except as indicated on subjective above. Physical Exam Physical Exam: CONSTITUTIONAL: WNWD, vitals as above, generally well-appearing, NAD EYES: normal conjunctivae, no scleral icterus ENT: external ear and nose normal, MMM NECK: trachea midline RESPIRATORY: clear to auscultation bilaterally, no crackles, rales or wheezes, normal respiratory effort CARDIOVASCULAR: regular rate and rhythm, S1 and 2 heard without murmurs, gallops or rubs, no JVD, no peripheral edema CHEST: inspection of chest was normal GASTROINTESTINAL: soft, nontender, ND, no guarding MUSCULOSKELETAL: strength 5/5 throughout, head is normocephalic and atraumatic SKIN: warm and dry, multiple areas on ecchymosis on her legs that are chronic. NEUROLOGIC: CN 2-12 grossly intact, no sensory deficit, normal cognition, normal speech, no tremor PSYCHIATRIC: alert cooperative and oriented to person, place and time. Euthymic mood, makes good eye contact, language grossly intact, recent and remote memory grossly intact. Results & Data Results & Data Vital Signs (Past 12 Hours) Vital Signs Temp Pulse Pulse Resp BP BP Pulse Ox 10/03/22 13:28 36.7 C 88 20 102/68 97 10/03/22 12:58 36.5 C 79 20 105/70 98 10/03/22 12:43 36.7 C 94 H 20 101/61 96 10/03/22 12:25 36.4 C L 92 H 20 105/65 94 10/03/22 11:23 36.5 C 93 H 19 125/81 92 10/03/22 12:07 36.7 C 94 H 20 112/71 95 10/03/22 08:00 10/03/22 08:01 36.6 C 76 19 134/82 94 10/03/22 07:32 95 H 16 96 10/03/22 03:30 36.8 C 73 14 121/81 99 O2 Del Method O2 Flow Rate 10/03/22 13:28 3 10/03/22 12:58 3 10/03/22 12:43 3 10/03/22 12:25 3 10/03/22 11:23 Nasal Cannula 3 10/03/22 12:07 Nasal Cannula 3 10/03/22 08:00 Nasal Cannula 3 10/03/22 08:01 Nasal Cannula 3 10/03/22 07:32 Nasal Cannula 3 10/03/22 03:30 Nasal Cannula 2 Laboratory Results Short CBC 10/02/22 10/03/22 Range/Units 21:01 01:30 WBC 2.80 L (4.8-10.8) K/ul Hgb 8.0 L 7.0 L (12.0-16.0) g/dl Hct 27.2 L 23.6 L (37.0-47.0) % Plt Count 199 (130-400) K/uL BMP 10/02/22 10/03/22 21:01 01:30 Sodium 141 140 Potassium 3.7 3.7 Chloride 97 L 96 L Carbon Dioxide 38 H 40 H BUN 20 20 Creatinine 0.72 0.73 Glucose 136 H 101 H Calcium 9.3 9.1 Medications Administered Current Inpatient Medications Acetaminophen (Acetaminophen 325 Mg Tab) 650 mg PO Q4H PRN PRN Reason: Pain or Fever Stop: 10/31/22 21:16 Last Admin: 10/03/22 11:15 Dose: 650 mg Albuterol (Albut/Ipratrop 3mg/0.5mg Neb 3 Ml Vial) 3 ml NEB BIDR [facility]; Protocol Stop: 11/02/22 18:59 Albuterol (Albut/Ipratrop 3mg/0.5mg Neb 3 Ml Vial) 3 ml NEB Q4R PRN; Protocol PRN Reason: Shortness Of Breath Or Wheezing Stop: 11/02/22 10:59 Atorvastatin Calcium (Atorvastatin 40 Mg Tab) 80 mg PO QAM [facility] Stop: 11/01/22 08:59 Last Admin: 10/03/22 09:01 Dose: 80 mg Bupropion HCl (Bupropion Sr 150 Mg Tabcr) 150 mg PO AMHS [facility] Stop: 10/31/22 21:16 Last Admin: 10/03/22 08:30 Dose: 150 mg Diltiazem HCl (Diltiazem Hcl 30 Mg Tab) 30 mg PO BIDM [facility] Stop: 11/02/22 16:59 Ferrous Sulfate (Ferrous Sulfate 325 Mg Tab) 325 mg PO QAM [facility] Stop: 11/01/22 08:59 Last Admin: 10/03/22 08:30 Dose: 325 mg Fluticasone/Vilanterol (Fluticasone/Vilanterol 100/25mcg 14 Puffs/Inhaler) 1 puffs INH DAILY [facility] Stop: 11/01/22 08:59 Last Admin: 10/03/22 08:29 Dose: 1 puffs Furosemide (Furosemide 40 Mg/4 Ml Vial) 40 mg IV DAILY [facility] Stop: 11/02/22 11:29 Last Admin: 10/03/22 12:00 Dose: 40 mg Gabapentin (Gabapentin 300 Mg Cap) 300 mg PO BID [facility] Stop: 10/31/22 21:16 Last Admin: 10/03/22 08:29 Dose: 300 mg Heparin Sodium (Beef Lung) (Heparin 10 Unit/Ml 5 Ml Flush) 5 ml FLUSH PRN PRN PRN Reason: Flush Stop: 11/01/22 23:31 Ceftriaxone Sodium 2,000 mg/ (Dextrose) 70 mls @ 100 mls/hr IV Q24H [facility]; Protocol Stop: 10/22/22 21:29 Last Infusion: 10/02/22 22:10 Dose: Infused Heparin Sodium/Dextrose (Heparin Sodium/Dextrose) 25,000 units in 500 mls @ 20 mls/hr IV .Q24H [facility]; Protocol Stop: 11/01/22 08:29 Last Titration: 10/03/22 10:30 Dose: 1,000 units/hr, 20 mls/hr Sodium Chloride (Nss) 250 mls @ 15 mls/hr IV .[id number] PRN PRN Reason: For Transfusion Duration Stop: 10/03/22 20:19 Lisinopril (Lisinopril 20 Mg Tab) 20 mg PO QAM [facility] Stop: 11/01/22 08:59 Last Admin: 10/03/22 08:32 Dose: 20 mg Metoprolol Succinate (Metoprolol Succ 50mg Ext Rel Tab) 50 mg PO BID [facility] Stop: 11/01/22 20:59 Last Admin: 10/03/22 08:31 Dose: 50 mg Pantoprazole Sodium (Pantoprazole 40 Mg Tab) 40 mg PO DAILY [facility] Stop: 11/01/22 08:59 Last Admin: 10/03/22 08:30 Dose: 40 mg Polyethylene Glycol (Polyethylene (Miralax) 17 Gm Pack) 17 gm PO DAILY PRN PRN Reason: Constipation Stop: 10/31/22 21:16 Potassium Chloride (Potassium Chloride Crtab 20 Meq Tabcr) 20 meq PO AMHS [facility] Stop: 11/02/22 08:59 Last Admin: 10/03/22 08:29 Dose: 20 meq Sucralfate (Sucralfate 1 Gm Tab) 1 gm PO BID [facility] Stop: 10/31/22 21:16 Last Admin: 10/03/22 08:30 Dose: 1 gm Vitamin D (Cholecalciferol 1,000 Units 25 Mcg Tab) 1,000 units PO QAM [facility] Stop: 11/01/22 08:59 Last Admin: 10/03/22 08:30 Dose: 1,000 units
[2022-10-03] MEDS: HEPARIN SODIUM/DEXTROSE 25,000 UNITS/500 ML BAG IV SCH (15:32)
[2022-10-03 16:19] LABS: Hematocrit (blood only) 29.6 % (37.0-47.0); Hemoglobin 8.9 g/dl (12.0-16.0)
[2022-10-03 16:47] LABS: Partial Thromboplastin Ratio 1.2; Partial Thromboplastin Time 33.7 Seconds (21.0-31.0)
[2022-10-03] MEDS ORDERED: FUROSEMIDE INJ 20 MG/2 ML VIAL IV ONE (18:00)
[2022-10-03] MEDS: cefTRIAXone SODIUM 2,000 MG in DEXTROSE 5% 50 ML IV SCH (21:30)
[2022-10-04 02:31] LABS: Partial Thromboplastin Ratio 1.4; Partial Thromboplastin Time 38.7 Seconds (21.0-31.0)
[2022-10-04 06:57] LABS: Hematocrit (blood only) 33.2 % (37.0-47.0); Hemoglobin 9.7 g/dl (12.0-16.0); Mean Corpuscular Hgb Conc 29.2 g/dL (32.0-36.0); Mean Corpuscular Volume 85.6 fL (80.0-100.0); Mean Platelet Volume 9.7 fL (9.4-12.4); Platelet Count 224 K/uL (130-400); RDW Coefficient of Variation 25.7 % (11.5-14.5); RDW Standard Deviation 78.7 fL (36.4-46.3); Red Blood Count 3.88 M/uL (4.20-5.40); White Blood Count 4.05 K/ul (4.8-10.8)
[2022-10-04] MEDS: ALBUT/IPRATROP 3MG/0.5MG NEB 3 ML VIAL NEB SCH ×2 (07:07→20:03)
[2022-10-04 07:15] LABS: BUN Creatinine Ratio 20.3 (10-20); Calcium 9.5 mg/dl (8.6-10.3); Creatinine Clr Calc Pharmacy 61.9 ml/min; Est GFR (African American) 98.7 ml/min; Est GFR (Non-African American) 85.2 ml/min; Magnesium 2.1 mg/dl (1.7-2.4); Potassium 4.5 mmol/L (3.5-5.1)
[2022-10-04 07:34] LABS: Partial Thromboplastin Ratio 1.3; Partial Thromboplastin Time 37.4 Seconds (21.0-31.0)
[2022-10-04] MEDS: GABAPENTIN 300 MG CAP PO SCH ×2 (08:19→21:41)
[2022-10-04] MEDS: FERROUS SULFATE 325 MG TAB PO SCH (08:19)
[2022-10-04] MEDS: SUCRALFATE 1 GM TAB PO SCH ×2 (08:19→21:41)
[2022-10-04] MEDS: ATORVASTATIN 40 MG TAB PO SCH (08:19)
[2022-10-04] MEDS: CHOLECALCIFEROL 1,000 UNITS 25 MCG TAB PO SCH (08:19)
[2022-10-04] MEDS: PANTOprazole 40 MG TAB PO SCH (08:19)
[2022-10-04] MEDS: POTASSIUM CHLORIDE CRTAB 20 MEQ TABCR PO SCH ×2 (08:19→21:41)
[2022-10-04] MEDS: dilTIAZem HCL 30 MG TAB PO SCH ×2 (08:19→16:53)
[2022-10-04] MEDS: FLUTICASONE/VILANTEROL 100/25MCG 14 PUFFS/INHALER INH SCH (08:20)
[2022-10-04] MEDS: buPROPion SR 150 MG TABCR PO SCH ×2 (08:20→21:42)
[2022-10-04] MEDS: FUROSEMIDE 40 MG/4 ML VIAL IV SCH (08:21)
[2022-10-04] MEDS: METOPROLOL SUCC 50MG EXT REL TAB PO SCH ×2 (08:21→21:41)
--- NOTE | 2022-10-04 11:49 | Cardiology Progress Note ---
Date of Service October 04, 2022 Assessment & Plan (1) Acute on chronic diastolic heart failure: Plan: - Resume diuretics: Change furosemide to 40 mg 1 time per day as compared to twice daily. Monitor blood pressure, intake and output, kidney function and electrolytes. -Antiplatelet therapy on hold due to her recent anemia. (2) Acute on chronic respiratory failure with hypoxia and hypercapnia: Plan: - Chronic COPD noted. She is at her baseline level of function supplementation 3 L/min nasal cannula. (3) Atrial flutter: Plan: - Rate control: Metoprolol tartrate 25 mg 4 times daily changed to metoprolol succinate 50 mg twice daily. -Although with diltiazem as a preferred medication given her COPD, she is tolerating beta-andrés relatively well, I would like to minimize her use of diltiazem in the setting of fluid retention. I have therefore reduced her short acting diltiazem from 30 mg 3 times daily to 30 mg 2 times per day with meals. -The patient's [id number] score is is 8 for risk factors of CHF, hypertension, age over 75 (2 points), female sex, vascular disease with CAD and AAA repair, and history of stroke (2 points). -Patient had been admitted last month with profound anemia, hemoglobin 6, prompting anticoagulation to be held. Anticoagulation with Eliquis and then heparin was reinitiated, and her hemoglobin had declined again. -Hemoglobin was 8 g/dL on 10/02/2022, now down to 7 g/dL on 10/03/22. Transfused to 9.7 this morning -Continue heparin infusion Would avoid any further antiplatelet therapy (4) Anemia: Plan: - As noted above (5) Septic arthritis of shoulder, left: Plan: - Doing well from an infection standpoint. Cultures from previous admission were negative. Continue Rocephin as per prior infectious disease advice. Plan As outlined above. Continue rate control with metoprolol succinate 50 mg twice per day. May ultimately reduce or discontinue diltiazem depending on rate response. Would continue anticoagulation with heparin with likely transition to Eliquis. Would avoid antiplatelet therapies Change back to oral diuretics after dose today Admission and Anticipated Discharge Date Admission Date: October 01, 2022 Subjective Patient was seen and examined, chart, medications, telemetry reviewed. Patient feels improved this morning less dyspneic. Predominant intervention has been mild diuresis but transfusion to hemoglobin 9.7 No overt signs of bleeding. Still with painful left shoulder on movement. No fevers or chills. Telemetry A-fib flutter rate 60s to 80s overnight, 80s to 90s this morning Review of Systems Review of Systems: All systems reviewed & are unremarkable except as noted in Subjective Physical Exam Constitutional: + thin; no acute distress ENMT: external ear and nose normal, oropharynx normal Wearing supplemental oxygen Neck: trachea midline, no thyromegaly Respiratory: Auscultation: + diminished lung sounds (Bilateral lung field); no crackles and no rales Cardiovascular: Rate/Rhythm: regular rate and regular rhythm (Atrial flutter) Heart Sounds: no murmur Extremities: no edema Gastrointestinal (Abdomen): normal bowel sounds, soft, nontender, no hepatosplenomegaly Neurologic: PERRL, EOMI, accommodation nl, no face palsy, no dysarthria Results & Data Vital Signs (Past 12 Hours) Vital Signs Temp Pulse Resp BP Pulse Ox O2 Del Method O2 Flow Rate 10/04/22 11:20 36.3 C L 96 H 18 114/71 94 Nasal Cannula 3 10/04/22 08:00 Nasal Cannula 3 10/04/22 07:09 36.2 C L 101 H 19 149/89 H 96 Nasal Cannula 3 10/04/22 07:07 89 18 98 Nasal Cannula 3 10/04/22 04:00 36.8 C 80 17 129/88 99 Nasal Cannula 2 10/03/22 23:57 36.5 C 65 17 115/76 100 Nasal Cannula 2 Laboratory Results Laboratory Results - last 24 hr 10/03/22 10/03/22 10/03/22 10:38 15:51 15:51 WBC RBC Hgb 8.9 L Hct 29.6 L MCV MCH MCHC RDW Std Deviation RDW Coeff of [place] Plt Count MPV APTT 33.7 H PTT Ratio 1.2 Sodium Potassium Chloride Carbon Dioxide Anion Gap BUN Creatinine Est Cr Clr Drug Dosing Est GFR ( Amer) Est GFR (Non-Af Amer) BUN/Creatinine Ratio Glucose Calcium Magnesium Blood Type A Positive Antibody Screen NEGATIVE Crossmatch See Detail 10/04/22 10/04/22 10/04/22 00:39 06:37 06:37 WBC 4.05 L RBC 3.88 L Hgb 9.7 L Hct 33.2 L MCV 85.6 MCH 25.0 MCHC 29.2 L RDW Std Deviation 78.7 H RDW Coeff of [place] 25.7 H Plt Count 224 MPV 9.7 APTT 38.7 H PTT Ratio 1.4 Sodium 142 Potassium 4.5 D Chloride 97 L Carbon Dioxide 42 H* Anion Gap 3 BUN 14 Creatinine 0.69 Est Cr Clr Drug Dosing 61.9 Est GFR ( Amer) 98.7 Est GFR (Non-Af Amer) 85.2 BUN/Creatinine Ratio 20.3 H Glucose 95 Calcium 9.5 Magnesium 2.1 Blood Type Antibody Screen Crossmatch 10/04/22 06:37 WBC RBC Hgb Hct MCV MCH MCHC RDW Std Deviation RDW Coeff of [place] Plt Count MPV APTT 37.4 H PTT Ratio 1.3 Sodium Potassium Chloride Carbon Dioxide Anion Gap BUN Creatinine Est Cr Clr Drug Dosing Est GFR ( Amer) Est GFR (Non-Af Amer) BUN/Creatinine Ratio Glucose Calcium Magnesium Blood Type Antibody Screen Crossmatch Medications Administered Current Medications Acetaminophen (Acetaminophen 325 Mg Tab) 650 mg PO Q4H PRN PRN Reason: Pain or Fever Stop: 10/31/22 21:16 Last Admin: 10/03/22 11:15 Dose: 650 mg Albuterol (Albut/Ipratrop 3mg/0.5mg Neb 3 Ml Vial) 3 ml NEB BIDR [facility]; Protocol Stop: 11/02/22 18:59 Last Admin: 10/04/22 07:07 Dose: 3 ml Albuterol (Albut/Ipratrop 3mg/0.5mg Neb 3 Ml Vial) 3 ml NEB Q4R PRN; Protocol PRN Reason: Shortness Of Breath Or Wheezing Stop: 11/02/22 10:59 Atorvastatin Calcium (Atorvastatin 40 Mg Tab) 80 mg PO QAM [facility] Stop: 11/01/22 08:59 Last Admin: 10/04/22 08:19 Dose: 80 mg Bupropion HCl (Bupropion Sr 150 Mg Tabcr) 150 mg PO AMHS [facility] Stop: 10/31/22 21:16 Last Admin: 10/04/22 08:20 Dose: 150 mg Diltiazem HCl (Diltiazem Hcl 30 Mg Tab) 30 mg PO BIDM [facility] Stop: 11/02/22 16:59 Last Admin: 10/04/22 08:19 Dose: 30 mg Ferrous Sulfate (Ferrous Sulfate 325 Mg Tab) 325 mg PO QAM [facility] Stop: 11/01/22 08:59 Last Admin: 10/04/22 08:19 Dose: 325 mg Fluticasone/Vilanterol (Fluticasone/Vilanterol 100/25mcg 14 Puffs/Inhaler) 1 puffs INH DAILY [facility] Stop: 11/01/22 08:59 Last Admin: 10/04/22 08:20 Dose: 1 puffs Furosemide (Furosemide 40 Mg/4 Ml Vial) 40 mg IV DAILY [facility] Stop: 11/02/22 11:29 Last Admin: 10/04/22 08:21 Dose: 40 mg Gabapentin (Gabapentin 300 Mg Cap) 300 mg PO BID [facility] Stop: 10/31/22 21:16 Last Admin: 10/04/22 08:19 Dose: 300 mg Heparin Sodium (Beef Lung) (Heparin 10 Unit/Ml 5 Ml Flush) 5 ml FLUSH PRN PRN PRN Reason: Flush Stop: 11/01/22 23:31 Ceftriaxone Sodium 2,000 mg/ (Dextrose) 70 mls @ 100 mls/hr IV Q24H [facility]; Protocol Stop: 10/22/22 21:29 Last Infusion: 10/03/22 22:22 Dose: Infused Heparin Sodium/Dextrose (Heparin Sodium/Dextrose) 25,000 units in 500 mls @ 24 mls/hr IV .[id number] [facility]; Protocol Stop: 11/01/22 08:29 Last Titration: 10/04/22 08:17 Dose: 1,200 units/hr, 24 mls/hr Lisinopril (Lisinopril 20 Mg Tab) 20 mg PO QAM [facility] Stop: 11/01/22 08:59 Last Admin: 10/03/22 08:32 Dose: 20 mg Metoprolol Succinate (Metoprolol Succ 50mg Ext Rel Tab) 50 mg PO BID [facility] Stop: 11/01/22 20:59 Last Admin: 10/04/22 08:21 Dose: 50 mg Pantoprazole Sodium (Pantoprazole 40 Mg Tab) 40 mg PO DAILY [facility] Stop: 11/01/22 08:59 Last Admin: 10/04/22 08:19 Dose: 40 mg Polyethylene Glycol (Polyethylene (Miralax) 17 Gm Pack) 17 gm PO DAILY PRN PRN Reason: Constipation Stop: 10/31/22 21:16 Potassium Chloride (Potassium Chloride Crtab 20 Meq Tabcr) 20 meq PO AMHS [facility] Stop: 11/02/22 08:59 Last Admin: 10/04/22 08:19 Dose: 20 meq Sucralfate (Sucralfate 1 Gm Tab) 1 gm PO BID [facility] Stop: 10/31/22 21:16 Last Admin: 10/04/22 08:19 Dose: 1 gm Vitamin D (Cholecalciferol 1,000 Units 25 Mcg Tab) 1,000 units PO QAM [facility] Stop: 11/01/22 08:59 Last Admin: 10/04/22 08:19 Dose: 1,000 units (3) Atrial flutter Atrial flutter type: unspecified Qualified Code(s): I48.92 - Unspecified atrial flutter (4) Anemia Anemia type: unspecified type Qualified Code(s): D64.9 - Anemia, unspecified
[2022-10-04] MEDS ORDERED: traMADol HCL 50 MG TABLET PO PRN (12:52)
[2022-10-04] MEDS ORDERED: traMADol HCL 50 MG TABLET PO STA (12:52)
[2022-10-04] MEDS ORDERED: ALTEPLASE, RECOMBINANT 1 MG/ML 2ML VIAL INSTIL ONE (14:45)
[2022-10-04] MEDS: HEPARIN SODIUM/DEXTROSE 25,000 UNITS/500 ML BAG IV SCH (15:01)
[2022-10-04 15:45] LABS: Partial Thromboplastin Ratio 1.2; Partial Thromboplastin Time 33.2 Seconds (21.0-31.0)
[2022-10-04] MEDS ORDERED: HEPARIN SOD (PORCINE) 1000 UNIT/ML IV ONE (16:03)
--- NOTE | 2022-10-04 18:31 | Hospitalist Progress Note ---
Date of Service October 04, 2022 Assessment & Plan (1) Acute on chronic diastolic heart failure: Plan: Hypoxia and dyspnea multifactorial including COPD, CHF, anemia and deconditioning after prolonged hospital stay. Breathing improved now after blood transfusion yesterday. Return to PO Lasix tomorrow. With ongoing metabolic alkalosis, will start with once daily for now. 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 (2) Chronic obstructive pulmonary disease: Plan: chronic, stable. Chronic oxygen supplementation and she is at her baseline. No wheezing heard. Cont once daily Trelegy inhaler substitute. Cont nebs for now. (3) History of GI bleed: Plan: chronic blood loss anemia with EGD revealing gastritis last admission. She required 3 units of pRBCs two weeks ago and initially blood thinners were held. Restarted anticoagulation with Lovenox given on admission transitioned to low dose heparin. Heparin has not been therapeutic and the frequent PTT checks are creating a problem with her post op shoulder discomfort. Changing to lower dose apixaban now (5mg PO bID) avoiding the bolus because the thrombus in her lungs is not new, she recently bled and we run a higher risk of causing her to bleed with the 10mg BID dose, and she has been receiving heparin now for several days. Cont PPI and carafate. Cont iron supplement. (4) Septic arthritis of shoulder, left: Plan: cont Rocephin daily until 10/22 per recent ID recommendations. (5) Atrial fibrillation and flutter: Plan: cont diltiazem and metoprolol, heparin ongoing for now. (6) CAD (coronary artery disease): Plan: chronic, stable. Mildly reduced EF 45-50% (7) HTN (hypertension): Plan: chronic, stable. Cont current medications. (8) Abnormal CT scan, chest: Plan: Irregular linear airspace opacities are seen in the right lower lobe that may be atelectatic or inflammatory but not well seen in setting of pleural effusion. Followup CT chest in 3-4 monnths for re-evaluation. Heparin DNR/DNI Dispo-uncertain at this time. Vanessa Medellin DO [facility] Hospitalist Admission and Anticipated Discharge Date Admission Date: October 01, 2022 Subjective Patient seen in cardiology follow-up. Notes that the edema has resolved since her presentation to the emergency department. She reports her breathing is improved since receiving the blood yesterday She still has significant left shoulder pain and we discussed additional medications other than Tylenol. Heparin drip is still not therapeutic, switching to apixaban No GI blood loss reported. Review of Systems Review of Systems: All systems were reviewed and negative except as indicated on subjective above. Physical Exam Physical Exam: CONSTITUTIONAL: WNWD, vitals as above, generally well-appearing, NAD EYES: normal conjunctivae, no scleral icterus ENT: external ear and nose normal, MMM NECK: trachea midline RESPIRATORY: clear to auscultation bilaterally, no crackles, rales or wheezes, normal respiratory effort CARDIOVASCULAR: regular rate and rhythm, S1 and 2 heard without murmurs, gallops or rubs, no JVD, no peripheral edema CHEST: inspection of chest was normal GASTROINTESTINAL: soft, nontender, ND, no guarding MUSCULOSKELETAL: strength 5/5 throughout, head is normocephalic and atraumatic SKIN: warm and dry, multiple areas on ecchymosis on her legs that are chronic. NEUROLOGIC: CN 2-12 grossly intact, no sensory deficit, normal cognition, normal speech, no tremor PSYCHIATRIC: alert cooperative and oriented to person, place and time. Euthymic mood, makes good eye contact, language grossly intact, recent and remote memory grossly intact. Results & Data Results & Data Vital Signs (Past 12 Hours) Vital Signs Temp Pulse Resp BP Pulse Ox O2 Del Method O2 Flow Rate 10/04/22 15:28 36.8 C 82 18 127/79 97 Nasal Cannula 3 10/04/22 11:20 36.3 C L 96 H 18 114/71 94 Nasal Cannula 3 10/04/22 08:00 Nasal Cannula 3 10/04/22 07:09 36.2 C L 101 H 19 149/89 H 96 Nasal Cannula 3 10/04/22 07:07 89 18 98 Nasal Cannula 3 Laboratory Results Short CBC 10/04/22 Range/Units 06:37 WBC 4.05 L (4.8-10.8) K/ul Hgb 9.7 L (12.0-16.0) g/dl Hct 33.2 L (37.0-47.0) % Plt Count 224 (130-400) K/uL BMP 10/04/22 06:37 Sodium 142 Potassium 4.5 D Chloride 97 L Carbon Dioxide 42 H* BUN 14 Creatinine 0.69 Glucose 95 Calcium 9.5 Medications Administered Current Inpatient Medications Acetaminophen (Acetaminophen 325 Mg Tab) 650 mg PO Q4H PRN PRN Reason: Pain or Fever Stop: 10/31/22 21:16 Last Admin: 10/03/22 11:15 Dose: 650 mg Albuterol (Albut/Ipratrop 3mg/0.5mg Neb 3 Ml Vial) 3 ml NEB BIDR [facility]; Protocol Stop: 11/02/22 18:59 Last Admin: 10/04/22 07:07 Dose: 3 ml Albuterol (Albut/Ipratrop 3mg/0.5mg Neb 3 Ml Vial) 3 ml NEB Q4R PRN; Protocol PRN Reason: Shortness Of Breath Or Wheezing Stop: 11/02/22 10:59 Atorvastatin Calcium (Atorvastatin 40 Mg Tab) 80 mg PO QAM [facility] Stop: 11/01/22 08:59 Last Admin: 10/04/22 08:19 Dose: 80 mg Bupropion HCl (Bupropion Sr 150 Mg Tabcr) 150 mg PO AMHS [facility] Stop: 10/31/22 21:16 Last Admin: 10/04/22 08:20 Dose: 150 mg Diltiazem HCl (Diltiazem Hcl 30 Mg Tab) 30 mg PO BIDM [facility] Stop: 11/02/22 16:59 Last Admin: 10/04/22 16:53 Dose: 30 mg Ferrous Sulfate (Ferrous Sulfate 325 Mg Tab) 325 mg PO QAM [facility] Stop: 11/01/22 08:59 Last Admin: 10/04/22 08:19 Dose: 325 mg Fluticasone/Vilanterol (Fluticasone/Vilanterol 100/25mcg 14 Puffs/Inhaler) 1 puffs INH DAILY [facility] Stop: 11/01/22 08:59 Last Admin: 10/04/22 08:20 Dose: 1 puffs Furosemide (Furosemide 40 Mg/4 Ml Vial) 40 mg IV DAILY [facility] Stop: 11/02/22 11:29 Last Admin: 10/04/22 08:21 Dose: 40 mg Gabapentin (Gabapentin 300 Mg Cap) 300 mg PO BID [facility] Stop: 10/31/22 21:16 Last Admin: 10/04/22 08:19 Dose: 300 mg Heparin Sodium (Beef Lung) (Heparin 10 Unit/Ml 5 Ml Flush) 5 ml FLUSH PRN PRN PRN Reason: Flush Stop: 11/01/22 23:31 Ceftriaxone Sodium 2,000 mg/ (Dextrose) 70 mls @ 100 mls/hr IV Q24H [facility]; P rotocol Stop: 10/22/22 21:29 Last Infusion: 10/03/22 22:22 Dose: Infused Heparin Sodium/Dextrose (Heparin Sodium/Dextrose) 25,000 units in 500 mls @ 26 mls/hr IV .[id number] [facility]; Protocol Stop: 11/01/22 08:29 Last Titration: 10/04/22 16:54 Dose: 1,300 units/hr, 26 mls/hr Lisinopril (Lisinopril 20 Mg Tab) 20 mg PO QAM [facility] Stop: 11/01/22 08:59 Last Admin: 10/03/22 08:32 Dose: 20 mg Metoprolol Succinate (Metoprolol Succ 50mg Ext Rel Tab) 50 mg PO BID [facility] Stop: 11/01/22 20:59 Last Admin: 10/04/22 08:21 Dose: 50 mg Pantoprazole Sodium (Pantoprazole 40 Mg Tab) 40 mg PO DAILY [facility] Stop: 11/01/22 08:59 Last Admin: 10/04/22 08:19 Dose: 40 mg Polyethylene Glycol (Polyethylene (Miralax) 17 Gm Pack) 17 gm PO DAILY PRN PRN Reason: Constipation Stop: 10/31/22 21:16 Potassium Chloride (Potassium Chloride Crtab 20 Meq Tabcr) 20 meq PO AMHS [facility] Stop: 11/02/22 08:59 Last Admin: 10/04/22 08:19 Dose: 20 meq Sucralfate (Sucralfate 1 Gm Tab) 1 gm PO BID [facility] Stop: 10/31/22 21:16 Last Admin: 10/04/22 08:19 Dose: 1 gm Tramadol HCl (Tramadol Hcl 50 Mg Tablet) 50 mg PO Q4H PRN PRN Reason: Pain Stop: 11/03/22 12:51 Last Admin: 10/04/22 18:21 Dose: 50 mg Vitamin D (Cholecalciferol 1,000 Units 25 Mcg Tab) 1,000 units PO QAM [facility] Stop: 11/01/22 08:59 Last Admin: 10/04/22 08:19 Dose: 1,000 units
[2022-10-04] MEDS: APIXABAN 5 MG TABLET PO SCH (21:30)
[2022-10-04] MEDS: ACETAMINOPHEN 500 MG TAB PO SCH (21:30)
[2022-10-04] MEDS: cefTRIAXone SODIUM 2,000 MG in DEXTROSE 5% 50 ML IV SCH (21:43)
[2022-10-05] MEDS: traMADol HCL 50 MG TABLET PO SCH ×4 (00:15→23:43)
[2022-10-05] MEDS: ACETAMINOPHEN 500 MG TAB PO SCH ×3 (04:37→21:23)
[2022-10-05] MEDS: ALBUT/IPRATROP 3MG/0.5MG NEB 3 ML VIAL NEB SCH ×2 (06:22→19:25)
[2022-10-05] MEDS ORDERED: LABETALOL HCL IV 5 MG/ML 20ML IV STA (06:42)
[2022-10-05] MEDS ORDERED: FUROSEMIDE 40 MG/4 ML VIAL IV ONE ×2 (06:55→10:02)
--- NOTE | 2022-10-05 07:04 | XRay Report ---
XR chest 1V portable HISTORY: 77 years-old Female sob acute shortness of breath COMPARISON: 10/01/2022 TECHNIQUE: AP view of the chest FINDINGS: Cardiac silhouette is enlarged. Pulmonary vascular congestion. Layering pleural effusions with bibasi lar consolidation again noted. Bones appear grossly intact. IMPRESSION: 1. Cardiomegaly with pulmonary vascular congestion. 2. Layering pleural effusions with bibasilar consolidation again noted. ACT 112: Negative or not required by law. The above report was generated using voice recognition software. It may contain grammatical, syntax o r spelling errors. Electronically signed by: Walter Monsivais M.D. 10/05/2022 7:03 AM
[2022-10-05 07:44] LABS: Hematocrit (blood only) 35.3 % (37.0-47.0); Mean Corpuscular Hemoglobin 24.8 pg (25.0-34.0); Mean Corpuscular Hgb Conc 28.3 g/dL (32.0-36.0); Mean Corpuscular Volume 87.6 fL (80.0-100.0); Mean Platelet Volume 9.8 fL (9.4-12.4); Platelet Count 267 K/uL (130-400); RDW Coefficient of Variation 25.2 % (11.5-14.5); RDW Standard Deviation 78.4 fL (36.4-46.3); Red Blood Count 4.03 M/uL (4.20-5.40); White Blood Count 7.56 K/ul (4.8-10.8)
[2022-10-05 08:05] LABS: BUN Creatinine Ratio 22.5 (10-20); Creatinine Clr Calc Pharmacy 54.2 ml/min; Est GFR (African American) 83.6 ml/min; Est GFR (Non-African American) 72.1 ml/min; Magnesium 2.3 mg/dl (1.7-2.4); Potassium 5.6 mmol/L (3.5-5.1)
[2022-10-05 08:41] LABS: iSTAT Art Bld Gas pCO2 Correct 86 mmHg (35-46); iSTAT Art Bld Gas pH Corrected 7.275 (7.35-7.45); iSTAT Arterial Blood Gas HCO3 40 meg/L (19-24); iSTAT Arterial Blood Gas pCO2 86 mmHg (35-46); iSTAT Arterial Blood Gas pH 7.28 (7.35-7.45); iSTAT Arterial Blood Gas pO2 < 32 mmHg (80-95); iSTAT Arterial Blood Gas pO2 C 17; iSTAT Carbon Dioxide > 40 mmol/L (24-31); iSTAT Hematocrit 34 % (37-47); iSTAT Hemoglobin 11.6 g/dl (12.0-16.0); iSTAT Potassium 4.8 mmol/L (3.3-5.0); iSTAT Site L Brachial; iSTAT Sodium 138 mmol/L (135-144)
[2022-10-05] MEDS ORDERED: FUROSEMIDE 40 MG TAB PO SCH (09:00)
[2022-10-05] MEDS: FERROUS SULFATE 325 MG TAB PO SCH (09:14)
[2022-10-05] MEDS: dilTIAZem HCL 30 MG TAB PO SCH (09:14)
[2022-10-05] MEDS: SUCRALFATE 1 GM TAB PO SCH ×2 (09:14→21:25)
[2022-10-05] MEDS: PANTOprazole 40 MG TAB PO SCH (09:14)
[2022-10-05] MEDS: CHOLECALCIFEROL 1,000 UNITS 25 MCG TAB PO SCH (09:14)
[2022-10-05] MEDS: FLUTICASONE/VILANTEROL 100/25MCG 14 PUFFS/INHALER INH SCH (09:14)
[2022-10-05] MEDS: ATORVASTATIN 40 MG TAB PO SCH (09:14)
[2022-10-05] MEDS: METOPROLOL SUCC 50MG EXT REL TAB PO SCH (09:14)
[2022-10-05] MEDS: buPROPion SR 150 MG TABCR PO SCH ×2 (09:14→21:24)
[2022-10-05] MEDS: GABAPENTIN 300 MG CAP PO SCH ×2 (09:14→21:24)
[2022-10-05] MEDS: APIXABAN 5 MG TABLET PO SCH ×2 (09:14→21:24)
--- NOTE | 2022-10-05 09:58 | Cardiology Progress Note ---
Date of Service October 05, 2022 Assessment & Plan (1) Acute on chronic diastolic heart failure: (2) Acute on chronic respiratory failure with hypoxia and hypercapnia: Plan: - Chronic COPD noted. She is at her baseline level of function supplementation 3 L/min nasal cannula. (3) Atrial flutter: Plan: - Rate control: (4) Anemia: Plan: - As noted above (5) Septic arthritis of shoulder, left: Plan: - Doing well from an infection standpoint. Cultures from previous admission were negative. Continue Rocephin as per prior infectious disease advice. Plan Acute worsening respiratory status once again this morning with chest x-ray reflecting increased interstitial markings little diuresis yesterday Renal function stable Plan: Additional dose IV furosemide 40 mg to be given in addition to 40 mg earlier Topical nitrates 1/2 inch every 6 for additional blood pressure and preload reduction We will increase metoprolol to succinate and discontinue diltiazem given congestive heart failure reduced ejection fraction Admission and Anticipated Discharge Date Admission Date: October 01, 2022 Subjective Patient seen and examined, chart, medications, telemetry reviewed. Per patient and discussion with care staff patient this morning with increasing respiratory distress early a.m. placed on BiPAP and given IV Lasix. Currently tolerating BiPAP but noted would not continue in an extended fashion No chest pains no tachypalpitations no worsening I's and O's equal but weight up slightly no significant diuresis yesterday Atrial flutter rates controlled Review of Systems Review of Systems: All systems reviewed & are unremarkable except as noted in Subjective Physical Exam Constitutional: WD/WN, vitals as above + thin; no acute distress ENMT: external ear and nose normal, oropharynx normal Neck: trachea midline, no thyromegaly Respiratory: Auscultation: + diminished lung sounds (Bilateral lung field); no crackles and no rales Cardiovascular: Rate/Rhythm: regular rate and regular rhythm (Atrial flutter) Heart Sounds: no murmur Extremities: no edema Gastrointestinal (Abdomen): normal bowel sounds, soft, nontender, no hepatosplenomegaly Neurologic: PERRL, EOMI, accommodation nl, no face palsy, no dysarthria Results & Data Vital Signs (Past 12 Hours) Vital Signs Temp Pulse Pulse Resp BP Pulse Ox O2 Del Method 10/05/22 07:56 36.3 C L 92 H 22 161/95 H 99 Nasal Cannula 10/05/22 07:45 92 H 30 H 98 10/05/22 06:23 107 H 26 H 89 L Nasal Cannula 10/05/22 03:15 36.4 C L 80 16 140/88 97 Nasal Cannula 10/04/22 23:00 73 10/04/22 23:24 36.5 C 70 18 135/79 98 Nasal Cannula O2 Flow Rate FiO2 10/05/22 07:56 5 10/05/22 07:45 50 10/05/22 06:23 5 10/05/22 03:15 3 10/04/22 23:00 10/04/22 23:24 3 Laboratory Results Laboratory Results - last 24 hr 10/04/22 10/05/22 10/05/22 14:23 07:18 07:18 WBC 7.56 RBC 4.03 L Hgb 10.0 L POC Hgb Hct 35.3 L POC Hct MCV 87.6 MCH 24.8 L MCHC 28.3 L RDW Std Deviation 78.4 H RDW Coeff of [place] 25.2 H Plt Count 267 MPV 9.8 APTT 33.2 H PTT Ratio 1.2 Sample Site POC pH POC pCO2 POC pO2 POC HCO3 POC Total CO2 POC Base Excess ABG pH ABG pH (Temp Correct) ABG pCO2 ABG pCO2 (Temp Corrct ABG pO2 POC ABG pO2 at Pt Temp ABG HCO3 POC ABG O2 Sat ABG O2 Saturation ABG Base Excess Uday Test Barometric Pressure Oxygen Given POC Sodium Sodium 141 POC Potassium Potassium 5.6 H D Chloride 98 Carbon Dioxide 38 H Anion Gap 5 BUN 18 Creatinine 0.80 Est Cr Clr Drug Dosing 54.2 Est GFR ( Amer) 83.6 Est GFR (Non-Af Amer) 72.1 BUN/Creatinine Ratio 22.5 H Glucose 201 H Calcium 10.0 Magnesium 2.3 10/05/22 10/05/22 07:18 08:24 WBC RBC Hgb POC Hgb 11.6 L Hct POC Hct 34 L MCV MCH MCHC RDW Std Deviation RDW Coeff of [place] Plt Count MPV APTT PTT Ratio Sample Site L Brachial POC pH 7.28 L POC pCO2 86 H POC pO2 < 32 L POC HCO3 40 H POC Total CO2 > 40 H* POC Base Excess 13.0 H ABG pH Cancelled ABG pH (Temp Correct) 7.275 L ABG pCO2 Cancelled ABG pCO2 (Temp Corrct 86 H ABG pO2 Cancelled POC ABG pO2 at Pt Temp 17 ABG HCO3 Cancelled POC ABG O2 Sat 17.0 L ABG O2 Saturation Cancelled ABG Base Excess Cancelled Uday Test Cancelled NA Barometric Pressure Cancelled Oxygen Given Cancelled POC Sodium 138 Sodium POC Potassium 4.8 Potassium Chloride Carbon Dioxide Anion Gap BUN Creatinine Est Cr Clr Drug Dosing Est GFR ( Amer) Est GFR (Non-Af Amer) BUN/Creatinine Ratio Glucose Calcium Magnesium (3) Atrial flutter Atrial flutter type: unspecified Qualified Code(s): I48.92 - Unspecified atrial flutter (4) Anemia Anemia type: unspecified type Qualified Code(s): D64.9 - Anemia, unspecified
[2022-10-05] MEDS: NITROGLYCERIN 2% OINTMENT 30GM TUBE EXT SCH ×3 (10:31→23:44)
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
[2022-10-05 12:02] LABS: BUN Creatinine Ratio 21.4 (10-20); Calcium 10.7 mg/dl (8.6-10.3); Creatinine Clr Calc Pharmacy 51.6 ml/min; Est GFR (African American) 78.8 ml/min; Potassium 4.8 mmol/L (3.5-5.1)
[2022-10-05 12:14] LABS: Base Excess ABG 14.9 mEq/L (-9-1.8); HCO3 ABG 42 mmol/L (19-24); Oxygen Saturation ABG 90.8 % (90-95); PCO2 ABG 62 mmHg (35-46); PO2 ABG 60 mmHg (80-95); pH ABG 7.44 (7.35-7.45)
[2022-10-05 12:17] LABS: Allen Test Pos (Pos)
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
[2022-10-05] MEDS: METOPROLOL SUCC 25MG EXT REL TAB PO SCH (21:29)
[2022-10-05] MEDS: cefTRIAXone SODIUM 2,000 MG in DEXTROSE 5% 50 ML IV SCH (21:29)
[2022-10-06] MEDS: ACETAMINOPHEN 500 MG TAB PO SCH ×2 (03:14→11:05)
[2022-10-06] MEDS: NITROGLYCERIN 2% OINTMENT 30GM TUBE EXT SCH (06:16)
--- NOTE | 2022-10-06 06:40 | Hospitalist Progress Note ---
Date of Service October 05, 2022 Assessment & Plan (1) Acute on chronic diastolic heart failure: Plan: Hypoxia and dyspnea multifactorial including COPD, CHF, anemia and deconditioning after prolonged hospital stay. Breathing improved after blood transfusion, however, overnight she became acutely short of breath requiring Lasix/nitropaste. Refused BIPAP for treatment of hypercarbia. Cont current therapies while getting hospice lined up. (2) Chronic obstructive pulmonary disease: Plan: chronic, stable. Chronic oxygen supplementation and she is at her baseline. No wheezing heard. Cont once daily Trelegy inhaler substitute. Cont nebs for now. (3) History of GI bleed: Plan: chronic blood loss anemia with EGD revealing gastritis last admission. She required 3 units of pRBCs two weeks ago and initially blood thinners were held. Restarted anticoagulation with Lovenox given on admission transitioned to low dose heparin. Heparin was not therapeutic after a few days, and the frequent PTT checks are creating a problem with her post op shoulder discomfort. Changeed to lower dose apixaban now (5mg PO bID) avoiding the bolus because the thrombus in her lungs is not new, she recently bled and we run a higher risk of causing her to bleed with the 10mg BID dose, and she has been receiving heparin now for several days. Cont PPI and carafate. Cont iron supplement. (4) Septic arthritis of shoulder, left: Plan: cont Rocephin daily until 10/22 per recent ID recommendations. Previously set up for home health. (5) Atrial fibrillation and flutter: Plan: cont diltiazem and metoprolol, heparin ongoing for now. (6) CAD (coronary artery disease): Plan: chronic, stable. Mildly reduced EF 45-50% (7) HTN (hypertension): Plan: chronic, stable. Cont current medications. (8) Abnormal CT scan, chest: Plan: Irregular linear airspace opacities are seen in the right lower lobe that may be atelectatic or inflammatory but not well seen in setting of pleural effusion. Followup CT chest in 3-4 monnths for re-evaluation. Heparin DNR/DNI Dispo-patient is wanting to return home with hospice. Notified cardiology of this change. I discussed with Dr. Up who is taking over care tomorrow. Will continue current treatments for now until this can be set up. Likely home tomorrow with Hospice. I spent a total [id number] coordinating, documenting, and providing care for this patient excluding time spent in the performance of separately billed services DO Esteban Thompson Hospitalist Admission and Anticipated Discharge Date Admission Date: October 01, 2022 Subjective 77 yo admitted for CHF exacerbation after prolonged hospital stay She became acutely short of breath this morning with repeat CXR improved but still with effusions and congestion She was given Lasix 40mg IV and nitro paste was added ass she was hypertensive ABG could not be obtained, however, VBG revealed hypercarbia with acute respiratory acidosis BIPAP was ordered but she couldn't tolerate and refused she refused jean but was good with [facility] I spoke with her daughter by phone for 30 minutes regrding the options for treatment at this point I consulted pulmonology When daughter arrived we spoke together with the patient in the room and together we decided on Hospice Dr. Gonzalez later came to see patient and hospice to home is being set up The patient states "I feel fine, no symptoms, and I want to go home" Daughter is comfortable with this plan Review of Systems Review of Systems: All systems were reviewed and negative except as indicated on subjective above. Physical Exam Physical Exam: CONSTITUTIONAL: thin, vitals as above, generally well-appearing, NAD EYES: normal conjunctivae, no scleral icterus ENT: external ear and nose normal, MMM NECK: trachea midline RESPIRATORY: clear to auscultation bilaterally, diminished breath sounds throughout, no crackles, rales or wheezes, normal respiratory effort CARDIOVASCULAR: regular rate and rhythm, S1 and 2 heard without murmurs, gallops or rubs, no JVD, no peripheral edema CHEST: inspection of chest was normal GASTROINTESTINAL: soft, nontender, ND, no guarding MUSCULOSKELETAL: strength 5/5 throughout, head is normocephalic and atraumatic SKIN: warm and dry, multiple areas on ecchymosis on her legs that are chronic. NEUROLOGIC: CN 2-12 grossly intact, no sensory deficit, normal cognition, normal speech, no tremor PSYCHIATRIC: alert cooperative and oriented to person, place and time. Euthym ic mood, makes good eye contact, language grossly intact, recent and remote memory grossly intact. Results & Data Results & Data Vital Signs (Past 12 Hours) Vital Signs Temp Pulse Pulse Resp BP Pulse Ox Pulse Ox 06/07/23 00:00 69 10/06/22 02:49 36.7 C 71 18 134/80 98 10/05/22 21:00 98 10/05/22 22:58 36.5 C 75 18 115/73 98 10/05/22 19:57 10/05/22 19:27 71 16 97 10/05/22 19:00 36.5 C 79 20 120/59 L 97 O2 Del Method O2 Del Method O2 Flow Rate O2 Flow Rate 10/06/22 00:00 10/06/22 02:49 Nasal Cannula 10/05/22 21:00 Nasal Cannula 3 10/05/22 22:58 Nasal Cannula 10/05/22 19:57 Nasal Cannula 3 10/05/22 19:27 Nasal Cannula 3 10/05/22 19:00 Nasal Cannula
[2022-10-06] MEDS: ALBUT/IPRATROP 3MG/0.5MG NEB 3 ML VIAL NEB SCH (07:17)
--- NOTE | 2022-10-06 07:52 | Pulmonology Progress Note ---
Date of Service October 06, 2022 Assessment & Plan (1) Acute on chronic respiratory failure with hypoxia and hypercapnia: Plan: IMPRESSION: 77-year-old female with end-stage COPD presenting with acute on chronic hypoxic respiratory failure in the setting of CHF exacerbation. As noted before, the patient chronically requires 3 L nasal cannula. She is back at her baseline 3 L at this time. We had extensive conversation yesterday discussing NIV support to aid in the COPD patient that is continuing to accumulate CO2. After extensive conversation, she had refused an IV. Additionally, during palliative care discussion, the patient had reiterated that she does not wish to utilize an IV and would rather continue with her ongoing management. Hospice is set up for home at this time. Pulmonary medicine has no further recommendations at this time. We will be happy to evaluate her again if she would choose to move forward with NIV/AVAPS, but otherwise, the patient can follow-up with her primary service for ongoing medical needs. (2) Respiratory acidosis: Plan: Improved. (3) CHF (congestive heart failure): Plan: Improved. Heart failure chronicity: acute on chronic Heart failure type: unspecified Qualified Code(s): I50.9 - Heart failure, unspecified (4) Pleural effusion: Plan: Small effusion. Continue with diuresis as directed by cardiology. (5) COPD exacerbation: Plan: Appears to be back at her baseline function at this time. She is without bronchospastic findings on exam today. Continue with home inhalers/nebulizers as previously Plan Thank you for allowing us to participate in the care of this pleasant patient. Pulmonary medicine will sign off at this time. Admission and Anticipated Discharge Date Admission Date: October 01, 2022 Subjective Patient was seen and evaluated at bedside. She reports feeling better and comfortable for discharge to home. She reiterates that she would not be interested in utilizing BiPAP or AVAPS moving forward. Review of Systems Review of Systems: Unchanged from prior Physical Exam Physical Exam: VITAL SIGNS - Vital signs and nursing notes were reviewed. GENERAL - 77-year-old female appearing her stated age who is in no acute distress. Communicates well with provider and answers questions appropriately. NOSE - Nasal cannula in place. Midline and without cyanosis. MOUTH/OROPHARYNX - Without perioral cyanosis. LUNGS - Auscultation reveals decrease air entry with slight bibasilar rales. No wheezes or rhonchi appreciated. CARDIAC - RRR with S1/S2. No murmur, rubs, or gallops appreciated. PSYCH - A&Ox3 and cooperates fully with examiner. Pt is very pleasant and interacts well with examiner. Results & Data Results & Data Vital Signs (Past 12 Hours) Vital Signs Temp Pulse Pulse Resp BP Pulse Ox Pulse Ox 10/06/22 07:41 36.6 C 87 20 133/87 90 10/06/22 07:17 99 H 16 95 10/06/22 00:00 69 10/06/22 02:49 36.7 C 71 18 134/80 98 10/05/22 21:00 98 10/05/22 22:58 36.5 C 75 18 115/73 98 10/05/22 19:57 O2 Del Method O2 Del Method O2 Flow Rate O2 Flow Rate 10/06/22 07:41 Nasal Cannula 3 10/06/22 07:17 Nasal Cannula 3 10/06/22 00:00 10/06/22 02:49 Nasal Cannula 10/05/22 21:00 Nasal Cannula 3 10/05/22 22:58 Nasal Cannula 10/05/22 19:57 Nasal Cannula 3 PG Care Time/CCT Total # of Minutes Spent Total Time Spent with Patient: Total time spent is greater than 50% in coordination of care (as documented) at patient's floor/unit and/or counseling patient: Coding Level of Care Code 73101 SUB INP/OBS CARE 2/35MIN Diagnoses Acute on chronic respiratory failure with hypoxia and hypercapnia J96.21; J96.22 Respiratory acidosis E87.29 CHF (congestive heart failure) I50.9 Heart failure chronicity: acute on chronic Heart failure type: unspecified Pleural effusion J90 COPD exacerbation J44.1
[2022-10-06] MEDS: traMADol HCL 50 MG TABLET PO SCH (08:11)
[2022-10-06] MEDS: GABAPENTIN 300 MG CAP PO SCH (08:12)
[2022-10-06] MEDS: METOPROLOL SUCC 25MG EXT REL TAB PO SCH (08:12)
[2022-10-06] MEDS: SUCRALFATE 1 GM TAB PO SCH (08:13)
[2022-10-06] MEDS: buPROPion SR 150 MG TABCR PO SCH (08:13)
[2022-10-06] MEDS: APIXABAN 5 MG TABLET PO SCH (08:13)
[2022-10-06] MEDS: ATORVASTATIN 40 MG TAB PO SCH (08:13)
[2022-10-06] MEDS: CHOLECALCIFEROL 1,000 UNITS 25 MCG TAB PO SCH (08:13)
[2022-10-06] MEDS: FERROUS SULFATE 325 MG TAB PO SCH (08:14)
[2022-10-06] MEDS: PANTOprazole 40 MG TAB PO SCH (08:14)
[2022-10-06] MEDS: FLUTICASONE/VILANTEROL 100/25MCG 14 PUFFS/INHALER INH SCH (08:15)
[2022-10-06] MEDS ORDERED: FUROSEMIDE 40 MG TAB PO SCH (09:00)
--- NOTE | 2022-10-06 10:28 | Cardiology Progress Note ---
Date of Service October 06, 2022 Assessment & Plan (1) Acute on chronic diastolic heart failure: (2) Acute on chronic respiratory failure with hypoxia and hypercapnia: Plan: - Chronic COPD noted. She is at her baseline level of function supplementation 3 L/min nasal cannula. (3) Atrial flutter: Plan: - Rate control: (4) Anemia: Plan: - As noted above (5) Septic arthritis of shoulder, left: Plan: - Doing well from an infection standpoint. Cultures from previous admission were negative. Continue Rocephin as per prior infectious disease advice. Plan Patient clinically improved with adjustment medications. Heart rate improved. No signs of volume overload Atrial fibrillation rates better controlled. Echocardiogram reviewed reflecting underlying ischemic cardiomyopathy with moderate left dysfunction mild to moderate mitral insufficiency likely worsened in the setting of atrial fibrillation with rapid response Plan: Continue furosemide 40 mg daily Continue metoprolol succinate 75 mg twice per day Change topical nitrates to Imdur 30 mg p.o. daily Continue to treat underlying pulmonary issues Admission and Anticipated Discharge Date Admission Date: October 01, 2022 Subjective Patient seen and examined, chart, medications, telemetry reviewed. Patient remains in atrial fibrillation but with controlled ventricular sponsor rate. Ambulatory in room without difficulties feels him clinically improved. No chest pains or worsening shortness of breath Still with chronic oxygen requirements Review of Systems Review of Systems: All systems reviewed & are unremarkable except as noted in Subjective Physical Exam Constitutional: WD/WN, vitals as above + thin; no acute distress ENMT: external ear and nose normal, oropharynx normal Neck: trachea midline, no thyromegaly Respiratory: Auscultation: + diminished lung sounds (Bilateral lung field); no crackles and no rales Cardiovascular: Rate/Rhythm: regular rate and regular rhythm (Atrial flutter) Heart Sounds: no murmur Extremities: no edema Gastrointestinal (Abdomen): normal bowel sounds, soft, nontender, no hepatosplenomegaly Neurologic: PERRL, EOMI, accommodation nl, no face palsy, no dysarthria Results & Data Vital Signs (Past 12 Hours) Vital Signs Temp Pulse Pulse Resp BP Pulse Ox O2 Del Method 10/06/22 10:07 71 10/06/22 09:50 Nasal Cannula 10/06/22 07:41 36.6 C 87 20 133/87 90 Nasal Cannula 10/06/22 07:17 99 H 16 95 Nasal Cannula 10/06/22 00:00 69 10/06/22 02:49 36.7 C 71 18 134/80 98 Nasal Cannula 10/05/22 22:58 36.5 C 75 18 115/73 98 Nasal Cannula O2 Flow Rate 10/06/22 10:07 10/06/22 09:50 3 10/06/22 07:41 3 10/06/22 07:17 3 10/06/22 00:00 10/06/22 02:49 10/05/22 22:58 Laboratory Results Laboratory Results - last 24 hr 10/05/22 10/05/22 11:28 12:06 ABG pH 7.44 ABG pCO2 62 H ABG pO2 60 L ABG HCO3 42 H ABG O2 Saturation 90.8 ABG Base Excess 14.9 H Uday Test Pos Oxygen Given Sodium 141 Potassium 4.8 Chloride 94 L Carbon Dioxide 42 H* Anion Gap 5 BUN 18 Creatinine 0.84 Est Cr Clr Drug Dosing 51.6 Est GFR ( Amer) 78.8 Est GFR (Non-Af Amer) 68.0 BUN/Creatinine Ratio 21.4 H Glucose 134 H Calcium 10.7 H (3) Atrial flutter Atrial flutter type: unspecified Qualified Code(s): I48.92 - Unspecified atrial flutter (4) Anemia Anemia type: unspecified type Qualified Code(s): D64.9 - Anemia, unspecified
[2022-10-06] MEDS ORDERED: ISOSORBIDE MONO EXTENDED REL 30 MG TABCR PO SCH (10:45)
--- NOTE | 2022-10-06 13:08 | Discharge Summary ---
Date of Service October 06, 2022 Admission HPI Per Admitting Provider This is a 77-year-old female who has significant past medical history of chronic hypoxic respiratory failure on 2 to 3 L of oxygen, COPD, CAD, chronic diastolic CHF, hypertension, pulmonary hypertension, PFO, wandering atrial pacemaker, hyperlipidemia, senile osteoporosis, meningioma, iron deficiency anemia, tobacco use disorder, AAA status postrepair presented to ER with c/o SOB. History obtained from patient as well as inpatient and outpatient chart review. Patient with recent admission 09/16/2022-09/30/22 for symptomatic anemia secondary to chronic GI blood loss. Patient had EGD on 09/17/2022 that showed mild e sophagitis, gastritis and had 3 units PRBCs. Hemoglobin on admission was 6 from prior baseline of 11. Hemoglobin had stabilized after PRBC transfusion. She was discharged on daily Protonix and Carafate twice daily and iron supplement. Also had AP which resolved. During admission had paroxysmal atrial flutter and received amiodarone and Cardizem. Cardiology had recommended metoprolol tartrate 25 mg every 6 hours and Cardizem 30 mg every 8 hours. Her Eliquis has been on hold. Cardiology recommended holding Eliquis secondary to risk for since benefits and starting patient on aspirin 81 mg daily. Lasix was initially held secondary to AP however Lasix was resumed. Patient was also treated for left shoulder septic arthritis. ID was consulted and patient was discharged with PICC line in place with plan for 2 g IV Rocephin daily until 10/22/2022. Patient states today started with increased SOB. Last night had episode diaphoresis. Denies known fever. Mild intermittent chest pain described as twinges. States this is not new for her. She reports chronic cough productive white/clear sputum. Denies increased cough. Her daughter noticed right lower leg looked more swollen today. Patient denies any pain to extremity. She states L shoulder pain is stable, denies any worsening. Denies fever, N/V/D/C, melena, hematochezia, MORAN, dizziness, syncope, palpitations, hemoptysis, sore throat, rhinorrhea, abdominal pain, paresthesias, weakness, rashes, urinary symptoms. Admission Exam Per Admitting Provider General: no acute distress on 3L via NC, thin elderly female Head: normocephalic, atraumatic Eyes: conjunctiva non-injected, anicteric ENT: normal inspection external ears, nose, mucous membranes moist Neck: supple, trachea midline Lungs: no acute respiratory distress on current 3 L via nasal cannula, respirations 24 without retractions, + scattered wheezing, +rales bases CV: Irregularly irregular rate 84 Abd: normal BS, soft, non-tender Ext: RLE: + RLE larger than LLE with no cyanosis, no calf tenderness, + scattered ecchymosis to upper and lower extremities bilaterally. LUE: No edema or erythema noted. + Diffuse tenderness to palpation and any attempted active range of motion Neuro: A&O x 3, no focal deficits noted, normal affect Skin: warm, dry Principal Diagnosis Acute on chronic diastolic heart failure Discharge Exam Constitutional CONSTITUTIONAL: thin, NAD on 3L (baseline) EYES: normal conjunctivae, no scleral icterus ENT: external ear and nose normal, MMM NECK: trachea midline, supple RESPIRATORY: clear to auscultation bilaterally, w/ some wheezes, normal respiratory effort CARDIOVASCULAR: regular rate and rhythm, S1 and 2 heard without murmurs, gallops or rubs, no JVD, no peripheral edema CHEST: inspection of chest was normal GASTROINTESTINAL: soft, nontender, ND, no guarding MUSCULOSKELETAL: head is normocephalic and atraumatic, moves extremities SKIN: warm and dry, multiple areas on ecchymosis on her legs that are chronic. NEUROLOGIC:awake, alert, normal cognition, normal speech, no tremor, moves extremities Discharge Data Allergies Allergy/AdvReac Type Severity Reaction Status Date / Time No Known Allergies Allergy Unknown Verified 10/01/22 17:15 Consultations 10/01/22 16:48 ED Decision to Admit Stat 10/01/22 21:17 Consult Cardiology Routine 10/05/22 10:53 Consult Pulmonology Routine 10/05/22 11:11 Consult Palliative Care Routine Ordered Studies 10/01/22 17:31 CT angio chest PE protocol Stat IMPRESSION: 1. There is no evidence of acute pulmonary embolus in the main, lobar, or segmen anali pulmonary arteries. 2. There is a small amount of chronic appearing thrombus in the distal left main pulmonary artery. 3. Cardiomegaly and emphysema with evidence of pulmonary artery hypertension. 4. Right larger than left pleural effusions with dependent atelectasis. 5. Irregular linear airspace opacities are seen in the right lower lobe. These may be atelectatic or inflammatory but are not well assessed due to adjacent pleural effusion. A follow-up chest CT in 3-4 months time is recommended for reevaluation. 6. Additional findings as above. US venous doppler LE RT Stat Hospital Course (1) Acute on chronic diastolic heart failure: Hypoxia and dyspnea multifactorial including COPD, CHF, anemia and deconditioning after prolonged hospital stay. Breathing improved after blood transfusion, however, overnight she became acutely short of breath requiring Lasix/nitropaste. Refused BIPAP for treatment of hypercarbia. Cont current therapies while getting hospice lined up. Discussed with cardiology, plan to discharge on furosemide 40 mg daily, metoprolol succinate 75 mg twice daily, Imdur 30 mg daily. Diltiazem was stopped. (2) Chronic obstructive pulmonary disease: chronic, stable. Chronic oxygen supplementation and she is at her baseline. has some wheezing. Cont once daily Trelegy inhaler substitute. Cont nebs for now. (3) History of GI bleed: chronic blood loss anemia with EGD revealing gastritis last admission. She required 3 units of pRBCs two weeks ago and initially blood thinners were held. Restarted anticoagulation with Lovenox given on admission transitioned to low dose heparin. Heparin was not therapeutic after a few days, and the frequent PTT checks are creating a problem with her post op shoulder discomfort. Changed to lower dose apixaban now (5mg PO BID) avoiding the bolus because the thrombus in her lungs is not new, she recently bled and we run a higher risk of causing her to bleed with the 10mg BID dose, and she has been receiving heparin now for several days. Cont PPI and carafate. Cont iron supplement. (4) Septic arthritis of shoulder, left: continued Rocephin daily while inpt. Previously set up for home health. Patient and family do not want to continue with IV antibiotics, pt wants to be discharged w/ hospice. Cultures negative. Discussed to cont.abx as PO - switched to Keflex. Patient and family can further discuss with hospice providers. (5) Atrial fibrillation and flutter: diltiazem switched to metoprolol succinate 75 mg BID (6) CAD (coronary artery disease): chronic, stable. Mildly reduced EF 45-50% (7) HTN (hypertension): chronic, stable. Cont current medications. (8) Abnormal CT scan, chest: Irregular linear airspace opacities are seen in the right lower lobe that may be atelectatic or inflammatory but not well seen in setting of pleural effusion. Follow-up CT chest in 3-4 months for re-evaluation. However, pt now to be discharged on hospice. DNR/DNI Dispo- plan to DC home w/ hospice Total Time Total Time Spent Total Time Spent (In Minutes): 40 Discharge Plan Discharge Items Patient Disposition: Hospice - Home Reason For Visit: RESPIRATORY FAILURE Discharge Diagnosis: Acute on chronic diastolic heart failure Condition on Discharge: Fair Activity: Per Instructions section Non-emergency contact: Primary Care Provider and Stage Rigger Call non-emergency contact if: you have any medication questions and your symptoms worsen Follow-up/Referrals: Ever Pike MD [Primary Care Provider] - (Date & Time 10/11/2022 10:20 AM Provider Aarti Ayala MD Department General Internal Medicine [facility] ) Diet: Low Sodium (2gm) Addtl Attending Provider Instructions: During your hospital stay, your heart medications were changed. Per cardiology, it is recommended that you take furosemide 40 mg daily, metoprolol succinate 75 mg twice a day, Imdur 30 mg p.o. daily. Your IV antibiotics were changed to oral form. Discuss further with your hospice care providers if any medication changes should be made. Pending Studies at Discharge: Yes Studies:: Final blood cultures Stand-Alone Forms: [facility] Medications and DC Order Prescriptions: New metoprolol succinate 25 mg Tablet Extended Release 24 Hr 75 mg PO BID Qty: 60 0RF isosorbide mononitrate 30 mg Tablet Extended Release 24 Hr 30 mg PO QAM Qty: 30 0RF furosemide 40 mg Tablet 40 mg PO QAM Qty: 30 0RF cephalexin 500 mg capsule 500 mg PO QID 10 Days Qty: 40 0RF Eliquis 5 mg Tablet 5 mg PO BID Qty: 60 0RF ferrous sulfate 325 mg (65 mg iron) Tablet,Delayed Release (Dr/Ec) 325 mg PO QAM Qty: 30 0RF Continued atorvastatin 80 mg Tablet 80 mg PO QAM nitroglycerin [Nitrostat] 0.4 mg Tablet, Sublingual 0.4 mg sublingual DAILY PRN (Reason: Chest Pain) cholecalciferol (vitamin D3) 25 mcg (1,000 unit) Tablet 25 mcg PO QAM albuterol sulfate 90 mcg/actuation HFA aerosol inhaler 2 puff INHALATION Q4 PRN (Reason: Shortness Of Breath) bupropion HCl 150 mg tablet sustained-release 12 hr 150 mg PO AMHS gabapentin 300 mg capsule 300 mg PO BID albuterol sulfate 2.5 mg /3 mL (0.083 %) Solution For Nebulization 2.5 mg INHALATION QID PRN (Reason: Shortness Of Breath) Trelegy Ellipta 100-62.5-25 mcg Blister With Device 1 inh INHALATION QAM diltiazem HCl 30 mg Tablet 30 mg PO TID Qty: 90 0RF sucralfate [Carafate] 1 gram tablet 1 g PO BID Qty: 112 0RF pantoprazole 40 mg Tablet,Delayed Release (Dr/Ec) 40 mg PO DAILY Qty: 30 0RF Changed ipratropium-albuterol 0.5 mg-3 mg(2.5 mg base)/3 mL solution for nebulization 3 ml INHALATION BID PRN (Reason: SOB wheezing) Qty: 180 0RF Discontinued lisinopril 40 mg Tablet 20 mg PO QAM furosemide 40 mg tablet 40 mg PO BID potassium chloride 10 mEq tablet,ER particles/crystals 10 meq PO AMHS metoprolol tartrate 25 mg tablet 25 mg PO QID Discharge Orders: Discharge Order- CHF (Routine); Ordered 10/06/22 Ordered By: Chava Up Admission Data Admit Date/Time: 10/01/22 17:14 Attending Provider: Chava Up Admit Provider: Yomi Juarez Primary Care Provider: Ever Pike Other Providers: Yomi Juarez ; Orlin Watson ; Braulio Mejias ; Renetta Almendarez ; Vanessa Medellin
--- NOTE | 2022-10-06 22:59 | Electrocardiogram Report ---
Test Reason : Blood Pressure : / mmHG Vent. Rate : 072 BPM Atrial Rate : 078 BPM P-R Int : 000 ms QRS Dur : 092 ms QT Int : 420 ms P-R-T Axes : 000 086 132 degrees QTc Int : 459 ms Atrial flutter Anteroseptal infarct (cited on or before 04-OCT-2022) Abnormal ECG When compared with ECG of 02-OCT-2022 06:10, Anteroseptal infarct is now Present Confirmed by Vu Wren ([id number]) on 10/06/2022 10:59:07 PM Referred By: REFERRED SELF Confirmed By:Vu Wren
== END 2022-10-06 14:24 | disposition hospice, home (50) | DRG 291 ==
LOC: ED 14:29 → 2S 17:14 → SUATTDRO 17:14 → 2S 20:45